=== PATIENT | male | born 1955 | race Caucasian/White ===

== ENCOUNTER 2017-03-18 11:00 | Emergency (ER) | payer MEDICARE, MEDICAID ==
[2017-03-18] MEDS ORDERED: HYDROmorphone 0.5 MG/0.5 ML Syringe IVPUSH ONE (11:50)
[2017-03-18] MEDS ORDERED: Alum Hydrox/Mag Hydrox/Simeth 30 ML, Lidocaine 2% 15 ML PO ONE ×2 (11:50)
[2017-03-18] MEDS ORDERED: Sodium Chloride 0.9% 10 ML Syringe FLUSH PRN (11:51)
--- NOTE | 2017-03-18 11:53 | EDM.PDOC ---
ED HPI GENERAL MEDICAL PROBLEM - General Chief Complaint: Abdominal Pain Stated Complaint: STOMACH PAIN Time Seen by Provider: 03/18/17 11:32 Source of Information: Reports: Patient History Limitations: Reports: No Limitations - History of Present Illness INITIAL COMMENTS - FREE TEXT/NARRATIVE: Patient is 61-year-old male who presents to the ED complaining of abdominal pain. States the pains has been going on for the past 8 months with unclear etiology. He's been seen by his PCP Dr. Ochoa. He's had no EGD or colonoscopy. Patient states the abdominal pain has progressively gotten worse over the past 4 days. He is nauseated with no vomiting. He has had a little diarrhea today. Normally discomfort will go away with taking Gaviscon. As of recently it has not been working. Describes the pain to the periumbilical region as an upset stomach. This pain worsens with coffee and diet Coke. He has a poor appetite. He has not had a EGD or colonoscopy recently. He's had 4 episodes of diarrhea this morning denies any blood present. Denies any recent ingestion of any bad or questionable food. No out of country travel. No recent sick exposures. States he is feeling anxious unknown why. He sees Dr. peres for anxiety, depression, and also schizophrenia. No changes to medications. He has taken a Valium this morning with no changes to anxiety. In addition he has had intermittent chest pain with onset of abdominal pain. With intermittent shortness of breath as well. He has a chronic cough described as nonproductive. This has been a long ongoing issue secondary to his smoking history. He continues to smoke one pack per day. Past medical history: Hypoglycemia, hypertension, COPD, emphysema, pancreatitis , chronic back pain, anxiety, depression, schizophrenia, type 2 diabetes with the last A1c of 7.4 Current medications include: Metoprolol succinate, aspirin, lisinopril, insulin pump, Lasix, Lipitor, lamotrigine, Valium, and trazodone Middle Abdomen Pain Score (Numeric/FACES): 4 - Related Data Allergies Allergy/AdvReac Type Severity Reaction Status Date / Time celecoxib [From Celebrex] AdvReac Nausea Verified 06/27/15 10:26 mirtazapine [From Remeron] AdvReac Confusion Verified 06/27/15 10:26 Home Meds: Home Meds Metoprolol Succinate 50 mg PO DAILY 11/06/13 [History] Aspirin [Halfprin] 81 mg PO DAILY 10/01/14 [History] Lisinopril 20 mg PO DAILY 10/01/14 [History] Subcutaneous Insulin Pump [Insulin Pump] 0 units INJECT ASDIRECTED 11/29/14 [ History] Furosemide [Lasix] 40 mg PO DAILY 05/12/15 [History] atorvaSTATin [Lipitor] 10 mg PO BEDTIME 05/12/15 [History] lamoTRIgine [Lamotrigine] 100 mg PO BID 05/12/15 [History] lamoTRIgine [Lamotrigine] 150 mg PO ACBREAKFAST 05/12/15 [History] traZODone 200 mg PO BEDTIME 03/18/17 [History] Past Medical History HEENT History: Reports: Impaired Vision Cardiovascular History: Reports: High Cholesterol, Hypertension Other Cardiovascular History: 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 Respiratory History: Reports: COPD Other Respiratory History: emphysema Gastrointestinal History: Reports: Pancreatitis Musculoskeletal History: Reports: Back Pain, Chronic Psychiatric History: Reports: Anxiety, Depression, Schizophrenia Endocrine/Metabolic History: Reports: Diabetes, Type II Oncologic (Cancer) History: Reports: None - Past Surgical History GI Surgical History: Reports: Hernia, Inguinal Neurological Surgical History: Reports: Lumbar Spine, Other (See Below) Social & Family History - Tobacco Use Smoking Status *Q: Current Every Day Smoker Years of Tobacco use: 40 Packs/Tins Daily: 1 Used Tobacco, but Quit: No Second Hand Smoke Exposure: No - Caffeine Use Caffeine Use: Reports: Coffee, Soda - Alcohol Use Days Per Week of Alcohol Use: 0 - Recreational Drug Use Recreational Drug Use: No - Living Situation & Occupation Living situation: Reports: Alone, Single Occupation: Unemployed ED ROS GENERAL - Review of Systems Review Of Systems: See Below Constitutional: Reports: Decreased Appetite. Denies: Fever, Chills, Malaise Respiratory: Reports: Shortness of Breath (chronic), Pleuritic Chest Pain (Off- and-on), Cough (Nonproductive). Denies: Hemoptysis Cardiovascular: Reports: Chest Pain (Substernal). Denies: Dyspnea on Exertion, Orthopnea, Palpitations, PND, Syncope GI/Abdominal: Reports: Abdominal Pain, Constipation, Diarrhea, Decreased Appetite, Nausea (Intermittent). Denies: Black Stool, Bloody Stool, Difficulty Swallowing, Distension, Flatus, Hematemesis, Hematochezia, Melena, Stool Incontinence, Vomiting : Denies: Dysuria, Frequency, Hematuria, Incontinence, Pain Musculoskeletal: Reports: No Symptoms Neurological: Reports: No Symptoms ED EXAM, GI/ABD - Physical Exam Exam: See Below Exam Limited By: No Limitations General Appearance: Alert, WD/WN, No Apparent Distress Ears: Hearing Grossly Normal Nose: Normal Inspection Throat/Mouth: Normal Inspection, Normal Oropharynx, Normal Voice, No Airway Compromise Neck: Normal Inspection, Supple, Full Range of Motion Respiratory/Chest: No Respiratory Distress, Lungs Clear, Normal Breath Sounds, No Accessory Muscle Use, Chest Non-Tender Cardiovascular: Normal Peripheral Pulses, Regular Rate, Rhythm GI/Abdominal Exam: Normal Bowel Sounds, Soft, No Organomegaly, No Distention, No Abnormal Bruit, No Mass, Other (Right upper quadrant and periumbilical region. Positive Beltre sign) Back Exam: Normal Inspection. No: CVA Tenderness (L), CVA Tenderness (R) Extremities: Normal Inspection, Normal Range of Motion, Non-Tender, Normal Capillary Refill, Other (2+ to the ankles bilaterally) Neurological: Alert, Oriented, CN II-XII Intact, Normal Cognition, No Motor/ Sensory Deficits Psychiatric: Normal Affect, Normal Mood Skin Exam: Warm, Dry, Intact, Normal Color Course - Vital Signs Last Recorded V/S: Last Vital Signs Temp 98.1 F 03/18/17 13:15 Pulse 71 03/18/17 13:15 Resp 22 H 03/18/17 13:15 BP 171/87 H 03/18/17 13:15 Pulse Ox 87 L 03/18/17 13:15 - Orders/Labs/Meds Orders: Active Orders 24 hr Category Date Time Status EKG Documentation Completion [RC] STAT Care 03/18/17 11:56 Active Peripheral IV Care [RC] . DIRECTED Care 03/18/17 11:51 Active Peripheral IV Insertion Adult [OM.PC] Stat Oth 03/18/17 11:51 Ordered Labs: Laboratory Tests 03/18/17 03/18/17 03/18/17 Range/Units 12:15 12:15 12:15 WBC 6.27 (4.23-9.07) K/mm3 RBC 5.24 (4.63-6.08) M/mm3 Hgb 17.1 (13.7-17.5) gm/L Hct 52.2 H (40.1-51.0) % MCV 99.6 H (79.0-92.2) fl MCH 32.6 H (25.7-32.2) pg MCHC 32.8 (32.2-35.5) g/dl RDW Std Deviation 60.4 H (35.1-43.9) fL Plt Count 285 (163-337) K/mm3 MPV 9.1 L (9.4-12.3) fl Neut % (Auto) 68.6 H (34.0-67.9) % Lymph % (Auto) 18.2 L (21.8-53.1) % [place] % (Auto) 10.5 (5.3-12.2) % Eos % (Auto) 1.9 (0.8-7.0) Baso % (Auto) 0.6 (0.1-1.2) % Neut # (Auto) 4.30 (1.78-5.38) K/mm3 Lymph # (Auto) 1.14 L (1.32-3.57) K/mm3 [place] # (Auto) 0.66 (0.30-0.82) K/mm3 Eos # (Auto) 0.12 (0.04-0.54) K/mm3 Baso # (Auto) 0.04 (0.01-0.08) K/mm3 APTT (22-36) SECONDS Sodium 140 (136-145) mEq/L Potassium 4.3 (3.5-5.1) mEq/L Chloride 103 (98-107) mEq/L Carbon Dioxide 31 (21-32) mEq/L Anion Gap 10.3 (5-15) BUN 10 (7-18) mg/dL Creatinine 1.2 (0.7-1.3) mg/dL Est Cr Clr Drug Dosing 67.59 mL/min Estimated GFR (MDRD) > 60 (>60) mL/min BUN/Creatinine Ratio 8.3 L (14-18) Glucose 126 H (74-106) mg/dL Calcium 9.1 (8.5-10.1) mg/dL Total Bilirubin 0.6 (0.2-1.0) mg/dL Direct Bilirubin 0.20 (0.0-0.2) mg/dl GGT 100 H (15-85) U/L AST 21 (15-37) U/L ALT 36 (16-63) U/L Alkaline Phosphatase 184 H (46-116) U/L Troponin I 0.142 H* (0.00-0.056) ng/mL C-Reactive Protein 1.2 H* (<1.0) mg/dL Lmi-[id number]-Emhtodazbjs Pept 576 H (0-125) pg/mL Total Protein 7.3 (6.4-8.2) g/dl Albumin 3.4 (3.4-5.0) g/dl Globulin 3.9 gm/dL Albumin/Globulin Ratio 0.9 L (1-2) Lipase 71 L (73-393) U/L Urine Color (Yellow) Urine Appearance (Clear) Urine pH (5.0-8.0) Ur Specific [place] (1.005-1.030) Urine Protein (Negative) Urine Glucose (UA) (Negative) Urine Ketones (Negative) Urine Occult Blood (Negative) Urine Nitrite (Negative) Urine Bilirubin (Negative) Urine Urobilinogen (0.2-1.0) Ur Leukocyte Esterase (Negative) Urine RBC (0-5) /hpf Urine WBC (0-5) /hpf Ur Epithelial Cells (0-5) /hpf Urine Bacteria (FEW) /hpf Urine Mucus (FEW) /hpf 03/18/17 03/18/17 Range/Units 12:15 13:45 WBC (4.23-9.07) K/mm3 RBC (4.63-6.08) M/mm3 Hgb (13.7-17.5) gm/L Hct (40.1-51.0) % MCV (79.0-92.2) fl MCH (25.7-32.2) pg MCHC (32.2-35.5) g/dl RDW Std Deviation (35.1-43.9) fL Plt Count (163-337) K/mm3 MPV (9.4-12.3) fl Neut % (Auto) (34.0-67.9) % Lymph % (Auto) (21.8-53.1) % [place] % (Auto) (5.3-12.2) % Eos % (Auto) (0.8-7.0) Baso % (Auto) (0.1-1.2) % Neut # (Auto) (1.78-5.38) K/mm3 Lymph # (Auto) (1.32-3.57) K/mm3 [place] # (Auto) (0.30-0.82) K/mm3 Eos # (Auto) (0.04-0.54) K/mm3 Baso # (Auto) (0.01-0.08) K/mm3 APTT 29 (22-36) SECONDS Sodium (136-145) mEq/L Potassium (3.5-5.1) mEq/L Chloride (98-107) mEq/L Carbon Dioxide (21-32) mEq/L Anion Gap (5-15) BUN (7-18) mg/dL Creatinine (0.7-1.3) mg/dL Est Cr Clr Drug Dosing mL/min Estimated GFR (MDRD) (>60) mL/min BUN/Creatinine Ratio (14-18) Glucose (74-106) mg/dL Calcium (8.5-10.1) mg/dL Total Bilirubin (0.2-1.0) mg/dL Direct Bilirubin (0.0-0.2) mg/dl GGT (15-85) U/L AST (15-37) U/L ALT (16-63) U/L Alkaline Phosphatase (46-116) U/L Troponin I (0.00-0.056) ng/mL C-Reactive Protein (<1.0) mg/dL Gza-G-Xxvpzzlsaxg Pept (0-125) pg/mL Total Protein (6.4-8.2) g/dl Albumin (3.4-5.0) g/dl Globulin gm/dL Albumin/Globulin Ratio (1-2) Lipase (73-393) U/L Urine Color Yellow (Yellow) Urine Appearance Clear (Clear) Urine pH 7.5 (5.0-8.0) Ur Specific [place] 1.020 (1.005-1.030) Urine Protein 1+ H (Negative) Urine Glucose (UA) Negative (Negative) Urine Ketones Trace H (Negative) Urine Occult Blood Negative (Negative) Urine Nitrite Negative (Negative) Urine Bilirubin Negative (Negative) Urine Urobilinogen 0.2 (0.2-1.0) Ur Leukocyte Esterase Trace H (Negative) Urine RBC Not seen (0-5) /hpf Urine WBC 0-5 (0-5) /hpf Ur Epithelial Cells 0-5 (0-5) /hpf Urine Bacteria Few (FEW) /hpf Urine Mucus Few (FEW) /hpf Meds: Medications Discontinued Medications Generic Name Dose Route Start Last Admin Trade Name Freq PRN Reason Stop Dose Admin Aspirin 243 mg 03/18/17 13:08 03/18/17 13:23 Aspirin PO 03/18/17 13:09 243 mg ONETIME ONE Administration Al Hydroxide/Mg Hydroxide 30 0 ml 03/18/17 11:50 03/18/17 12:14 ml/ Lidocaine HCl 15 ml PO 03/18/17 11:51 45 ml ONETIME ONE Administration Hydromorphone HCl 0.25 mg 03/18/17 11:50 03/18/17 12:16 Dilaudid IVPUSH 03/18/17 11:51 0.25 mg ONETIME ONE Administration Sodium Chloride 1,000 mls @ 150 mls/hr 03/18/17 12:00 03/18/17 12:18 Normal Saline IV 150 mls/hr ASDIRECTED NAN Administration Heparin Sodium/Dextrose 25,000 units in 500 mls @ 30.481 mls/hr 03/18/17 13: 15 03/18/17 13:28 Heparin 25,000 Units In D5w 500 Ml IV 30.481 mls/hr TITRATE NAN Administration Protocol 12 UNITS/KG/HR Lorazepam 0.5 mg 03/18/17 13:51 03/18/17 13:55 Ativan IVPUSH 03/18/17 13:52 0.5 mg ONETIME STA Administration Lorazepam Confirm 03/18/17 13:56 03/18/17 13:59 Ativan Administered 03/18/17 13:57 Not Given Dose 2 mg .ROUTE .STK-MED ONE Sodium Chloride 10 ml 03/18/17 11:51 03/18/17 12:18 Saline Flush FLUSH 10 ml ASDIRECTED PRN Administration Keep Vein Open - Re-Assessments/Exams Free Text/Narrative Re-Assessment/Exam: Order peripheral IV with normal saline, Dilaudid 0.5 mg IVP, and GI cocktail. Initial labs and studies include CBC, chem 14, CRP, lipase, UA, troponin, chest x-ray one view, and 2 view of the abdomen flat and upright. In addition ordered GGT and direct bilirubin. Patient notes dark urine with onset of pain to RUQ and perimumbilical region. EKG reviewed: Sinus rhythm rate of [address] changes noted. CXR and abdominal x-ray reviewed with did not reveal any concerning findings. Final interpretation pending. Labs reviewed: White blood cell count 6.27, hemoglobin 17.1, platelets 285, neutrophil percentage 68.6 with no left shift, sodium 140, potassium 4.3, creatinine 1.2, glucose 126, AST 21, ill T 36, alk phosphatase is 184, GGT is 100, bili 0.25, troponin 0.142, CRP 1.2, BNP is 576, lipase 71. 03/18/17 13:09 Reassessment, patient is pain free. He took ASA 81 mg this morning. Chest pain to the left side of the chest occurred this morning. Has since improved. Patient requests being transferred to [facility]. Called [facility]. Ordered heparin bolus + drip. 03/18/17 13:16 vital signs: Blood pressure 171/87, HR 71, respirations 22, and O2 sats 87% on room air after dilaudid IV. O2 via NC will be applied. 1321 Spoke with commissioning specialist hospitalists. Suggests Speaking with Dr. Marti on cardiologists. X-ray of the chest final interpretation: Nothing acute is seen on PA chest x- ray. X-ray of the abdomen bowel interpretation: Findings compatible with mild distal small bowel obstruction. Differential also includes gastroenteritis. His results were sent with patient to [facility]. Departure - Departure Time of Disposition: 13:23 Disposition: DC/Tfer to Acute Hospital 02 Condition: Good Clinical Impression: Elevated troponin, NSTEMI (non-ST elevated myocardial infarction) Abdominal pain Qualifiers: Abdominal location: generalized Qualified Code(s): R10.84 - Generalized abdominal pain - Discharge Information Referrals: Ronald Ivory MD [Primary Care Provider] - Forms: ED Department Discharge - My Orders Last 24 Hours: My Active Orders 03/18/17 11:51 Peripheral IV Care [RC] . DIRECTED Peripheral IV Insertion Adult [OM.PC] Stat 03/18/17 11:56 EKG Documentation Completion [RC] STAT - Assessment/Plan Last 24 Hours: My Active Orders 03/18/17 11:51 Peripheral IV Care [RC] . DIRECTED Peripheral IV Insertion Adult [OM.PC] Stat 03/18/17 11:56 EKG Documentation Completion [RC] STAT
[2017-03-18] MEDS ORDERED: Sodium Chloride 0.9% 1,000 ML IV SCH (12:00)
[2017-03-18] MEDS ORDERED: Aspirin 81 MG Tab.Chew PO ONE (13:08)
[2017-03-18] MEDS ORDERED: Heparin Sodium/D5W 25,000 UNITS/500 ML BAG IV SCH (13:15)
[2017-03-18 13:39] VITALS: BP 171/87
[2017-03-18] MEDS ORDERED: LORazepam 2 MG/ML MDV IVPUSH STA (13:51)
--- NOTE | 2017-03-18 13:55 | CR ---
Chest: Frontal view of the chest is obtained. Comparison: Previous chest x-ray of 06/27/15. Heart size at the upper limits of normal. Tortuous thoracic aorta is seen. Lungs are clear with no acute infiltrates. Bony structures are grossly intact. Impression: 1. Nothing acute is seen on PA chest x-ray. Diagnostic code #1
--- NOTE | 2017-03-18 13:55 | CR ---
Abdomen: Supine and upright views of the abdomen were obtained. Air-fluid levels within slightly prominent small bowel are noted within the left upper and lesser within the right upper abdomen. No free air is seen. Calcifications are noted within the pelvis compatible with phleboliths. Arterial calcification is also seen within the pelvis. Slight degenerative change is noted within the spine. Impression: 1. Findings compatible with mild distal small bowel obstruction. Differential also includes gastroenteritis. Diagnostic code #3
[2017-03-18] MEDS ORDERED: LORazepam 2 MG/ML MDV ONE (13:56)
== END 2017-03-18 14:06 ==
LOC: JD.ED 11:00
DX: I21.4 Non-ST elevation (NSTEMI) myocardial infarction (principal); R10.84 Generalized abdominal pain; R74.8 Abnormal levels of other serum enzymes; I10 Essential (primary) hypertension; E78.00 Pure hypercholesterolemia, unspecified; J44.9 Chronic obstructive pulmonary disease, unspecified; F32.9 Major depressive disorder, single episode, unspecified; F20.9 Schizophrenia, unspecified; E11.9 Type 2 diabetes mellitus without complications; F17.210 Nicotine dependence, cigarettes, uncomplicated; Z98.890 Other specified postprocedural states; Z79.82 Long term (current) use of aspirin; Z79.899 Other long term (current) drug therapy; R06.02 Shortness of breath
CPT/HCPCS: 36415; 71010; 74020; 80053; 81001; 82248; 82977; 83690; 83880; 84484; 85025; 85730; 86140; 93005; 96361; 96365; 96375; 99285; A9270; J1644; J2060; J7040; J7050; 99284; J1170

== ENCOUNTER 2017-04-28 09:26 | Emergency (ER) | payer MEDICARE, MEDICAID ==
[2017-04-28] MEDS ORDERED: Sodium Chloride 0.9% 10 ML Syringe FLUSH PRN (09:39)
[2017-04-28] MEDS ORDERED: Albuterol/Ipratropium 3.0-0.5 MG/3 ML Neb Soln NEB ONE (09:53)
--- NOTE | 2017-04-28 10:07 | EDM.PDOC ---
ED HPI GENERAL MEDICAL PROBLEM - General Chief Complaint: Chest Pain Stated Complaint: CHEST PAIN Time Seen by Provider: 04/28/17 09:39 Source of Information: Reports: Patient, RN Notes Reviewed - History of Present Illness INITIAL COMMENTS - FREE TEXT/NARRATIVE: 61 year old male comes in with mild anterior chest discomfort present for about the last 3 hrs. Mild ache and pressure feeling anterior chest, worse with deep breathing. has a chronic nonprod cough. Hx of COPD, smoking hx. Hx of insulin dependent diabetes. has had some chronic swelling of his lower legs, has been treated recently and still on doxycycline for lower leg "cellulitis". No current abd pain, no nausea, vomiting or diaphoresis. Left Chest Pain Score (Numeric/FACES): 3 - Related Data Allergies Allergy/AdvReac Type Severity Reaction Status Date / Time NSAIDS (Non-Steroidal Allergy Stomach Verified 04/28/17 09:35 Anti-Inflamma Upset celecoxib [From Celebrex] AdvReac Nausea Verified 06/27/15 10:26 mirtazapine [From Remeron] AdvReac Confusion Verified 06/27/15 10:26 Home Meds: Home Meds Metoprolol Succinate 50 mg PO DAILY 11/06/13 [History] Aspirin [Halfprin] 81 mg PO DAILY 10/01/14 [History] Lisinopril 20 mg PO DAILY 10/01/14 [History] Subcutaneous Insulin Pump [Insulin Pump] 0 units INJECT ASDIRECTED 11/29/14 [ History] Furosemide [Lasix] 40 mg PO DAILY 05/12/15 [History] atorvaSTATin [Lipitor] 10 mg PO BEDTIME 05/12/15 [History] lamoTRIgine [Lamotrigine] 100 mg PO BID 05/12/15 [History] lamoTRIgine [Lamotrigine] 150 mg PO ACBREAKFAST 05/12/15 [History] traZODone 200 mg PO BEDTIME 03/18/17 [History] Albuterol [Ventolin HFA] 0 gm INH Q4H PRN 04/28/17 [History] Bumetanide 2 mg PO DAILY 04/28/17 [History] Cefpodoxime [Vantin] 200 mg PO BID 04/28/17 [History] Diazepam [Valium] 5 mg PO TID PRN 04/28/17 [History] Doxycycline [Vibramycin] 100 mg PO BID 04/28/17 [History] Furosemide 40 mg PO DAILY 04/28/17 [History] Hydrocodone/Acetaminophen [Hydrocodon-Acetaminophen 5-325] 1 each PO Q6H PRN [History] Insulin Aspart [NovoLOG] 25 unit SUBCUT QID 04/28/17 [History] Omeprazole 20 mg PO DAILY 04/28/17 [History] Pantoprazole [ProTONIX] 40 mg PO ACBREAKFAST 04/28/17 [History] atorvaSTATin [Lipitor] 10 mg PO DAILY 04/28/17 [History] traZODone HCl [Trazodone HCl] 200 mg PO BEDTIME 04/28/17 [History] Past Medical History HEENT History: Reports: Other (See Below) Other HEENT History: wears glasses Cardiovascular History: Reports: High Cholesterol, Hypertension Respiratory History: Reports: COPD Gastrointestinal History: Reports: GERD Endocrine/Metabolic History: Reports: Diabetes, Type II - Past Surgical History Musculoskeletal Surgical History: Reports: Shoulder Surgery Social & Family History - Tobacco Use Smoking Status *Q: Current Every Day Smoker Years of Tobacco use: 40 Packs/Tins Daily: 0.5 - Recreational Drug Use Recreational Drug Use: No ED ROS GENERAL - Review of Systems Review Of Systems: See Below Constitutional: Denies: Fever, Chills, Diaphoresis HEENT: Denies: Sinus Problem, Throat Pain Respiratory: Reports: Shortness of Breath (chronically, especially exertional), Cough. Denies: Sputum Cardiovascular: Reports: Chest Pain, Dyspnea on Exertion GI/Abdominal: Denies: Abdominal Pain, Nausea, Vomiting Musculoskeletal: Denies: Leg Pain, Muscle Pain Skin: Reports: Erythema (bilateral lower legs) Neurological: Denies: Trouble Speaking, Difficulty Walking, Weakness ED EXAM, GENERAL - Physical Exam Exam: See Below General Appearance: Alert, No Apparent Distress Throat/Mouth: Normal Inspection, Normal Oropharynx Head: Atraumatic. No: Facial Swelling Neck: Supple, Full Range of Motion, Other (no JVD) Respiratory/Chest: Chest Non-Tender, Respiratory Distress (mild tachypnea), Rhonchi (mild L base). No: Accessory Muscle Use Cardiovascular: Regular Rate, Rhythm GI/Abdominal: Soft, Non-Tender. No: Guarding Back Exam: No: CVA Tenderness (L), CVA Tenderness (R) Extremities: Pedal Edema (bilat, right somewhat worse), Leg Pain (mild tenderness R calf), Redness (erythema bilat lower legs, suggestive for vascular insufficiency, stasis dermatitis) Neurological: Alert, Oriented, No Motor/Sensory Deficits Skin Exam: Warm, Dry EKG INTERPRETATION EKG Date: 04/28/17 Rhythm: NSR P-Wave: Present QRS: Normal ST-T: Depressed (T wave inversions V2-4, mild ST depression V3 and V4) Course - Vital Signs Last Recorded V/S: Last Vital Signs Temp 97.1 F 04/28/17 09:30 Pulse 97 04/28/17 09:30 Resp 16 04/28/17 09:30 BP 136/76 04/28/17 09:30 Pulse Ox 95 04/28/17 10:04 - Orders/Labs/Meds Orders: Active Orders 24 hr Category Date Time Status EKG 12 Lead [EKG Documentation Completion] [RC] STAT Care 04/28/17 09:39 Active Oxygen Therapy [RC] ASDIRECTED Care 04/28/17 09:53 Active Peripheral IV Care [RC] . DIRECTED Care 04/28/17 09:40 Active RT Aerosol Therapy [RC] ASDIRECTED Care 04/28/17 09:53 Active Chest 1V Frontal [CR] Stat Exams 04/28/17 09:39 Taken Sodium Chloride 0.9% [Saline Flush] Med 04/28/17 09:39 Active 10 ml FLUSH ASDIRECTED PRN Peripheral IV Insertion Adult [OM.PC] Stat Oth 04/28/17 09:39 Ordered Medication Orders Sodium Chloride (Saline Flush) 10 ml FLUSH ASDIRECTED PRN PRN Reason: Keep Vein Open Last Admin: 04/28/17 09:42 Dose: 10 ml Labs: Laboratory Tests 04/28/17 04/28/17 04/28/17 Range/Units 09:35 09:35 09:35 WBC 6.36 (4.23-9.07) K/mm3 RBC 5.35 (4.63-6.08) M/mm3 Hgb 17.8 H (13.7-17.5) gm/L Hct 52.8 H (40.1-51.0) % MCV 98.7 H (79.0-92.2) fl MCH 33.3 H (25.7-32.2) pg MCHC 33.7 (32.2-35.5) g/dl RDW Std Deviation 61.5 H (35.1-43.9) fL Plt Count 254 (163-337) K/mm3 MPV 9.4 (9.4-12.3) fl Neut % (Auto) 61.1 (34.0-67.9) % Lymph % (Auto) 20.8 L (21.8-53.1) % [place] % (Auto) 12.9 H (5.3-12.2) % Eos % (Auto) 4.4 (0.8-7.0) Baso % (Auto) 0.8 (0.1-1.2) % Neut # (Auto) 3.89 (1.78-5.38) K/mm3 Lymph # (Auto) 1.32 (1.32-3.57) K/mm3 [place] # (Auto) 0.82 (0.30-0.82) K/mm3 Eos # (Auto) 0.28 (0.04-0.54) K/mm3 Baso # (Auto) 0.05 (0.01-0.08) K/mm3 D-Dimer, Quantitative (0.19-0.59) mg/L Sodium 142 (136-145) mEq/L Potassium 4.0 (3.5-5.1) mEq/L Chloride 102 (98-107) mEq/L Carbon Dioxide 35 H (21-32) mEq/L Anion Gap 9.0 (5-15) BUN 25 H (7-18) mg/dL Creatinine 1.4 H (0.7-1.3) mg/dL Est Cr Clr Drug Dosing 57.94 mL/min Estimated GFR (MDRD) 52 (>60) mL/min BUN/Creatinine Ratio 17.9 (14-18) Glucose 112 H (74-106) mg/dL Calcium 9.1 (8.5-10.1) mg/dL Total Bilirubin 0.5 (0.2-1.0) mg/dL AST 27 (15-37) U/L ALT 25 (16-63) U/L Alkaline Phosphatase 154 H (46-116) U/L Troponin I 0.131 H* (0.00-0.056) ng/mL NT-Pro-B Natriuret Pep 165 H (0-125) pg/mL Total Protein 7.6 (6.4-8.2) g/dl Albumin 3.6 (3.4-5.0) g/dl Globulin 4.0 gm/dL Albumin/Globulin Ratio 0.9 L (1-2) 04/28/17 04/28/17 Range/Units 09:52 12:51 WBC (4.23-9.07) K/mm3 RBC (4.63-6.08) M/mm3 Hgb (13.7-17.5) gm/L Hct (40.1-51.0) % MCV (79.0-92.2) fl MCH (25.7-32.2) pg MCHC (32.2-35.5) g/dl RDW Std Deviation (35.1-43.9) fL Plt Count (163-337) K/mm3 MPV (9.4-12.3) fl Neut % (Auto) (34.0-67.9) % Lymph % (Auto) (21.8-53.1) % [place] % (Auto) (5.3-12.2) % Eos % (Auto) (0.8-7.0) Baso % (Auto) (0.1-1.2) % Neut # (Auto) (1.78-5.38) K/mm3 Lymph # (Auto) (1.32-3.57) K/mm3 [place] # (Auto) (0.30-0.82) K/mm3 Eos # (Auto) (0.04-0.54) K/mm3 Baso # (Auto) (0.01-0.08) K/mm3 D-Dimer, Quantitative 0.48 (0.19-0.59) mg/L Sodium (136-145) mEq/L Potassium (3.5-5.1) mEq/L Chloride (98-107) mEq/L Carbon Dioxide (21-32) mEq/L Anion Gap (5-15) BUN (7-18) mg/dL Creatinine (0.7-1.3) mg/dL Est Cr Clr Drug Dosing mL/min Estimated GFR (MDRD) (>60) mL/min BUN/Creatinine Ratio (14-18) Glucose (74-106) mg/dL Calcium (8.5-10.1) mg/dL Total Bilirubin (0.2-1.0) mg/dL AST (15-37) U/L ALT (16-63) U/L Alkaline Phosphatase (46-116) U/L Troponin I 0.115 H* (0.00-0.056) ng/mL NT-Pro-B Natriuret Pep (0-125) pg/mL Total Protein (6.4-8.2) g/dl Albumin (3.4-5.0) g/dl Globulin gm/dL Albumin/Globulin Ratio (1-2) Meds: Medications Generic Name Dose Route Start Last Admin Trade Name Freq PRN Reason Stop Dose Admin Sodium Chloride 10 ml 04/28/17 09:39 04/28/17 09:42 Saline Flush FLUSH 10 ml ASDIRECTED PRN Administration Keep Vein Open Discontinued Medications Generic Name Dose Route Start Last Admin Trade Name Freq PRN Reason Stop Dose Admin Albuterol/Ipratropium 3 ml 04/28/17 09:53 04/28/17 10:02 Duoneb 3.0-0.5 Mg/3 Ml NEB 04/28/17 09:54 3 ml ONETIME ONE Administration Furosemide 40 mg 04/28/17 12:43 04/28/17 12:54 Lasix IVPUSH 04/28/17 12:44 40 mg NOW ONE Administration - Re-Assessments/Exams Free Text/Narrative Re-Assessment/Exam: 04/28/17 13:43 CXR did not show anything acute, trop was mildly elevated, he does of hx of that , repeat trop slightly improved, he has been resting pain free while here in the ED, discharge instr. as documented. Departure - Departure Time of Disposition: 13:40 Disposition: Home, Self-Care 01 Condition: Fair Clinical Impression: Atypical chest pain Cellulitis Qualifiers: Site of cellulitis: extremity Site of cellulitis of extremity: lower extremity Laterality: unspecified laterality Qualified Code(s): L03.119 - Cellulitis of unspecified part of limb Referrals: Ronald Ivory MD [Primary Care Provider] - Forms: ED Department Discharge Additional Instructions: continue antibiotic as prescribed, continue to elevate legs as much as possible , work calf muscle multiple times per day as discussed and demonstrated,follow up with Dr Inman in about 4 to 5 days for recheck, call Sunday for appt. , return to ED if symptoms worsening in any way. - My Orders Last 24 Hours: My Active Orders 04/28/17 09:39 EKG 12 Lead [EKG Documentation Completion] [RC] STAT Chest 1V Frontal [CR] Stat Sodium Chloride 0.9% [Saline Flush] 10 ml FLUSH ASDIRECTED PRN Peripheral IV Insertion Adult [OM.PC] Stat 04/28/17 09:40 Peripheral IV Care [RC] . DIRECTED 04/28/17 09:53 Oxygen Therapy [RC] ASDIRECTED RT Aerosol Therapy [RC] ASDIRECTED - Assessment/Plan Last 24 Hours: My Active Orders 04/28/17 09:39 EKG 12 Lead [EKG Documentation Completion] [RC] STAT Chest 1V Frontal [CR] Stat Sodium Chloride 0.9% [Saline Flush] 10 ml FLUSH ASDIRECTED PRN Peripheral IV Insertion Adult [OM.PC] Stat 04/28/17 09:40 Peripheral IV Care [RC] . DIRECTED 04/28/17 09:53 Oxygen Therapy [RC] ASDIRECTED RT Aerosol Therapy [RC] ASDIRECTED
--- NOTE | 2017-04-28 12:03 | US ---
Bilateral lower extremity deep venous ultrasound: Duplex and color flow imaging was obtained of the right and left common femoral, proximal greater saphenous, superficial femoral, popliteal, posterior tibial and peroneal veins. Findings: Distal femoral veins on both sides as well as the left peroneal vein are difficult to see for compression due to skin thickening and slight subcutaneous edema. There is normal phasic flow and augmentation being seen within these veins with no secondary evidence to indicate venous thrombosis. Other veins show normal compression, augmentation and phasic flow. Impression: 1. Lower extremity skin thickening and subcutaneous edema. 2. Nothing appreciated to indicate deep venous thrombosis. Diagnostic code #2
[2017-04-28] MEDS ORDERED: Furosemide 40 MG/4 ML VIAL IVPUSH ONE (12:43)
[2017-04-28 13:58] VITALS: BP 129/81
--- NOTE | 2017-04-29 19:58 | CR ---
Chest: Portable view of the chest was obtained. Comparison: Previous chest x-ray of 03/18/17. Heart is slightly enlarged. Slight tortuosity of the thoracic aorta is seen. Mild blunting of the lateral left costophrenic angle is seen which appears to be chronic. No acute infiltrates are seen. Impression: 1. Nothing acute is appreciated on portable chest x-ray. Diagnostic code #2
== END 2017-04-28 13:58 | disposition home or self-care (01) ==
LOC: MERGE 09:26 → JD.ED 09:26
DX: R07.89 Other chest pain (principal); L03.115 Cellulitis of right lower limb; L03.116 Cellulitis of left lower limb; E78.00 Pure hypercholesterolemia, unspecified; I10 Essential (primary) hypertension; J44.9 Chronic obstructive pulmonary disease, unspecified; K21.9 Gastro-esophageal reflux disease without esophagitis; E11.9 Type 2 diabetes mellitus without complications; R06.02 Shortness of breath; F17.210 Nicotine dependence, cigarettes, uncomplicated; Z79.82 Long term (current) use of aspirin; Z79.899 Other long term (current) drug therapy; Z88.8 Allergy status to other drugs, medicaments and biological substances; Z79.4 Long term (current) use of insulin
CPT/HCPCS: 36415; 71010; 80053; 83880; 84484; 85025; 85379; 93005; 93970; 94640; 96374; 99285; J1940; J7050; 99284

== ENCOUNTER 2017-05-29 16:02 | Emergency (ER) | payer MEDICARE, MEDICAID ==
--- NOTE | 2017-05-29 17:36 | CR ---
Chest: Portable view of the chest was obtained. Comparison: Previous chest x-ray of 04/28/17. Heart is enlarged. Mild tortuosity of the thoracic aorta is seen. Lungs are clear. Bony structures are grossly intact. Impression: 1. Cardiomegaly. Nothing acute is appreciated on portable chest x-ray. Diagnostic code #2
--- NOTE | 2017-05-29 18:34 | EDM.PDOC ---
ED HPI GENERAL MEDICAL PROBLEM - General Chief Complaint: Cardiovascular Problem Stated Complaint: HIGH BP Time Seen by Provider: 05/29/17 16:45 Source of Information: Reports: Patient History Limitations: Reports: No Limitations - History of Present Illness INITIAL COMMENTS - FREE TEXT/NARRATIVE: 61-year-old male presents for evaluation treatment of high blood pressure. Reportedly the patient was at [facility] and had his blood pressure checked. He was found to be 180/100. States it was taken on the right are a second time and still found to be elevated. He is instructed to come to the ER for further management and care. Upon arrival to the ER his blood pressure was 170/80 in the right arm and 168/89 in the left arm. Upon my evaluation he is 161/87. He is denying chest pain, shortness of breath, headaches, nausea, vomiting, blurry vision, double vision or any syncope. He reports that he did feel dizzy this morning. He has also been experiencing some pain from the right side of his neck and shoulder that comes and goes. Started about 1 day ago. He did take a Percocet for the neck and shoulder discomfort. Patient is a type II diabetic. Reports his blood sugars have been running in the 140s. He does have an insulin pump. Patient is on lisinopril, Lasix and metoprolol for his blood pressure. He reports he has been taking these as normal. Patient reports in March he was diagnosed with ah NSTEMI in [place] and sent to [place]. Has a complete cardiac work-up done and was told he did not have an CT. Neck Pain Score (Numeric/FACES): 1 - Related Data Allergies Allergy/AdvReac Type Severity Reaction Status Date / Time celecoxib [From Celebrex] AdvReac Nausea Verified 05/31/17 09:28 mirtazapine [From Remeron] AdvReac Confusion Verified 05/31/17 09:28 NSAIDS (Non-Steroidal AdvReac Stomach Verified 05/31/17 09:28 Anti-Inflamma Upset Home Meds: Home Meds Metoprolol Succinate 50 mg PO DAILY 11/06/13 [History] Aspirin [Halfprin] 81 mg PO DAILY 10/01/14 [History] Subcutaneous Insulin Pump [Insulin Pump] 0 units INJECT ASDIRECTED 11/29/14 [ History] Furosemide [Lasix] 40 mg PO DAILY 05/12/15 [History] atorvaSTATin [Lipitor] 10 mg PO BEDTIME 05/12/15 [History] lamoTRIgine [Lamotrigine] 100 mg PO BID 05/12/15 [History] Albuterol [Ventolin HFA] 1 - 2 puff INH Q4H PRN 04/28/17 [History] Diazepam [Valium] 5 mg PO TID PRN 04/28/17 [History] Pantoprazole [ProTONIX] 40 mg PO ACBREAKFAST 04/28/17 [History] traZODone HCl [Trazodone HCl] 200 mg PO BEDTIME 04/28/17 [History] Budesonide/Formoterol Fumarate [Symbicort 80-4.5 Mcg Inhaler] 2 puff INH BID [History] Albuterol/Ipratropium [DuoNeb 3.0-0.5 MG/3 ML] 1 dose INH Q4H PRN 05/30/17 [ History] Lisinopril 40 mg PO DAILY 05/30/17 [History] Ranitidine [Zantac] 150 mg PO BEDTIME 05/30/17 [History] Vortioxetine Hydrobromide [Trintellix] 5 mg PO DAILY 05/30/17 [History] Past Medical History HEENT History: Reports: Impaired Vision, Other (See Below) Other HEENT History: wears glasses Cardiovascular History: Reports: High Cholesterol, Hypertension Other Cardiovascular History: 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 Respiratory History: Reports: COPD Other Respiratory History: emphysema Gastrointestinal History: Reports: GERD, Pancreatitis Musculoskeletal History: Reports: Back Pain, Chronic Psychiatric History: Reports: Anxiety, Depression, Schizophrenia Endocrine/Metabolic History: Reports: Diabetes, Type II Oncologic (Cancer) History: Reports: None - Past Surgical History Neurological Surgical History: Reports: Lumbar Spine, Other (See Below) Musculoskeletal Surgical History: Reports: Shoulder Surgery Social & Family History - Tobacco Use Smoking Status *Q: Current Every Day Smoker Years of Tobacco use: 40 Packs/Tins Daily: 0.5 Used Tobacco, but Quit: No Second Hand Smoke Exposure: No - Caffeine Use Caffeine Use: Reports: Coffee, Soda - Alcohol Use Days Per Week of Alcohol Use: 0 - Recreational Drug Use Recreational Drug Use: No - Living Situation & Occupation Living situation: Reports: Alone, Single Occupation: Unemployed ED ROS GENERAL - Review of Systems Review Of Systems: See Below HEENT: Denies: Vision Change Respiratory: Denies: Shortness of Breath Cardiovascular: Denies: Chest Pain GI/Abdominal: Denies: Nausea, Vomiting Musculoskeletal: Reports: Neck Pain (right sided), Shoulder Pain (right) Neurological: Reports: Dizziness (this morning now resolved). Denies: Syncope ED EXAM, GENERAL - Physical Exam Exam: See Below Exam Limited By: No Limitations General Appearance: Alert, WD/WN, No Apparent Distress Eye Exam: Bilateral Eye: Normal Inspection Ears: Normal External Exam, Normal Canal, Normal TMs Nose: Normal Inspection Throat/Mouth: Normal Inspection, Normal Lips, Normal Voice, No Airway Compromise Respiratory/Chest: No Respiratory Distress, Lungs Clear, Normal Breath Sounds Cardiovascular: Normal Peripheral Pulses, Regular Rate, Rhythm, No Murmur GI/Abdominal: Soft, Non-Tender Neurological: Alert, Oriented, Normal Cognition Psychiatric: Normal Affect, Normal Mood Skin Exam: Warm, Dry, Normal Color EKG INTERPRETATION EKG Date: 05/29/17 Time: 17:10 Rate (Beats/Min): 74 [place]: LAD-Left [place] Deviation P-Wave: Present QRS: Normal ST-T: Normal QT: Normal EKG Interpretation Comments: Sinus arrhythmia. rate of 74 bpm. Late transition. no ischemic changes. Reviewed by myself and Dr. Mccurdy. Course - Vital Signs Last Recorded V/S: Last Vital Signs Temp 36.8 C 05/29/17 16:10 Pulse 81 05/29/17 19:00 Resp 20 05/29/17 16:10 BP 170/89 H 05/29/17 19:00 Pulse Ox 93 L 05/29/17 16:10 Orthostatic Blood Pressure [ 156/90 Standing] Orthostatic Blood Pressure [ 164/94 Sitting] Orthostatic Blood Pressure [ 163/87 Supine] - Orders/Labs/Meds Labs: Laboratory Tests 05/29/17 05/29/17 Range/Units 17:10 17:10 WBC 8.17 (4.23-9.07) K/mm3 RBC 5.25 (4.63-6.08) M/mm3 Hgb 17.1 (13.7-17.5) gm/L Hct 50.9 (40.1-51.0) % MCV 97.0 H (79.0-92.2) fl MCH 32.6 H (25.7-32.2) pg MCHC 33.6 (32.2-35.5) g/dl RDW Std Deviation 58.6 H (35.1-43.9) fL Plt Count 234 (163-337) K/mm3 MPV 9.1 L (9.4-12.3) fl Neut % (Auto) 72.2 H (34.0-67.9) % Lymph % (Auto) 14.7 L (21.8-53.1) % [place] % (Auto) 9.2 (5.3-12.2) % Eos % (Auto) 3.1 (0.8-7.0) Baso % (Auto) 0.6 (0.1-1.2) % Neut # (Auto) 5.90 H (1.78-5.38) K/mm3 Lymph # (Auto) 1.20 L (1.32-3.57) K/mm3 [place] # (Auto) 0.75 (0.30-0.82) K/mm3 Eos # (Auto) 0.25 (0.04-0.54) K/mm3 Baso # (Auto) 0.05 (0.01-0.08) K/mm3 Sodium 140 (136-145) mEq/L Potassium 4.0 (3.5-5.1) mEq/L Chloride 103 (98-107) mEq/L Carbon Dioxide 26 (21-32) mEq/L Anion Gap 15.0 (5-15) BUN 18 (7-18) mg/dL Creatinine 1.1 (0.7-1.3) mg/dL Est Cr Clr Drug Dosing 73.74 mL/min Estimated GFR (MDRD) > 60 (>60) mL/min BUN/Creatinine Ratio 16.4 (14-18) Glucose 98 (74-106) mg/dL Calcium 9.0 (8.5-10.1) mg/dL Total Bilirubin 0.6 (0.2-1.0) mg/dL AST 23 (15-37) U/L ALT 22 (16-63) U/L Alkaline Phosphatase 129 H (46-116) U/L Troponin I 0.093 H* (0.00-0.056) ng/mL Total Protein 7.1 (6.4-8.2) g/dl Albumin 3.5 (3.4-5.0) g/dl Globulin 3.6 gm/dL Albumin/Globulin Ratio 1.0 (1-2) - Radiology Interpretation Free Text/Narrative:: chest xray [address] Hall: 1. Cardiomegaly. I think use appreciated on portal chest x-ray. - Re-Assessments/Exams Free Text/Narrative Re-Assessment/Exam: 05/29/17 18:56 I reviewed the chest x-ray, EKG and lab results with the patient. His troponin is elevated 0.093. On review of records he's had elevated troponins ranging from 0. 142 to 0.115 for the past 2 months. In March patient was sent to [place] and had a full cardiac workup done and he was found not to have an MRI at that time. I feel he likely has a troponin leak. Patient has a follow-up appointment with his doctor tomorrow. I feel is appropriate. I will not make any medication changes today as he has a follow-up appointment tomorrow. Will discharge patient home. Discharge instructions as documented. Departure - Departure Time of Disposition: 18:59 Disposition: Home, Self-Care 01 Condition: Good Clinical Impression: Hypertensive heart disease Referrals: Kalpesh Inman MD [Primary Care Provider] - Forms: ED Department Discharge Additional Instructions: Continue with your current plan of care. Follow up with your primary car provider tomorrow as planned. Please return to the ER if your symptoms change or worsen.
[2017-05-29 19:20] VITALS: BP 170/89
== END 2017-05-29 19:10 | disposition home or self-care (01) ==
LOC: JD.ED 16:02
DX: I11.9 Hypertensive heart disease without heart failure (principal); F17.210 Nicotine dependence, cigarettes, uncomplicated; E78.00 Pure hypercholesterolemia, unspecified; E11.9 Type 2 diabetes mellitus without complications; Z88.8 Allergy status to other drugs, medicaments and biological substances; Z79.4 Long term (current) use of insulin
CPT/HCPCS: 36415; 71010; 71010-26; 80053; 84484; 85025; 93005; 99284; 99284-25

== ENCOUNTER 2017-05-31 08:21 | Day surgery (SDC) | payer MEDICARE, MEDICAID ==
[~2017-05-31 08:21] MED LIST: Lactated Ringers 1,000 ML IV SCH; Lidocaine 1%/Sod Bicarbonate in NS 8.4% 1 ML Syringe PRN; Propofol 200 MG/20 ML SDV ONE; Sodium Chloride 0.9% 10 ML Syringe FLUSH PRN; fentaNYL 100 MCG/2 ML SDV ONE
--- NOTE | 2017-05-31 08:45 | PCM.PREANE ---
Preanesthetic Assessment - Procedure Proposed Procedure: Diagnostic EGD - Anesthesia/Transfusion/Family Hx Anesthesia History: Prior Anesthesia Without Reaction Family History of Anesthesia Reaction: No Transfusion History: No Prior Transfusion(s) Intubation History: Unknown - Review of Systems General: No Symptoms Pulmonary: Other (COPD, wears 2lnc at night, 84-88% on room air ) Cardiovascular: No Symptoms, Other (HTN, CHF, ) Neurological: No Symptoms Other: Reports: Easy Bleeding, Easy Bruising, Diabetes (IDDM, insulin pump, GS 157 at 0830) - Physical Assessment NPO Status Date: 05/30/17 NPO Status Time: 20:00 Pulse: 95 O2 Sat by Pulse Oximetry: 88 (88% RA, 91% 3L, duoneb ordered ) Respiratory Rate: 20 Blood Pressure: 164/86 Temperature: 37.6 C Height: 1.78 m Weight: 121.563 kg ASA Class: 3 Mental Status: Alert & Oriented x3 Airway Class: Mallampati = 3 Dentition: Reports: Normal Dentition Thyro-Mental Finger Breadths: 3 Mouth Opening Finger Breadths: 3 ROM/Head Extension: Limited/Partial (pt has hard time moving meck posteriorially ) Lungs: Clear to Auscultation, Normal Respiratory Effort Cardiovascular: Regular Rate, Regular Rhythm - Allergies Allergies/Adverse Reactions: Allergies Allergy/AdvReac Type Severity Reaction Status Date / Time celecoxib [From Celebrex] AdvReac Nausea Verified 05/30/17 16:22 mirtazapine [From Remeron] AdvReac Confusion Verified 05/30/17 16:22 NSAIDS (Non-Steroidal AdvReac Stomach Verified 05/30/17 16:22 Anti-Inflamma Upset - Blood Blood Available: No Product(s) Available: None - Anesthesia Plan Pre-Op Medication Ordered: None Beta Keyon: Metoprolol Med Last Dose Date: 05/31/17 Med Last Dose Time: 07:00 - Acknowledgements Anesthesia Type Planned: MAC (duoneb ordered, pts saturation is 84-88% on room air, goes up to 91% on 3L.) Pt an Appropriate Candidate for the Planned Anesthesia: Yes Alternatives and Risks of Anesthesia Discussed w Pt/Guardian: Yes Pt/Guardian Understands and Agrees with Anesthesia Plan: Yes PreAnesthesia Questionnaire HEENT History: Reports: Impaired Vision, Other (See Below) Other HEENT History: wears glasses Cardiovascular History: Reports: High Cholesterol, Hypertension Other Cardiovascular History: 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 Respiratory History: Reports: COPD Other Respiratory History: emphysema Gastrointestinal History: Reports: GERD, Pancreatitis Other Gastrointestinal History: nausea, epigastric pain, benighn neoplasm of colon, duodenitis Genitourinary History: Reports: None 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 Musculoskeletal History: Reports: Back Pain, Chronic Other Musculoskeletal History: lumbar degenerative disc disease Psychiatric History: Reports: Anxiety, Depression, Schizophrenia Other Psychiatric History: insomnia Endocrine/Metabolic History: Reports: Diabetes, Type II Other Endocrine/Metabolic History: adrenal incidentaloma Hematologic History: Reports: Polycythemia Immunologic History: Reports: None Oncologic (Cancer) History: Reports: None Dermatologic History: Reports: None - Past Surgical History Neurological Surgical History: Reports: Lumbar Spine, Other (See Below) Musculoskeletal Surgical History: Reports: Shoulder Surgery - SUBSTANCE USE Smoking Status *Q: Current Every Day Smoker (1ppd for 40 years) Tobacco Use Within Last Twelve Months: Cigarettes Second Hand Smoke Exposure: No Days Per Week of Alcohol Use: 0 Recreational Drug Use History: No - HOME MEDS Home Medications: Home Meds Metoprolol Succinate 50 mg PO DAILY 11/06/13 [History] Aspirin [Halfprin] 81 mg PO DAILY 10/01/14 [History] Subcutaneous Insulin Pump [Insulin Pump] 0 units INJECT ASDIRECTED 11/29/14 [ History] Furosemide [Lasix] 40 mg PO DAILY 05/12/15 [History] atorvaSTATin [Lipitor] 10 mg PO BEDTIME 05/12/15 [History] lamoTRIgine [Lamotrigine] 100 mg PO BID 05/12/15 [History] Albuterol [Ventolin HFA] 1 - 2 puff INH Q4H PRN 04/28/17 [History] Diazepam [Valium] 5 mg PO TID PRN 04/28/17 [History] Pantoprazole [ProTONIX] 40 mg PO ACBREAKFAST 04/28/17 [History] traZODone HCl [Trazodone HCl] 200 mg PO BEDTIME 04/28/17 [History] Budesonide/Formoterol Fumarate [Symbicort 80-4.5 Mcg Inhaler] 2 puff INH BID [History] Albuterol/Ipratropium [DuoNeb 3.0-0.5 MG/3 ML] 1 dose INH Q4H PRN 05/30/17 [ History] Lisinopril 40 mg PO DAILY 05/30/17 [History] Ranitidine [Zantac] 150 mg PO BEDTIME 05/30/17 [History] Vortioxetine Hydrobromide [Trintellix] 5 mg PO DAILY 05/30/17 [History] - CURRENT (IN HOUSE) MEDS Current Meds: Current Medications Lactated Ringer's (Ringers, Lactated) 1,000 mls @ 125 mls/hr IV ASDIRECTED NAN Stop: 05/31/17 23:00 Lidocaine/Sodium Bicarbonate (Buffered Lidocaine 1% In Ns 8.4%) 0.25 ml .XX ONETIME PRN PRN Reason: Prior to IV Start Stop: 05/31/17 18:00 Sodium Chloride (Saline Flush) 10 ml FLUSH ASDIRECTED PRN PRN Reason: Keep Vein Open Stop: 05/31/17 18:00 Discontinued Medications Fentanyl (Sublimaze) Confirm Administered Dose 100 mcg .ROUTE .STK-MED ONE Stop: 05/31/17 07:46 Propofol (Diprivan 20 Ml) Confirm Administered Dose 200 mg .ROUTE .STK-MED ONE Stop: 05/31/17 07:46
[2017-05-31] MEDS ORDERED: Albuterol/Ipratropium 3.0-0.5 MG/3 ML Neb Soln NEB ONE (09:15)
--- NOTE | 2017-05-31 09:44 | PCM.OPNOTE ---
- General Post-Op/Procedure Note Date of Surgery/Procedure: 05/31/17 Operative Procedure(s): egd with bx Pre Op Diagnosis: dyspepsia Post-Op Diagnosis: Same Anesthesia Technique: MAC Primary Surgeon: Ceferino Soler EBL in mLs: 0 Complications: None Condition: Good
--- NOTE | 2017-05-31 09:50 | PCM48HPAN ---
Post Anesthesia Note - EVALUATION WITHIN 48HRS OF ANESTHETIC Vital Signs in Normal Range: Yes Patient Participated in Evaluation: Yes Respiratory Function Stable: Yes Airway Patent: Yes Cardiovascular Function Stable: Yes Hydration Status Stable: Yes Pain Control Satisfactory: Yes Nausea and Vomiting Control Satisfactory: Yes Mental Status Recovered: Yes
[2017-05-31] MEDS ORDERED: Propofol 200 MG/20 ML SDV ONE (09:59)
[2017-05-31 11:11] VITALS: BP 146/64
--- NOTE | 2017-05-31 14:37 | OR ---
DATE OF OPERATION: 05/31/2017 SURGEON: Ceferino Soler MD PREOPERATIVE DIAGNOSIS: Dyspepsia. POSTOPERATIVE DIAGNOSIS: Dyspepsia. OPERATION PERFORMED: Esophagogastroduodenoscopy with biopsy. FINDINGS: Small sliding hiatal hernia. GE junction located at 40 cm. The GE junction was free of any acute disease. The second portion of the duodenum, duodenal bulb, pyloric channel, antrum, body, cardia, and fundus of the stomach and balance of the esophagus did not show any pathology. ANESTHESIA: Done under IV sedation. DESCRIPTION OF PROCEDURE: The patient was taken to the endoscopy room, placed in a supine position, connected to monitoring equipment, given IV sedation, and placed in left lateral position with a bite block in place. Video Olympus gastroscope placed in the posterior oropharynx, under direct vision, threaded past the cricopharyngeus, down the esophagus, and into the stomach. The stomach was insufflated, and the scope was passed through the pylorus to the second portion of the duodenum. It was slowly withdrawn showing normal second portion of the duodenum, duodenal bulb, and pyloric channel. Antrum, body, cardia, and fundus of the stomach were viewed and J-maneuver was performed showing a small sliding hiatal hernia. Biopsies of the antrum were done looking for H. pylori. The scope was withdrawn to the GE junction. This did not show any acute pathology. Biopsy of the GE junction was done. Rest of the esophagus was viewed as the scope withdrawn was unremarkable. The patient tolerated the procedure and was sent to recovery room in a stable condition. Specimen was sent to pathology in a labeled container, and the patient will be followed up in the clinic. ESTIMATED BLOOD LOSS: MMODAL /[id number]
== END 2017-05-31 10:40 | disposition home or self-care (01) ==
LOC: JD.SDS 08:21
PROVIDERS: ATTEND Surgery
DX: K44.9 Diaphragmatic hernia without obstruction or gangrene (principal); I11.0 Hypertensive heart disease with heart failure; I50.33 Acute on chronic diastolic (congestive) heart failure; F31.9 Bipolar disorder, unspecified; J44.9 Chronic obstructive pulmonary disease, unspecified; M96.1 Postlaminectomy syndrome, not elsewhere classified; E66.9 Obesity, unspecified; E78.5 Hyperlipidemia, unspecified; I27.20 Pulmonary hypertension, unspecified; G47.30 Sleep apnea, unspecified; E11.9 Type 2 diabetes mellitus without complications; K21.9 Gastro-esophageal reflux disease without esophagitis; F41.9 Anxiety disorder, unspecified; F20.9 Schizophrenia, unspecified; F17.210 Nicotine dependence, cigarettes, uncomplicated; Z98.890 Other specified postprocedural states; Z79.4 Long term (current) use of insulin; Z79.51 Long term (current) use of inhaled steroids; Z79.82 Long term (current) use of aspirin; Z79.899 Other long term (current) drug therapy; Z88.6 Allergy status to analgesic agent; Z88.8 Allergy status to other drugs, medicaments and biological substances; Z68.39 Body mass index [BMI] 39.0-39.9, adult
CPT/HCPCS: 43239; J3010; J7120; 00740; 88305; J2704

== ENCOUNTER 2017-08-30 16:13 | Emergency (ER) | payer MEDICARE, MEDICAID ==
[2017-08-30] MEDS ORDERED: HYDROmorphone 1 MG/ML Syringe IM ONE ×2 (16:39→18:04)
--- NOTE | 2017-08-30 18:02 | EDM.PDOC ---
ED HPI GENERAL MEDICAL PROBLEM - General Chief Complaint: Lower Extremity Injury/Pain Stated Complaint: BACK PAIN/LEG CRAMPING Time Seen by Provider: 08/30/17 16:35 Source of Information: Reports: Patient History Limitations: Reports: No Limitations - History of Present Illness INITIAL COMMENTS - FREE TEXT/NARRATIVE: The patient presents with left leg cramping and pain. This started a few days ago. He has a history of low back pain and now it is shooting down his leg. He has no numbness or weakness. He has no bowel or bladder problems. Onset: Gradual Duration: Day(s): Location: Reports: Lower Extremity, Left (Leg from his back) Quality: Reports: Other (Cramping) Severity: Severe Improves with: Reports: None Worsens with: Reports: Movement Associated Symptoms: Reports: No Other Symptoms Left Lower Leg Pain Score (Numeric/FACES): 9 - Related Data Allergies Allergy/AdvReac Type Severity Reaction Status Date / Time celecoxib [From Celebrex] AdvReac Nausea Verified 08/30/17 16:27 mirtazapine [From Remeron] AdvReac Confusion Verified 08/30/17 16:27 NSAIDS (Non-Steroidal AdvReac Stomach Verified 08/30/17 16:27 Anti-Inflamma Upset Home Meds: Home Meds Metoprolol Succinate 50 mg PO DAILY 11/06/13 [History] Aspirin [Halfprin] 81 mg PO DAILY 10/01/14 [History] Subcutaneous Insulin Pump [Insulin Pump] 0 units INJECT ASDIRECTED 11/29/14 [ History] Furosemide [Lasix] 40 mg PO DAILY 05/12/15 [History] atorvaSTATin [Lipitor] 10 mg PO BEDTIME 05/12/15 [History] lamoTRIgine [Lamotrigine] 100 mg PO BID 05/12/15 [History] Albuterol [Ventolin HFA] 1 - 2 puff INH Q4H PRN 04/28/17 [History] Diazepam [Valium] 5 mg PO TID PRN 04/28/17 [History] Pantoprazole [ProTONIX] 40 mg PO ACBREAKFAST 04/28/17 [History] traZODone HCl [Trazodone HCl] 200 mg PO BEDTIME 04/28/17 [History] Budesonide/Formoterol Fumarate [Symbicort 80-4.5 Mcg Inhaler] 2 puff INH BID [History] Albuterol/Ipratropium [DuoNeb 3.0-0.5 MG/3 ML] 1 dose INH Q4H PRN 05/30/17 [ History] Lisinopril 40 mg PO DAILY 05/30/17 [History] Ranitidine [Zantac] 150 mg PO BEDTIME 05/30/17 [History] Vortioxetine Hydrobromide [Trintellix] 5 mg PO DAILY 05/30/17 [History] Past Medical History HEENT History: Reports: Impaired Vision, Other (See Below) Other HEENT History: wears glasses Cardiovascular History: Reports: High Cholesterol, Hypertension Other Cardiovascular History: 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 Respiratory History: Reports: COPD Other Respiratory History: emphysema Gastrointestinal History: Reports: GERD, Pancreatitis Other Gastrointestinal History: nausea, epigastric pain, benighn neoplasm of colon, duodenitis Genitourinary History: Reports: None 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 Musculoskeletal History: Reports: Back Pain, Chronic Other Musculoskeletal History: lumbar degenerative disc disease Psychiatric History: Reports: Anxiety, Depression, Schizophrenia Other Psychiatric History: insomnia Endocrine/Metabolic History: Reports: Diabetes, Type II Other Endocrine/Metabolic History: adrenal incidentaloma Hematologic History: Reports: Polycythemia Immunologic History: Reports: None Oncologic (Cancer) History: Reports: None Dermatologic History: Reports: None - Past Surgical History GI Surgical History: Reports: Hernia, Inguinal Neurological Surgical History: Reports: Lumbar Spine, Other (See Below) Musculoskeletal Surgical History: Reports: Shoulder Surgery Social & Family History - Tobacco Use Smoking Status *Q: Current Every Day Smoker Years of Tobacco use: 40 Packs/Tins Daily: 1 Used Tobacco, but Quit: No Second Hand Smoke Exposure: No - Caffeine Use Caffeine Use: Reports: Coffee, Soda - Alcohol Use Days Per Week of Alcohol Use: 0 - Recreational Drug Use Recreational Drug Use: No - Living Situation & Occupation Living situation: Reports: Alone, Single Occupation: Unemployed Review of Systems - Review of Systems Review Of Systems: See Below Constitutional: Reports: No Symptoms Eyes: Reports: No Symptoms Ears: Reports: No Symptoms Nose: Reports: No Symptoms Mouth/Throat: Reports: No Symptoms Respiratory: Reports: No Symptoms Cardiovascular: Reports: No Symptoms GI/Abdominal: Reports: No Symptoms Genitourinary: Reports: No Symptoms Musculoskeletal: Reports: Back Pain (Left side), Muscle Pain Skin: Reports: No Symptoms Neurological: Reports: No Symptoms ED EXAM, GENERAL - Physical Exam Exam: See Below Exam Limited By: No Limitations General Appearance: Alert, No Apparent Distress Ears: Normal External Exam Nose: Normal Inspection Head: Atraumatic, Normocephalic Neck: Normal Inspection Respiratory/Chest: No Respiratory Distress, Lungs Clear, Normal Breath Sounds Cardiovascular: Regular Rate, Rhythm, No Edema, No Murmur GI/Abdominal: Soft, Non-Tender, No Organomegaly, No Mass Back Exam: Other (Left lower back pain upon palpation) Extremities: Other (Pain upon palpation to the left lower leg) Course - Vital Signs Last Recorded V/S: Last Vital Signs Temp 96.8 F 08/30/17 16:27 Pulse 71 08/30/17 16:27 Resp 18 08/30/17 16:27 BP 160/87 H 08/30/17 16:27 Pulse Ox 93 L 08/30/17 16:27 - Orders/Labs/Meds Orders: Active Orders 24 hr Category Date Time Status Cardiac Monitoring [RC] . DIRECTED Care 08/30/17 16:39 Active HYDROmorphone [Dilaudid] Med 08/30/17 18:04 Once 1 mg IM ONETIME ONE Labs: Laboratory Tests 08/30/17 Range/Units 17:15 Sodium 143 (136-145) mEq/L Potassium 4.4 (3.5-5.1) mEq/L Chloride 104 (98-107) mEq/L Carbon Dioxide 31 (21-32) mEq/L Anion Gap 12.4 (5-15) BUN 14 (7-18) mg/dL Creatinine 1.2 (0.7-1.3) mg/dL Est Cr Clr Drug Dosing 66.75 mL/min Estimated GFR (MDRD) > 60 (>60) mL/min BUN/Creatinine Ratio 11.7 L (14-18) Glucose 129 H (80-115) mg/dL Calcium 9.2 (8.5-10.1) mg/dL Magnesium 2.1 (1.8-2.4) mg/dl Total Bilirubin 0.6 (0.2-1.0) mg/dL AST 23 (15-37) U/L ALT 33 (16-63) U/L Alkaline Phosphatase 115 (46-116) U/L Total Protein 7.1 (6.4-8.2) g/dl Albumin 3.5 (3.4-5.0) g/dl Globulin 3.6 gm/dL Albumin/Globulin Ratio 1.0 (1-2) Meds: Medications Discontinued Medications Generic Name Dose Route Start Last Admin Trade Name Sunil PRN Reason Stop Dose Admin Hydromorphone HCl 1 mg 08/30/17 16:39 08/30/17 16:55 Dilaudid IM 08/30/17 16:40 1 mg ONETIME ONE Administration - Re-Assessments/Exams Free Text/Narrative Re-Assessment/Exam: 08/30/17 18:01 I ordered dilaudid 1mg IM and labs. 08/30/17 18:05 His labs look good. I will give him another dose of dilaudid 1mg IM and discharge him home. He has pain meds at home and he is seeing his doctor tomorrow. Departure - Departure Time of Disposition: 18:05 Disposition: Home, Self-Care 01 Condition: Good Clinical Impression: Chronic back pain Sciatica Qualifiers: Laterality: left Qualified Code(s): M54.32 - Sciatica, left side - Discharge Information Referrals: Efrem Saul MD [Primary Care Provider] - 1 Day Forms: ED Department Discharge Additional Instructions: Take your medication as prescribed. Follow up with Dr Saul tomorrow. Please return if you are worse. - My Orders Last 24 Hours: My Active Orders 08/30/17 16:39 Cardiac Monitoring [RC] . DIRECTED 08/30/17 18:04 HYDROmorphone [Dilaudid] 1 mg IM ONETIME ONE - Assessment/Plan Last 24 Hours: My Active Orders 08/30/17 16:39 Cardiac Monitoring [RC] . DIRECTED 08/30/17 18:04 HYDROmorphone [Dilaudid] 1 mg IM ONETIME ONE
[2017-08-30 18:29] VITALS: BP 161/99
== END 2017-08-30 18:35 | disposition home or self-care (01) ==
LOC: JD.ED 16:13
DX: G89.29 Other chronic pain (principal); M54.42 Lumbago with sciatica, left side; E78.00 Pure hypercholesterolemia, unspecified; I10 Essential (primary) hypertension; E11.9 Type 2 diabetes mellitus without complications; F17.210 Nicotine dependence, cigarettes, uncomplicated; Z88.8 Allergy status to other drugs, medicaments and biological substances; Z79.82 Long term (current) use of aspirin; Z79.899 Other long term (current) drug therapy
CPT/HCPCS: 36415; 80053; 83735; 96372; 99283; J1170

== ENCOUNTER 2017-09-05 15:58 | Emergency (ER) | payer MEDICARE, MEDICAID ==
[2017-09-05 16:13] VITALS: BP 146/95
[2017-09-05] MEDS ORDERED: HYDROmorphone 1 MG/ML Syringe IM ONE (16:33)
[2017-09-05] MEDS ORDERED: predniSONE 20 MG Tab PO ONE (16:33)
--- NOTE | 2017-09-05 16:34 | EDM.PDOC ---
ED HPI GENERAL MEDICAL PROBLEM - General Chief Complaint: Lower Extremity Injury/Pain Stated Complaint: LEG CRAMPING UP Time Seen by Provider: 09/05/17 16:20 Source of Information: Reports: Patient History Limitations: Reports: No Limitations - History of Present Illness INITIAL COMMENTS - FREE TEXT/NARRATIVE: 62-year-old male presents for evaluation and treatment of back pain. Patient reports that he is experiencing back pain in his lower back with radiation down the left leg. States he's been exercising back pain for the last month. States he gets "flares " back pain. He attempted to contact his primary care provider' s office today as he has been prescribed prednisone the past but has not been called into the pharmacy yet. He currently is taking oxycodone 10 mg every 4-6 hours. Reports his last MRI was about a month and half ago. He is scheduled to see a neurosurgeon. He reports that the back pain over the last 3 days has significantly worsened. He denies any fevers, nausea, vomiting, urinary incontinence or stool incontinence. Patient has had 2 back surgeries previously. Most recent back surgery was in 2014. Location: Reports: Back Treatments FINAL TESTER: Reports: Other (see below) Other Treatments FINAL TESTER: oxycodone Left Leg Pain Score (Numeric/FACES): 9 - Related Data Allergies Allergy/AdvReac Type Severity Reaction Status Date / Time celecoxib [From Celebrex] AdvReac Nausea Verified 09/05/17 16:13 ketorolac [From Toradol] AdvReac Stomach Verified 09/05/17 17:47 Upset mirtazapine [From Remeron] AdvReac Confusion Verified 09/05/17 16:13 NSAIDS (Non-Steroidal AdvReac Stomach Verified 09/05/17 16:13 Anti-Inflamma Upset Home Meds: Home Meds Metoprolol Succinate 50 mg PO DAILY 11/06/13 [History] Aspirin [Halfprin] 81 mg PO DAILY 10/01/14 [History] Subcutaneous Insulin Pump [Insulin Pump] 0 units INJECT ASDIRECTED 11/29/14 [ History] Furosemide [Lasix] 40 mg PO DAILY 05/12/15 [History] atorvaSTATin [Lipitor] 10 mg PO BEDTIME 05/12/15 [History] lamoTRIgine [Lamotrigine] 100 mg PO BID 05/12/15 [History] Albuterol [Ventolin HFA] 1 - 2 puff INH Q4H PRN 04/28/17 [History] Diazepam [Valium] 5 mg PO TID PRN 04/28/17 [History] Pantoprazole [ProTONIX] 40 mg PO BID 04/28/17 [History] traZODone HCl [Trazodone HCl] 200 mg PO BEDTIME 04/28/17 [History] Budesonide/Formoterol Fumarate [Symbicort 80-4.5 Mcg Inhaler] 2 puff INH BID [History] Albuterol/Ipratropium [DuoNeb 3.0-0.5 MG/3 ML] 1 dose INH Q4H PRN 05/30/17 [ History] Lisinopril 40 mg PO DAILY 05/30/17 [History] Ranitidine [Zantac] 150 mg PO BEDTIME 05/30/17 [History] Vortioxetine Hydrobromide [Trintellix] 15 mg PO DAILY 05/30/17 [History] Metoprolol Succinate 25 mg PO BEDTIME 09/05/17 [History] Prednisone [IMW: predniSONE] 20 mg PO WITHBREAKFAST #4 tab 09/05/17 [Rx] oxyCODONE 10 mg PO ASDIRECTED PRN 09/05/17 [History] Past Medical History HEENT History: Reports: Impaired Vision, Other (See Below) Other HEENT History: wears glasses Cardiovascular History: Reports: High Cholesterol, Hypertension Other Cardiovascular History: 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 Respiratory History: Reports: COPD Other Respiratory History: emphysema Gastrointestinal History: Reports: GERD, Pancreatitis Other Gastrointestinal History: nausea, epigastric pain, benighn neoplasm of colon, duodenitis Genitourinary History: Reports: None 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 Musculoskeletal History: Reports: Back Pain, Chronic Other Musculoskeletal History: lumbar degenerative disc disease Psychiatric History: Reports: Anxiety, Depression, Schizophrenia Other Psychiatric History: insomnia Endocrine/Metabolic History: Reports: Diabetes, Type II Other Endocrine/Metabolic History: adrenal incidentaloma Hematologic History: Reports: Polycythemia Immunologic History: Reports: None Oncologic (Cancer) History: Reports: None Dermatologic History: Reports: None - Past Surgical History GI Surgical History: Reports: Hernia, Inguinal Neurological Surgical History: Reports: Lumbar Spine, Other (See Below) Musculoskeletal Surgical History: Reports: Shoulder Surgery Social & Family History - Family History Family Medical History: Noncontributory - Tobacco Use Smoking Status *Q: Current Every Day Smoker Years of Tobacco use: 45 Packs/Tins Daily: 1 Used Tobacco, but Quit: No Second Hand Smoke Exposure: No - Caffeine Use Caffeine Use: Reports: Coffee, Soda - Alcohol Use Days Per Week of Alcohol Use: 0 - Recreational Drug Use Recreational Drug Use: No - Living Situation & Occupation Living situation: Reports: Alone, Single Occupation: Unemployed ED ROS GENERAL - Review of Systems Review Of Systems: See Below Constitutional: Denies: Fever GI/Abdominal: Denies: Nausea, Stool Incontinence, Vomiting : Denies: Incontinence Musculoskeletal: Reports: Back Pain (low back wiht radiation to the left leg), Leg Pain Neurological: Reports: Numbness, Tingling, Difficulty Walking ED EXAM,LOWER BACK PAIN/INJURY - Physical Exam Exam: See Below Exam Limited By: No Limitations General Appearance: Alert, WD/WN, Mild Distress, Obese Eye Exam: Bilateral Eye: Normal Inspection Ears: Normal External Exam Nose: Normal Inspection Throat/Mouth: Normal Inspection, Normal Voice, No Airway Compromise Neck: Normal Inspection, Supple, Non-Tender, Full Range of Motion Respiratory/Chest: No Respiratory Distress, Lungs Clear, Normal Breath Sounds Cardiovascular: Normal Peripheral Pulses, Regular Rate, Rhythm, No Murmur Back Exam: Vertebral Tenderness (L3-sacrum and left SI joint pain) Extremities: Normal Inspection Neurological: Alert, Normal Dorsiflexion, Normal Plantar Flexion, Straight Leg Raise (L), Straight Leg Raise (R), Other (unable to flex hip more than 40 degrees due to pain in back) Psychiatric: Flat Affect Skin Exam: Warm, Dry, Normal Color Course - Vital Signs Last Recorded V/S: Last Vital Signs Temp 36.2 C 09/05/17 16:06 Pulse 68 09/05/17 16:06 Resp 18 09/05/17 16:06 BP 146/95 H 09/05/17 16:06 Pulse Ox 94 L 09/05/17 16:06 - Orders/Labs/Meds Meds: Medications Discontinued Medications Generic Name Dose Route Start Last Admin Trade Name Freq PRN Reason Stop Dose Admin Diazepam 5 mg 09/05/17 18:38 09/05/17 18:47 Valium. PO 09/05/17 18:39 5 mg ONETIME ONE Administration Hydromorphone HCl 1 mg 09/05/17 16:33 09/05/17 16:47 Dilaudid IM 09/05/17 16:34 1 mg ONETIME ONE Administration Hydromorphone HCl 0.5 mg 09/05/17 17:37 09/05/17 17:45 Dilaudid IM 09/05/17 17:38 0.5 mg ONETIME ONE Administration Hydromorphone HCl 0.5 mg 09/05/17 18:38 09/05/17 18:46 Dilaudid IM 09/05/17 18:39 0.5 mg ONETIME ONE Administration Ketorolac Tromethamine 60 mg 09/05/17 17:37 09/05/17 17:46 Toradol IM 09/05/17 17:38 Not Given ONETIME ONE Prednisone 40 mg 09/05/17 16:33 09/05/17 16:47 Prednisone PO 09/05/17 16:34 40 mg ONETIME ONE Administration - Re-Assessments/Exams Free Text/Narrative Re-Assessment/Exam: 09/05/17 19:21 Patient continues to have pain but improved. Improved with Dilaudid and valvium. Patient declined toradol citing an allergy. I will have him continue with his current plan of care. Prednisone as prescribed unless changed by Dr. Aguirre. Discharge instructions as documented. Departure - Departure Time of Disposition: 19:40 Disposition: Home, Self-Care 01 Condition: Fair Clinical Impression: Chronic back pain Sciatica Qualifiers: Laterality: left Qualified Code(s): M54.32 - Sciatica, left side - Discharge Information Prescriptions: Prednisone [IMW: predniSONE] 20 mg PO WITHBREAKFAST #4 tab Instructions: Sciatica, [id number], Back Pain, Adult, [id number] Referrals: Efrem Saul MD [Primary Care Provider] - Forms: ED Department Discharge Additional Instructions: Continue with pain medication as prescribed. Prednisone 40 mg 3 days unless directed otherwise by your primary care provider. Recommend trying some [id number] lidocaine patches. also recommend using ice or heat to the sore areas. may also try topical products such as BenGay. Follow up with neurosurgery as planned. Follow-up with PCP as needed. Please return to the ER if your symptoms change or worsen.
[2017-09-05] MEDS ORDERED: HYDROmorphone 0.5 MG/0.5 ML Syringe IM ONE ×2 (17:37→18:38)
[2017-09-05] MEDS ORDERED: Ketorolac 60 MG/2 ML SDV IM ONE (17:37)
[2017-09-05] MEDS ORDERED: Diazepam 5 MG Tab PO ONE (18:38)
== END 2017-09-05 19:45 | disposition home or self-care (01) ==
LOC: JD.ED 15:58
DX: G89.29 Other chronic pain (principal); M54.42 Lumbago with sciatica, left side; I10 Essential (primary) hypertension; E78.00 Pure hypercholesterolemia, unspecified; J44.9 Chronic obstructive pulmonary disease, unspecified; E11.9 Type 2 diabetes mellitus without complications; F17.210 Nicotine dependence, cigarettes, uncomplicated; Z88.6 Allergy status to analgesic agent; Z79.82 Long term (current) use of aspirin; Z79.4 Long term (current) use of insulin
CPT/HCPCS: 96372; 99283; A9270; J1170

== ENCOUNTER 2017-10-10 12:28 | Emergency (ER) | payer MEDICARE, MEDICAID ==
[2017-10-10 12:39] VITALS: BP 159/83
--- NOTE | 2017-10-10 13:44 | CR ---
Chest: Portable view of the chest was obtained. Comparison: Prior chest x-ray of 05/29/17. Heart size within normal limits for portable technique. Tortuous thoracic aorta is seen. Mild atelectasis seen within the right lung base. Lungs otherwise are clear. Impression: 1. Mild right basilar atelectasis. Nothing acute is otherwise seen on portable chest x-ray. Diagnostic code #2
--- NOTE | 2017-10-10 13:51 | EDM.PDOC ---
ED HPI GENERAL MEDICAL PROBLEM - General Chief Complaint: Chest Pain Stated Complaint: [facility] Time Seen by Provider: 10/10/17 12:38 Source of Information: Reports: Patient, Provider (Dr. Saul) History Limitations: Reports: No Limitations - History of Present Illness INITIAL COMMENTS - FREE TEXT/NARRATIVE: I was contacted by Dr. Saul at 11:59 that he was sending the patient to the ED for an elevated troponin. The patient states that he had dyspnea on exertion, chest congestion, including a dry cough, yesterday, nausea without emesis last night, and anxiety. He denied having chest pain, palpitations, diaphoresis, constipation, or diarrhea. He states that he had similar symptoms about 8 months ago, relieved with a DuoNeb. He did not seek a medical evaluation at that time. He states that he took about 4 DuoNeb's last night, and another one this morning , without relief. In paperwork it was sent over from [place] with the patient, a CBC was remarkable for a H/H 17.2/51.9, a CMP remarkable for a blood glucose of 213 , a BNP slightly elevated at 153, a CRP significantly elevated at 114.4, and a troponin modestly elevated at 0.112. An ECG in the clinic did not show ischemic changes. - Related Data Allergies Allergy/AdvReac Type Severity Reaction Status Date / Time celecoxib [From Celebrex] AdvReac Nausea Verified 10/10/17 12:38 ketorolac [From Toradol] AdvReac Stomach Verified 10/10/17 12:38 Upset mirtazapine [From Remeron] AdvReac Confusion Verified 10/10/17 12:38 NSAIDS (Non-Steroidal AdvReac Stomach Verified 10/10/17 12:38 Anti-Inflamma Upset Home Meds: Home Meds Metoprolol Succinate 50 mg PO DAILY 11/06/13 [History] Subcutaneous Insulin Pump [Insulin Pump] 90 units INJECT ASDIRECTED 11/29/14 [ History] Furosemide [Lasix] 40 mg PO DAILY 05/12/15 [History] atorvaSTATin [Lipitor] 10 mg PO BEDTIME 05/12/15 [History] lamoTRIgine [Lamotrigine] 100 mg PO BEDTIME 05/12/15 [History] Albuterol [Ventolin HFA] 1 - 2 puff INH Q4H PRN 04/28/17 [History] Diazepam [Valium] 5 mg PO TID PRN 04/28/17 [History] Pantoprazole [ProTONIX] 40 mg PO BID 04/28/17 [History] traZODone HCl [Trazodone HCl] 200 mg PO BEDTIME 04/28/17 [History] Budesonide/Formoterol Fumarate [Symbicort 80-4.5 Mcg Inhaler] 2 puff INH BID [History] Albuterol/Ipratropium [DuoNeb 3.0-0.5 MG/3 ML] 1 dose INH Q6HR PRN 05/30/17 [ History] Lisinopril 40 mg PO DAILY 05/30/17 [History] Ranitidine [Zantac] 150 mg PO BID 05/30/17 [History] Metoprolol Succinate 25 mg PO BEDTIME 09/05/17 [History] Vortioxetine Hydrobromide [Trintellix] 15 mg PO DAILY 10/10/17 [History] clonazePAM [Clonazepam] 1 mg PO BEDTIME PRN 10/10/17 [History] lamoTRIgine 150 mg PO DAILY 10/10/17 [History] oxyCODONE HCl/Acetaminophen [Percocet 5-325 mg Tablet] 1 tab PO Q4H PRN [History] Past Medical History HEENT History: Reports: Impaired Vision Other HEENT History: wears glasses Cardiovascular History: Reports: Heart Failure (diastolic), High Cholesterol, Hypertension Respiratory History: Reports: COPD, Sleep Apnea (on O2 3L nightly), Other (See Below) (Pulmonary hypertension) Gastrointestinal History: Reports: GERD, Pancreatitis Musculoskeletal History: Reports: Back Pain, Chronic (lumbar DDD) Psychiatric History: Reports: Bipolar Endocrine/Metabolic History: Reports: Diabetes, Type II, Obesity/BMI 30+ Hematologic History: Reports: Polycythemia - Past Surgical History Cardiovascular Surgical History: Reports: Other (See Below) (Coronary angiogram March 2017 -> right dominant circulation, mild atherosclerosis in LAD) GI Surgical History: Reports: Colonoscopy, EGD, Hernia, Inguinal (right) Neurological Surgical History: Reports: Lumbar Spine (x 2) Musculoskeletal Surgical History: Reports: Carpal Tunnel (bilateral), Shoulder Surgery (bilateral rotator cuff repair) Social & Family History - Family History Family Medical History: Noncontributory - Tobacco Use Smoking Status *Q: Former Smoker Years of Tobacco use: 40 Packs/Tins Daily: 1 Month Tobacco Last Used: Quit 2009 Second Hand Smoke Exposure: No - Caffeine Use Caffeine Use: Reports: Coffee, Soda - Alcohol Use Alcohol Use History: Yes Days Per Week of Alcohol Use: 0 Alcohol Use Frequency: Socially - Recreational Drug Use Recreational Drug Use: No - Living Situation & Occupation Living situation: Reports: Alone, Single Occupation: Unemployed ED ROS GENERAL - Review of Systems Review Of Systems: ROS reveals no pertinent complaints other than HPI. ED EXAM, GENERAL - Physical Exam Exam: See Below Exam Limited By: No Limitations General Appearance: Alert, WD/WN, No Apparent Distress Eye Exam: Bilateral Eye: Normal Inspection Ears: Normal External Exam, Hearing Grossly Normal Nose: Normal Inspection, No Blood Throat/Mouth: Normal Inspection, Normal Lips, Normal Voice, No Airway Compromise Head: Atraumatic, Normocephalic Neck: Normal Inspection, Full Range of Motion Respiratory/Chest: No Respiratory Distress, No Accessory Muscle Use, Decreased Breath Sounds, Wheezing (expiratory). No: Crackles, Rhonchi Cardiovascular: Normal Peripheral Pulses, Regular Rate, Rhythm, No Gallop, No JVD, No Murmur, No Rub GI/Abdominal: Normal Bowel Sounds, Soft, Non-Tender, No Organomegaly, No Distention, No Abnormal Bruit, No Mass, Other (Obese) (Male) Exam: Deferred Rectal (Males) Exam: Deferred Back Exam: Normal Inspection, Full Range of Motion, NT Extremities: Normal Inspection, Normal Range of Motion, No Pedal Edema, Normal Capillary Refill Neurological: Alert, Oriented, Normal Cognition, No Motor/Sensory Deficits Psychiatric: Normal Affect Skin Exam: Warm, Dry, Intact, Normal Color, No Rash EKG INTERPRETATION EKG Date: 10/10/17 Time: 12:47 Rhythm: NSR Rate (Beats/Min): 80 [place]: Normal P-Wave: Enlarged (LAE) QRS: Normal ST-T: Normal QT: Normal Comparison: No Change (05/29/2017) Course - Vital Signs Last Recorded V/S: Last Vital Signs Temp 37.0 C 10/10/17 12:35 Pulse 87 10/10/17 12:35 Resp 24 H 10/10/17 12:35 BP 159/83 H 10/10/17 12:35 Pulse Ox 94 L 10/10/17 14:33 - Orders/Labs/Meds Orders: Active Orders 24 hr Category Date Time Status RT Aerosol Therapy [RC] ASDIRECTED Care 10/10/17 14:09 Active Labs: Laboratory Tests 10/10/17 10/10/17 10/10/17 Range/Units 13:10 13:10 13:10 PT 9.7 (8.0-13.0) SECONDS INR 0.91 APTT 26 (22-36) SECONDS D-Dimer, Quantitative 0.58 (0.19-0.59) mg/L Troponin I 0.126 H* (0.00-0.056) ng/mL Meds: Medications Discontinued Medications Generic Name Dose Route Start Last Admin Trade Name Freq PRN Reason Stop Dose Admin Albuterol 2.5 mg 10/10/17 14:09 10/10/17 14:33 Proventil Neb Soln NEB 10/10/17 14:10 2.5 mg ONETIME ONE Administration Prednisone 40 mg 10/10/17 14:10 10/10/17 14:13 Prednisone PO 10/10/17 14:11 40 mg ONETIME STA Administration - Re-Assessments/Exams Free Text/Narrative Re-Assessment/Exam: 10/10/17 13:31 Portable chest radiograph appears to be grossly unremarkable. Cardiac silhouette is within normal limits. No pulmonary vascular congestion. No pleural effusions. No focal infiltrate, although there appears to be right basilar atelectasis. No pneumothorax. Formal read per the Radiologist pending. 10/10/17 14:01 The patient's troponin returns mildly elevated at 0.126. Review of prior medical records finds that his troponin has previously ranged from as low as 0.093, to his high as 0.142. He reports prior extensive cardiac workup in [place], including coronary angiogram as recently as May 2017 (medical records suggest that it was actually in March 2017), that was clean. While the patient reports dyspnea on exertion, I suspect that this is due to his underlying COPD, pulmonary hypertension, and diastolic failure. I do not suspect a coronary etiology, and I do not believe that he needs to be transferred to [place]. 10/10/17 14:[address] Saul at 14:04. He reviewed his medical records and found that the patient underwent a coronary angiogram per Dr. Marti in March 2017, finding a right dominant circulation and mild CAD in the LAD. No stents were placed. Dr. Saul agrees that the elevated troponin does not need to be pursued. For the patient's dyspnea, we will treat with an albuterol neb here in the ED, along with 40 mg prednisone. He would like the patient to follow-up with him this coming 10/12/2017. 10/10/17 15:55 The patient states that he feels considerably better following an albuterol neb and 40 mg of oral prednisone. I will discharge him home and have him follow-up with Dr. Saul this Sunday. Departure - Departure Time of Disposition: 14:14 Disposition: Home, Self-Care 01 Condition: Fair Clinical Impression: COPD exacerbation, Elevated troponin I level - Discharge Information Instructions: Chronic Obstructive Pulmonary Disease, [id number] Referrals: Efrem Saul MD [Primary Care Provider] - Forms: ED Department Discharge Additional Instructions: You were seen in the emergency room for shortness of breath with exertion, chest congestion, and a dry cough. Workup in the ER included blood work and a chest x-ray. Your troponin, a heart enzyme, was found to be elevated, but when compared to other troponins that you have had drawn, was the same as previous. For whatever reason, this appears to be a chronic condition for you. Your shortness of breath is MOST LIKELY due to a COPD exacerbation. You were treated with an albuterol neb and oral prednisone in the ER. Your case was discussed with Dr. Saul. He would like you to follow-up in his office this coming 10/12/2017. If any other problems, please do not hesitate to return to the ER. - My Orders Last 24 Hours: My Active Orders 10/10/17 14:09 RT Aerosol Therapy [RC] ASDIRECTED - Assessment/Plan Last 24 Hours: My Active Orders 10/10/17 14:09 RT Aerosol Therapy [RC] ASDIRECTED
[2017-10-10] MEDS ORDERED: Albuterol 0.083% 2.5 MG/3 ML Neb Soln NEB ONE (14:09)
[2017-10-10] MEDS ORDERED: predniSONE 20 MG Tab PO STA (14:10)
== END 2017-10-10 16:21 | disposition home or self-care (01) ==
LOC: JD.ED 12:28
DX: J44.1 Chronic obstructive pulmonary disease with (acute) exacerbation (principal); R79.89 Other specified abnormal findings of blood chemistry; Z87.891 Personal history of nicotine dependence; K21.9 Gastro-esophageal reflux disease without esophagitis; I11.0 Hypertensive heart disease with heart failure; I50.9 Heart failure, unspecified; E11.9 Type 2 diabetes mellitus without complications; E66.9 Obesity, unspecified; Z79.899 Other long term (current) drug therapy; Z88.1 Allergy status to other antibiotic agents; Z88.8 Allergy status to other drugs, medicaments and biological substances; Z88.6 Allergy status to analgesic agent
CPT/HCPCS: 36415; 71045; 84484; 85379; 85610; 85730; 94640; 99285; A9270; 93010; 99284-25

== ENCOUNTER 2017-11-19 09:42 | Emergency (ER) | payer MEDICARE, MEDICAID ==
--- NOTE | 2017-11-19 11:55 | CR ---
Chest: Portable view of the chest was obtained. Comparison: Prior chest x-ray of 10/10/17. Heart size appears within normal limits for portable technique. Upper mediastinum is normal. Blunting of the lateral left costophrenic angle is seen compatible with small pleural effusion. Lungs otherwise are clear. Bony structures are grossly intact. Impression: 1. Small left-sided pleural effusion. Diagnostic code #3
--- NOTE | 2017-11-19 12:16 | EDM.PDOC ---
ED HPI GENERAL MEDICAL PROBLEM - General Chief Complaint: General Stated Complaint: COLD SYMPTOMS NOT RESOLVING Time Seen by Provider: 11/19/17 10:18 Source of Information: Reports: Patient, RN Notes Reviewed - History of Present Illness INITIAL COMMENTS - FREE TEXT/NARRATIVE: 62-year-old male comes in with general symptoms of "just not feeling well. States he did have chills a few days ago and felt really rotten, then seemed better for a day or 2 and then now this morning was feeling worse again. Now on arrival to the ED no specific symptoms. He has had occasional cough but not severe or frequent. He does use chronic oxygen but does not feel any more short of breath than usual today. Current chest or abdominal pain. No recent vomiting or diarrhea. He is not aware of fever or chills the last 2 or 3 days. Neck Pain Score (Numeric/FACES): 7 - Related Data Allergies Allergy/AdvReac Type Severity Reaction Status Date / Time celecoxib [From Celebrex] AdvReac Nausea Verified 11/19/17 09:55 ketorolac [From Toradol] AdvReac Stomach Verified 11/19/17 09:55 Upset mirtazapine [From Remeron] AdvReac Confusion Verified 11/19/17 09:55 NSAIDS (Non-Steroidal AdvReac Stomach Verified 11/19/17 09:55 Anti-Inflamma Upset Home Meds: Home Meds Metoprolol Succinate 50 mg PO DAILY 11/06/13 [History] Subcutaneous Insulin Pump [Insulin Pump] 90 units INJECT ASDIRECTED 11/29/14 [ History] Furosemide [Lasix] 40 mg PO DAILY 05/12/15 [History] atorvaSTATin [Lipitor] 10 mg PO BEDTIME 05/12/15 [History] lamoTRIgine [Lamotrigine] 100 mg PO BID 05/12/15 [History] Albuterol [Ventolin HFA] 1 - 2 puff INH Q4H PRN 04/28/17 [History] Diazepam [Valium] 5 mg PO TID PRN 04/28/17 [History] Pantoprazole [ProTONIX] 40 mg PO BID 04/28/17 [History] traZODone HCl [Trazodone HCl] 200 mg PO BEDTIME 04/28/17 [History] Budesonide/Formoterol Fumarate [Symbicort 80-4.5 Mcg Inhaler] 2 puff INH BID [History] Albuterol/Ipratropium [DuoNeb 3.0-0.5 MG/3 ML] 1 dose INH Q6HR PRN 05/30/17 [ History] Lisinopril 40 mg PO DAILY 05/30/17 [History] Ranitidine [Zantac] 150 mg PO BID 05/30/17 [History] Metoprolol Succinate 25 mg PO BEDTIME 09/05/17 [History] Vortioxetine Hydrobromide [Trintellix] 15 mg PO DAILY 10/10/17 [History] clonazePAM [Clonazepam] 1 mg PO BEDTIME PRN 10/10/17 [History] oxyCODONE HCl/Acetaminophen [Percocet 5-325 mg Tablet] 1 tab PO Q4H PRN [History] Gabapentin [Neurontin] 100 mg PO TID 11/19/17 [History] Tamsulosin [Tamsulosin 24 Hr] 0.4 mg PO BEDTIME 11/19/17 [History] Past Medical History HEENT History: Reports: Impaired Vision Other HEENT History: wears glasses Cardiovascular History: Reports: Heart Failure, High Cholesterol, Hypertension Other Cardiovascular History: 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 Respiratory History: Reports: COPD, Sleep Apnea, Other (See Below) Other Respiratory History: emphysema Gastrointestinal History: Reports: GERD, Pancreatitis Other Gastrointestinal History: nausea, epigastric pain, benighn neoplasm of colon, duodenitis Genitourinary History: Reports: None, Retention, Urinary [employer] History: Reports: None Musculoskeletal History: Reports: Back Pain, Chronic Other Musculoskeletal History: lumbar degenerative disc disease Psychiatric History: Reports: Anxiety, Bipolar Other Psychiatric History: insomnia Endocrine/Metabolic History: Reports: Diabetes, Type II, Obesity/BMI 30+ Other Endocrine/Metabolic History: adrenal incidentaloma Hematologic History: Reports: Polycythemia Immunologic History: Reports: None Oncologic (Cancer) History: Reports: None Dermatologic History: Reports: None - Past Surgical History Cardiovascular Surgical History: Reports: Other (See Below) GI Surgical History: Reports: Colonoscopy, EGD, Hernia, Inguinal Neurological Surgical History: Reports: Lumbar Spine Musculoskeletal Surgical History: Reports: Carpal Tunnel, Shoulder Surgery Social & Family History - Family History Family Medical History: Noncontributory - Tobacco Use Smoking Status *Q: Current Every Day Smoker Years of Tobacco use: 42 Packs/Tins Daily: 0.2 Used Tobacco, but Quit: No Month/Year Tobacco Last Used: Quit 2009 Second Hand Smoke Exposure: No - Caffeine Use Caffeine Use: Reports: Coffee, Soda - Alcohol Use Days Per Week of Alcohol Use: 0 - Recreational Drug Use Recreational Drug Use: No - Living Situation & Occupation Living situation: Reports: Alone, Single Occupation: Unemployed ED ROS GENERAL - Review of Systems Review Of Systems: See Below Constitutional: Reports: Chills (Several days ago), Malaise, Weakness, Fatigue ( Generalized) HEENT: Denies: Sinus Problem, Throat Pain Respiratory: Reports: Shortness of Breath, Cough (Mild, chronically occasional) , Sputum Cardiovascular: Denies: Chest Pain (Occasional) GI/Abdominal: Denies: Abdominal Pain, Nausea, Vomiting Musculoskeletal: Reports: No Symptoms Skin: Denies: Rash Neurological: Reports: Dizziness ED EXAM, GENERAL - Physical Exam Exam: See Below (Nonspecific) General Appearance: Alert, No Apparent Distress Throat/Mouth: Normal Inspection, Normal Oropharynx Head: Atraumatic Neck: Supple, Full Range of Motion Respiratory/Chest: No Respiratory Distress, Lungs Clear, Normal Breath Sounds Cardiovascular: Regular Rate, Rhythm GI/Abdominal: Soft, Non-Tender. No: Guarding Back Exam: No: CVA Tenderness (L), CVA Tenderness (R) Extremities: Normal Inspection, Normal Range of Motion Neurological: Alert, No Motor/Sensory Deficits Skin Exam: Warm, Dry, Normal Color Course - Vital Signs Last Recorded V/S: Last Vital Signs Temp 98.5 F 11/19/17 09:51 Pulse 85 11/19/17 09:51 Resp 24 H 11/19/17 09:51 BP 112/71 11/19/17 09:51 Pulse Ox 94 L 11/19/17 09:51 - Orders/Labs/Meds Labs: Laboratory Tests 11/19/17 11/19/17 Range/Units 10:56 10:56 WBC 8.89 (4.23-9.07) K/mm3 RBC 5.05 (4.63-6.08) M/mm3 Hgb 16.4 (13.7-17.5) gm/L Hct 50.5 (40.1-51.0) % MCV 100.0 H (79.0-92.2) fl MCH 32.5 H (25.7-32.2) pg MCHC 32.5 (32.2-35.5) g/dl RDW Std Deviation 56.1 H (35.1-43.9) fL Plt Count 249 (163-337) K/mm3 MPV 9.4 (9.4-12.3) fl Neut % (Auto) 76.1 H (34.0-67.9) % Lymph % (Auto) 14.6 L (21.8-53.1) % [place] % (Auto) 7.8 (5.3-12.2) % Eos % (Auto) 1.1 (0.8-7.0) Baso % (Auto) 0.3 (0.1-1.2) % Neut # (Auto) 6.76 H (1.78-5.38) K/mm3 Lymph # (Auto) 1.30 L (1.32-3.57) K/mm3 [place] # (Auto) 0.69 (0.30-0.82) K/mm3 Eos # (Auto) 0.10 (0.04-0.54) K/mm3 Baso # (Auto) 0.03 (0.01-0.08) K/mm3 Sodium 137 (136-145) mEq/L Potassium 4.9 (3.5-5.1) mEq/L Chloride 100 (98-107) mEq/L Carbon Dioxide 33 H (21-32) mEq/L Anion Gap 8.9 (5-15) BUN 20 H (7-18) mg/dL Creatinine 1.3 (0.7-1.3) mg/dL Est Cr Clr Drug Dosing 61.61 mL/min Estimated GFR (MDRD) 56 (>60) mL/min BUN/Creatinine Ratio 15.4 (14-18) Glucose 173 H (80-115) mg/dL Calcium 9.1 (8.5-10.1) mg/dL Total Bilirubin 0.4 (0.2-1.0) mg/dL AST 27 (15-37) U/L ALT 43 (16-63) U/L Alkaline Phosphatase 107 (46-116) U/L Total Protein 6.4 (6.4-8.2) g/dl Albumin 3.2 L (3.4-5.0) g/dl Globulin 3.2 gm/dL Albumin/Globulin Ratio 1.0 (1-2) - Re-Assessments/Exams Free Text/Narrative Re-Assessment/Exam: 11/19/17 12:27 Labs are relatively normal, white blood count not elevated, chest x-ray shows very small left-sided pleural effusion, no infiltrate. Sats been fine while here in the ED with him on O2 at 2 L. I suspect he has had a virus. Discharge instructions as documented Departure - Departure Time of Disposition: 12:15 Disposition: Home, Self-Care 01 Condition: Fair Clinical Impression: Viral syndrome - Discharge Information Referrals: Efrem Saul MD [Primary Care Provider] - Forms: ED Department Discharge Additional Instructions: Rest, continue to drink plenty of water to maintain hydration, continue current medications as prescribed, follow-up with Dr. Mccracken later this week or early next week, call for appt., return to ED as needed if symptoms worsening in any way.
[2017-11-19 12:45] VITALS: BP 108/70
== END 2017-11-19 12:40 | disposition home or self-care (01) ==
LOC: JD.ED 09:42
DX: B34.9 Viral infection, unspecified (principal); I11.0 Hypertensive heart disease with heart failure; I50.9 Heart failure, unspecified; E78.00 Pure hypercholesterolemia, unspecified; J44.9 Chronic obstructive pulmonary disease, unspecified; F31.9 Bipolar disorder, unspecified; F17.210 Nicotine dependence, cigarettes, uncomplicated; Z88.8 Allergy status to other drugs, medicaments and biological substances; Z88.5 Allergy status to narcotic agent; Z79.899 Other long term (current) drug therapy
CPT/HCPCS: 36415; 71045; 71045-26; 80053; 85025; 99282; 99284

== ENCOUNTER 2017-11-24 18:03 | Emergency (ER) | payer MEDICARE, MEDICAID ==
[2017-11-24 18:28] VITALS: BP 154/89
--- NOTE | 2017-11-24 19:35 | EDM.PDOC ---
ED HPI GENERAL MEDICAL PROBLEM - General Chief Complaint: Neck Problem Stated Complaint: SHOULDER/NECK PAIN Time Seen by Provider: 11/24/17 19:05 Source of Information: Reports: Patient History Limitations: Reports: No Limitations - History of Present Illness INITIAL COMMENTS - FREE TEXT/NARRATIVE: This is a 62-year-old male. He has a number of things going on at this time. Overall he says he feels terrible. He was on some prednisone and they stopped it about 2 weeks ago and that's when things seem to begin to get worse. They did place him on gabapentin but he is only on 100 mg is what he tells me. He complains of neck pain sort of a dull throbbing aching that goes down into his mid upper arm on the right side. If he puts his arm up over his head and rests it and sometimes that aching sensation and throbbing sensation will ease up. He also complains of his right shoulder doesn't have the range of motion that used to because it is painful. He has a history of degenerative changes in the lumbar spine with previous surgery and nerve irritation. He is also has COPD and on oxygen chronically. 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 He denies any particular event that irritated his neck or right shoulder. He is been feeling bad for at least 2 weeks and his next been bothering him mostly for the last week. He has not seen his family doctor last week despite this increasing pain in his neck and right shoulder. He does take oxycodone but he says it doesn't seem to help with the pain. He denies any fever or chills he denies any cough or congestion is been no nausea or vomiting. Generally he says I just feel bad. Neck Pain Score (Numeric/FACES): 8 Right Shoulder Pain Score (Numeric/FACES): 8 - Related Data Allergies Allergy/AdvReac Type Severity Reaction Status Date / Time celecoxib [From Celebrex] AdvReac Nausea Verified 11/24/17 18:28 ketorolac [From Toradol] AdvReac Stomach Verified 11/24/17 18:28 Upset mirtazapine [From Remeron] AdvReac Confusion Verified 11/24/17 18:28 NSAIDS (Non-Steroidal AdvReac Stomach Verified 11/24/17 18:28 Anti-Inflamma Upset Home Meds: Home Meds Metoprolol Succinate 50 mg PO DAILY 11/06/13 [History] Subcutaneous Insulin Pump [Insulin Pump] 90 units INJECT ASDIRECTED 11/29/14 [ History] Furosemide [Lasix] 40 mg PO DAILY 05/12/15 [History] atorvaSTATin [Lipitor] 10 mg PO BEDTIME 05/12/15 [History] lamoTRIgine [Lamotrigine] 100 mg PO BID 05/12/15 [History] Albuterol [Ventolin HFA] 1 - 2 puff INH Q4H PRN 04/28/17 [History] Diazepam [Valium] 5 mg PO TID PRN 04/28/17 [History] Pantoprazole [ProTONIX] 40 mg PO BID 04/28/17 [History] traZODone HCl [Trazodone HCl] 200 mg PO BEDTIME 04/28/17 [History] Budesonide/Formoterol Fumarate [Symbicort 80-4.5 Mcg Inhaler] 2 puff INH BID [History] Albuterol/Ipratropium [DuoNeb 3.0-0.5 MG/3 ML] 1 dose INH Q6HR PRN 05/30/17 [ History] Lisinopril 40 mg PO DAILY 05/30/17 [History] Ranitidine [Zantac] 150 mg PO BID 05/30/17 [History] Metoprolol Succinate 25 mg PO BEDTIME 09/05/17 [History] Vortioxetine Hydrobromide [Trintellix] 15 mg PO DAILY 10/10/17 [History] clonazePAM [Clonazepam] 1 mg PO BEDTIME PRN 10/10/17 [History] oxyCODONE HCl/Acetaminophen [Percocet 5-325 mg Tablet] 1 tab PO Q4H PRN [History] Gabapentin [Neurontin] 100 mg PO TID 11/19/17 [History] Tamsulosin [Tamsulosin 24 Hr] 0.4 mg PO BEDTIME 11/19/17 [History] Past Medical History HEENT History: Reports: Impaired Vision Other HEENT History: wears glasses Cardiovascular History: Reports: Heart Failure, High Cholesterol, Hypertension Other Cardiovascular History: 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 Respiratory History: Reports: COPD, Sleep Apnea, Other (See Below) Other Respiratory History: emphysema Gastrointestinal History: Reports: GERD, Pancreatitis Other Gastrointestinal History: nausea, epigastric pain, benighn neoplasm of colon, duodenitis Genitourinary History: Reports: Retention, Urinary PROJECT OFFICER History: Reports: None Musculoskeletal History: Reports: Back Pain, Chronic Other Musculoskeletal History: lumbar degenerative disc disease Psychiatric History: Reports: Anxiety, Bipolar Other Psychiatric History: insomnia Endocrine/Metabolic History: Reports: Diabetes, Type II, Obesity/BMI 30+ Other Endocrine/Metabolic History: adrenal incidentaloma Hematologic History: Reports: Polycythemia Immunologic History: Reports: None Oncologic (Cancer) History: Reports: None Dermatologic History: Reports: None - Past Surgical History Cardiovascular Surgical History: Reports: Other (See Below) GI Surgical History: Reports: Colonoscopy, EGD, Hernia, Inguinal Neurological Surgical History: Reports: Lumbar Spine Musculoskeletal Surgical History: Reports: Carpal Tunnel, Shoulder Surgery Social & Family History - Family History Family Medical History: Noncontributory - Tobacco Use Smoking Status *Q: Current Every Day Smoker Years of Tobacco use: 40 Packs/Tins Daily: 1 Used Tobacco, but Quit: No Month/Year Tobacco Last Used: Quit 2009 Second Hand Smoke Exposure: No - Caffeine Use Caffeine Use: Reports: Coffee - Alcohol Use Days Per Week of Alcohol Use: 0 - Recreational Drug Use Recreational Drug Use: No - Living Situation & Occupation Living situation: Reports: Alone, Single Occupation: Unemployed ED ROS GENERAL - Review of Systems Review Of Systems: See Below Constitutional: Reports: Malaise. Denies: Fever, Chills HEENT: Reports: No Symptoms Respiratory: Reports: Shortness of Breath. Denies: Wheezing, Cough Cardiovascular: Reports: Blood Pressure Problem. Denies: Chest Pain Endocrine: Reports: Fatigue GI/Abdominal: Denies: Abdominal Pain, Diarrhea, Nausea, Vomiting : Reports: Urgency Musculoskeletal: Reports: Neck Pain, Arm Pain, Other (Right neck and right shoulder and upper arm pain) Skin: Reports: No Symptoms Neurological: Denies: Headache, Numbness, Tingling Psychiatric: Reports: No Symptoms Hematologic/Lymphatic: Reports: No Symptoms Immunologic: Reports: No Symptoms ED EXAM, UPPER BACK/NECK PAIN - Physical Exam Exam: See Below Exam Limited By: No Limitations General Appearance: Alert, No Apparent Distress, Obese Eye Exam: Bilateral Eye: Normal Inspection Ears Exam: Normal External Exam, Normal Canal, Normal TMs Nose Exam: Normal Inspection Throat/Mouth Exam: Normal Inspection, Normal Lips, Normal Oropharynx, Normal Voice, No Airway Compromise Head Exam: Normocephalic Neck Exam: Other (He has tenderness in the right base of the neck though I'm not able to reproduce any sort of throbbing pain down into the right shoulder or upper arm, placing that right forearm on top of his head and relaxing it does ease the pain momentarily in his neck and arm) Cardiovascular/Respiratory: Regular Rate, Rhythm, No JVD, No Respiratory Distress GI/Abdominal: Soft, Non-Tender. No: Distended, Rigid, Rebound Back Exam: Decreased Range of Motion, Other (Has chronic lumbar pain and sciatica type symptoms) Extremities: Normal Inspection, Other (Right shoulder does have decreased range of motion and tenderness over the suprapubic nondistended and and even internal/ external rotation of that upper arm causes soreness in the right shoulder making me suspect he might have a rotator cuff abnormality as well) Neurologic: No Motor/Sensory Deficits, Alert, Oriented x 3 Psychiatric: Depressed Mood Skin Exam: Normal Color, Warm/Dry EKG INTERPRETATION EKG Date: 11/24/17 Time: 19:47 EKG Interpretation Comments: Sinus rhythm noted, he does have PACs or a supraventricular ectopy noted, there is no acute ST or T-wave elevation or changes, there is no ischemia noted. Course - Vital Signs Last Recorded V/S: Last Vital Signs Temp 97.8 F 11/24/17 18:25 Pulse 78 11/24/17 18:25 Resp 18 11/24/17 18:25 BP 154/89 H 11/24/17 18:25 Pulse Ox - Orders/Labs/Meds Orders: Active Orders 24 hr Category Date Time Status EKG 12 Lead [EKG Documentation Completion] [RC] STAT Care 11/24/17 19:26 Active CXR [Chest 1V Frontal] [CR] Stat Exams 11/24/17 19:26 Taken Cervical Spine 2V or 3V [CR] Stat Exams 11/24/17 19:26 Taken Labs: Laboratory Tests 11/24/17 11/24/17 11/24/17 Range/Units 19:30 19:48 19:48 WBC 6.69 (4.23-9.07) K/mm3 RBC 4.78 (4.63-6.08) M/mm3 Hgb 15.9 (13.7-17.5) gm/L Hct 47.4 (40.1-51.0) % MCV 99.2 H (79.0-92.2) fl MCH 33.3 H (25.7-32.2) pg MCHC 33.5 (32.2-35.5) g/dl RDW Std Deviation 53.1 H (35.1-43.9) fL Plt Count 273 (163-337) K/mm3 MPV 9.3 L (9.4-12.3) fl Neut % (Auto) 58.8 (34.0-67.9) % Lymph % (Auto) 27.8 (21.8-53.1) % [place] % (Auto) 10.6 (5.3-12.2) % Eos % (Auto) 2.4 (0.8-7.0) Baso % (Auto) 0.4 (0.1-1.2) % Neut # (Auto) 3.93 (1.78-5.38) K/mm3 Lymph # (Auto) 1.86 (1.32-3.57) K/mm3 [place] # (Auto) 0.71 (0.30-0.82) K/mm3 Eos # (Auto) 0.16 (0.04-0.54) K/mm3 Baso # (Auto) 0.03 (0.01-0.08) K/mm3 Sodium 138 (136-145) mEq/L Potassium 4.5 (3.5-5.1) mEq/L Chloride 101 (98-107) mEq/L Carbon Dioxide 30 (21-32) mEq/L Anion Gap 11.5 (5-15) BUN 14 (7-18) mg/dL Creatinine 1.0 (0.7-1.3) mg/dL Est Cr Clr Drug Dosing 80.10 mL/min Estimated GFR (MDRD) > 60 (>60) mL/min BUN/Creatinine Ratio 14.0 (14-18) Glucose 86 (80-115) mg/dL Calcium 9.2 (8.5-10.1) mg/dL Total Bilirubin 0.4 (0.2-1.0) mg/dL AST 28 (15-37) U/L ALT 37 (16-63) U/L Alkaline Phosphatase 116 (46-116) U/L Troponin I 0.078 H* (0.00-0.056) ng/mL Total Protein 6.7 (6.4-8.2) g/dl Albumin 3.4 (3.4-5.0) g/dl Globulin 3.3 gm/dL Albumin/Globulin Ratio 1.0 (1-2) Urine Color Light yellow (Yellow) Urine Appearance Clear (Clear) Urine pH 7.0 (5.0-8.0) Ur Specific [place] 1.015 (1.005-1.030) Urine Protein Negative (Negative) Urine Glucose (UA) Negative (Negative) Urine Ketones Negative (Negative) Urine Occult Blood Negative (Negative) Urine Nitrite Negative (Negative) Urine Bilirubin Negative (Negative) Urine Urobilinogen 0.2 (0.2-1.0) Ur Leukocyte Esterase Negative (Negative) Urine RBC Not seen (0-5) /hpf Urine WBC 0-5 (0-5) /hpf Ur Epithelial Cells 0-5 (0-5) /hpf Urine Bacteria Not seen (FEW) /hpf Urine Mucus Not seen (FEW) /hpf - Radiology Interpretation Free Text/Narrative:: X-ray of the cervical spine does not show any acute changes, he does have some degenerative changes noted. Chest x-ray shows some chronic changes to the lungs are similar to the past and I do not suspect acute infiltrates . - Re-Assessments/Exams Free Text/Narrative Re-Assessment/Exam: 11/24/17 20:28 I spoke to the patient regarding the cervical spine x-rays as well as the chest x-ray. 11/24/17 21:12 Spoke to the patient regarding his elevated troponin. The patient has had several episodes of elevated troponins which suggested his heart is under continual distress. The value tonight is 0.0 78 which is not markedly elevated however it is up some. I suggested that we keep him here for another couple of hours and recheck the troponin make sure is not rising. After some thought the patient stated he doesn't really want to stay another couple of hours but wants to go home. He knows that he has had elevated troponins in the past he is not having any chest pain he is not having any other unusual symptoms to suggest cardiac prominence with his symptoms. I will not have him sign out AGAINST MEDICAL ADVICE at this time but we talked extensively about symptoms and signs of cardiac ischemia and pain and he understands to return to the ER if any symptoms occur. In the meantime I have encouraged him to follow up with Dr. Saul for his many number of problems that he is facing. I encouraged him to keep his oxygen at 3 L/m because that's when his pulse ox is above 94% and overall will make him feel better. I encouraged him to follow up about the gabapentin and increasing the dose as well as the neck and shoulder pain as far as possible MRI or other imaging studies that might need to be done. The patient states he understands. Departure - Departure Time of Disposition: 21:14 Disposition: Home, Self-Care 01 Condition: Fair Clinical Impression: Cervical pain (neck), Hypoxemia, Radicular pain, Elevated troponin Right shoulder strain Qualifiers: Encounter type: initial encounter Qualified Code(s): S46.911A - Strain of unspecified muscle, fascia and tendon at shoulder and upper arm level, right arm , initial encounter Right shoulder pain Qualifiers: Chronicity: acute Qualified Code(s): M25.511 - Pain in right shoulder COPD (chronic obstructive pulmonary disease) Qualifiers: COPD type: chronic bronchitis Chronic bronchitis type: mixed simple and mucopurulent Qualified Code(s): J41.8 - Mixed simple and mucopurulent chronic bronchitis - Discharge Information Referrals: Efrem Saul MD [Primary Care Provider] - Forms: ED Department Discharge Additional Instructions: Would encourage her to follow up with Dr. Pimentel for continued investigation of his cervical pain and right shoulder pain and possible radicular symptoms, continue her oxygen at 3 L/m since he keeps the pulse ox above 94%, considering increasing the gabapentin due to the radicular symptoms but follow Dr. Pimentel's instructions, if you exhibit any signs of cardiac distress such as chest pain, shortness of breath, sweating, tightness or pressure in the chest running into the neck and jaw or down the arm return to the ER immediately, return to the ER as needed otherwise - My Orders Last 24 Hours: My Active Orders 11/24/17 19:26 EKG 12 Lead [EKG Documentation Completion] [RC] STAT CXR [Chest 1V Frontal] [CR] Stat Cervical Spine 2V or 3V [CR] Stat - Assessment/Plan Last 24 Hours: My Active Orders 11/24/17 19:26 EKG 12 Lead [EKG Documentation Completion] [RC] STAT CXR [Chest 1V Frontal] [CR] Stat Cervical Spine 2V or 3V [CR] Stat
--- NOTE | 2017-11-25 12:52 | CR ---
Chest: Frontal view of the chest was obtained. Comparison: Prior chest x-ray of 11/19/17. Heart is slightly enlarged. Tortuous thoracic aorta is seen. Lungs are clear without acute parenchymal change. Bony structures show mild scoliosis within the spine. Impression: 1. Incidental findings as noted above. Nothing acute is appreciated. Diagnostic code #2
--- NOTE | 2017-11-25 12:52 | CR ---
Cervical spine: AP, lateral and odontoid views of the cervical spine were obtained. Comparison: No prior cervical spine study. Vertebral body heights and disc spaces are preserved. Minimal scattered endplate osteophytes are seen. Very slight posterior spurring is noted at C4-C5. Minimal scattered degenerative change is seen within the uncovertebral joints. No fracture or subluxation is seen. Slight ligamentum nuchal calcification is incidentally noted. Impression: 1. Minimal degenerative change. Diagnostic code #2
== END 2017-11-24 21:23 | disposition home or self-care (01) ==
LOC: JD.ED 18:03
DX: S46.911A Strain of unspecified muscle, fascia and tendon at shoulder and upper arm level, right arm, initial encounter (principal); M54.2 Cervicalgia; R09.02 Hypoxemia; R79.89 Other specified abnormal findings of blood chemistry; M54.10 Radiculopathy, site unspecified; M25.511 Pain in right shoulder; J41.8 Mixed simple and mucopurulent chronic bronchitis; I50.9 Heart failure, unspecified; I11.0 Hypertensive heart disease with heart failure; E11.9 Type 2 diabetes mellitus without complications; E66.9 Obesity, unspecified; F17.210 Nicotine dependence, cigarettes, uncomplicated; Z88.6 Allergy status to analgesic agent; Z88.8 Allergy status to other drugs, medicaments and biological substances; Z79.899 Other long term (current) drug therapy
CPT/HCPCS: 36415; 71045; 71045-26; 72040; 72040-26; 80053; 81001; 84484; 85025; 93005; 93010; 99284-25

== ENCOUNTER 2017-12-31 14:58 | Emergency (ER) | payer MEDICARE, MEDICAID ==
[2017-12-31 15:21] VITALS: BP 154/99
[2017-12-31] MEDS ORDERED: HYDROmorphone 0.5 MG/0.5 ML SYRINGE IM ONE (16:27)
--- NOTE | 2017-12-31 16:33 | EDM.PDOC ---
ED HPI GENERAL MEDICAL PROBLEM - General Chief Complaint: Lower Extremity Injury/Pain Stated Complaint: LEG PAIN POST BACK SURGERY Time Seen by Provider: 12/31/17 16:15 Source of Information: Reports: Patient History Limitations: Reports: No Limitations - History of Present Illness INITIAL COMMENTS - FREE TEXT/NARRATIVE: Patient is a 62-year-old male with a history of laminectomy to L2 by Dr. Gonzalez at [facility]. This occurred 2 weeks ago. States after surgery he had no pain. Few days after he developed pain to his low back and upper legs. This improved over the next few days. As of the past 3 days has developed some pain to his low back that radiates down to the posterior aspect of his legs to the knee worse with weightbearing. He has no pain with sitting. States he's been taking hydrocodone 5-325 one tab every 4-6 hours with relief. Questions some faint sensory changes to the right leg. Otherwise denies any saddle anesthesia, incontinence to urine or stool, foot drop, weakness, or any additional complaints. He does take gabapentin 300 mg 3 times a day. Denies any recent activities or trauma that precipitated worsening pain. Patient states sutures to the surgical incision came out one week after surgery with no concerning findings. He denies any fever, abdominal pain, dysuria, or increased swelling to his lower legs. Patient is on home O2. He has a history of COPD. States he recently started smoking again 3 days ago. Bilateral Leg Pain Score (Numeric/FACES): 10 - Related Data Allergies Allergy/AdvReac Type Severity Reaction Status Date / Time celecoxib [From Celebrex] AdvReac Nausea Verified 11/24/17 18:28 ketorolac [From Toradol] AdvReac Stomach Verified 11/24/17 18:28 Upset mirtazapine [From Remeron] AdvReac Confusion Verified 11/24/17 18:28 NSAIDS (Non-Steroidal AdvReac Stomach Verified 11/24/17 18:28 Anti-Inflamma Upset Home Meds: Home Meds Metoprolol Succinate 50 mg PO DAILY 11/06/13 [History] Subcutaneous Insulin Pump [Insulin Pump] 90 units INJECT ASDIRECTED 11/29/14 [ History] Furosemide [Lasix] 40 mg PO DAILY 05/12/15 [History] atorvaSTATin [Lipitor] 10 mg PO BEDTIME 05/12/15 [History] lamoTRIgine [Lamotrigine] 100 mg PO BID 05/12/15 [History] Albuterol [Ventolin HFA] 1 - 2 puff INH Q4H PRN 04/28/17 [History] Diazepam [Valium] 5 mg PO TID PRN 04/28/17 [History] Pantoprazole [ProTONIX] 40 mg PO BID 04/28/17 [History] traZODone HCl [Trazodone HCl] 200 mg PO BEDTIME 04/28/17 [History] Budesonide/Formoterol Fumarate [Symbicort 80-4.5 Mcg Inhaler] 2 puff INH BID [History] Albuterol/Ipratropium [DuoNeb 3.0-0.5 MG/3 ML] 1 dose INH Q6HR PRN 05/30/17 [ History] Lisinopril 40 mg PO DAILY 05/30/17 [History] Ranitidine [Zantac] 150 mg PO BID 05/30/17 [History] Metoprolol Succinate 25 mg PO BEDTIME 09/05/17 [History] Vortioxetine Hydrobromide [Trintellix] 15 mg PO DAILY 10/10/17 [History] clonazePAM [Clonazepam] 1 mg PO BEDTIME PRN 10/10/17 [History] Gabapentin [Neurontin] 300 mg PO TID 11/19/17 [History] Tamsulosin [Tamsulosin 24 Hr] 0.4 mg PO BEDTIME 11/19/17 [History] Hydrocodone/Acetaminophen [Hydrocodon-Acetaminophen 5-325] 1 - 2 tab PO Q4H [History] Tamsulosin [Flomax] 0.4 mg PO BID 12/31/17 [History] Past Medical History HEENT History: Reports: Impaired Vision Other HEENT History: wears glasses Cardiovascular History: Reports: Heart Failure, High Cholesterol, Hypertension Other Cardiovascular History: 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 Respiratory History: Reports: COPD, Sleep Apnea, Other (See Below) Other Respiratory History: emphysema Gastrointestinal History: Reports: GERD, Pancreatitis Other Gastrointestinal History: nausea, epigastric pain, benighn neoplasm of colon, duodenitis Genitourinary History: Reports: Retention, Urinary 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 Musculoskeletal History: Reports: Back Pain, Chronic Other Musculoskeletal History: lumbar degenerative disc disease Psychiatric History: Reports: Anxiety, Bipolar Other Psychiatric History: insomnia Endocrine/Metabolic History: Reports: Diabetes, Type II, Obesity/BMI 30+ Other Endocrine/Metabolic History: adrenal incidentaloma Hematologic History: Reports: Polycythemia Immunologic History: Reports: None Oncologic (Cancer) History: Reports: None Dermatologic History: Reports: None - Past Surgical History Cardiovascular Surgical History: Reports: Other (See Below) GI Surgical History: Reports: Colonoscopy, EGD, Hernia, Inguinal Neurological Surgical History: Reports: Laminectomy, Lumbar Spine Musculoskeletal Surgical History: Reports: Carpal Tunnel, Shoulder Surgery Social & Family History - Family History Family Medical History: Noncontributory - Tobacco Use Smoking Status *Q: Current Every Day Smoker Years of Tobacco use: 40 Packs/Tins Daily: 0.5 - Caffeine Use Caffeine Use: Reports: Coffee - Recreational Drug Use Recreational Drug Use: No - Living Situation & Occupation Living situation: Reports: Alone, Single Occupation: Unemployed Review of Systems - Review of Systems Review Of Systems: See Below Respiratory: Reports: Shortness of Breath (Chronic with exertion secondary to COPD.), Cough Cardiovascular: Reports: No Symptoms GI/Abdominal: Reports: No Symptoms Musculoskeletal: Reports: Back Pain, Leg Pain. Denies: Neck Pain Skin: Reports: No Symptoms Neurological: Reports: Difficulty Walking. Denies: Numbness, Tingling, Weakness ED EXAM, GENERAL - Physical Exam Exam: See Below Exam Limited By: No Limitations General Appearance: Alert, WD/WN, No Apparent Distress Ears: Hearing Grossly Normal Nose: Normal Inspection Throat/Mouth: Normal Voice, No Airway Compromise Neck: Normal Inspection, Supple Respiratory/Chest: No Respiratory Distress, No Accessory Muscle Use, Chest Non- Tender, Rhonchi, Wheezing Cardiovascular: Normal Peripheral Pulses, Regular Rate, Rhythm, No Murmur ( Nothing obvious) Peripheral Pulses: 2+: Posterior Tibial (L), Posterior Tibial (R), 4+: Radial (L ), Radial (R) GI/Abdominal: Normal Bowel Sounds, Soft, Non-Tender, No Organomegaly, No Distention Back Exam: Other (Surgical incision to the lumbar spine intact with no redness, increased swelling, or drainage. No sutures or mundo present.) Extremities: Normal Inspection, Non-Tender, Pedal Edema (1+ bilaterally lower extremity), Other (States there is faint sensory changes to the right leg worse than the left. No foot drop noted. With standing patient had increased pain to the low back that radiated down to the posterior aspect legs no further then the knees.) Neurological: Alert, Oriented, CN II-XII Intact, Normal Cognition, No Motor/ Sensory Deficits (Obvious) Psychiatric: Normal Affect, Normal Mood Skin Exam: Warm, Dry, Intact, Normal Color, No Rash Course - Vital Signs Last Recorded V/S: Last Vital Signs Temp 98.4 F 12/31/17 15:16 Pulse 60 12/31/17 15:16 Resp 16 12/31/17 15:16 BP 154/99 H 12/31/17 15:16 Pulse Ox 93 L 12/31/17 15:16 - Orders/Labs/Meds Meds: Medications Discontinued Medications Generic Name Dose Route Start Last Admin Trade Name Yaronq PRN Reason Stop Dose Admin Hydromorphone HCl 1 mg 12/31/17 16:27 12/31/17 16:39 Dilaudid IM 12/31/17 16:28 1 mg ONETIME ONE Administration - Re-Assessments/Exams Free Text/Narrative Re-Assessment/Exam: I have ordered dilaudid 1mg IM. 1634 Contacted [facility]. They were unable to get ahold of neurosurgeon conference services director. They will contact neurologist conference services director. 12/31/17 16:[address] Holloway conference services director Neurosurgeon. Suggested obtaining a standing lumbar spine x-rays to ensure he does not have spondylolisthesis. If the xray does not elicit any abnormal findings. Provide a stronger pain medications such as Percocet and may start low-dose anti-inflammatory of patient 's choice. Requested contacting him back if any abnormalities on the x-ray are noted. With reviewing [place] Board of [employer] prescription drug monitoring system. Patient was previously on oxycodone and acetaminophen. Last filled December 03 2017. In addition patient has adverse drug reactions to any sort of NSAIDs. Patient stomach gets upset. Thus will start the patient on low-dose Aleve one tab twice a day. Patient is on ranitidine and also Protonix. 12/31/17 17:20 X-ray reviewed with Dr. Mora. No spondylolisthesis noted. Final interpretation is pending. Discussed x-ray results and discussion I had with Dr. Holloway with the patient. He does not want a walker. Agrees with discharging home with prescription for percocet and to start aleve taking with food. Discharge instructions with the patient. The patient remained hemodynamically stable while under my care in the E.D. I discussed the concerning symptoms for which to returnto the E.D. with the patient. The patient verbalized understanding. All questions were answered. Departure - Departure Time of Disposition: 17:29 Disposition: Home, Self-Care 01 Condition: Good Clinical Impression: Status post lumbar laminectomy, Low back pain radiating down leg - Discharge Information Instructions: Back Pain, Adult, Pain Medicine Instructions, [id number], Laminectomy, Care After Referrals: Efrem Saul MD [Primary Care Provider] - Forms: ED Department Discharge Additional Instructions: Take the Percocet tabs as prescribed 1 tab every 4-6 hours as needed for severe pain. May take Aleve one tablet twice a day with food. Drink plenty of water. Continue taking the Protonix and also ranitidine as prescribed. Call and make an appointment with your neurosurgeon to be seen in 1-2 days. Return to the ED if you develop any new or worsening symptoms as discussed. Do not drive today since receiving a sedative medication while in the ED. Do not drive while taking the Percocet. Do not take the hydrocodone anymore.
--- NOTE | 2018-01-01 10:07 | CR ---
Lumbar spine: AP, lateral and coned-down lateral views centered to the lumbosacral junction were obtained. Comparison: Prior MRI lumbar spine exam of 08/24/14. Scattered endplate osteophytes are seen. Slight spondylolisthesis is noted at L3-L4 compatible with degenerative apophyseal change. Mild posterior disc space narrowing is noted at L2-L3, L3-L4, L4-L5 and L5-S1. Mild scoliosis is noted. Previous laminectomy noted within L3, L4 and L5. Compression deformity is seen of T11 which is moderate in severity, this area was not completely included on previous exam and uncertain as to age. Impression: 1. Age indeterminate compression deformity of T11. 2. Previous laminectomy within L3-L5. 3. Degenerative change and mild scoliosis. Diagnostic code #3
== END 2017-12-31 17:40 | disposition home or self-care (01) ==
LOC: JD.ED 14:58
DX: M54.5 Low back pain (principal); I11.0 Hypertensive heart disease with heart failure; I50.9 Heart failure, unspecified; E11.9 Type 2 diabetes mellitus without complications; J44.9 Chronic obstructive pulmonary disease, unspecified; E78.00 Pure hypercholesterolemia, unspecified; K21.9 Gastro-esophageal reflux disease without esophagitis; F17.210 Nicotine dependence, cigarettes, uncomplicated; F31.9 Bipolar disorder, unspecified; F41.9 Anxiety disorder, unspecified; Z98.890 Other specified postprocedural states; Z88.1 Allergy status to other antibiotic agents; Z88.6 Allergy status to analgesic agent; Z88.8 Allergy status to other drugs, medicaments and biological substances; Z79.899 Other long term (current) drug therapy
CPT/HCPCS: 72100; 96372; 99284; J1170; 99283

== ENCOUNTER 2018-01-07 15:16 | Emergency (ER) | payer MEDICARE, MEDICAID ==
[2018-01-07 15:30] VITALS: BP 154/87
--- NOTE | 2018-01-07 15:58 | EDM.PDOC ---
ED HPI GENERAL MEDICAL PROBLEM - General Chief Complaint: Lower Extremity Injury/Pain Stated Complaint: LEG PAIN/SYNCOPE Time Seen by Provider: 01/07/18 15:39 Source of Information: Reports: Patient History Limitations: Reports: No Limitations - History of Present Illness INITIAL COMMENTS - FREE TEXT/NARRATIVE: Patient is a 62-year-old male with a history of laminectomy to L2 by Dr. huff at [facility] approx 12/17/2017. Patient states he was symptom-free after surgery for a few days. Developed some pain to his lower back and upper legs that slowly worsened and then improved. He was evaluated in ED by Me on 12/31/2017. Patient was discharged with Percocet tabs and also instructions to start taking low-dose anti-inflammatories. He did see Dr. huff a few Days later on follow-up visit. Patient was started on Medrol Dosepak and the Percocet was continued. Patient continues have pain to his low back and upper legs with worsening pain at times causing this sensation in his legs are going to give out. There is no incontinence to urine or stool. No saddle anesthesia. No numbness or tingling to his toes or feet. He is slow moving secondary to the pain. There's been no fall or activity that precipitated this. He has an MRI scheduled for this coming Sunday. Denies any fever, chills, abdominal pain, dysuria, or increased swelling to his lower legs. Patient is on home O2. He has a history of COPD. Bilateral Leg Pain Score (Numeric/FACES): 6 - Related Data Allergies Allergy/AdvReac Type Severity Reaction Status Date / Time celecoxib [From Celebrex] AdvReac Nausea Verified 01/07/18 15:30 ketorolac [From Toradol] AdvReac Stomach Verified 01/07/18 15:30 Upset mirtazapine [From Remeron] AdvReac Confusion Verified 01/07/18 15:30 NSAIDS (Non-Steroidal AdvReac Stomach Verified 01/07/18 15:30 Anti-Inflamma Upset Home Meds: Home Meds Metoprolol Succinate 50 mg PO DAILY 11/06/13 [History] Subcutaneous Insulin Pump [Insulin Pump] 90 units INJECT ASDIRECTED 11/29/14 [ History] Furosemide [Lasix] 40 mg PO DAILY 05/12/15 [History] atorvaSTATin [Lipitor] 10 mg PO BEDTIME 05/12/15 [History] lamoTRIgine [Lamotrigine] 100 mg PO BID 05/12/15 [History] Albuterol [Ventolin HFA] 1 - 2 puff INH Q4H PRN 04/28/17 [History] Diazepam [Valium] 5 mg PO TID PRN 04/28/17 [History] Pantoprazole [ProTONIX] 40 mg PO BID 04/28/17 [History] traZODone HCl [Trazodone HCl] 200 mg PO BEDTIME 04/28/17 [History] Budesonide/Formoterol Fumarate [Symbicort 80-4.5 Mcg Inhaler] 2 puff INH BID [History] Albuterol/Ipratropium [DuoNeb 3.0-0.5 MG/3 ML] 1 dose INH Q6HR PRN 05/30/17 [ History] Lisinopril 40 mg PO DAILY 05/30/17 [History] Ranitidine [Zantac] 150 mg PO BID 05/30/17 [History] Metoprolol Succinate 25 mg PO BEDTIME 09/05/17 [History] Vortioxetine Hydrobromide [Trintellix] 15 mg PO DAILY 10/10/17 [History] clonazePAM [Clonazepam] 1 mg PO BEDTIME PRN 10/10/17 [History] Gabapentin [Neurontin] 300 mg PO TID 11/19/17 [History] Tamsulosin [Flomax] 0.4 mg PO BEDTIME 11/19/17 [History] Tamsulosin [Flomax] 0.4 mg PO BID 12/31/17 [History] Acetaminophen/oxyCODONE [Percocet 325-5 MG] 1 each PO Q6HR PRN #15 tab 01/07/18 [Rx] Past Medical History HEENT History: Reports: Impaired Vision Other HEENT History: wears glasses Cardiovascular History: Reports: Heart Failure, High Cholesterol, Hypertension Other Cardiovascular History: 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 Respiratory History: Reports: COPD, Sleep Apnea, Other (See Below) Other Respiratory History: emphysema Gastrointestinal History: Reports: GERD, Pancreatitis Other Gastrointestinal History: nausea, epigastric pain, benighn neoplasm of colon, duodenitis Genitourinary History: Reports: Retention, Urinary 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 Musculoskeletal History: Reports: Back Pain, Chronic Other Musculoskeletal History: lumbar degenerative disc disease Psychiatric History: Reports: Anxiety, Bipolar Other Psychiatric History: insomnia Endocrine/Metabolic History: Reports: Diabetes, Type II, Obesity/BMI 30+ Other Endocrine/Metabolic History: adrenal incidentaloma Hematologic History: Reports: Polycythemia Immunologic History: Reports: None Oncologic (Cancer) History: Reports: None Dermatologic History: Reports: None - Past Surgical History Cardiovascular Surgical History: Reports: Other (See Below) GI Surgical History: Reports: Colonoscopy, EGD, Hernia, Inguinal Neurological Surgical History: Reports: Laminectomy, Lumbar Spine Musculoskeletal Surgical History: Reports: Carpal Tunnel, Shoulder Surgery Social & Family History - Family History Family Medical History: Noncontributory - Tobacco Use Smoking Status *Q: Never Smoker Second Hand Smoke Exposure: No - Caffeine Use Caffeine Use: Reports: None - Recreational Drug Use Recreational Drug Use: No - Living Situation & Occupation Living situation: Reports: Alone, Single Occupation: Unemployed Review of Systems - Review of Systems Review Of Systems: ROS reveals no pertinent complaints other than HPI. ED EXAM, GENERAL - Physical Exam Exam: See Below Exam Limited By: No Limitations General Appearance: Alert, WD/WN, No Apparent Distress Ears: Hearing Grossly Normal Nose: Normal Inspection Throat/Mouth: Normal Voice, No Airway Compromise Neck: Normal Inspection, Supple Respiratory/Chest: No Respiratory Distress, Lungs Clear, Normal Breath Sounds, No Accessory Muscle Use, Chest Non-Tender, Other (On home O2. ) Cardiovascular: Normal Peripheral Pulses, Regular Rate, Rhythm, No Murmur Back Exam: Normal Inspection, Other (surgical incision in the late stages of healing. no signs for infection. ). No: Paraspinal Tenderness, Vertebral Tenderness Extremities: Normal Inspection, Non-Tender, Pedal Edema (trace edema to the lower extremities. ) Neurological: Alert, Oriented, CN II-XII Intact, Normal Cognition, No Motor/ Sensory Deficits, Abnormal Gait (2nd to pain ). No: Normal Gait Psychiatric: Normal Affect, Normal Mood Skin Exam: Warm, Dry, Intact, Normal Color Course - Vital Signs Last Recorded V/S: Last Vital Signs Temp 97.4 F 01/07/18 15:27 Pulse 72 01/07/18 15:27 Resp 16 01/07/18 15:27 BP 154/87 H 01/07/18 15:27 Pulse Ox 92 L 01/07/18 15:27 - Re-Assessments/Exams Free Text/Narrative Re-Assessment/Exam: Per patient pain is chronic with no significant changes. He is wondering about additional steroids. I have advised I would not provide this without speaking with Dr. huff. [address] huff Neurosurgeon that performed the surgery. He does not recommend additional prescription for steroids. Continue with percocet for pain. Agrees to discharge home with walker. MRI scheduled for this coming Sunday. Will discharge patient home with a walker and additional prescription for percocet. Discharge instructions as documented. The patient remained hemodynamically stable while under my care in the E.D. I discussed the concerning symptoms for which to return to the E.D. with the patient. The patient verbalized understanding. All questions were answered. Departure - Departure Time of Disposition: 16:21 Disposition: Home, Self-Care 01 Condition: Good Clinical Impression: Status post lumbar laminectomy, Low back pain radiating down leg - Discharge Information Prescriptions: Acetaminophen/oxyCODONE [Percocet 325-5 MG] 1 each PO Q6HR PRN #15 tab PRN Reason: Pain (Severe 7-10) Instructions: Pain Medicine Instructions, [id number], Back Pain, Adult Referrals: Efrem Saul MD [Primary Care Provider] - Forms: ED Department Discharge Additional Instructions: Take the Percocet as prescribed.Take the percocet tabs as prescribed. Do not drive while taking this medication. Utilize the walker as instructed to ambulate. Keep appt for MRI as scheduled. Make an appt with Dr. Huff to be evaluated after MRI to receive results and discuss further treatment. Return to the E.D. if you develop any new or worsening symptoms.
== END 2018-01-07 16:48 | disposition home or self-care (01) ==
LOC: JD.ED 15:16
DX: M54.5 Low back pain (principal); I11.0 Hypertensive heart disease with heart failure; I50.9 Heart failure, unspecified; K21.9 Gastro-esophageal reflux disease without esophagitis; E11.9 Type 2 diabetes mellitus without complications; F31.9 Bipolar disorder, unspecified; F41.9 Anxiety disorder, unspecified; Z79.899 Other long term (current) drug therapy; Z88.6 Allergy status to analgesic agent; Z88.1 Allergy status to other antibiotic agents; Z88.8 Allergy status to other drugs, medicaments and biological substances
CPT/HCPCS: 99283

== ENCOUNTER 2018-02-16 13:51 | Emergency (ER) | payer MEDICARE, MEDICAID ==
[2018-02-16 14:07] VITALS: BP 153/96
--- NOTE | 2018-02-16 14:30 | EDM.PDOC ---
ED HPI GENERAL MEDICAL PROBLEM - General Chief Complaint: General Stated Complaint: MEDICATION REFILL Time Seen by Provider: 02/16/18 14:24 Source of Information: Reports: Patient History Limitations: Reports: No Limitations - History of Present Illness INITIAL COMMENTS - FREE TEXT/NARRATIVE: 62-year-old male presents the ED primarily for pain management. Patient underwent discectomy and his lumbar spine on December 05 of this [address] by Dr. Carlos winter- neurosurgeon josefina Alberts. He states the radiculopathy that he in his leg is markedly improved in these no longer requiring his walker to walk. Still has pain in his leg but he is learning how to walk normally and he is now in a physiotherapy program. Sincerely his normal care provider last week on Sunday and was supposed to have medications sent electronically to [address] [place] [address]. However when he attended the pharmacy today they indicate they have no such prescriptions. This is left without pain management. He takes Percocet 5/325 mg tablet usually one every 6 hours for pain relief. Denies positive constipation from it. Onset: Other (Chronic problem) Duration: Chronic Location: Reports: Back (Lumbar back pain) Quality: Reports: Same as Previous Episode Severity: Moderate (Rates current pain as 4-5 out of 10 occasionally up to as high as 7.) Improves with: Reports: Rest Worsens with: Reports: Movement Context: Reports: Other (Lumbar spine surgery carried out December 05 of this year). Denies: Activity, Exercise, Lifting, Sick Contact, Trauma Associated Symptoms: Reports: No Other Symptoms Treatments COLOR CHECKER: Reports: NSAIDS (Does take Motrin occasionally.) Lower Back Pain Score (Numeric/FACES): 3 - Related Data Allergies Allergy/AdvReac Type Severity Reaction Status Date / Time celecoxib [From Celebrex] AdvReac Nausea Verified 01/07/18 15:30 ketorolac [From Toradol] AdvReac Stomach Verified 01/07/18 15:30 Upset mirtazapine [From Remeron] AdvReac Confusion Verified 01/07/18 15:30 NSAIDS (Non-Steroidal AdvReac Stomach Verified 01/07/18 15:30 Anti-Inflamma Upset Home Meds: Home Meds Metoprolol Succinate 50 mg PO DAILY 11/06/13 [History] Subcutaneous Insulin Pump [Insulin Pump] 90 units INJECT ASDIRECTED 11/29/14 [ History] Furosemide [Lasix] 40 mg PO DAILY 05/12/15 [History] atorvaSTATin [Lipitor] 10 mg PO BEDTIME 05/12/15 [History] lamoTRIgine [Lamotrigine] 100 mg PO BID 05/12/15 [History] Albuterol [Ventolin HFA] 1 - 2 puff INH Q4H PRN 04/28/17 [History] Diazepam [Valium] 5 mg PO TID PRN 04/28/17 [History] Pantoprazole [ProTONIX] 40 mg PO BID 04/28/17 [History] traZODone HCl [Trazodone HCl] 200 mg PO BEDTIME 04/28/17 [History] Budesonide/Formoterol Fumarate [Symbicort 80-4.5 Mcg Inhaler] 2 puff INH BID [History] Albuterol/Ipratropium [DuoNeb 3.0-0.5 MG/3 ML] 1 dose INH Q6HR PRN 05/30/17 [ History] Lisinopril 40 mg PO DAILY 05/30/17 [History] Ranitidine [Zantac] 150 mg PO BID 05/30/17 [History] Metoprolol Succinate 25 mg PO BEDTIME 09/05/17 [History] Vortioxetine Hydrobromide [Trintellix] 15 mg PO DAILY 10/10/17 [History] clonazePAM [Clonazepam] 1 mg PO BEDTIME PRN 10/10/17 [History] Gabapentin [Neurontin] 300 mg PO TID 11/19/17 [History] Tamsulosin [Flomax] 0.4 mg PO BID 12/31/17 [History] Acetaminophen/oxyCODONE [Percocet 325-5 MG] 1 each PO Q6HR PRN #15 tab 01/07/18 [Rx] oxyCODONE HCl/Acetaminophen [Percocet 5-325 mg Tablet] 1 - 2 each PO Q4H PRN # 20 tablet 02/16/18 [Rx] Past Medical History HEENT History: Reports: Impaired Vision Other HEENT History: wears glasses Cardiovascular History: Reports: Heart Failure, High Cholesterol, Hypertension Other Cardiovascular History: 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 Respiratory History: Reports: COPD, Sleep Apnea, Other (See Below) Other Respiratory History: emphysema Gastrointestinal History: Reports: GERD, Pancreatitis Other Gastrointestinal History: nausea, epigastric pain, benighn neoplasm of colon, duodenitis Genitourinary History: Reports: Retention, 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 Musculoskeletal History: Reports: Back Pain, Chronic Other Musculoskeletal History: lumbar degenerative disc disease Psychiatric History: Reports: Anxiety, Bipolar Other Psychiatric History: insomnia Endocrine/Metabolic History: Reports: Diabetes, Type II, Obesity/BMI 30+ Other Endocrine/Metabolic History: adrenal incidentaloma Hematologic History: Reports: Polycythemia Immunologic History: Reports: None Oncologic (Cancer) History: Reports: None Dermatologic History: Reports: None - Past Surgical History Cardiovascular Surgical History: Reports: Other (See Below) GI Surgical History: Reports: Colonoscopy, EGD, Hernia, Inguinal Neurological Surgical History: Reports: Laminectomy, Lumbar Spine Musculoskeletal Surgical History: Reports: Carpal Tunnel, Shoulder Surgery Social & Family History - Family History Family Medical History: Noncontributory - Tobacco Use Smoking Status *Q: Current Every Day Smoker Years of Tobacco use: 44 Packs/Tins Daily: 1 - Caffeine Use Caffeine Use: Reports: Coffee, Soda, Tea - Recreational Drug Use Recreational Drug Use: No - Living Situation & Occupation Living situation: Reports: Alone, Single Occupation: Unemployed ED ROS GENERAL - Review of Systems Review Of Systems: See Below Constitutional: Reports: Malaise, Weakness, Weight Gain (Has gained quite a bit of weight since he's not been able to ambulate). Denies: Fever, Chills HEENT: Reports: Glasses Respiratory: Reports: Shortness of Breath Cardiovascular: Reports: Blood Pressure Problem, Dyspnea on Exertion (Only on exertion). Denies: Chest Pain Endocrine: Reports: Fatigue (Does have high blood pressure problems) GI/Abdominal: Reports: No Symptoms : Reports: No Symptoms Musculoskeletal: Reports: No Symptoms Skin: Reports: No Symptoms, Other Neurological: Reports: No Symptoms Psychiatric: Reports: No Symptoms ED EXAM, GENERAL - Physical Exam Exam: See Below Exam Limited By: No Limitations General Appearance: Alert, WD/WN, No Apparent Distress Eye Exam: Bilateral Eye: Normal Inspection (No jaundice.) Respiratory/Chest: No Respiratory Distress, Lungs Clear, Normal Breath Sounds, No Accessory Muscle Use Cardiovascular: Normal Peripheral Pulses, Regular Rate, Rhythm, No Edema, No Gallop, No Murmur GI/Abdominal: Normal Bowel Sounds, Non-Tender, No Organomegaly, No Abnormal Bruit, No Mass, Other (Moderately obese) Back Exam: Other (His surgical wound appears to be healing well with no signs of infection or problems.) Extremities: Normal Inspection, Normal Range of Motion, Non-Tender, No Pedal Edema Neurological: Alert, Oriented, CN II-XII Intact, Normal Cognition, Abnormal Gait Course - Vital Signs Last Recorded V/S: Last Vital Signs Temp 36.7 C 02/16/18 14:06 Pulse 69 02/16/18 14:06 Resp 20 02/16/18 14:06 BP 153/96 H 02/16/18 14:06 Pulse Ox 89 L 02/16/18 14:06 - Radiology Interpretation Free Text/Narrative:: 62-year-old male arrives in the ED essentially for pain management. She's been taking Percocet tablets 5/3/25 milligrams strength one or 2 every 6 hours as needed for back pain relief since surgery on his lumbar spine was carried out December 05. He is gradually getting better. He was to see his primary care physician yesterday and was under the impression that she was going to send a prescription to [address] [place] [address] pharmacy. However when he attended the pharmacy today they indicated they did not have a prescription for any Percocet. He takes one or 2 tablets on average every 6 hours. I therefore wrote him a prescription for 20 tablets which addendum through the weekend and he can contact his primary care provider Sunday or Sunday next week. Departure - Departure Time of Disposition: 14:28 Disposition: Home, Self-Care 01 Condition: Fair Clinical Impression: Lumbar back pain - Discharge Information *PRESCRIPTION DRUG MONITORING PROGRAM REVIEWED*: Yes *COPY OF PRESCRIPTION DRUG MONITORING REPORT IN PATIENT DELORES: Yes Prescriptions: oxyCODONE HCl/Acetaminophen [Percocet 5-325 mg Tablet] 1 - 2 each PO Q4H PRN # 20 tablet PRN Reason: pain relief. Instructions: Back Pain, Adult, [id number] Referrals: Efrem Saul MD [Primary Care Provider] - Forms: ED Department Discharge Additional Instructions: Evaluation in the emergency room today primarily in regards to pain management. You underwent lumbar spine surgery with discectomy in December of this year. You're still having significant pain in your lower back although there is been an improvement in the pain radiating down her leg. These wounds often take a lengthy period of time to improve. Wound itself looks to be healing satisfactorily. I did write a prescription for Percocet 5/325 mg tablets one or 2 every 6 hours by mouth ideally for pain relief. You want to try and wean yourself off this medication as soon as possible as his of course potentially highly addicting. Please call your normal care provider on Sunday to see what happened to the prescription that was supposed to be sent to the pharmacy for your pain medication.
== END 2018-02-16 14:40 | disposition home or self-care (01) ==
LOC: SUPCPDRO 13:51 → JD.ED 13:51
DX: M54.5 Low back pain (principal); Z98.890 Other specified postprocedural states; I11.0 Hypertensive heart disease with heart failure; I50.9 Heart failure, unspecified; F17.210 Nicotine dependence, cigarettes, uncomplicated; E11.9 Type 2 diabetes mellitus without complications; F31.9 Bipolar disorder, unspecified; Z79.899 Other long term (current) drug therapy; Z88.1 Allergy status to other antibiotic agents; Z88.6 Allergy status to analgesic agent; Z88.8 Allergy status to other drugs, medicaments and biological substances
CPT/HCPCS: 99282; 99283

== ENCOUNTER 2018-02-22 20:50 | Emergency (ER) | payer MEDICARE, MEDICAID ==
[2018-02-22 21:02] VITALS: BP 164/89
[2018-02-22] MEDS ORDERED: Sodium Chloride 0.9% 10 ML Syringe FLUSH PRN (21:13)
[2018-02-22] MEDS ORDERED: Albuterol 0.083% 2.5 MG/3 ML Neb Soln NEB ONE (21:16)
--- NOTE | 2018-02-22 22:29 | EDM.PDOC ---
ED HPI GENERAL MEDICAL PROBLEM - General Chief Complaint: Respiratory Problem Stated Complaint: SOB TROUBLE BREATHING Time Seen by Provider: 02/22/18 21:09 Source of Information: Reports: Patient History Limitations: Reports: No Limitations - History of Present Illness INITIAL COMMENTS - FREE TEXT/NARRATIVE: 62-year-old male presents for evaluation and treatment of shortness of breath. Patient reports over the last 2-3 days he has been feeling more short of breath than normal. He reports a nonproductive cough. He states that he feels he cannot cough up stuff in his lungs. He is normally on 2 L via nasal cannula but has been turning up to 3 due to his symptoms. Increased O2 dose not seem to improve his symptoms. Last neb was 2 hours prior to arrival in the ER. Reports associated symptoms of malaise and nausea. Denies any fevers, chills, vomiting or any chest pain. History of COPD, CHF, diabetes and anxiety. PCP is Dr. Aguirre. - Related Data Allergies Allergy/AdvReac Type Severity Reaction Status Date / Time celecoxib [From Celebrex] AdvReac Nausea Verified 02/22/18 21:02 ketorolac [From Toradol] AdvReac Stomach Verified 02/22/18 21:02 Upset mirtazapine [From Remeron] AdvReac Confusion Verified 02/22/18 21:02 NSAIDS (Non-Steroidal AdvReac Stomach Verified 02/22/18 21:02 Anti-Inflamma Upset Home Meds: Home Meds Metoprolol Succinate 50 mg PO DAILY 11/06/13 [History] Subcutaneous Insulin Pump [Insulin Pump] 90 units INJECT ASDIRECTED 11/29/14 [ History] Furosemide [Lasix] 40 mg PO DAILY 05/12/15 [History] atorvaSTATin [Lipitor] 10 mg PO BEDTIME 05/12/15 [History] lamoTRIgine [Lamotrigine] 100 mg PO BID 05/12/15 [History] Albuterol [Ventolin HFA] 1 - 2 puff INH Q4H PRN 04/28/17 [History] Diazepam [Valium] 5 mg PO TID PRN 04/28/17 [History] Pantoprazole [ProTONIX] 40 mg PO BID 04/28/17 [History] traZODone HCl [Trazodone HCl] 200 mg PO BEDTIME 04/28/17 [History] Budesonide/Formoterol Fumarate [Symbicort 80-4.5 Mcg Inhaler] 2 puff INH BID [History] Albuterol/Ipratropium [DuoNeb 3.0-0.5 MG/3 ML] 1 dose INH Q6HR PRN 05/30/17 [ History] Lisinopril 40 mg PO DAILY 05/30/17 [History] Ranitidine [Zantac] 150 mg PO BID 05/30/17 [History] Metoprolol Succinate 25 mg PO BEDTIME 09/05/17 [History] Vortioxetine Hydrobromide [Trintellix] 15 mg PO DAILY 10/10/17 [History] clonazePAM [Clonazepam] 1 mg PO BEDTIME PRN 10/10/17 [History] Gabapentin [Neurontin] 300 mg PO TID 11/19/17 [History] Tamsulosin [Flomax] 0.4 mg PO BID 12/31/17 [History] Acetaminophen/oxyCODONE [Percocet 325-5 MG] 1 each PO Q6HR PRN #15 tab 01/07/18 [Rx] oxyCODONE HCl/Acetaminophen [Percocet 5-325 mg Tablet] 1 - 2 each PO Q4H PRN # 20 tablet 02/16/18 [Rx] Azithromycin [Zithromax] 250 mg PO DAILY #4 tab 02/22/18 [Rx] predniSONE [Prednisone] 40 mg PO DAILY #8 tablet 02/22/18 [Rx] Past Medical History HEENT History: Reports: Impaired Vision Other HEENT History: wears glasses Cardiovascular History: Reports: Heart Failure, High Cholesterol, Hypertension Other Cardiovascular History: 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 Respiratory History: Reports: COPD, Sleep Apnea, Other (See Below) Other Respiratory History: emphysema Gastrointestinal History: Reports: GERD, Pancreatitis Other Gastrointestinal History: nausea, epigastric pain, benighn neoplasm of colon, duodenitis Genitourinary History: Reports: Retention, 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 Musculoskeletal History: Reports: Back Pain, Chronic Other Musculoskeletal History: lumbar degenerative disc disease Psychiatric History: Reports: Anxiety, Bipolar Other Psychiatric History: insomnia Endocrine/Metabolic History: Reports: Diabetes, Type II, Obesity/BMI 30+ Other Endocrine/Metabolic History: adrenal incidentaloma Hematologic History: Reports: Polycythemia Immunologic History: Reports: None Oncologic (Cancer) History: Reports: None Dermatologic History: Reports: None - Past Surgical History Cardiovascular Surgical History: Reports: Other (See Below) GI Surgical History: Reports: Colonoscopy, EGD, Hernia, Inguinal Neurological Surgical History: Reports: Laminectomy, Lumbar Spine Musculoskeletal Surgical History: Reports: Carpal Tunnel, Shoulder Surgery Social & Family History - Family History Family Medical History: Noncontributory - Tobacco Use Smoking Status *Q: Current Every Day Smoker Years of Tobacco use: 40 Packs/Tins Daily: 0.5 - Caffeine Use Caffeine Use: Reports: Coffee, Soda, Tea - Recreational Drug Use Recreational Drug Use: No - Living Situation & Occupation Living situation: Reports: Alone, Single Occupation: Unemployed ED ROS GENERAL - Review of Systems Review Of Systems: See Below Constitutional: Reports: Malaise. Denies: Fever, Chills HEENT: Denies: Ear Pain, Throat Pain Respiratory: Reports: Shortness of Breath, Cough. Denies: Sputum Cardiovascular: Denies: Chest Pain GI/Abdominal: Denies: Abdominal Pain, Nausea, Vomiting ED EXAM, GENERAL - Physical Exam Exam: See Below Exam Limited By: No Limitations General Appearance: Alert, WD/WN, No Apparent Distress, Obese, Other (on 2L nasal cannula upon evaluation, no obvious distress; O2 sats 90-96) Eye Exam: Bilateral Eye: Normal Inspection Ears: Normal External Exam, Normal Canal, Hearing Grossly Normal, Normal TMs Nose: Normal Inspection Throat/Mouth: Normal Inspection, Normal Lips, Normal Oropharynx, Normal Voice, No Airway Compromise Respiratory/Chest: No Respiratory Distress, Lungs Clear, Decreased Breath Sounds , Wheezing (diffuse inspiratory and expiratory) Cardiovascular: Normal Peripheral Pulses, Regular Rate, Rhythm, No Murmur GI/Abdominal: Soft, Non-Tender Neurological: Alert, Oriented, Normal Cognition Psychiatric: Normal Mood, Flat Affect Skin Exam: Warm, Dry, Normal Color EKG INTERPRETATION EKG Date: 02/22/18 Time: 21:15 Rhythm: NSR Rate (Beats/Min): 67 [place]: Normal P-Wave: Present QRS: Normal ST-T: Normal QT: Prolonged (mildly) Comparison: No Change EKG Interpretation Comments: sinus arrhythmia at 67 bpm. Poor 'R' wave progression - consider old anteroseptal Mi. T wave inversion III and AVF. QT mildly prolonged. Reviewed by myself and Dr. Mora. Course - Vital Signs Last Recorded V/S: Last Vital Signs Temp 98.4 F 02/22/18 20:58 Pulse 77 02/22/18 20:58 Resp 18 02/22/18 20:58 BP 164/89 H 02/22/18 20:58 Pulse Ox 90 L 02/22/18 20:58 - Orders/Labs/Meds Labs: Laboratory Tests 02/22/18 02/22/18 02/22/18 Range/Units 21:24 21:24 21:24 WBC 6.77 (4.23-9.07) K/mm3 RBC 5.06 (4.63-6.08) M/mm3 Hgb 17.0 (13.7-17.5) gm/L Hct 49.6 (40.1-51.0) % MCV 98.0 H (79.0-92.2) fl MCH 33.6 H (25.7-32.2) pg MCHC 34.3 (32.2-35.5) g/dl RDW Std Deviation 54.2 H (35.1-43.9) fL Plt Count 243 (163-337) K/mm3 MPV 9.3 L (9.4-12.3) fl Neutrophils % (Manual) 63 H (40-60) % Band Neutrophils % 0 (0-10) % Lymphocytes % (Manual) 35 (20-40) % Atypical Lymphs % 0 % Monocytes % (Manual) 1 L (2-10) % Eosinophils % (Manual) 0 L (0.8-7.0) % Basophils % (Manual) 1 (0.2-1.2) Platelet Estimate Adequate RBC Morph Comment Normal Sodium 143 (136-145) mEq/L Potassium 3.9 (3.5-5.1) mEq/L Chloride 105 (98-107) mEq/L Carbon Dioxide 32 (21-32) mEq/L Anion Gap 9.9 (5-15) BUN 17 (7-18) mg/dL Creatinine 1.1 (0.7-1.3) mg/dL Est Cr Clr Drug Dosing 72.82 mL/min Estimated GFR (MDRD) > 60 (>60) mL/min BUN/Creatinine Ratio 15.5 (14-18) Glucose 90 (80-115) mg/dL Calcium 9.1 (8.5-10.1) mg/dL Total Bilirubin 0.3 (0.2-1.0) mg/dL AST 25 (15-37) U/L ALT 36 (16-63) U/L Alkaline Phosphatase 159 H (46-116) U/L C-Reactive Protein 0.5 (<1.0) mg/dL NT-Pro-B Natriuret Pep 764 H (0-125) pg/mL Total Protein 6.3 L (6.4-8.2) g/dl Albumin 3.1 L (3.4-5.0) g/dl Globulin 3.2 gm/dL Albumin/Globulin Ratio 1.0 (1-2) Meds: Medications Discontinued Medications Generic Name Dose Route Start Last Admin Trade Name Freq PRN Reason Stop Dose Admin Albuterol 2.5 mg 02/22/18 21:16 02/22/18 21:28 Proventil Neb Soln NEB 02/22/18 21:17 2.5 mg ONETIME ONE Administration Azithromycin 500 mg 02/22/18 22:49 02/22/18 23:02 Zithromax PO 02/22/18 22:50 500 mg NOW STA Administration Prednisone 40 mg 02/22/18 22:49 02/22/18 23:02 Prednisone PO 02/22/18 22:50 40 mg ONETIME ONE Administration Sodium Chloride 10 ml 02/22/18 21:13 Saline Flush FLUSH ASDIRECTED PRN Keep Vein Open - Radiology Interpretation Free Text/Narrative:: chest xray shows no acute intrathoracic process. - Re-Assessments/Exams Free Text/Narrative Re-Assessment/Exam: 02/22/18 22:50 Reviewed the EKG, x-ray and labs with patient. We'll treat a bronchitis and mild COPD exacerbation with azithromycin and prednisone. Lung sounds improved after albuterol neb treatment. Patient continues to be on 2L nasal cannula. Will discharge home at this time. Recommend close follow-up. Discharge instructionsas documented. Departure - Departure Time of Disposition: 22:51 Disposition: Home, Self-Care 01 Condition: Fair Clinical Impression: COPD exacerbation, Bronchitis - Discharge Information *PRESCRIPTION DRUG MONITORING PROGRAM REVIEWED*: No *COPY OF PRESCRIPTION DRUG MONITORING REPORT IN PATIENT DELORES: No Prescriptions: Azithromycin [Zithromax] 250 mg PO DAILY #4 tab predniSONE [Prednisone] 40 mg PO DAILY #8 tablet Instructions: Chronic Obstructive Pulmonary Disease Exacerbation, [id number] , Acute Bronchitis, Adult, [id number] Referrals: Efrem Saul MD [Primary Care Provider] - Forms: ED Department Discharge Additional Instructions: Take the prednisone as prescribed. your first dose was given in the ED tonight. You may start this perception tomorrow. Take 2 tabs or 40 mg daily. Azithromycin as prescribed. your first dose was given in the ED. Take one 250 mg by mouth daily for the next 4 days. Start this prescription tomorrow. Rest. Make sure you are drinking plenty of fluids. Continue to utilize your nebulizers as needed. Follow-up with your primary care provider within one week for recheck of your symptoms. Please return to the ER if your symptoms change or worsen.
[2018-02-22] MEDS ORDERED: predniSONE 20 MG Tab PO ONE (22:49)
[2018-02-22] MEDS ORDERED: Azithromycin 250 MG Tab PO STA (22:49)
--- NOTE | 2018-02-26 10:02 | CR ---
Chest: Two views of the chest were obtained. Comparison: Prior chest x-ray of 11/24/17. Heart size is slightly enlarged. Tortuous thoracic aorta is seen. Pulmonary vessels are mildly increased. Lungs otherwise are clear. No acute parenchymal change is seen. Impression: 1. Cardiomegaly and mild pulmonary vascular prominence. 2. Nothing acute is otherwise seen on two-view chest x-ray. Diagnostic code #3
== END 2018-02-22 23:10 | disposition home or self-care (01) ==
LOC: JD.ED 20:50
DX: J40 Bronchitis, not specified as acute or chronic (principal); F41.9 Anxiety disorder, unspecified; E78.00 Pure hypercholesterolemia, unspecified; I11.0 Hypertensive heart disease with heart failure; I50.9 Heart failure, unspecified; J44.9 Chronic obstructive pulmonary disease, unspecified; F31.9 Bipolar disorder, unspecified; F17.210 Nicotine dependence, cigarettes, uncomplicated; E11.9 Type 2 diabetes mellitus without complications; Z88.8 Allergy status to other drugs, medicaments and biological substances; Z79.899 Other long term (current) drug therapy
CPT/HCPCS: 36415; 71046; 80053; 83880; 85007; 85027; 86140; 93005; 94640; 99285; A9270

== ENCOUNTER 2018-04-07 23:00 | Emergency (ER) | payer MEDICARE, MEDICAID ==
[2018-04-07 23:09] VITALS: BP 100/67
[2018-04-07] MEDS ORDERED: HYDROmorphone 1 MG/ML Syringe IM ONE (23:25)
[2018-04-07] MEDS ORDERED: diazePAM 5 MG/ML MDV IM ONE (23:42)
--- NOTE | 2018-04-07 23:51 | EDM.PDOC ---
ED HPI GENERAL MEDICAL PROBLEM - General Chief Complaint: Back Pain or Injury Stated Complaint: back pain Time Seen by Provider: 04/07/18 23:06 - History of Present Illness Treatments DIRECTOR DIGITAL COMMUNICATIONS: Reports: Other (see below) Other Treatments DIRECTOR DIGITAL COMMUNICATIONS: percocet Lower Back Pain Score (Numeric/FACES): 9 - Related Data Allergies Allergy/AdvReac Type Severity Reaction Status Date / Time celecoxib [From Celebrex] AdvReac Nausea Verified 03/14/18 09:57 MDT ketorolac [From Toradol] AdvReac Stomach Verified 03/14/18 09:57 MDT Upset mirtazapine [From Remeron] AdvReac Confusion Verified 03/14/18 09:57 MDT NSAIDS (Non-Steroidal AdvReac Stomach Verified 03/14/18 09:57 MDT Anti-Inflamma Upset Home Meds: Home Meds Metoprolol Succinate 50 mg PO DAILY 11/06/13 [History] Subcutaneous Insulin Pump [Insulin Pump] 0 units INJECT ASDIRECTED 11/29/14 [ History] Furosemide [Lasix] 40 mg PO DAILY 05/12/15 [History] atorvaSTATin [Lipitor] 10 mg PO BEDTIME 05/12/15 [History] Albuterol [Ventolin HFA] 1 - 2 puff INH Q4H PRN 04/28/17 [History] Diazepam [Valium] 5 mg PO TID PRN 04/28/17 [History] traZODone HCl [Trazodone HCl] 200 mg PO BEDTIME 04/28/17 [History] Budesonide/Formoterol Fumarate [Symbicort 80-4.5 Mcg Inhaler] 2 puff INH BID [History] Albuterol/Ipratropium [DuoNeb 3.0-0.5 MG/3 ML] 1 dose INH Q6HR PRN 05/30/17 [ History] Lisinopril 40 mg PO DAILY 05/30/17 [History] Metoprolol Succinate 25 mg PO BEDTIME 09/05/17 [History] Vortioxetine Hydrobromide [Trintellix] 15 mg PO DAILY 10/10/17 [History] clonazePAM [Clonazepam] 1 mg PO BEDTIME PRN 10/10/17 [History] Gabapentin [Neurontin] 300 mg PO TID 11/19/17 [History] Tamsulosin [Flomax] 0.4 mg PO BID 12/31/17 [History] oxyCODONE HCl/Acetaminophen [Percocet 5-325 mg Tablet] 1 - 2 each PO Q4H PRN # 20 tablet 02/16/18 [Rx] Orphenadrine [Norflex] 100 mg PO BID PRN #12 tab 04/08/18 [Rx] Past Medical History HEENT History: Reports: Impaired Vision Other HEENT History: wears glasses Cardiovascular History: Reports: Heart Failure, High Cholesterol, Hypertension Other Cardiovascular History: 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 Respiratory History: Reports: COPD, Sleep Apnea, Other (See Below) Other Respiratory History: emphysema Gastrointestinal History: Reports: Colon Polyp, GERD, Pancreatitis Other Gastrointestinal History: nausea, epigastric pain, benighn neoplasm of colon, duodenitis Genitourinary History: Reports: Retention, 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 Musculoskeletal History: Reports: Back Pain, Chronic Other Musculoskeletal History: lumbar degenerative disc disease Neurological History: Reports: Other (See Below) Other Neuro History: back surgery Psychiatric History: Reports: Anxiety, Bipolar, Other (See Below) Other Psychiatric History: insomnia Endocrine/Metabolic History: Reports: Diabetes, Type II, Obesity/BMI 30+ Other Endocrine/Metabolic History: adrenal incidentaloma Hematologic History: Reports: Polycythemia Immunologic History: Reports: None Oncologic (Cancer) History: Reports: None Dermatologic History: Reports: None - Past Surgical History Cardiovascular Surgical History: Reports: Other (See Below) GI Surgical History: Reports: Colonoscopy, EGD, Hernia, Inguinal Neurological Surgical History: Reports: Laminectomy Musculoskeletal Surgical History: Reports: Carpal Tunnel, Shoulder Surgery, Other (See Below) Other Musculoskeletal Surgeries/Procedures:: back surgery x 3 Social & Family History - Family History Family Medical History: Noncontributory - Tobacco Use Smoking Status *Q: Current Every Day Smoker Years of Tobacco use: 40 Packs/Tins Daily: 1 - Caffeine Use Caffeine Use: Reports: Coffee - Living Situation & Occupation Living situation: Reports: Alone, Single Occupation: Unemployed ED ROS GENERAL - Review of Systems Review Of Systems: See Below ED EXAM,LOWER BACK PAIN/INJURY - Physical Exam Exam: See Below Course - Vital Signs Last Recorded V/S: Last Vital Signs Temp 98.0 F 04/07/18 23:07 MDT Pulse 89 04/07/18 23:07 MDT Resp 24 H 04/07/18 23:07 MDT BP 100/67 04/07/18 23:07 MDT Pulse Ox 91 L 04/07/18 23:07 MDT - Orders/Labs/Meds Orders: Active Orders 24 hr Category Date Time Status UA W/MICROSCOPIC [URIN] Stat Lab 04/08/18 00:05 Ordered Labs: Laboratory Tests 04/08/18 Range/Units 00:05 MDT Urine Color Yellow (Yellow) Urine Appearance Clear (Clear) Urine pH 5.5 (5.0-8.0) Ur Specific [place] > or = 1.030 (1.005-1.030) Urine Protein 1+ H (Negative) Urine Glucose (UA) Negative (Negative) Urine Ketones Trace H (Negative) Urine Occult Blood Negative (Negative) Urine Nitrite Negative (Negative) Urine Bilirubin 1+ H (Negative) Urine Urobilinogen 0.2 (0.2-1.0) Ur Leukocyte Esterase Negative (Negative) Urine RBC Not seen (0-5) /hpf Urine WBC 0-5 (0-5) /hpf Ur Epithelial Cells 0-5 (0-5) /hpf Urine Bacteria Rare (FEW) /hpf Hyaline Casts 0-5 (0-5) /lpf Urine Mucus Not seen (FEW) /hpf Urinalysis Comment Meds: Medications Discontinued Medications Generic Name Dose Route Start Last Admin Trade Name Freq PRN Reason Stop Dose Admin Diazepam 5 mg 04/07/18 23:26 MDT Valium IM 04/07/18 23:27 MDT ONETIME ONE Diazepam 5 mg 04/07/18 23:42 MDT 04/07/18 23:59 MDT Valium IM 04/07/18 23:43 MDT Not Given ONETIME ONE Hydromorphone HCl 1 mg 04/07/18 23:25 MDT 04/07/18 23:41 MDT Dilaudid IM 04/07/18 23:26 MDT 1 mg ONETIME ONE Administration - Radiology Interpretation Free Text/Narrative:: No red flags regarding this back problems and pain that the patient has. Chronic in nature. Doubt AAA. No urinary tract infection symptoms doubt urinary tract infection or kidney stone. We'll review the pharmacy website for any overprescribing. The patient in the meantime is given a shot of IM Dilaudid and IM Valium. He has underlying COPD and we'll monitor his oxygenation and vital signs during the course of his therapy. He will definitely need a sober ride home as well. At this point to feel any imaging is indicated his last imaging test was within the last year. He is followed closely by his back surgeon. Anticipate if we can get his pain elicited little bit better controlled we'll plan discharge home follow-up and return caution given. - Re-Assessments/Exams Free Text/Narrative Re-Assessment/Exam: 04/07/18 23:59 Review with patient his prescriptions regarding his prescribing habits for his pain pills. He is on quite a bit of pain medications on a regular basis and has received combination therapy with benzodiazepines. Discussed this with the patient and he does at least have some Percocet still to get him through the rest of the week and/or weekend. He does not want to try any Toradol or other anti-inflammatories based on how it upsets his stomach. We'll send a urine to make sure there is no urinary tract infection or chance of any microscopic blood and/or renal colic as an etiology otherwise anticipate we'll discharge patient home. Free Text/Narrative Re-Assessment/Exam: 04/08/18 00:33 Patient is doing a little bit better. His urinalysis is positive for ketones but otherwise no blood or infection. The patient is ready to get discharged home. He ready has Valium and Percocet to get him through a ride of Norflex in case. No further narcotics for the metered emergency department as far as any refills on his chronic pain medications. Patient otherwise is instructed follow- up with his primary care physician Departure - Departure Time of Disposition: 00:34 Disposition: Home, Self-Care 01 Condition: Fair Clinical Impression: Low back pain of over 3 months duration, Chronic back pain, Lumbar back pain - Discharge Information *PRESCRIPTION DRUG MONITORING PROGRAM REVIEWED*: Yes *COPY OF PRESCRIPTION DRUG MONITORING REPORT IN PATIENT DELORES: Yes Prescriptions: Orphenadrine [Norflex] 100 mg PO BID PRN #12 tab PRN Reason: Spasms Instructions: Chronic Pain, Adult, What You Need to Know About Chronic Back Pain Referrals: Efrem Saul MD [Primary Care Provider] - Forms: ED Department Discharge Additional Instructions: Rest may try ice or heat. Walk as much as tolerated. Follow up with your primary care physician. Return if any loss of bowel or bladder control, muscle weakness, increasing pain in the abdomen, worsening. - My Orders Last 24 Hours: My Active Orders 04/08/18 00:05 UA W/MICROSCOPIC [URIN] Stat - Assessment/Plan Last 24 Hours: My Active Orders 04/08/18 00:05 UA W/MICROSCOPIC [URIN] Stat
== END 2018-04-08 01:30 | disposition home or self-care (01) ==
LOC: JD.ED 23:00
DX: M54.5 Low back pain (principal); G89.29 Other chronic pain; I11.0 Hypertensive heart disease with heart failure; I50.9 Heart failure, unspecified; J44.9 Chronic obstructive pulmonary disease, unspecified; E11.22 Type 2 diabetes mellitus with diabetic chronic kidney disease; E66.9 Obesity, unspecified; F17.210 Nicotine dependence, cigarettes, uncomplicated; Z79.899 Other long term (current) drug therapy
CPT/HCPCS: 81001; 96374; 96375; 99283; J1170; J3360; 99284

== ENCOUNTER 2018-04-27 12:41 | Emergency (ER) | payer MEDICARE, MEDICAID ==
[2018-04-27 13:02] VITALS: BP 143/78
[2018-04-27] MEDS ORDERED: methylPREDNISolone Sodium Succinate 40 MG/1 ML SDV IM ONE (13:30)
--- NOTE | 2018-04-27 14:01 | EDM.PDOC ---
ED HPI GENERAL MEDICAL PROBLEM - General Chief Complaint: Back Pain or Injury Stated Complaint: BACK PAIN Time Seen by Provider: 04/27/18 12:57 Source of Information: Reports: Patient History Limitations: Reports: No Limitations - History of Present Illness INITIAL COMMENTS - FREE TEXT/NARRATIVE: The patient presents with low back pain. He has chronic low back pain. He had 3 back surgeries before. His last surgery was with Dr Huff in December. His pain is getting better but today it flared up. He has no numbness or weakness to his legs. He has no bowel or bladder problems. He did not hurt his back recently. He just got a prescription for percocet yesterday. Onset: Gradual Duration: Week(s): Location: Reports: Back Quality: Reports: Sharp Severity: Severe Improves with: Reports: Immobilization Worsens with: Reports: Movement Context: Denies: Trauma Associated Symptoms: Reports: No Other Symptoms Left Lower Back Pain Score (Numeric/FACES): 9 - Related Data Allergies Allergy/AdvReac Type Severity Reaction Status Date / Time celecoxib [From Celebrex] AdvReac Nausea Verified 03/14/18 09:57 ketorolac [From Toradol] AdvReac Stomach Verified 03/14/18 09:57 Upset mirtazapine [From Remeron] AdvReac Confusion Verified 03/14/18 09:57 NSAIDS (Non-Steroidal AdvReac Stomach Verified 03/14/18 09:57 Anti-Inflamma Upset Home Meds: Home Meds Metoprolol Succinate 50 mg PO DAILY 11/06/13 [History] Subcutaneous Insulin Pump [Insulin Pump] 0 units INJECT ASDIRECTED 11/29/14 [ History] Furosemide [Lasix] 40 mg PO DAILY 05/12/15 [History] atorvaSTATin [Lipitor] 10 mg PO BEDTIME 05/12/15 [History] Albuterol [Ventolin HFA] 1 - 2 puff INH Q4H PRN 04/28/17 [History] Diazepam [Valium] 5 mg PO TID PRN 04/28/17 [History] traZODone HCl [Trazodone HCl] 200 mg PO BEDTIME 04/28/17 [History] Budesonide/Formoterol Fumarate [Symbicort 80-4.5 Mcg Inhaler] 2 puff INH BID [History] Albuterol/Ipratropium [DuoNeb 3.0-0.5 MG/3 ML] 1 dose INH Q6HR PRN 05/30/17 [ History] Lisinopril 40 mg PO DAILY 05/30/17 [History] Metoprolol Succinate 25 mg PO BEDTIME 09/05/17 [History] Vortioxetine Hydrobromide [Trintellix] 15 mg PO DAILY 10/10/17 [History] clonazePAM [Clonazepam] 1 mg PO BEDTIME PRN 10/10/17 [History] Gabapentin [Neurontin] 300 mg PO TID 11/19/17 [History] Tamsulosin [Flomax] 0.4 mg PO BID 12/31/17 [History] oxyCODONE HCl/Acetaminophen [Percocet 5-325 mg Tablet] 1 - 2 each PO Q4H PRN # 20 tablet 02/16/18 [Rx] Orphenadrine [Norflex] 100 mg PO BID PRN #12 tab 04/08/18 [Rx] Past Medical History HEENT History: Reports: Impaired Vision Other HEENT History: wears glasses Cardiovascular History: Reports: Heart Failure, High Cholesterol, Hypertension Other Cardiovascular History: 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 Respiratory History: Reports: COPD, Sleep Apnea, Other (See Below) Other Respiratory History: emphysema Gastrointestinal History: Reports: Colon Polyp, GERD, Pancreatitis Other Gastrointestinal History: nausea, epigastric pain, benighn neoplasm of colon, duodenitis Genitourinary History: Reports: Retention, 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 Musculoskeletal History: Reports: Back Pain, Chronic Other Musculoskeletal History: lumbar degenerative disc disease Neurological History: Reports: Other (See Below) Other Neuro History: back surgery Psychiatric History: Reports: Anxiety, Bipolar, Other (See Below) Other Psychiatric History: insomnia Endocrine/Metabolic History: Reports: Diabetes, Type II, Obesity/BMI 30+ Other Endocrine/Metabolic History: adrenal incidentaloma Hematologic History: Reports: Polycythemia Immunologic History: Reports: None Oncologic (Cancer) History: Reports: None Dermatologic History: Reports: None - Past Surgical History Cardiovascular Surgical History: Reports: Other (See Below) GI Surgical History: Reports: Colonoscopy, EGD, Hernia, Inguinal Neurological Surgical History: Reports: Laminectomy Musculoskeletal Surgical History: Reports: Carpal Tunnel, Shoulder Surgery, Other (See Below) Other Musculoskeletal Surgeries/Procedures:: back surgery x 3 Social & Family History - Family History Family Medical History: Noncontributory - Tobacco Use Smoking Status *Q: Current Every Day Smoker Years of Tobacco use: 40 Packs/Tins Daily: 1 - Caffeine Use Caffeine Use: Reports: Coffee, Soda - Recreational Drug Use Recreational Drug Use: No - Living Situation & Occupation Living situation: Reports: Alone, Single Occupation: Unemployed ED ROS GENERAL - Review of Systems Review Of Systems: See Below Constitutional: Reports: No Symptoms HEENT: Reports: No Symptoms Respiratory: Reports: No Symptoms Cardiovascular: Reports: No Symptoms Endocrine: Reports: No Symptoms GI/Abdominal: Reports: No Symptoms : Reports: No Symptoms Musculoskeletal: Reports: Back Pain ED EXAM,LOWER BACK PAIN/INJURY - Physical Exam Exam: See Below Exam Limited By: No Limitations General Appearance: Alert, No Apparent Distress Ears: Normal External Exam Nose: Normal Inspection Head: Atraumatic, Normocephalic Neck: Normal Inspection Respiratory/Chest: No Respiratory Distress, Lungs Clear, Normal Breath Sounds Cardiovascular: Regular Rate, Rhythm, No Edema, No Murmur GI/Abdominal: Soft, Non-Tender, No Organomegaly, No Mass Back Exam: Other (Mild pain upon palpation to the low back mostly on the left) Course - Vital Signs Last Recorded V/S: Last Vital Signs Temp 99.2 F 04/27/18 12:59 Pulse 91 04/27/18 12:59 Resp 20 04/27/18 12:59 BP 143/78 H 04/27/18 12:59 Pulse Ox 91 L 04/27/18 12:59 - Orders/Labs/Meds Meds: Medications Discontinued Medications Generic Name Dose Route Start Last Admin Trade Name Sunil PRN Reason Stop Dose Admin Methylprednisolone Sodium Succinate 40 mg 04/27/18 13:30 04/27/18 13:41 Solu-Medrol IM 04/27/18 13:31 40 mg ONETIME ONE Administration - Re-Assessments/Exams Free Text/Narrative Re-Assessment/Exam: 04/27/18 14:01 The patient wanted a shot of dilaudid. I will give him a shot of solu-medrol 40mg IM. Departure - Departure Time of Disposition: 14:05 Disposition: Home, Self-Care 01 Condition: Good Clinical Impression: Chronic back pain - Discharge Information *PRESCRIPTION DRUG MONITORING PROGRAM REVIEWED*: No *COPY OF PRESCRIPTION DRUG MONITORING REPORT IN PATIENT DELORES: No Referrals: Efrem Saul MD [Primary Care Provider] - 1 Week Additional Instructions: Take your medication as prescribed. Please return if you are worse.
== END 2018-04-27 14:16 | disposition home or self-care (01) ==
LOC: JD.ED 12:41
DX: G89.29 Other chronic pain (principal); M54.5 Low back pain; I11.0 Hypertensive heart disease with heart failure; I50.9 Heart failure, unspecified; E11.9 Type 2 diabetes mellitus without complications; E66.9 Obesity, unspecified; Z79.899 Other long term (current) drug therapy; Z88.8 Allergy status to other drugs, medicaments and biological substances; F17.210 Nicotine dependence, cigarettes, uncomplicated; Z88.5 Allergy status to narcotic agent
CPT/HCPCS: 96372; 99283; J2920

== ENCOUNTER 2018-08-11 03:02 | Emergency (ER) | payer MEDICAID, MEDICARE ==
[2018-08-11 03:08] VITALS: BP 154/88
[2018-08-11] MEDS ORDERED: Albuterol/Ipratropium 3.0-0.5 MG/3 ML Neb Soln NEB ONE (03:26)
--- NOTE | 2018-08-11 03:43 | EDM.PDOC ---
ED HPI GENERAL MEDICAL PROBLEM - General Chief Complaint: Respiratory Problem Stated Complaint: [facility] Time Seen by Provider: 08/11/18 03:13 Source of Information: Reports: Patient, RN Notes Reviewed History Limitations: Reports: No Limitations - History of Present Illness INITIAL COMMENTS - FREE TEXT/NARRATIVE: The patient states that he has felt dyspneic for about one week. He states that he may feel a bit more comfortable upright than supine. He reports both nasal and chest congestion for about a year. No recent fever. He has had an occasional dry cough. His had occasional wheezing. No recent chest pain or palpitations. No recent nausea, vomiting, constipation, diarrhea, or urinary symptoms. The patient reports that his oxygen saturation has decreased over the past 2 days. He states that he ordinarily takes 3 L of supplemental oxygen at night, for the treatment of pulmonary hypertension, but he ordinarily does not take any oxygen during the day. Over the past couple of days, however, he has started taking supplemental oxygen during the day. The patient has a history of obstructive sleep apnea, but is not compliant with his CPAP. The patient states that he saw his PCP, Dr. Saul, this past Sunday, 2017. He states that blood tests and a chest x-ray were performed, but that the tests did not reveal anything, and no new prescriptions were given. The patient states that Dr. Saul recommended that the patient get an outpatient CT scan of his chest, but the patient does not know what Dr. Saul was concerned about. The patient states that he has not taken any new [id number] medications or home remedies for his symptoms, although he has continued to take his usual Symbicort, budesonide, and DuoNeb. He states that his last DuoNeb was a few hours ago, and that it seemed to help with his breathing. The paramedics found the patient's oxygen saturation to be low, therefore they put him on a partial rebreather mask at 5 L, which brought his oxygen saturation to 91%. Here in the ED, the patient's oxygen saturation is 88% on 3 L O2 per nasal cannula. He is afebrile. The patient states that he did receive an influenza vaccine this season. - Related Data Allergies Allergy/AdvReac Type Severity Reaction Status Date / Time celecoxib [From Celebrex] AdvReac Nausea Verified 08/11/18 03:08 ketorolac [From Toradol] AdvReac Stomach Verified 08/11/18 03:08 Upset mirtazapine [From Remeron] AdvReac Confusion Verified 08/11/18 03:08 NSAIDS (Non-Steroidal AdvReac Stomach Verified 08/11/18 03:08 Anti-Inflamma Upset Home Meds: Home Meds Metoprolol Succinate 50 mg PO DAILY 11/06/13 [History] Subcutaneous Insulin Pump [Insulin Pump] 0 units INJECT ASDIRECTED 11/29/14 [ History] Furosemide [Lasix] 40 mg PO DAILY 05/12/15 [History] atorvaSTATin [Lipitor] 10 mg PO BEDTIME 05/12/15 [History] Albuterol [Ventolin HFA] 1 - 2 puff INH Q4H PRN 04/28/17 [History] Diazepam [Valium] 5 mg PO TID PRN 04/28/17 [History] traZODone HCl [Trazodone HCl] 200 mg PO BEDTIME 04/28/17 [History] Budesonide/Formoterol Fumarate [Symbicort 80-4.5 Mcg Inhaler] 2 puff INH BID [History] Albuterol/Ipratropium [DuoNeb 3.0-0.5 MG/3 ML] 1 dose INH Q6HR PRN 05/30/17 [ History] Lisinopril 40 mg PO DAILY 05/30/17 [History] Metoprolol Succinate 25 mg PO BEDTIME 09/05/17 [History] Vortioxetine Hydrobromide [Trintellix] 15 mg PO DAILY 10/10/17 [History] clonazePAM [Clonazepam] 1 mg PO BEDTIME PRN 10/10/17 [History] Tamsulosin [Flomax] 0.4 mg PO BID 12/31/17 [History] oxyCODONE HCl/Acetaminophen [Percocet 5-325 mg Tablet] 1 - 2 each PO Q4H PRN # 20 tablet 02/16/18 [Rx] Past Medical History HEENT History: Reports: Impaired Vision Other HEENT History: wears glasses Cardiovascular History: Reports: Heart Failure (diastolic), High Cholesterol, Hypertension Respiratory History: Reports: COPD, Sleep Apnea (noncompliant with nightly CPAP) , Other (See Below) (Pulmonary hypertension, on suppleental O2 3L nightly) Gastrointestinal History: Reports: Colon Polyp, GERD, Pancreatitis Genitourinary History: Reports: BPH Musculoskeletal History: Reports: Back Pain, Chronic (lumbar DDD) Psychiatric History: Reports: Anxiety, Bipolar, Other (See Below) (Insomnia) Endocrine/Metabolic History: Reports: Diabetes, Type II, Obesity/BMI 30+ Hematologic History: Reports: Polycythemia - Past Surgical History Cardiovascular Surgical History: Reports: Other (See Below) (Coronary angiogram March 2017 found right dominant, with mild LAD disease) GI Surgical History: Reports: Colonoscopy, EGD, Hernia, Inguinal (right) Neurological Surgical History: Reports: Laminectomy (L3-S1 2011, L2 12/19/2017) Musculoskeletal Surgical History: Reports: Carpal Tunnel (bilateral), Shoulder Surgery (bilateral rotator cuff repair, one open, one arthroscopic) Social & Family History - Family History Family Medical History: Noncontributory - Tobacco Use Smoking Status *Q: Current Every Day Smoker Years of Tobacco use: 40 Packs/Tins Daily: 1 - Caffeine Use Caffeine Use: Reports: Coffee, Soda - Recreational Drug Use Recreational Drug Use: No - Living Situation & Occupation Living situation: Reports: Alone, Single Occupation: Unemployed ED ROS GENERAL - Review of Systems Review Of Systems: ROS reveals no pertinent complaints other than HPI. ED EXAM, GENERAL - Physical Exam Exam: See Below Exam Limited By: No Limitations General Appearance: Alert, WD/WN, No Apparent Distress Eye Exam: Bilateral Eye: EOMI, Normal Inspection Ears: Normal External Exam, Hearing Grossly Normal Nose: Normal Inspection Throat/Mouth: Normal Inspection, Normal Lips, Normal Voice, No Airway Compromise Head: Atraumatic, Normocephalic Neck: Normal Inspection, Full Range of Motion Respiratory/Chest: No Respiratory Distress, No Accessory Muscle Use, Decreased Breath Sounds, Wheezing (expiratory throughout), Prolonged Expiration (minimal) . No: Crackles, Rhonchi Cardiovascular: Normal Peripheral Pulses, Regular Rate, Rhythm, No Gallop, No JVD, No Murmur, No Rub Peripheral Pulses: 4+: Radial (L), Radial (R) GI/Abdominal: Normal Bowel Sounds, Soft, Non-Tender, No Organomegaly, No Distention, No Abnormal Bruit, No Mass, Other (Obese) (Male) Exam: Deferred Rectal (Males) Exam: Deferred Back Exam: Normal Inspection, Full Range of Motion, NT Extremities: Normal Inspection, Normal Range of Motion, Normal Capillary Refill , Other (2-3+ pretibial pitting edema) Neurological: Alert, Oriented, Normal Cognition, No Motor/Sensory Deficits Psychiatric: Normal Affect Skin Exam: Warm, Dry, Intact, Normal Color, No Rash EKG INTERPRETATION EKG Date: 08/11/18 Time: 03:31 Rhythm: NSR Rate (Beats/Min): 80 Korbel: Normal P-Wave: Present (Possible CARLITA) QRS: Normal ST-T: Normal QT: Normal Comparison: No Change (02/22/2018) Course - Vital Signs Last Recorded V/S: Last Vital Signs Temp 36.4 C 08/11/18 03:06 Pulse 91 08/11/18 03:06 Resp 26 H 08/11/18 03:06 BP 154/88 H 08/11/18 03:06 Pulse Ox 90 L 08/11/18 03:26 - Orders/Labs/Meds Orders: Active Orders 24 hr Category Date Time Status EKG Documentation Completion [RC] STAT Care 08/11/18 03:25 Active RT Aerosol Therapy [RC] ASDIRECTED Care 08/11/18 03:26 Active Chest 2V [CR] Stat Exams 08/11/18 03:25 Taken CULTURE BLOOD [BC] Stat Lab 08/11/18 03:40 Received CULTURE BLOOD [BC] Stat Lab 08/11/18 03:55 Received Heparin Sodium/D5W [Heparin 25,000 Units in D5W 500 ML] Med 08/11/18 05:00 Ordered 25,000 units in 500 ml IV TITRATE Blood Culture x2 Reflex Set [OM.PC] Stat Oth 08/11/18 03:25 Ordered Medication Orders Heparin Sodium/Dextrose (Heparin 25,000 Units In D5w 500 Ml) 25,000 units in 500 mls @ 28.304 mls/hr IV TITRATE NAN; Protocol Last Admin: 08/11/18 05:17 Dose: 12 units/kg/hr, 28.304 mls/hr Labs: Laboratory Tests 08/11/18 08/11/18 08/11/18 Range/Units 03:40 03:40 03:40 WBC 6.51 (4.23-9.07) K/mm3 RBC 4.94 (4.63-6.08) M/mm3 Hgb 16.6 (13.7-17.5) gm/L Hct 51.1 H (40.1-51.0) % MCV 103.4 H (79.0-92.2) fl MCH 33.6 H (25.7-32.2) pg MCHC 32.5 (32.2-35.5) g/dl RDW Std Deviation 56.4 H (35.1-43.9) fL Plt Count 215 (163-337) K/mm3 MPV 9.7 (9.4-12.3) fl Neutrophils % (Manual) 75 H (40-60) % Band Neutrophils % 0 (0-10) % Lymphocytes % (Manual) 14 L (20-40) % Atypical Lymphs % 0 % Monocytes % (Manual) 9 (2-10) % Eosinophils % (Manual) 2 (0.8-7.0) % Basophils % (Manual) 0 L (0.2-1.2) Platelet Estimate Adequate Plt Morphology Comment Normal Anisocytosis 2+ moderate Microcytosis 1+ slight Macrocytosis 2+ moderate RBC Morph Comment Not Reportable D-Dimer, Quantitative 0.43 (0.19-0.50) mg/L Puncture Site ABG pH (7.35-7.45) ABG pCO2 (35.0-45.0) mmHg ABG pO2 (80.0-100.0) mmHg ABG HCO3 (22.0-26.0) meq/L ABG O2 Saturation (96.0-97.0) % ABG Base Excess (-2-2.0) Dimitry Test A-a Gradient mmHg O2 Delivery Device Oxygen Flow Rate Sodium 141 (136-145) mEq/L Potassium 4.6 (3.5-5.1) mEq/L Chloride 102 (98-107) mEq/L Carbon Dioxide 34 H (21-32) mEq/L Anion Gap 9.6 (5-15) BUN 17 (7-18) mg/dL Creatinine 1.1 (0.7-1.3) mg/dL Est Cr Clr Drug Dosing 72.82 mL/min Estimated GFR (MDRD) > 60 (>60) mL/min BUN/Creatinine Ratio 15.5 (14-18) Glucose 247 H (80-115) mg/dL Lactic Acid (0.4-2.0) mmol/L Calcium 8.9 (8.5-10.1) mg/dL Total Bilirubin 0.2 (0.2-1.0) mg/dL AST 25 (15-37) U/L ALT 34 (16-63) U/L Alkaline Phosphatase 171 H (46-116) U/L Troponin I 0.634 H* (0.00-0.056) ng/mL NT-Pro-B Natriuret Pep (0-125) pg/mL Total Protein 6.3 L (6.4-8.2) g/dl Albumin 3.0 L (3.4-5.0) g/dl Globulin 3.3 gm/dL Albumin/Globulin Ratio 0.9 L (1-2) 08/11/18 08/11/18 08/11/18 Range/Units 03:40 03:40 03:47 WBC (4.23-9.07) K/mm3 RBC (4.63-6.08) M/mm3 Hgb (13.7-17.5) gm/L Hct (40.1-51.0) % MCV (79.0-92.2) fl MCH (25.7-32.2) pg MCHC (32.2-35.5) g/dl RDW Std Deviation (35.1-43.9) fL Plt Count (163-337) K/mm3 MPV (9.4-12.3) fl Neutrophils % (Manual) (40-60) % Band Neutrophils % (0-10) % Lymphocytes % (Manual) (20-40) % Atypical Lymphs % % Monocytes % (Manual) (2-10) % Eosinophils % (Manual) (0.8-7.0) % Basophils % (Manual) (0.2-1.2) Platelet Estimate Plt Morphology Comment Anisocytosis Microcytosis Macrocytosis RBC Morph Comment D-Dimer, Quantitative (0.19-0.50) mg/L Puncture Site Rt radial ABG pH 7.35 (7.35-7.45) ABG pCO2 60.3 H (35.0-45.0) mmHg ABG pO2 60.0 L (80.0-100.0) mmHg ABG HCO3 32.1 H (22.0-26.0) meq/L ABG O2 Saturation 88.7 L (96.0-97.0) % ABG Base Excess 4.7 H (-2-2.0) Dimitry Test Positive A-a Gradient 70 mmHg O2 Delivery Device Nasal cannula Oxygen Flow Rate 3.0 Sodium (136-145) mEq/L Potassium (3.5-5.1) mEq/L Chloride (98-107) mEq/L Carbon Dioxide (21-32) mEq/L Anion Gap (5-15) BUN (7-18) mg/dL Creatinine (0.7-1.3) mg/dL Est Cr Clr Drug Dosing mL/min Estimated GFR (MDRD) (>60) mL/min BUN/Creatinine Ratio (14-18) Glucose (80-115) mg/dL Lactic Acid 1.5 (0.4-2.0) mmol/L Calcium (8.5-10.1) mg/dL Total Bilirubin (0.2-1.0) mg/dL AST (15-37) U/L ALT (16-63) U/L Alkaline Phosphatase (46-116) U/L Troponin I (0.00-0.056) ng/mL NT-Pro-B Natriuret Pep 815 H (0-125) pg/mL Total Protein (6.4-8.2) g/dl Albumin (3.4-5.0) g/dl Globulin gm/dL Albumin/Globulin Ratio (1-2) Meds: Medications Generic Name Dose Route Start Last Admin Trade Name Sunil PRN Reason Stop Dose Admin Heparin Sodium/Dextrose 25,000 units in 500 mls @ 28.304 mls/hr 08/11/18 05: 00 08/11/18 05:17 Heparin 25,000 Units In D5w 500 Ml IV 12 units/kg/hr TITRATE NAN 28.304 mls/hr Administration Protocol 12 UNITS/KG/HR Discontinued Medications Generic Name Dose Route Start Last Admin Trade Name Freq PRN Reason Stop Dose Admin Albuterol/Ipratropium 3 ml 08/11/18 03:26 08/11/18 03:36 Duoneb 3.0-0.5 Mg/3 Ml NEB 08/11/18 03:27 3 ml ONETIME ONE Administration Aspirin 324 mg 08/11/18 04:56 08/11/18 05:16 Aspirin PO 08/11/18 04:57 324 mg ONETIME STA Administration Clopidogrel Bisulfate 300 mg 08/11/18 04:57 08/11/18 05:16 Plavix PO 08/11/18 04:58 300 mg ONETIME ONE Administration Heparin Sodium (Porcine) 4,000 units 08/11/18 05:03 08/11/18 05:15 Heparin Sodium IVPUSH 08/11/18 05:04 4,000 units ONETIME STA Administration Insulin Human Regular 4 unit 08/11/18 05:04 08/11/18 05:15 Humulin R SUBCUT 08/11/18 05:05 Not Given ONETIME STA - Re-Assessments/Exams Free Text/Narrative Re-Assessment/Exam: 08/11/18 03:55 The patient's ABG demonstrates a chronic/fully compensated respiratory acidosis with hypoxemia. 08/11/18 04:17 2-view chest radiograph reviewed. There is mild cardiomegaly, and the pulmonary vessels appear to be prominent, however, there does not appear to be pulmonary edema or pleural effusions, to suggest decompensated CHF. No focal infiltrate. No pneumothorax. Formal read per the Radiologist pending. 08/11/18 05:15 The patient's troponin has returned elevated at 0.634. The patient had mentioned that his troponin is always elevated. Review of prior troponins finds that, indeed, all of the patient's prior troponin levels have been elevated, with the lowest being 0.078, the highest previous at 0.142. Today's troponin, however, is substantially higher than that. The patient's renal function is normal. The remainder of his workup is unremarkable, with the exception of his blood glucose being elevated at 247. Influenza is negative. Test results discussed with the patient. Because of the significant elevation in his troponin, I feel that the patient has suffered an acute coronary event, and I recommended transfer to [place], so that he can be evaluated by a [employer] Electric [employer] Technician. I explained that we cannot admit the patient here, because we do not have cardiology. The patient stated that if he were to go to [place], he would prefer [facility], but he refused to be transferred. I explained that due to recent cardiac injury, the patient is at risk for sudden from ventricular fibrillation, and I explained the mechanism. Still, the patient refused to be transferred to [place]. Case then discussed with Dr. Sandra at 04:44. She recommended that I repeat the conversation with the patient, explaining his risk for sudden , and at the conversation be witnessed by 2 nurses, who could documented. She then recommended that we give the patient a full aspirin, 600 mg of Plavix, and Lovenox before admitting him to the ICU, so that he could be monitored for dysrhythmias, and defibrillated, if necessary. I then returned to the patient's room with [address] that Dr[address] Sandra strongly recommended that the patient be transferred to [place]. The patient then relented, and agreed to be transferred. Case then discussed with [facility] at 04:48. While waiting to speak to the Hospitalist, I ordered aspirin 324 mg, Plavix 300 mg, and heparin 4000 units bolus + 12 U/kg/hr drip, and I pushed the 2-view chest radiograph images. I was going to order subcutaneous insulin, however, the patient has an insulin pump, and can give himself an appropriate dosage. Case then discussed with both Dr. Dykes, Hospitalist at [facility], and Dr. Castillo, [employer] Electric [employer] Technician at [facility], at 05:10. Dr. Castillo agreed that the patient should be transferred, and agreed with the aspirin, Plavix, and heparin. The patient was accepted by Dr. Dykes. The patient will be transported by ground ambulance. Departure - Departure Time of Disposition: 05:14 Disposition: DC/Tfer to Acute Hospital 02 Condition: Fair Clinical Impression: Acute coronary syndrome, Hyperglycemia due to type 2 diabetes mellitus - Discharge Information *PRESCRIPTION DRUG MONITORING PROGRAM REVIEWED*: Not Applicable *COPY OF PRESCRIPTION DRUG MONITORING REPORT IN PATIENT DELORES: Not Applicable Referrals: PCP,None [Ordering Only Provider] - - My Orders Last 24 Hours: My Active Orders 08/11/18 03:25 EKG Documentation Completion [RC] STAT Chest 2V [CR] Stat Blood Culture x2 Reflex Set [OM.PC] Stat 08/11/18 03:26 RT Aerosol Therapy [RC] ASDIRECTED 08/11/18 03:40 CULTURE BLOOD [BC] Stat 08/11/18 03:55 CULTURE BLOOD [BC] Stat 08/11/18 05:00 Heparin Sodium/D5W [Heparin 25,000 Units in D5W 500 ML] 25,000 units in 500 ml IV TITRATE - Assessment/Plan Last 24 Hours: My Active Orders 08/11/18 03:25 EKG Documentation Completion [RC] STAT Chest 2V [CR] Stat Blood Culture x2 Reflex Set [OM.PC] Stat 08/11/18 03:26 RT Aerosol Therapy [RC] ASDIRECTED 08/11/18 03:40 CULTURE BLOOD [BC] Stat 08/11/18 03:55 CULTURE BLOOD [BC] Stat 08/11/18 05:00 Heparin Sodium/D5W [Heparin 25,000 Units in D5W 500 ML] 25,000 units in 500 ml IV TITRATE
[2018-08-11] MEDS ORDERED: Aspirin 81 MG Tab.Chew PO STA (04:56)
[2018-08-11] MEDS ORDERED: Clopidogrel 75 MG Tab PO ONE (04:57)
[2018-08-11] MEDS ORDERED: Heparin Sodium/D5W 25,000 UNITS/500 ML BAG IV SCH (05:00)
[2018-08-11] MEDS ORDERED: Heparin Sodium 5,000 Units/ML Vial IVPUSH STA (05:03)
[2018-08-11] MEDS ORDERED: Insulin Regular, Human 100 Units/ML 3 ML Vial SUBCUT STA (05:04)
[2018-08-11] MEDS ORDERED: Nicotine 21 MG/24 Hr Patch TRDERM ONE (05:34)
--- NOTE | 2018-08-11 14:08 | CR ---
Chest: Two views of the chest were obtained. Comparison: Prior chest x-ray of 02/22/18. Heart has a slight left ventricular configuration and is stable in appearance from previous exam. Tortuous thoracic aorta is seen. Minimal left basilar atelectasis is noted. Lung markings are mildly increased which appear stable. Diaphragms are flattened on the lateral view compatible with emphysematous change. Compression deformity is noted within the lower thoracic spine with anterior wedging which is stable. Scattered degenerative change is seen within the spine. Impression: 1. Emphysematous change. Other findings as noted above. No significant change is seen from previous study. Diagnostic code #3
== END 2018-08-11 06:20 ==
LOC: JD.ED 03:02
DX: I24.9 Acute ischemic heart disease, unspecified (principal); E11.65 Type 2 diabetes mellitus with hyperglycemia; I11.0 Hypertensive heart disease with heart failure; I50.9 Heart failure, unspecified; E78.00 Pure hypercholesterolemia, unspecified; J44.9 Chronic obstructive pulmonary disease, unspecified; F17.210 Nicotine dependence, cigarettes, uncomplicated; E11.9 Type 2 diabetes mellitus without complications; Z88.8 Allergy status to other drugs, medicaments and biological substances; Z79.899 Other long term (current) drug therapy
CPT/HCPCS: 36415; 36600; 71046; 80053; 82803; 83605; 83880; 84484; 85007; 85027; 85379; 87040; 87804; 93005; 94640; 96365; 96375; 99285; A9270; J1644; 93010; J1815-GY; J7620-GY

== ENCOUNTER 2019-06-09 19:36 | Emergency (ER) | payer MEDICARE, MEDICAID ==
[2019-06-09 20:00] VITALS: BP 153/79; PULSE 96
--- NOTE | 2019-06-09 20:37 | PCM.CONS ---
H&P History of Present Illness - General Date of Service: 06/09/19 Source of Information: Patient History Limitations: Reports: No Limitations - History of Present Illness Initial Comments - Free Text/Narative: Patient presents with RLQ abdominal pain. Pain started 4 days ago. located in the RLQ, non-radiating, nothing made it better or worse, has been getting better. Most severe time for this pain was day 2 but since than he reports that the pain has improved significantly. He denies any nausea or vomiting or diarrhea. He went to walk in clinic today and obtained labs and Ct scan then went to see his PCP Dr. Saul. CBC revealed WBC of 7.8, CT showed acute uncomplicated appendicitis with appendicolith. Dr. Saul recommended the patient come to the ED for further evaluation. The patient has significant comorbidities including severe COPD on 4L oxygen, [place], daily smoker, Obesity, CHF, possible Pulm HTN. METS < 4. Onset of Symptoms: Reports: Gradual Symptom Onset Date: 06/06/19 Duration of Symptoms: Reports: Day(s):, Improving Location: Reports: Abdomen Quality: Reports: Ache Severity: Moderate Improves with: Reports: None Worsens with: Reports: None Context: Reports: Other Associated Symptoms: Reports: No Other Symptoms Right Lower Abdomen Pain Score (Numeric/FACES): 4 Lower Back Pain Score (Numeric/FACES): 6 - Related Data Allergies/Adverse Reactions: Allergies Allergy/AdvReac Type Severity Reaction Status Date / Time celecoxib [From Celebrex] AdvReac Nausea Verified 02/07/19 18:54 ketorolac [From Toradol] AdvReac Stomach Verified 02/07/19 18:54 Upset mirtazapine [From Remeron] AdvReac Confusion Verified 02/07/19 18:54 NSAIDS (Non-Steroidal AdvReac Stomach Verified 02/07/19 18:54 Anti-Inflamma Upset Home Medications: Home Meds Subcutaneous Insulin Pump [Insulin Pump] 0 units INJECT ASDIRECTED 11/29/14 [ History] Furosemide [Lasix] 40 mg PO DAILY 05/12/15 [History] atorvaSTATin [Lipitor] 10 mg PO BEDTIME 05/12/15 [History] Albuterol [Ventolin HFA] 1 - 2 puff INH Q4H PRN 04/28/17 [History] Diazepam [Valium] 5 mg PO TID PRN 04/28/17 [History] traZODone HCl [Trazodone HCl] 200 mg PO BEDTIME 04/28/17 [History] Budesonide/Formoterol Fumarate [Symbicort 80-4.5 MCG] 2 puff INH BID 05/29/17 [ History] Albuterol/Ipratropium [DuoNeb 3.0-0.5 MG/3 ML] 1 dose INH Q6HR PRN 05/30/17 [ History] Lisinopril 40 mg PO DAILY 05/30/17 [History] Metoprolol Succinate 50 mg PO BEDTIME 09/05/17 [History] Vortioxetine Hydrobromide [Trintellix] 10 mg PO DAILY 10/10/17 [History] clonazePAM [Clonazepam] 1 mg PO BEDTIME PRN 10/10/17 [History] Tamsulosin [Flomax] 0.4 mg PO BID 12/31/17 [History] oxyCODONE HCl/Acetaminophen [Percocet 5-325 mg Tablet] 1 - 2 each PO Q4H PRN # 20 tablet 02/16/18 [Rx] Amitriptyline HCl 75 mg PO DAILY 02/07/19 [History] Aspirin 81 mg PO DAILY 02/07/19 [History] Insulin Aspart [NovoLOG] 90 units SQ ASDIRECTED 02/07/19 [History] Ondansetron [Zofran ODT] 4 mg SL Q4HR PRN 02/07/19 [History] Orphenadrine [Norflex] 1 tab PO Q12H PRN #14 tab.er 02/07/19 [Rx] Paliperidone [Invega] 6 mg PO DAILY 02/07/19 [History] Ranitidine [Zantac] 150 mg PO DAILY 02/07/19 [History] Roflumilast [Daliresp] 500 mcg PO DAILY 02/07/19 [History] Umeclidinium [place] [Incruse Ellipta*] 1 puff INH DAILY 02/07/19 [History] amLODIPine [Norvasc] 5 mg PO DAILY 02/07/19 [History] lamoTRIgine [Lamotrigine] 100 mg PO DAILY 02/07/19 [History] predniSONE [Prednisone] 40 mg PO DAILY 02/07/19 [History] Past Medical History HEENT History: Reports: Impaired Vision Other HEENT History: wears glasses Cardiovascular History: Reports: Heart Failure, High Cholesterol, Hypertension Other Cardiovascular History: 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 Respiratory History: Reports: COPD, Sleep Apnea, Other (See Below) Other Respiratory History: emphysema Gastrointestinal History: Reports: Colon Polyp, GERD, Pancreatitis Other Gastrointestinal History: nausea, epigastric pain, benighn neoplasm of colon, duodenitis Genitourinary History: Reports: [employer]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 Musculoskeletal History: Reports: Back Pain, Chronic Other Musculoskeletal History: Cyst between L1 and L2 Neurological History: Reports: Other (See Below) Other Neuro History: back surgery Psychiatric History: Reports: Anxiety, Bipolar, Depression, Other (See Below) Other Psychiatric History: insomnia Endocrine/Metabolic History: Reports: Diabetes, Type II, Obesity/BMI 30+ Other Endocrine/Metabolic History: adrenal incidentaloma Hematologic History: Reports: Polycythemia Immunologic History: Reports: None Oncologic (Cancer) History: Reports: None Dermatologic History: Reports: None - Past Surgical History HEENT Surgical History: Reports: Cataract Surgery Cardiovascular Surgical History: Reports: Other (See Below) GI Surgical History: Reports: Colonoscopy, EGD, Hernia, Inguinal Neurological Surgical History: Reports: Lumbar Spine Musculoskeletal Surgical History: Reports: Carpal Tunnel, Shoulder Surgery Social & Family History - Family History Family Medical History: Noncontributory - Tobacco Use Smoking Status *Q: Current Every Day Smoker Years of Tobacco use: 40 Packs/Tins Daily: 1.5 - Caffeine Use Caffeine Use: Reports: Coffee, Soda - Recreational Drug Use Recreational Drug Use: No - Living Situation & Occupation Living situation: Reports: Alone, Single 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) H&P Review of Systems - Review of Systems: Review Of Systems: See Below General: Reports: No Symptoms HEENT: Reports: No Symptoms Pulmonary: Reports: Shortness of Breath, Cough Cardiovascular: Reports: Dyspnea on Exertion, Orthopnea Gastrointestinal: Reports: Abdominal Pain Genitourinary: Reports: No Symptoms Musculoskeletal: Reports: Back Pain Skin: Reports: No Symptoms Exam - Exam Exam: See Below - Vital Signs Vital Signs: Last Vital Signs Temp 99.1 F 06/09/19 19:58 Pulse 96 06/09/19 19:58 Resp 20 06/09/19 19:58 BP 153/79 H 06/09/19 19:58 Pulse Ox 84 L 06/09/19 19:58 Weight: 113.398 kg - Exam Quality Assessment: Supplemental Oxygen (4L) General: Alert, Oriented, Cooperative, Mild Distress Lungs: Crackles Cardiovascular: Regular Rate, Regular Rhythm, Normal S1, Normal S2 GI/Abdominal Exam: Soft, No Distention, No Mass, Tender (RLQ) Consult PN Assessment/Plan Procedures: Procedures AIRWAY INHALATION TREATMENT (08/11/18) ASSAY OF CREATININE (09/17/18) ASSAY OF FREE TESTOSTERONE (11/28/18) ASSAY OF GGT (03/18/17) ASSAY OF GONADOTROPIN (FSH) (11/28/18) ASSAY OF GONADOTROPIN (LH) (11/28/18) ASSAY OF LACTIC ACID (08/11/18) ASSAY OF LIPASE (03/18/17) ASSAY OF MAGNESIUM (08/30/17) ASSAY OF NATRIURETIC PEPTIDE (08/11/18) ASSAY OF PROLACTIN (11/28/18) ASSAY OF TOTAL TESTOSTERONE (11/28/18) ASSAY OF TROPONIN QUANT (08/11/18) ASSAY THYROID STIM HORMONE (05/12/15) BILIRUBIN DIRECT (03/18/17) BL SMEAR W/DIFF WBC COUNT (08/11/18) BLOOD CULTURE FOR BACTERIA (08/11/18) BLOOD GASES ANY COMBINATION (08/11/18) C-REACTIVE PROTEIN (02/22/18) CARDIOVASCULAR STRESS TEST (09/22/14) CHEST X-RAY 1 VIEW FRONTAL (05/29/17) COMPLETE CBC AUTOMATED (08/11/18) COMPLETE CBC W/AUTO DIFF WBC (11/24/17) COMPREHEN METABOLIC PANEL (08/11/18) EGD BIOPSY SINGLE/MULTIPLE (05/31/17) ELECTROCARDIOGRAM TRACING (08/11/18) EMERGENCY DEPT VISIT (02/07/19) EMERGENCY DEPT VISIT (08/11/18) EMERGENCY DEPT VISIT (05/20/18) EMERGENCY DEPT VISIT (02/22/18) EMERGENCY DEPT VISIT (02/16/18) EMERGENCY DEPT VISIT (01/07/18) EMERGENCY DEPT VISIT (12/31/17) EMERGENCY DEPT VISIT (10/10/17) EMERGENCY DEPT VISIT (09/05/17) EMERGENCY DEPT VISIT (05/29/17) EMERGENCY DEPT VISIT (04/28/17) EMERGENCY DEPT VISIT (12/11/15) EMERGENCY DEPT VISIT (07/12/15) EMERGENCY DEPT VISIT (06/27/15) EMERGENCY DEPT VISIT (10/01/14) EVALUATE PT USE OF INHALER (06/27/15) EXTREMITY STUDY (04/28/17) FIBRIN DEGRADATION QUANT (08/11/18) GLUCOSE BLOOD TEST (06/27/15) HYDRATE IV INFUSION ADD-ON (03/18/17) INFLUENZA ASSAY W/OPTIC (08/11/18) MEASURE BLOOD OXYGEN LEVEL (07/01/18) MEDICAL NUTRITION INDIV IN (08/23/17) MRI CHEST SPINE W/O DYE (01/22/18) MRI LUMBAR SPINE W/O & W/DYE (09/17/18) POLYSOM 6/> YRS 4/> PANFILO (05/18/15) POLYSOM 6/>YRS CPAP 4/> PARM (11/09/16) PROTHROMBIN TIME (10/10/17) PT EVAL LOW COMPLEX 20 MIN (04/28/19) ROUTINE VENIPUNCTURE (11/28/18) SELF CARE MNGMENT TRAINING (04/28/19) THER/PROPH/DIAG INJ IV PUSH (04/07/18) THER/PROPH/DIAG INJ SC/IM (05/20/18) THER/PROPH/DIAG IV INF INIT (08/11/18) THROMBOPLASTIN TIME PARTIAL (10/10/17) TX/PRO/DX INJ NEW DRUG ADDON (08/11/18) URINALYSIS AUTO W/SCOPE (04/07/18) WITHDRAWAL OF ARTERIAL BLOOD (08/11/18) X-RAY EXAM CHEST 1 VIEW (11/24/17) X-RAY EXAM CHEST 2 VIEWS (08/11/18) X-RAY EXAM L-S SPINE 2/3 VWS (12/31/17) X-RAY EXAM NECK SPINE 2-3 VW (11/24/17) X-RAY EXAM OF ABDOMEN (03/18/17) X-RAY EXAM OF ABDOMEN (06/27/15) Problem List Initiated/Reviewed/Updated: No Plan: Patient had acute appendicitis. Given his significant comorbidities, he is a high risk surgical candidate. I has an extensive discussion with him about his options which include surgery or antibiotics therapy. I discussed with him that surgical risks include bleeding, infection, PNA, bowel injury and leakage, cardiovascular complications, pulmonary complications. I also discussed with him that non-surgical therapy has a failure rate of up to 30% and risks for failure include appendicolith and that if he fails medical management he may still require surgery. I informed him that the risk for progression to rupture and risk for appendix harboring malignancy. Patient verbalized understanding. Based on his comorbidities, I believe the patient is a high risk surgical candidate, therefore I recommended medical management at this time. If he worsens or does not improve, then he will be transferred to a tertiary care facility for possible surgical intervention. Patient agreed with this plan. Plan - NPO, gentle IVF, Invanz for antibiotics.
[2019-06-09] MEDS ORDERED: Meropenem 1 GM in Sodium Chloride 0.9% 100 ML IV ONE (20:38)
--- NOTE | 2019-06-09 20:40 | EDM.PDOC ---
ED HPI GENERAL MEDICAL PROBLEM - General Chief Complaint: Back Pain or Injury Stated Complaint: SENT BY DR WOODARD Time Seen by Provider: 06/09/19 20:37 Source of Information: Reports: Patient History Limitations: Reports: No Limitations - History of Present Illness INITIAL COMMENTS - FREE TEXT/NARRATIVE: 63-year-old male presents to the ED at the request of his primary care provider Dr. Aguirre from [facility]. She presented to him this afternoon with a 3- 1/2 day history of right lower quadrant abdominal pain rating to to his right lower back. He still had an appetite he did eat dinner at 12 PM. Since that time in spite of being told to be nothing by mouth he has arrived in the ED setting pop. He had labs performed which revealed a white count of 7.8 with 73.5 % neutrophils. He does have a low-grade fever. 37.[address] scan of the abdomen and pelvis performed at [facility] revealed acute appendicitis with a fecalith within the tip of the appendix. Widest dimension of the appendix measures 1.8 cm. There is significant periappendiceal infiltrate but no sign of abscess formation or perforation. Anterior for surgical consultation. Of note the patient is a type II diabetic controlled with insulin pump. He is known to have significant COPD and cor pulmonale. He has chronic low back pain treated with opioids. He is still smoking a pack and half cigarettes per day. Started on patches today i.e. to stop smoking. Dr. Terrazas --auto service station attendant surgeon has seen the patient in consultation and feels that he should be managed medically with IV antibiotics. He has asked that the hospitalist would be willing to admit the patient. After discussion with Dr. Waite the on-call hospitalist she felt he was too high risk from a surgical point of view due to his cor pulmonale and insulin- dependent diabetes. Also we have lack of beds in the hospital this time. Therefore the patient will be sent to [facility] in [place] for definitive management of his acute appendicitis. Patient will receive IV fluids and pain management in the ED and be started on IV antibiotic meropenem 1 g. Onset: Gradual Onset Date: 06/06/19 Duration: Day(s):, Getting Worse Location: Reports: Abdomen (RLQ), Back (Rt lower back. Of note patient has chronic low back pain. ) Quality: Reports: Ache Severity: Moderate Improves with: Reports: Rest Worsens with: Reports: Movement Context: Reports: Other (Gradually worsening right lower quadrant abdominal pain for 3-1/2 days.). Denies: Activity, Exercise (Coughing and walking.), Lifting, Sick Contact, Trauma Associated Symptoms: Reports: Cough, cough w sputum (Chronic cough), Malaise, Shortness of Breath (Chronically), Other (Diffuse chronic low back pain worsened over the last day. Right lower lower back.). Denies: Confusion, Diaphoresis, Fever/Chills, Headaches, Loss of Appetite, Nausea/Vomiting, Rash, Seizure, Syncope Treatments LOSS CONTROL REPRESENTATIVE: Reports: Other (see below) (Only his regular medications.) Right Lower Abdomen Pain Score (Numeric/FACES): 4 Lower Back Pain Score (Numeric/FACES): 6 - Related Data Allergies Allergy/AdvReac Type Severity Reaction Status Date / Time celecoxib [From Celebrex] AdvReac Nausea Verified 02/07/19 18:54 ketorolac [From Toradol] AdvReac Stomach Verified 02/07/19 18:54 Upset mirtazapine [From Remeron] AdvReac Confusion Verified 02/07/19 18:54 NSAIDS (Non-Steroidal AdvReac Stomach Verified 02/07/19 18:54 Anti-Inflamma Upset Home Meds: Home Meds Subcutaneous Insulin Pump [Insulin Pump] 0 units INJECT ASDIRECTED 11/29/14 [ History] Furosemide [Lasix] 40 mg PO DAILY 05/12/15 [History] atorvaSTATin [Lipitor] 10 mg PO BEDTIME 05/12/15 [History] Albuterol [Ventolin HFA] 1 - 2 puff INH Q4H PRN 04/28/17 [History] Diazepam [Valium] 5 mg PO TID PRN 04/28/17 [History] traZODone HCl [Trazodone HCl] 200 mg PO BEDTIME 04/28/17 [History] Budesonide/Formoterol Fumarate [Symbicort 80-4.5 MCG] 2 puff INH BID 05/29/17 [ History] Albuterol/Ipratropium [DuoNeb 3.0-0.5 MG/3 ML] 1 dose INH Q6HR PRN 05/30/17 [ History] Metoprolol Succinate 25 mg PO BEDTIME 09/05/17 [History] Vortioxetine Hydrobromide [Trintellix] 10 mg PO DAILY 10/10/17 [History] clonazePAM [Clonazepam] 1 mg PO BID PRN 10/10/17 [History] Tamsulosin [Flomax] 0.4 mg PO BID 12/31/17 [History] Amitriptyline HCl 75 mg PO BEDTIME 02/07/19 [History] Aspirin 81 mg PO DAILY 02/07/19 [History] Ondansetron [Zofran ODT] 4 mg SL Q4HR PRN 02/07/19 [History] Paliperidone [Invega] 6 mg PO DAILY 02/07/19 [History] Ranitidine [Zantac] 150 mg PO BID 02/07/19 [History] Roflumilast [Daliresp] 500 mcg PO DAILY 02/07/19 [History] Umeclidinium [place] [Incruse Ellipta*] 1 puff INH DAILY 02/07/19 [History] amLODIPine [Norvasc] 5 mg PO DAILY 02/07/19 [History] lamoTRIgine [Lamotrigine] 100 mg PO BID 02/07/19 [History] Furosemide [Lasix] 20 mg PO ASDIRECTED 06/09/19 [History] Lisinopril 40 mg PO DAILY 06/09/19 [History] Metoprolol Succinate 50 mg PO DAILY 06/09/19 [History] oxyCODONE HCl/Acetaminophen [Percocet 5-325 mg Tablet] 10 mg PO Q4H PRN [History] Past Medical History HEENT History: Reports: Impaired Vision Other HEENT History: wears glasses Cardiovascular History: Reports: Heart Failure, High Cholesterol, Hypertension Other Cardiovascular History: 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 He is on oxygen 4 L per nasal cannula at all times. Gastrointestinal History: Reports: Colon Polyp, GERD, Pancreatitis Other Gastrointestinal History: nausea, epigastric pain, benighn neoplasm of colon, duodenitis Genitourinary History: Reports: BPH DIRECTOR INFORMATION History: Reports: None Musculoskeletal History: Reports: Back Pain, Chronic Other Musculoskeletal History: Cyst between L1 and L2 Neurological History: Reports: Other (See Below) Other Neuro History: back surgery Psychiatric History: Reports: Anxiety, Bipolar, Depression, Other (See Below) Other Psychiatric History: insomnia Endocrine/Metabolic History: Reports: Diabetes, Type II, Obesity/BMI 30+ Other Endocrine/Metabolic History: adrenal incidentaloma Hematologic History: Reports: Polycythemia Immunologic History: Reports: None Oncologic (Cancer) History: Reports: None Dermatologic History: Reports: None - Past Surgical History HEENT Surgical History: Reports: Cataract Surgery Cardiovascular Surgical History: Reports: Other (See Below) GI Surgical History: Reports: Colonoscopy, EGD, Hernia, Inguinal Neurological Surgical History: Reports: Lumbar Spine Musculoskeletal Surgical History: Reports: Carpal Tunnel, Shoulder Surgery Social & Family History - Family History Family Medical History: Noncontributory - Tobacco Use Smoking Status *Q: Current Every Day Smoker Years of Tobacco use: 40 Packs/Tins Daily: 1.5 - Caffeine Use Caffeine Use: Reports: Coffee, Soda - Recreational Drug Use Recreational Drug Use: No - Living Situation & Occupation Living situation: Reports: Alone, Single 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 Denies: Chills, Decreased Appetite (He did have dinner today.) HEENT: Reports: Glasses Respiratory: Reports: Shortness of Breath (Known to be have COPD with cor pulmonale. He is not on oxygen therapy.) Cardiovascular: Reports: Blood Pressure Problem, Dyspnea on Exertion, Other ( Known to have congestive heart failure diastolic). Denies: Chest Pain, Claudication, Edema, Lightheadedness, Orthopnea Endocrine: Reports: Fatigue, High Glucose (Is controlled with an insulin pump.) GI/Abdominal: Reports: Abdominal Pain (Right lower quadrant for 3-1/2 days.), Nausea. Denies: Diarrhea, Decreased Appetite, Difficulty Swallowing, Distension , Flatus, Hematemesis, Hematochezia, Melena, Stool Incontinence, Vomiting, Other (Comes and goes.) : Reports: Frequency. Denies: Incontinence Musculoskeletal: Reports: Neck Pain (Brooke low back pain for which he takes opiates 4. Degenerative disc disease degenerative arthritis.), Back Pain, Joint Pain Skin: Reports: No Symptoms (Knees and hips at times.) Neurological: Reports: Difficulty Walking. Denies: Confusion, Dizziness, Headache, Numbness, Paresthesia, Syncope, Tingling, Tremors Psychiatric: Reports: Anxiety, Depression, Other Hematologic/Lymphatic: Reports: No Symptoms (Has iced psychotic breaks in the past.) Immunologic: Reports: No Symptoms ED EXAM,LOWER BACK PAIN/INJURY - Physical Exam Exam: See Below Exam Limited By: No Limitations General Appearance: Alert, WD/WN, No Apparent Distress, Other (Patient does feel warm to palpation. Nurses record temperatures 37.3 by distal warmer than this. Pulse is 96 and sinus respiratory distress 20. Pulse ox is 92-94% on room air. BP is 153/79) Eye Exam: Bilateral Eye: Normal Inspection (No scleral icterus.) Throat/Mouth: Normal Inspection, Normal Lips, Normal Teeth, Normal Oropharynx Head: Atraumatic, Normocephalic Neck: Normal Inspection, Supple, Non-Tender, Full Range of Motion. No: Lymphadenopathy (L), Lymphadenopathy (R) Respiratory/Chest: No Accessory Muscle Use, Respiratory Distress, Decreased Breath Sounds (Decreased air entry to both lower lung frazier.), Wheezing (Mild tachypnea. No wheezing from all lung frazier.) Cardiovascular: Normal Peripheral Pulses, Regular Rate, Rhythm, No Edema, No Gallop, No Murmur, No Rub GI/Abdominal: Normal Bowel Sounds, Soft, Non-Tender, No Organomegaly, No Abnormal Bruit Back Exam: Normal Inspection, Full Range of Motion, Decreased Range of Motion, Vertebral Tenderness (Throughout his lumbar spine I can't say that one side is worse than the other.). No: CVA Tenderness (L), CVA Tenderness (R) Extremities: Normal Inspection, Normal Range of Motion, Non-Tender, No Pedal Edema Neurological: Alert, Normal Mood/Affect, Normal Dorsiflexion, CN II-XII Intact, Oriented x 3 Psychiatric: Normal Affect, Normal Mood Skin Exam: Warm, Dry, Intact, Normal Color, No Rash EKG INTERPRETATION EKG Date: 06/09/19 Time: 21:09 Rhythm: NSR Rate (Beats/Min): 82 [place]: Normal P-Wave: Enlarged (Consider left atrial hypertrophy.) QRS: Other (Decreased voltage both limb and precordial leads. Initial poor R- wave progression with near Q waves leads V1 and V2. Cannot rule out old anteroseptal myocardial infarction.) ST-T: Other (Diffuse early repolarization pattern) QT: Prolonged Course - Vital Signs Last Recorded V/S: Last Vital Signs Temp 37.3 C 06/09/19 19:58 Pulse 96 06/09/19 19:58 Resp 20 06/09/19 19:58 BP 153/79 H 06/09/19 19:58 Pulse Ox 84 L 06/09/19 19:58 - Orders/Labs/Meds Orders: Active Orders 24 hr Category Date Time Status EKG Documentation Completion [RC] STAT Care 06/09/19 20:59 Active Chest 1V Frontal [CR] Stat Exams 06/09/19 21:00 Taken Labs: Laboratory Tests 06/09/19 06/09/19 06/09/19 Range/Units 21:17 21:17 21:17 WBC (4.23-9.07) K/mm3 RBC (4.63-6.08) M/mm3 Hgb (13.7-17.5) gm/dl Hct (40.1-51.0) % MCV (79.0-92.2) fl MCH (25.7-32.2) pg MCHC (32.2-35.5) g/dl RDW Std Deviation (35.1-43.9) fL Plt Count (163-337) K/mm3 MPV (9.4-12.3) fl Neutrophils % (Manual) (40-60) % Band Neutrophils % (0-10) % Lymphocytes % (Manual) (20-40) % Atypical Lymphs % % Monocytes % (Manual) (2-10) % Eosinophils % (Manual) (0.8-7.0) % Basophils % (Manual) (0.2-1.2) Platelet Estimate Anisocytosis Macrocytosis RBC Morph Comment Sodium 137 (136-145) mEq/L Potassium 3.8 (3.5-5.1) mEq/L Chloride 98 (98-107) mEq/L Carbon Dioxide 35 H (21-32) mEq/L Anion Gap 7.8 (5-15) BUN 13 (7-18) mg/dL Creatinine 0.8 (0.7-1.3) mg/dL Est Cr Clr Drug Dosing 98.85 mL/min Estimated GFR (MDRD) > 60 (>60) mL/min BUN/Creatinine Ratio 16.3 (14-18) Glucose 105 (80-115) mg/dL Lactic Acid 0.7 (0.4-2.0) mmol/L Calcium 9.1 (8.5-10.1) mg/dL Magnesium 1.9 (1.8-2.4) mg/dl Total Bilirubin 0.5 (0.2-1.0) mg/dL AST 15 (15-37) U/L ALT 19 (16-63) U/L Alkaline Phosphatase 124 H (46-116) U/L NT-Pro-B Natriuret Pep 674 H (0-125) pg/mL Total Protein 6.8 (6.4-8.2) g/dl Albumin 3.0 L (3.4-5.0) g/dl Globulin 3.8 gm/dL Albumin/Globulin Ratio 0.8 L (1-2) 06/09/19 Range/Units 21:17 WBC 7.84 (4.23-9.07) K/mm3 RBC 4.70 (4.63-6.08) M/mm3 Hgb 15.4 (13.7-17.5) gm/dl Hct 46.8 (40.1-51.0) % MCV 99.6 H (79.0-92.2) fl MCH 32.8 H (25.7-32.2) pg MCHC 32.9 (32.2-35.5) g/dl RDW Std Deviation 63.6 H (35.1-43.9) fL Plt Count 261 (163-337) K/mm3 MPV 9.1 L (9.4-12.3) fl Neutrophils % (Manual) 76 H (40-60) % Band Neutrophils % 2 (0-10) % Lymphocytes % (Manual) 14 L (20-40) % Atypical Lymphs % 0 % Monocytes % (Manual) 6 (2-10) % Eosinophils % (Manual) 2 (0.8-7.0) % Basophils % (Manual) 0 L (0.2-1.2) Platelet Estimate Adequate Anisocytosis 1+ slight Macrocytosis 1+ slight RBC Morph Comment Not Reportable Sodium (136-145) mEq/L Potassium (3.5-5.1) mEq/L Chloride (98-107) mEq/L Carbon Dioxide (21-32) mEq/L Anion Gap (5-15) BUN (7-18) mg/dL Creatinine (0.7-1.3) mg/dL Est Cr Clr Drug Dosing mL/min Estimated GFR (MDRD) (>60) mL/min BUN/Creatinine Ratio (14-18) Glucose (80-115) mg/dL Lactic Acid (0.4-2.0) mmol/L Calcium (8.5-10.1) mg/dL Magnesium (1.8-2.4) mg/dl Total Bilirubin (0.2-1.0) mg/dL AST (15-37) U/L ALT (16-63) U/L Alkaline Phosphatase (46-116) U/L NT-Pro-B Natriuret Pep (0-125) pg/mL Total Protein (6.4-8.2) g/dl Albumin (3.4-5.0) g/dl Globulin gm/dL Albumin/Globulin Ratio (1-2) Meds: Medications Discontinued Medications Generic Name Dose Route Start Last Admin Trade Name Yaronq PRN Reason Stop Dose Admin Hydromorphone HCl 1 mg 06/09/19 21:00 06/09/19 21:23 Dilaudid IVPUSH 06/09/19 21:01 1 mg ONETIME ONE Administration Sodium Chloride 1,000 mls @ 150 mls/hr 06/09/19 20:45 06/09/19 21:16 Normal Saline IV 150 mls/hr ASDIRECTED NAN Administration Meropenem 1 gm/ Sodium 100 mls @ 200 mls/hr 06/09/19 20:38 06/09/19 21:17 Chloride IV 06/09/19 21:07 200 mls/hr ONETIME ONE Administration Lorazepam 1 mg 06/09/19 21:59 06/09/19 22:19 Ativan IVPUSH 06/09/19 22:00 1 mg ONETIME ONE Administration Ondansetron HCl 4 mg 06/09/19 21:00 06/09/19 21:23 Zofran IVPUSH 06/09/19 21:01 4 mg ONETIME ONE Administration - Radiology Interpretation Free Text/Narrative:: 63-year-old male sent to the ED by his primary care physician from [facility] after CT documented acute appendicitis this afternoon. Review of the CT shows a fecalith in the tip of the appendix. Tip of the appendix is dilated to 1.8 cm. The remainder the appendix is also dilated. There is significant periappendiceal infiltrate suggesting infection. There is no evidence of abscess or perforation at this point time. Patient has a history of COPD with known cor pulmonale and is on oxygen at 4 L at all times by nasal cannula ,and for this reason he is an anesthetic risk. He was told by guillotine trimmer in [place] at last surgical procedure that he was at high risk. MANAGER FOOD's did not feel comfortable providing anesthesia to this patient in our hospital. Patient has chronic low back pain and is opioid dependent. He is a type II diabetic controlled with an insulin pump fairly well. He is known to have mild diastolic congestive heart failure. Smoking today and currently has a nicotine patch on each shoulder. He was seen by Dr Terrazas -- auto service station attendant surgeon whom felt that he could be managed with IV antibiotics and suggested admission by the hospitalist. After speaking to the hospitalist with his comorbid problems and ship superintendent not feeling happy about providing anesthesia Fer patient decision made to transfer the patient to [facility] for definitive management of his acute appendicitis. I therefore did speak with Dr. Lopez--auto service station attendant surgeon who is accepted care.he deferred admission to Dr Dykes -- hospitalist and she is accepted care. Patient was started on IV D5 normal saline at 125 mils per hour. His last meal was at noon today. Complains of pain 5-6 out of 10 mostly in his lower back. Given Dilaudid 1 mg IV with Zofran 4 mg IV. Started on antibiotic meropenem 1 g. He will be transferred to [facility] per ground ambulance. - Re-Assessments/Exams Free Text/Narrative Re-Assessment/Exam: 06/09/19 21:58 portable chest x-ray reveals hyperinflated lung frazier with prominent pulmonary arteries bilaterally. No cardiomegaly. The left costophrenic angle is mildly blunted suggestive of small pleural effusion. Patient expresses a extremely worried about having surgery. He knows that his lungs or in poor condition. I will give him 1 mg of Ativan IV to try and relieve some of his anxiety enroute to [place]. Departure - Departure Time of Disposition: 21:20 Disposition: DC/Tfer to Acute Hospital 02 Condition: Fair Clinical Impression: Chronic obstructive pulmonary disease without exacerbation, Cor pulmonale ( chronic), Anxiety Acute appendicitis Qualifiers: Acute appendicitis type: with localized peritonitis Appendicitis gangrene presence: without gangrene Appendicitis perforation presence: without perforation Appendicitis abscess presence: without abscess Qualified Code(s): K35.30 - Acute appendicitis with localized peritonitis, without perforation or gangrene Type 2 diabetes mellitus Qualifiers: Diabetes mellitus care home insulin use: with salvage determiner use Diabetes mellitus complication status: with circulatory complication Diabetes mellitus complication detail: with other circulatory complications Qualified Code(s): E11.59 - Type 2 diabetes mellitus with other circulatory complications; Z79.4 - ocean transportation intermediary (current) use of insulin Nicotine dependence Qualifiers: Nicotine product type: cigarettes Substance use status: in withdrawal Qualified Code(s): F17.213 - Nicotine dependence, cigarettes, with withdrawal - Discharge Information *PRESCRIPTION DRUG MONITORING PROGRAM REVIEWED*: Not Applicable *COPY OF PRESCRIPTION DRUG MONITORING REPORT IN PATIENT DELORES: Not Applicable Referrals: Efrem Woodard MD [Primary Care Provider] - Forms: ED Department Discharge Additional Instructions: Patient transferred to [facility] in [place] due to high anesthesia risk with COPD with known cor pulmonale on echocardiogram and mild diastolic congestive heart failure. He is also a type II diabetic controlled with insulin pump. His risk factors for anesthesia were too high for facility. CT demonstrates acute appendicitis with fecalith and periappendiceal infiltrate. For this reason he was transferred to [facility] for definitive care and management. - My Orders Last 24 Hours: My Active Orders 06/09/19 20:59 EKG Documentation Completion [RC] STAT 06/09/19 21:00 Chest 1V Frontal [CR] Stat - Assessment/Plan Last 24 Hours: My Active Orders 06/09/19 20:59 EKG Documentation Completion [RC] STAT 06/09/19 21:00 Chest 1V Frontal [CR] Stat
[2019-06-09] MEDS ORDERED: Sodium Chloride 0.9% 1,000 ML IV SCH (20:45)
[2019-06-09] MEDS ORDERED: Cefepime 1 GM in Premix Bag 1 BAG IV ONE (20:46)
[2019-06-09] MEDS ORDERED: HYDROmorphone 1 MG/ML Syringe IVPUSH ONE (21:00)
[2019-06-09] MEDS ORDERED: Ondansetron 4 MG/2 ML SDV IVPUSH ONE (21:00)
[2019-06-09] MEDS ORDERED: LORazepam 2 MG/ML SDV IVPUSH ONE (21:59)
--- NOTE | 2019-06-10 07:39 | CR ---
Chest: Portable view of the chest was obtained. Comparison: Prior chest x-ray of 08/11/18. Heart has a mild left ventricular configuration. Tortuous thoracic aorta is noted. Blunting of the lateral left costophrenic angle is seen and difficult to exclude small pleural effusion. Increased lung markings noted within the left lung base behind the left heart appear stable. No acute parenchymal change is seen. Impression: 1. Difficult to exclude small left-sided pleural effusion. 2. Other chronic findings as noted above. Diagnostic code #3
== END 2019-06-09 22:30 ==
LOC: JD.ED 19:36
DX: I27.81 Cor pulmonale (chronic) (principal); K35.30 Acute appendicitis with localized peritonitis, without perforation or gangrene; E11.59 Type 2 diabetes mellitus with other circulatory complications; F41.9 Anxiety disorder, unspecified; J43.9 Emphysema, unspecified; I50.9 Heart failure, unspecified; E78.00 Pure hypercholesterolemia, unspecified; I11.0 Hypertensive heart disease with heart failure; K21.9 Gastro-esophageal reflux disease without esophagitis; F32.9 Major depressive disorder, single episode, unspecified; N40.0 Benign prostatic hyperplasia without lower urinary tract symptoms; F17.213 Nicotine dependence, cigarettes, with withdrawal; Z88.6 Allergy status to analgesic agent; E66.9 Obesity, unspecified; Z68.35 Body mass index [BMI] 35.0-35.9, adult; Z88.8 Allergy status to other drugs, medicaments and biological substances; Z79.899 Other long term (current) drug therapy; Z79.4 Long term (current) use of insulin; Z79.51 Long term (current) use of inhaled steroids; Z79.82 Long term (current) use of aspirin; Z79.52 Long term (current) use of systemic steroids
CPT/HCPCS: 36415; 71045; 80053; 83605; 83735; 83880; 85007; 85027; 93005; 96361; 96365; 99285; J1170; J2060; J2185; J2405; J7030; J7040; 93010

== ENCOUNTER 2021-02-04 12:50 | Emergency (ER) | payer MEDICARE, MEDICAID ==
[2021-02-04 13:12] VITALS: BP 128/62; PULSE 60
--- NOTE | 2021-02-04 13:30 | EDM.PDOC ---
ED HPI GENERAL MEDICAL PROBLEM - General Chief Complaint: Lower Extremity Injury/Pain Stated Complaint: R KNEE AND LEG PAIN Time Seen by Provider: 02/04/21 13:22 Source of Information: Reports: Patient History Limitations: Reports: No Limitations - History of Present Illness INITIAL COMMENTS - FREE TEXT/NARRATIVE: 65-year-old male presents to the ED for evaluation of diffuse pain in his right lower extremity from knee to foot. He states this started last night and the pain was so intense that he could not sleep. Pain is present at rest and perhaps slightly worsened by attempt to walk. Of note the patient walks with the aid of a walker and is oxygen dependent due to COPD. COPD is secondary to cigarette smoking. He denies any fall or injury to the right lower extremity. He has no history of gout or pseudogout. Claims the pain is primarily from the knee and the anterior aspect of the leg down to his foot and ankle. He feels some discomfort in his right fifth toe. He has no past history of DVT. Patient does have a history of diabetes and peripheral neuropathy pain. He takes oxycodone for pain management states but even this overnight did not help with the pain. Patient is not on Neurontin or Lyrica. He has a history of bipolar affective disorder. Onset: Sudden Onset Date: 02/03/21 Onset Time: 18:00 Duration: Hour(s):, Constant, Getting Worse Location: Reports: Lower Extremity, Right Quality: Reports: Ache (Right lower extremity pain from knee to foot.), Throbbing Severity: Severe (9 out of 10) Improves with: Reports: None (Given resting does not help. Pain is not necessarily made worse by walking or weightbearing) Worsens with: Reports: Other Context: Reports: Other (Spontaneous occurrence with no known trauma.). Denies: Activity (Perhaps slightly worse with weightbearing.), Exercise, Lifting, Sick Contact, Trauma Associated Symptoms: Reports: No Other Symptoms Treatments CRM CONSULTANT: Reports: Other (see below) Right Lower Leg Pain Score (Numeric/FACES): 7 - Related Data Allergies Allergy/AdvReac Type Severity Reaction Status Date / Time celecoxib [From Celebrex] AdvReac Nausea Verified 02/07/19 18:54 ketorolac [From Toradol] AdvReac Stomach Verified 02/07/19 18:54 Upset mirtazapine [From Remeron] AdvReac Confusion Verified 02/07/19 18:54 NSAIDS (Non-Steroidal AdvReac Stomach Verified 02/07/19 18:54 Anti-Inflamma Upset Home Meds: Home Meds Albuterol Sulfate [Albuterol Sulfate HFA] 1 - 2 puff PO Q4H PRN 02/04/21 [History] Albuterol [Proventil Neb Soln] 2.5 mg INH Q4H PRN 02/04/21 [History] DULoxetine [Cymbalta] 30 mg PO DAILY 02/04/21 [History] Fluticasone/Vilanterol [Breo Ellipta 200-25 MCG Inhalation Kit] 1 inh PO DAILY 02/04/21 [History] Furosemide 60 mg PO DAILY 02/04/21 [History] Gabapentin [Neurontin] 300 mg PO BID #42 cap 02/04/21 [Rx] Insulin Aspart [NovoLOG] 0 units SUBCUT DAILY 02/04/21 [History] Metoprolol Succinate [Toprol Xl] 25 mg PO BEDTIME 02/04/21 [History] Metoprolol Succinate [Toprol Xl] 50 mg PO DAILY 02/04/21 [History] Non-Formulary Medication [NF Drug] 1 puff PO DAILY 02/04/21 [History] OLANZapine [Olanzapine] 10 mg PO BEDTIME 02/04/21 [History] Tamsulosin [Flomax] 0.4 mg PO BID 02/04/21 [History] Venlafaxine HCl [Venlafaxine ER] 150 mg PO DAILY 02/04/21 [History] amLODIPine [Norvasc] 5 mg PO DAILY 02/04/21 [History] atorvaSTATin [Lipitor] 10 mg PO DAILY 02/04/21 [History] clonazePAM [Clonazepam] 1 mg PO TID PRN 02/04/21 [History] diazePAM [Valium.] 5 mg PO TID PRN 02/04/21 [History] lisinopriL [Lisinopril] 40 mg PO DAILY 02/04/21 [History] oxyCODONE HCl [Oxycodone HCL] 10 mg PO Q4H PRN 02/04/21 [History] traZODone HCl [Trazodone HCl] 200 mg PO BEDTIME 02/04/21 [History] Past Medical History HEENT History: Reports: Impaired Vision Other HEENT History: wears glasses Cardiovascular History: Reports: Heart Failure, High Cholesterol, Hypertension Other Cardiovascular History: 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 He is on oxygen 4 L per nasal cannula at all times. Gastrointestinal History: Reports: Colon Polyp, GERD, Pancreatitis Other Gastrointestinal History: nausea, epigastric pain, benighn neoplasm of colon, duodenitis Genitourinary History: Reports: BPH PEDIATRICIAN ACTIVE PRACTICE History: Reports: None Musculoskeletal History: Reports: Back Pain, Chronic Other Musculoskeletal History: Cyst between L1 and L2 Neurological History: Reports: Other (See Below) Other Neuro History: back surgery Psychiatric History: Reports: Anxiety, Bipolar, Depression, Other (See Below) Other Psychiatric History: insomnia Endocrine/Metabolic History: Reports: Diabetes, Type II, Obesity/BMI 30+ Other Endocrine/Metabolic History: adrenal incidentaloma Hematologic History: Reports: Polycythemia Immunologic History: Reports: None Oncologic (Cancer) History: Reports: None Dermatologic History: Reports: None - Infectious Disease History Infectious Disease History: Reports: Chicken Pox - Past Surgical History Head Surgeries/Procedures: Reports: None HEENT Surgical History: Reports: Cataract Surgery Cardiovascular Surgical History: Reports: Other (See Below) Respiratory Surgical History: Reports: None GI Surgical History: Reports: Colonoscopy, EGD, Hernia, Inguinal Male Surgical History: Reports: None Endocrine Surgical History: Reports: None Neurological Surgical History: Reports: Lumbar Spine Musculoskeletal Surgical History: Reports: Carpal Tunnel, Shoulder Surgery Other Musculoskeletal Surgeries/Procedures:: back surgery x 3 Oncologic Surgical History: Reports: None Dermatological Surgical History: Reports: None Social & Family History - Family History Family Medical History: No Pertinent Family History - Tobacco Use Tobacco Use Status *Q: Current Every Day Tobacco User Years of Tobacco use: 25 Packs/Tins Daily: 0.7 - Caffeine Use Caffeine Use: Reports: Coffee, Soda, Tea - Recreational Drug Use Recreational Drug Use: No - Living Situation & Occupation Living situation: Reports: Alone, Single 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 Urinary frequency with nocturia x2) Musculoskeletal: Reports: Neck Pain, Shoulder Pain, Back Pain (Knees and hips at times), Joint Pain Skin: Reports: Other (Patient does have bilateral venous stasis dermatitis both lower extremities.) Neurological: Reports: Difficulty Walking (Due to pain right leg.). Denies: Confusion, Dizziness, Headache, Syncope Psychiatric: Reports: Mood Lability (History of bipolar affective disorder. Currently controlled on medications), Anxiety ED EXAM, GENERAL - Physical Exam Exam: See Below Exam Limited By: Uncooperative General Appearance: Alert, WD/WN, No Apparent Distress, Other (Temperature is 36.3 degrees. Heart rate 60 in sinus respiratory is 20 with O2 sats of 96% on 3 L/min by nasal cannula. BP 128 on 62.) Eye Exam: Bilateral Eye: Normal Inspection (No blepharal pallor or scleral icterus.), PERRL Throat/Mouth: Normal Inspection, Normal Oropharynx, Other (Tongue is mildly dry and coated.). No: Normal Teeth Head: Atraumatic, Normocephalic Neck: Normal Inspection, Supple, Non-Tender, Full Range of Motion. No: Carotid Bruit, Lymphadenopathy (L), Lymphadenopathy (R) Respiratory/Chest: No Accessory Muscle Use, Respiratory Distress, Decreased Breath Sounds, Wheezing (Decreased air entry to the lower 30% of lung frazier bilaterally with bilateral expiratory wheezes. On expiration.). No: Lungs Clear (Mild tachypnea.), Normal Breath Sounds Cardiovascular: Normal Peripheral Pulses, Regular Rate, Rhythm, No Gallop, No Murmur, No Rub. No: No Edema Peripheral Pulses: 2+: Carotid (L), Carotid (R), Posterior Tibial (L), Posterior Tibial (R), Dorsalis Pedis (L), Dorsalis Pedis (R) GI/Abdominal: Normal Bowel Sounds, Soft, Non-Tender, No Organomegaly, No Abnormal Bruit, No Mass, Pelvis Stable Back Exam: Normal Inspection, Full Range of Motion. No: CVA Tenderness (L), CVA Tenderness (R) Extremities: Normal Inspection, Non-Tender, Pedal Edema (Trace of pedal edema up to the tibial tuberosity on the right lower extremity graded as 2 out of 4.), Increased Warmth (In the first and fifth toes of the right foot.), Other (The right lower extremity is more taut than the left. No popliteal swelling. No localized tenderness in the posterior aspect of the left calf. Tenderness is appreciated to palpation over the anterior tibia from tibial tuberosity to the ankle. There is no obvious bruising or excessive swelling. ). No: Mottled, Pallor, Redness Neurological: Alert, Oriented, CN II-XII Intact, Normal Cognition. No: Normal Gait (Antalgic gait due to back pain walks with the aid of a walker) Psychiatric: Flat Affect Skin Exam: Warm, Dry, Intact, Normal Color, No Rash Course - Vital Signs Last Recorded V/S: Last Vital Signs Temp 36.3 C 02/04/21 13:10 Pulse 60 02/04/21 13:10 Resp 20 02/04/21 13:10 BP 128/62 02/04/21 13:10 Pulse Ox 96 02/04/21 13:10 - Orders/Labs/Meds Orders: Active Orders 24 hr Category Date Time Status Peripheral IV Insertion Adult [OM.PC] Stat Oth 02/04/21 13:42 Ordered Labs: Laboratory Tests 02/04/21 02/04/21 02/04/21 Range/Units 13:35 13:35 13:35 WBC 7.07 (4.23-9.07) K/mm3 RBC 4.18 L (4.63-6.08) M/mm3 Hgb 13.1 L D (13.7-17.5) gm/dl Hct 40.5 (40.1-51.0) % MCV 96.9 H (79.0-92.2) fl MCH 31.3 (25.7-32.2) pg MCHC 32.3 (32.2-35.5) g/dl RDW Std Deviation 51.1 H (35.1-43.9) fL Plt Count 256 (163-337) K/mm3 MPV 9.2 L (9.4-12.3) fl Neut % (Auto) 58.9 (34.0-67.9) % Lymph % (Auto) 25.2 (21.8-53.1) % Amelia % (Auto) 11.5 (5.3-12.2) % Eos % (Auto) 3.8 (0.8-7.0) Baso % (Auto) 0.6 (0.1-1.2) % Neut # (Auto) 4.17 (1.78-5.38) K/mm3 Lymph # (Auto) 1.78 (1.32-3.57) K/mm3 Amelia # (Auto) 0.81 (0.30-0.82) K/mm3 Eos # (Auto) 0.27 (0.04-0.54) K/mm3 Baso # (Auto) 0.04 (0.01-0.08) K/mm3 D-Dimer, Quantitative 0.53 H (0.19-0.50) mg/L Sodium 141 (136-145) mEq/L Potassium 5.3 H D (3.5-5.1) mEq/L Chloride 103 (98-107) mEq/L Carbon Dioxide 35 H (21-32) mEq/L Anion Gap 8.3 (5-15) BUN 38 H D (7-18) mg/dL Creatinine 1.5 H (0.7-1.3) mg/dL Est Cr Clr Drug Dosing 51.37 mL/min Estimated GFR (MDRD) 47 (>60) mL/min BUN/Creatinine Ratio 25.3 H (14-18) Glucose 101 H (70-99) mg/dL Uric Acid 7.2 (3.5-7.2) mg/dL Calcium 8.8 (8.5-10.1) mg/dL Total Bilirubin 0.3 (0.2-1.0) mg/dL AST 16 (15-37) U/L ALT 26 (16-63) U/L Alkaline Phosphatase 140 H (46-116) U/L Total Protein 6.7 (6.4-8.2) g/dl Albumin 3.3 L (3.4-5.0) g/dl Globulin 3.4 gm/dL Albumin/Globulin Ratio 1.0 (1-2) Meds: Medications Discontinued Medications Generic Name Dose Route Start Last Admin Trade Name Freq PRN Reason Stop Dose Admin Hydromorphone HCl 1 mg 02/04/21 13:42 02/04/21 16:21 Hydromorphone 1 Mg/Ml Syringe IVPUSH 02/04/21 13:43 Not Given ONETIME ONE Sodium Chloride 10 ml 02/04/21 13:42 Sodium Chloride 0.9% 10 Ml Syringe FLUSH ASDIRECTED PRN Keep Vein Open - Radiology Interpretation Free Text/Narrative:: 65-year-old male presents to the ED with diffuse pain in his right lower extremity from knee to foot. States this came on rather abruptly last evening with no known injury or trauma. No twist or fall. He does walk with the aid of a walker and does have a history of peripheral neuropathy from chronic type 2 diabetes. He is oxygen dependent and therefore is not very active. There is no history of DVT. His pain is primarily felt in the anterior aspect of the tibia from knee to foot. There is no obvious localized deformities or palpable swelling. Slight dependent edema in the right lower extremity as compared to the left with slight tightness of the muscle as well. Therefore cannot rule out DVT although I feel clinically this is unlikely. Plan x-rays of the right tib- fib and foot to be done. Labs to be done to include D-dimer. A Doppler ultrasound will be ordered on the right lower extremity. Saline lock started. He will be given Dilaudid 1 mg IV for pain relief. Of note the patient takes oxycodone 3-4 times daily and therefore has a tolerance to narcotics. - Re-Assessments/Exams Free Text/Narrative Re-Assessment/Exam: 02/04/21 15:00 Labs reveal a normal white count at 7.07. The differential is 58.9% neutrophils on the auto differential. Hemoglobin 13.1 with hematocrit of 40.5. MCV is slightly elevated at 96.9. Platelet count 256,000. D-dimer is minimally elevated at 0.53. Sodium 141 with potassium elevated at 5.3. Chloride 103 with a bicarb of 35. Anion gap is 8.3. BUN is 38 with a creat inine of 1.5 and a GFR of 47. Glucose is 101 uric acid is 7.2. Calcium is 8.8. Liver function is normal other than slightly elevated alkaline phosphatase at 140. Total protein 6.7 with albumin fraction of 3.3. 02/04/21 15:01 x-rays of the tib-fib and right foot reveal osteopenia but no fractures identified. There is degenerative arthritic change in the first MCP joint and the fifth MCP joint. Doppler ultrasound of the right lower extremity reveals the common femoral, femoral, and proximal profundofemoral and popliteal veins are patent without any thrombus. Normal Doppler waveforms. Normal compressibility and and mentation response. The posterior tibial vein and peroneal vein appear patent as well. Saphenofemoral junction is patent without any thrombus. No evidence of DVT 02/04/21 17:15: There was a significant delay in being able to discuss the findings of the labs and his ultrasound with the patient due to trauma in the ED. Once identified that I could find no serious issues with his leg it appears that this is most likely neurogenic in origin. He does have chronic diabetes. He has had radiculopathy into both lower extremities from degenerative disc disease in his lumbar spine. He used to be on gabapentin for neurogenic pain but this was discontinued after back surgery. I am going to return him to gabapentin 300 mg morning and bedtime for relief of pain for the next 3 weeks. He will follow up in the next week to 10 days with his primary care physician to see how he is getting along. He will continue use oxycodone which she has plenty of tablets of on a as needed basis. Advised initially not to use the gabapentin and the oxycodone at the same time as both can cause significant sedation. Departure - Departure Time of Disposition: 17:22 Disposition: Home, Self-Care 01 Condition: Fair Clinical Impression: Pain of right lower extremity, Neuropathic pain - Discharge Information *PRESCRIPTION DRUG MONITORING PROGRAM REVIEWED*: Not Applicable *COPY OF PRESCRIPTION DRUG MONITORING REPORT IN PATIENT DELORES: Not Applicable Prescriptions: Gabapentin [Neurontin] 300 mg PO BID #42 cap Instructions: Neuropathic Pain Referrals: Efrem Saul MD [Primary Care Provider] - Forms: ED Department Discharge Additional Instructions: Evaluation in the emergency room today in regards to severe pain from the knee to the foot starting last evening for no good reason. No known injuries. X- rays of the right leg and foot showed degenerative arthritic changes in the knee and in the toes but no other abnormalities of the long bones or ankle itself. An ultrasound of the leg was also performed and does not reveal any sign of a blood clot in the right lower extremity. Lab tests were also done to rule out an infection or inflammation and they proved to be normal as well. Therefore I think the cause of the pain is likely due to diabetic neuropathy or neurogenic pain. This can show up at any time and is quite severe pain. You will likely need to continue your oxycodone tablets as needed for pain relief. I will write a prescription for gabapentin 300 mg twice daily to be taken in the morning and at bedtime for the next 3 weeks to see if we can bring this pain under control. Please follow-up with your personal care physician in the next 10 days. Sepsis Event Note (ED) - Evaluation Sepsis Screening Result: No Definite Risk - Focused Exam Vital Signs: Vital Signs Temp Pulse Resp BP Pulse Ox 02/04/21 13:10 36.3 C 60 20 128/62 96 - My Orders Last 24 Hours: My Active Orders 02/04/21 13:42 Peripheral IV Insertion Adult [OM.PC] Stat - Assessment/Plan Last 24 Hours: My Active Orders 02/04/21 13:42 Peripheral IV Insertion Adult [OM.PC] Stat
[2021-02-04] MEDS ORDERED: HYDROmorphone 1 MG/ML Syringe IVPUSH ONE (13:42)
[2021-02-04] MEDS ORDERED: Sodium Chloride 0.9% 10 ML Syringe FLUSH PRN (13:42)
--- NOTE | 2021-02-04 16:07 | CR ---
Right foot: 4 views of the right foot were obtained. Comparison: No prior foot exam is available. Joint space narrowing is noted within the first MTP joint. Bony structures are somewhat osteopenic. Plantar fascial calcification is seen as well as a plantar spur off the calcaneus. No acute fracture, dislocation or other bony abnormality is seen. No discrete bony erosions are identified. Impression: 1. Degenerative change and chronic plantar findings. 2. Nothing acute is seen on right foot exam. Diagnostic code #2
--- NOTE | 2021-02-04 16:07 | US ---
Right lower extremity deep venous ultrasound: Duplex and color Doppler evaluation was obtained of the right common femoral, proximal greater saphenous, superficial femoral, popliteal, posterior tibial and peroneal veins. Comparison: Prior bilateral venous ultrasound of 04/28/17 is available. Findings: Normal phasic flow, augmentation and compression are seen. Impression: 1. No findings of deep venous thrombosis within the right lower extremity. Diagnostic code #1 I agree with preliminary report from [facility], finalized on 02/04/21, 3:59 PM CDT, code 1
--- NOTE | 2021-02-04 16:07 | CR ---
Right tibia and fibula: AP and lateral views of the right tibia and fibula were obtained. Comparison: No prior tibia or fibula studies available. Calcification is seen off the medial ankle presumably due to old injury. Sclerotic area is seen within the proximal fibula most likely representing bone island. Minimal chondrocalcinosis is seen within the knee. No acute fracture or other abnormality is seen. Impression: 1. Findings believed to be chronic as noted above. 2. Nothing acute is seen on right tibia and fibula. Diagnostic code #2
== END 2021-02-04 17:50 | disposition home or self-care (01) ==
LOC: JD.ED 12:50
DX: M25.561 Pain in right knee (principal); M25.551 Pain in right hip; E11.42 Type 2 diabetes mellitus with diabetic polyneuropathy; I11.0 Hypertensive heart disease with heart failure; I50.9 Heart failure, unspecified; E78.00 Pure hypercholesterolemia, unspecified; J44.9 Chronic obstructive pulmonary disease, unspecified; K21.9 Gastro-esophageal reflux disease without esophagitis; Z72.0 Tobacco use; Z79.4 Long term (current) use of insulin; Z79.899 Other long term (current) drug therapy; Z88.6 Allergy status to analgesic agent; Z88.1 Allergy status to other antibiotic agents; Z88.8 Allergy status to other drugs, medicaments and biological substances
CPT/HCPCS: 36415; 73590-26-RT; 73590-RT; 73630-26-RT; 73630-RT; 80053; 84550; 85025; 85379; 93971-26-RT; 93971-RT; 99284-25

== ENCOUNTER 2021-06-20 15:25 | Emergency (ER) | payer MEDICARE, MEDICAID ==
[2021-06-20 16:02] VITALS: BP 139/74; PULSE 66
--- NOTE | 2021-06-20 16:31 | EDM.PDOCBH ---
ED HPI GENERAL MEDICAL PROBLEM - General Chief Complaint: Behavioral/Psych Stated Complaint: PSYCH EVAL Time Seen by Provider: 06/20/21 15:33 Source of Information: Reports: Patient, RN Notes Reviewed History Limitations: Reports: No Limitations - History of Present Illness INITIAL COMMENTS - FREE TEXT/NARRATIVE: Patient has a 65-year-old male presenting to the emergency department for mental health evaluation. He reports a history of paranoid schizophrenia and bipolar and is currently undergoing treatment from his primary care provider, Dr. Saul and his psychiatrist Dr. Walker at [facility] in [place]. He reports that he is that he has been "out of control" for the last month. He has been spending frivolously for the last month and feels like somebody is controlling his mind. Feels like his thoughts are racing. He does admit to having auditory hallucinations. States he has "voices" which his psychiatrist refers to as hallucinations and delusions. These voices can be cruel to him at times with name-calling and degrading him but states that for the most part as of recently they have been "getting along ". He feels like somebody is out to kill him. He denies any suicidal or homicidal ideation. He has had his psychiatric medications changed on a number of occasions but he states nothing is helping. He last saw his psychiatrist 2 weeks ago; however, he called his office prior to coming here and spoke with his nurse. He states that she recommend he come to the ER for evaluation and to be sent for hospital admission in [place]. Patient feels that he needs psychiatric hospitalization to help with his [id number] actions as well as his hallucinations and delusions as he feels that he is a danger to himself. He does admit to occasional methamphetamine use with his last use being yesterday. He also admits to occasional EtOH use. Has not had a drink for the last couple weeks. - Related Data Allergies Allergy/AdvReac Type Severity Reaction Status Date / Time celecoxib [From Celebrex] AdvReac Nausea Verified 06/20/21 16:02 ketorolac [From Toradol] AdvReac Stomach Verified 06/20/21 16:02 Upset mirtazapine [From Remeron] AdvReac Confusion Verified 06/20/21 16:02 NSAIDS (Non-Steroidal AdvReac Stomach Verified 06/20/21 16:02 Anti-Inflamma Upset Home Meds: Home Meds Albuterol Sulfate [Albuterol Sulfate HFA] 1 - 2 puff PO Q4H PRN 02/04/21 [History] Albuterol [Proventil Neb Soln] 2.5 mg INH Q4H PRN 02/04/21 [History] DULoxetine [Cymbalta] 30 mg PO DAILY 02/04/21 [History] Fluticasone/Vilanterol [Breo Ellipta 200-25 MCG Inhalation Kit] 1 inh PO DAILY 02/04/21 [History] Furosemide 60 mg PO DAILY 02/04/21 [History] Gabapentin [Neurontin] 300 mg PO BID #42 cap 02/04/21 [Rx] Insulin Aspart [NovoLOG] 0 units SUBCUT DAILY 02/04/21 [History] Metoprolol Succinate [Toprol Xl] 25 mg PO BEDTIME 02/04/21 [History] Metoprolol Succinate [Toprol Xl] 50 mg PO DAILY 02/04/21 [History] Non-Formulary Medication [NF Drug] 1 puff PO DAILY 02/04/21 [History] OLANZapine [Olanzapine] 10 mg PO BEDTIME 02/04/21 [History] Tamsulosin [Flomax] 0.4 mg PO BID 02/04/21 [History] Venlafaxine HCl [Venlafaxine ER] 150 mg PO DAILY 02/04/21 [History] amLODIPine [Norvasc] 5 mg PO DAILY 02/04/21 [History] atorvaSTATin [Lipitor] 10 mg PO DAILY 02/04/21 [History] clonazePAM [Clonazepam] 1 mg PO TID PRN 02/04/21 [History] diazePAM [Valium.] 5 mg PO TID PRN 02/04/21 [History] lisinopriL [Lisinopril] 40 mg PO DAILY 02/04/21 [History] oxyCODONE HCl [Oxycodone HCL] 10 mg PO Q4H PRN 02/04/21 [History] traZODone HCl [Trazodone HCl] 200 mg PO BEDTIME 02/04/21 [History] Past Medical History HEENT History: Reports: Impaired Vision Other HEENT History: wears glasses Cardiovascular History: Reports: Heart Failure, High Cholesterol, Hypertension Other Cardiovascular History: 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 He is on oxygen 4 L per nasal cannula at all times. 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 History: Reports: None Musculoskeletal History: Reports: Back Pain, Chronic Other Musculoskeletal History: Cyst between L1 and L2 Neurological History: Reports: Other (See Below) Other Neuro History: back surgery Psychiatric History: Reports: Anxiety, Bipolar, Depression, Other (See Below) Other Psychiatric History: insomnia Endocrine/Metabolic History: Reports: Diabetes, Type II, Obesity/BMI 30+ Other Endocrine/Metabolic History: adrenal incidentaloma Hematologic History: Reports: Polycythemia Immunologic History: Reports: None Oncologic (Cancer) History: Reports: None Dermatologic History: Reports: None - Infectious Disease History Infectious Disease History: Reports: Chicken Pox - Past Surgical History Head Surgeries/Procedures: Reports: None HEENT Surgical History: Reports: Cataract Surgery Cardiovascular Surgical History: Reports: Other (See Below) Respiratory Surgical History: Reports: None GI Surgical History: Reports: Colonoscopy, EGD, Hernia, Inguinal Male Surgical History: Reports: None Endocrine Surgical History: Reports: None Neurological Surgical History: Reports: Lumbar Spine Musculoskeletal Surgical History: Reports: Carpal Tunnel, Shoulder Surgery Other Musculoskeletal Surgeries/Procedures:: back surgery x 3 Oncologic Surgical History: Reports: None Dermatological Surgical History: Reports: None Social & Family History - Family History Family Medical History: No Pertinent Family History - Tobacco Use Tobacco Use Status *Q: Current Every Day Tobacco User Years of Tobacco use: 40 Packs/Tins Daily: 0.7 - Caffeine Use Caffeine Use: Reports: Coffee, Soda, Tea - Recreational Drug Use Recreational Drug Use: No - Living Situation & Occupation Living situation: Reports: Alone, Single 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 Denies: Fever, Chills Respiratory: Reports: No Symptoms. Denies: Cough Cardiovascular: Reports: No Symptoms Endocrine: Reports: No Symptoms GI/Abdominal: Reports: No Symptoms : Reports: No Symptoms Musculoskeletal: Reports: No Symptoms Skin: Reports: No Symptoms Neurological: Reports: No Symptoms Psychiatric: Reports: Hallucinations, Other ("racing thoughts"). Denies: Homicidal Ideation, Suicidal Ideation Hematologic/Lymphatic: Reports: No Symptoms Immunologic: Reports: No Symptoms ED EXAM, BEHAVIORAL HEALTH - Physical Exam Exam: See Below Exam Limited By: No Limitations General Appearance: Alert, WD/WN, No Apparent Distress Eye Exam: Bilateral Eye: PERRL Respiratory/Chest: No Respiratory Distress, Lungs Clear, Normal Breath Sounds, No Accessory Muscle Use, Chest Non-Tender Cardiovascular: Normal Peripheral Pulses, Regular Rate, Rhythm, No Edema, No Gallop, No JVD, No Murmur, No Rub GI/Abdominal: Normal Bowel Sounds, Soft, Non-Tender, No Organomegaly, No Distention, No Abnormal Bruit, No Mass Neurological: Alert, Normal Mood/Affect, CN II-XII Intact, Normal Cognition, Normal Gait, Normal Reflexes, No Motor/Sensory Deficits, Oriented x 3 Psychiatric: Alert, Normal Affect, Normal Cognition, Normal Mood, Oriented, Auditory Hallucinations, Paranoid Thoughts. No: Depressed Mood, Restless, Amanda tated, Disoriented, Poor Eye Contact, Withdrawn, Pressured Speech, Threatening Behavior #1 Interpretation EKG Date: 06/20/21 Time: 16:40 Rhythm: NSR Rate (Beats/Min): 63 [place]: Normal P-Wave: Present QRS: Normal ST-T: Normal QT: Normal COURSE, BEHAVIORAL HEALTH COMP - Course Vital Signs: Last Vital Signs Temp 97.4 F 06/20/21 15:58 Pulse 66 06/20/21 15:58 Resp 20 06/20/21 15:58 BP 139/74 06/20/21 15:58 Pulse Ox 90 L 06/20/21 15:58 Orders, Labs, Meds: Laboratory Tests 06/20/21 06/20/21 06/20/21 Range/Units 16:32 16:40 16:46 WBC 6.57 (4.23-9.07) K/mm3 RBC 4.54 L (4.63-6.08) M/mm3 Hgb 14.0 (13.7-17.5) gm/dl Hct 42.8 (40.1-51.0) % MCV 94.3 H (79.0-92.2) fl MCH 30.8 (25.7-32.2) pg MCHC 32.7 (32.2-35.5) g/dl RDW Std Deviation 50.4 H (35.1-43.9) fL Plt Count 316 (163-337) K/mm3 MPV 9.3 L (9.4-12.3) fl Neutrophils % (Manual) 54 (40-60) % Band Neutrophils % 0 (0-10) % Lymphocytes % (Manual) 29 (20-40) % Atypical Lymphs % 5 % Monocytes % (Manual) 10 (2-10) % Eosinophils % (Manual) 2 (0.8-7.0) % Basophils % (Manual) 0 L (0.2-1.2) Platelet Estimate Adequate RBC Morph Comment Normal Sodium (136-145) mEq/L Potassium (3.5-5.1) mEq/L Chloride (98-107) mEq/L Carbon Dioxide (21-32) mEq/L Anion Gap (5-15) BUN (7-18) mg/dL Creatinine (0.7-1.3) mg/dL Est Cr Clr Drug Dosing mL/min Estimated GFR (MDRD) (>60) mL/min BUN/Creatinine Ratio (14-18) Glucose (70-99) mg/dL Calcium (8.5-10.1) mg/dL Total Bilirubin (0.2-1.0) mg/dL AST (15-37) U/L ALT (16-63) U/L Alkaline Phosphatase (46-116) U/L Total Protein (6.4-8.2) g/dl Albumin (3.4-5.0) g/dl Globulin gm/dL Albumin/Globulin Ratio (1-2) TSH 3rd Generation (0.358-3.74) uIU/mL Salicylates (2.8-20) mg/dL Urine Opiates Screen Negative (WEGAVQ=978) Ur Buprenorphine Scrn Negative (CUTOFF=10) Ur Oxycodone Screen Presumptive positive H (TVP4IO=343) Urine Methadone Screen Negative (IPJ1JQ=582) Ur Propoxyphene Screen Negative (MKSBQF=226) Acetaminophen (10-30) ug/mL Ur Barbiturates Screen Negative (GJXUFI=624) Ur Tricyclics Screen Negative (MXYWFS=913) Ur Phencyclidine Scrn Negative (CUTOFF=25) Ur Amphetamine Screen Presumptive positive H (JPCWRO=320) U Methamphetamines Scrn Presumptive positive H (NWPGOF=583) U Benzodiazepines Scrn Presumptive positive H (UROYFV=500) U Cocaine Metab Screen Negative (JPKXTY=896) U Marijuana (THC) Screen Negative (CUTOFF=50) Ethyl Alcohol (0.00) gm% SARS-CoV-2 RNA (EVARISTO) Negative (NEGATIVE) 06/20/21 06/20/21 Range/Units 16:46 16:46 WBC (4.23-9.07) K/mm3 RBC (4.63-6.08) M/mm3 Hgb (13.7-17.5) gm/dl Hct (40.1-51.0) % MCV (79.0-92.2) fl MCH (25.7-32.2) pg MCHC (32.2-35.5) g/dl RDW Std Deviation (35.1-43.9) fL Plt Count (163-337) K/mm3 MPV (9.4-12.3) fl Neutrophils % (Manual) (40-60) % Band Neutrophils % (0-10) % Lymphocytes % (Manual) (20-40) % Atypical Lymphs % % Monocytes % (Manual) (2-10) % Eosinophils % (Manual) (0.8-7.0) % Basophils % (Manual) (0.2-1.2) Platelet Estimate RBC Morph Comment Sodium 138 (136-145) mEq/L Potassium 4.5 (3.5-5.1) mEq/L Chloride 98 (98-107) mEq/L Carbon Dioxide 33 H (21-32) mEq/L Anion Gap 11.5 (5-15) BUN 12 D (7-18) mg/dL Creatinine 0.8 (0.7-1.3) mg/dL Est Cr Clr Drug Dosing 96.32 mL/min Estimated GFR (MDRD) > 60 (>60) mL/min BUN/Creatinine Ratio 15.0 (14-18) Glucose 86 (70-99) mg/dL Calcium 8.6 (8.5-10.1) mg/dL Total Bilirubin 0.3 (0.2-1.0) mg/dL AST 20 (15-37) U/L ALT 26 (16-63) U/L Alkaline Phosphatase 138 H (46-116) U/L Total Protein 6.2 L (6.4-8.2) g/dl Albumin 3.2 L (3.4-5.0) g/dl Globulin 3.0 gm/dL Albumin/Globulin Ratio 1.1 (1-2) TSH 3rd Generation 1.386 (0.358-3.74) uIU/mL Salicylates 4.6 (2.8-20) mg/dL Urine Opiates Screen (TFHILK=572) Ur Buprenorphine Scrn (CUTOFF=10) Ur Oxycodone Screen (RWA2MX=900) Urine Methadone Screen (HKR4NU=971) Ur Propoxyphene Screen (VVJBWI=450) Acetaminophen 0 L (10-30) ug/mL Ur Barbiturates Screen (LAHNXR=599) Ur Tricyclics Screen (OUEAFB=706) Ur Phencyclidine Scrn (CUTOFF=25) Ur Amphetamine Screen (HWFLAQ=429) U Methamphetamines Scrn (AYWCYU=130) U Benzodiazepines Scrn (UNMGZW=194) U Cocaine Metab Screen (ZSVCDV=087) U Marijuana (THC) Screen (CUTOFF=50) Ethyl Alcohol 0.00 (0.00) gm% SARS-CoV-2 RNA (EVARISTO) (NEGATIVE) Medical Clearance: Patient is a 65-year-old male presenting to the emergency department with request of a mental health evaluation. He reports that he feels like he is out of control. He has been spending frivolously for the last month and doing things that he states he normally would not do. He does have a history of paranoid schizophrenia and bipolar. Psychiatrist is Dr. Aj. He has no suicidal or homicidal ideation. I will complete psychiatric work-up and then speak with the psychiatrist on-call at [facility]. 06/20/21 17:40 Patient has gotten dressed in his room. He states that he is just getting ready to go home. He reports that he has a public transit appointment set up for 7:30 in the morning to take him to [facility] in [place] to see a psychiatrist. He does not feel that he needs to be transferred down tonight as he feels safe at home and is not having thoughts of self-harm or harming others. We will await the results of his work-up and then plan for home discharge. He is hungry, so he will order something for dinner. 06/20/21 18:18 Hematology is grossly unremarkable. Urine drug screen positive for oxycodone, amphetamine, methamphetamine, benzodiazepines. Patient did admit to methamphetamine use. The other positives would be related to his prescribed medications. He is Covid negative. Blood alcohol is 0. Patient has arrangements to take the mini bus to [place] tomorrow. He does not currently have an appointment with Dr. Walker, however, he is under the impression that he is going to admit him into the hospital. I discussed with him that he will likely be required to be reevaluated in the ER prior to psychiatric admission, however he may try contacting Dr. Walker office in the morning to clarify this. He verbalized understanding of this. He is stable, calm, and continues to deny any suicidal or homicidal ideation. He has not exhibited any signs of psychosis in the emergency department. Discussed with him that if he should develop any worsening symptoms or has thoughts of self-harm, he should return to the ER immediately. He verbalized understanding of this. Discharge instructions as documented. Departure - Departure Time of Disposition: 18:20 Disposition: Home, Self-Care 01 Condition: Good Clinical Impression: Hallucinations - Discharge Information Instructions: Acute Bronchitis, Adult, [id number] Referrals: Efrem Saul MD [Primary Care Provider] - Forms: ED Department Discharge Additional Instructions: Continue to take your prescribed medications. Avoid alcohol or drug use. Follow-up with your psychiatrist as planned. Return to ER for any worsening symptoms including thoughts of self-harm or harming others. Sepsis Event Note (ED) - Evaluation Sepsis Screening Result: No Definite Risk - Focused Exam Vital Signs: Vital Signs Temp Pulse Resp BP Pulse Ox 06/20/21 15:58 97.4 F 66 20 139/74 90 L
[2021-06-20 17:50] LABS: ACETAMINOPHEN 0 ug/mL (10-30)
== END 2021-06-20 18:50 | disposition home or self-care (01) ==
LOC: JD.ED 15:25
DX: R44.0 Auditory hallucinations (principal); I11.0 Hypertensive heart disease with heart failure; I50.9 Heart failure, unspecified; E78.00 Pure hypercholesterolemia, unspecified; J43.9 Emphysema, unspecified; N40.0 Benign prostatic hyperplasia without lower urinary tract symptoms; E11.9 Type 2 diabetes mellitus without complications; E66.9 Obesity, unspecified; Z68.33 Body mass index [BMI] 33.0-33.9, adult; Z72.0 Tobacco use; Z88.1 Allergy status to other antibiotic agents; Z88.5 Allergy status to narcotic agent; Z88.8 Allergy status to other drugs, medicaments and biological substances; Z88.6 Allergy status to analgesic agent; Z79.4 Long term (current) use of insulin; Z79.899 Other long term (current) drug therapy; Z20.822 Contact with and (suspected) exposure to COVID-19
CPT/HCPCS: 36415; 80053; 80143; 80179; 80306; 80307; 84443; 85007; 85027; 93005; 99285; U0002

== ENCOUNTER 2021-07-24 21:42 | Emergency (ER) | payer MEDICARE, MEDICAID ==
[2021-07-24 21:49] VITALS: BP 151/82; PULSE 76
[2021-07-24] MEDS ORDERED: HYDROmorphone 1 MG/ML Syringe IM ONE (21:56)
--- NOTE | 2021-07-24 22:04 | EDM.PDOC ---
ED HPI GENERAL MEDICAL PROBLEM - General Chief Complaint: Back Pain or Injury Stated Complaint: [facility] Time Seen by Provider: 07/24/21 21:44 Source of Information: Reports: Patient, Old Records, RN Notes Reviewed History Limitations: Reports: No Limitations - History of Present Illness INITIAL COMMENTS - FREE TEXT/NARRATIVE: Patient is a 65-year-old male presenting to the emergency department with complaints of worsening of his chronic back pain. He reports the pain has been getting progressively worse. He is also been having body aches. EMS reported that he was febrile, however temperature is normal on arrival to ER. He denies any known fevers at home. He has had no respiratory symptoms abdominal pain, fever, chills, vomiting, or diarrhea. He has had no recent falls or injuries. He has a history of previous lumbar surgery. Pain is localized to his low back. He reports that this is his typical back pain. He denies any radiation of pain down his lower extremities or saddle anesthesia. He has had no bowel or bladder dysfunction. Review of the [place] KNITTING INSPECTOR indicates that until the end of May, patient was being prescribed oxycodone and at times diazepam for management of back pain. Patient reports that his primary care stopped prescribing this to them because he was using methamphetamine. Patient reports he has not used methamphetamine for the last 3 weeks and does not plan to use in the future. He denies any other illicit drug use. He took aspirin for his pain "a few hours ago" with no relief. Back Pain Score (Numeric/FACES): 7 - Related Data Allergies Allergy/AdvReac Type Severity Reaction Status Date / Time celecoxib [From Celebrex] AdvReac Nausea Verified 07/25/21 07:36 ketorolac [From Toradol] AdvReac Stomach Verified 07/25/21 07:36 Upset mirtazapine [From Remeron] AdvReac Confusion Verified 07/25/21 07:36 NSAIDS (Non-Steroidal AdvReac Stomach Verified 07/25/21 07:36 Anti-Inflamma Upset Home Meds: Home Meds Albuterol Sulfate [Albuterol Sulfate HFA] 1 - 2 puff PO Q4H PRN 02/04/21 [ History] Albuterol [Proventil Neb Soln] 2.5 mg INH Q4H PRN 02/04/21 [History] DULoxetine [Cymbalta] 30 mg PO DAILY 02/04/21 [History] Fluticasone/Vilanterol [Breo Ellipta 200-25 MCG Inhalation Kit] 1 inh PO DAILY 02/04/21 [History] Furosemide 60 mg PO DAILY 02/04/21 [History] Gabapentin [Neurontin] 300 mg PO BID #42 cap 02/04/21 [Rx] Insulin Aspart [NovoLOG] 0 units SUBCUT DAILY 02/04/21 [History] Metoprolol Succinate [Toprol Xl] 25 mg PO BEDTIME 02/04/21 [History] Metoprolol Succinate [Toprol Xl] 50 mg PO DAILY 02/04/21 [History] Non-Formulary Medication [NF Drug] 1 puff PO DAILY 02/04/21 [History] OLANZapine [Olanzapine] 10 mg PO BEDTIME 02/04/21 [History] Tamsulosin [Flomax] 0.4 mg PO BID 02/04/21 [History] Venlafaxine HCl [Venlafaxine ER] 150 mg PO DAILY 02/04/21 [History] amLODIPine [Norvasc] 5 mg PO DAILY 02/04/21 [History] atorvaSTATin [Lipitor] 10 mg PO DAILY 02/04/21 [History] clonazePAM [Clonazepam] 1 mg PO TID PRN 02/04/21 [History] diazePAM [Valium.] 5 mg PO TID PRN 02/04/21 [History] lisinopriL [Lisinopril] 40 mg PO DAILY 02/04/21 [History] oxyCODONE HCl [Oxycodone HCL] 10 mg PO Q4H PRN 02/04/21 [History] traZODone HCl [Trazodone HCl] 200 mg PO BEDTIME 02/04/21 [History] Acetaminophen/oxyCODONE [Percocet 325-5 MG] 1 each PO Q6H PRN #12 tab 07/24/21 [Rx] Past Medical History HEENT History: Reports: Impaired Vision Other HEENT History: wears glasses Cardiovascular History: Reports: Heart Failure, High Cholesterol, Hypertension Other Cardiovascular History: 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 He is on oxygen 4 L per nasal cannula at all times. Gastrointestinal History: Reports: Colon Polyp, GERD, Pancreatitis Other Gastrointestinal History: nausea, epigastric pain, benighn neoplasm of colon, duodenitis Genitourinary History: Reports: BPH IMPLEMENTATION ANALYST History: Reports: None Musculoskeletal History: Reports: Back Pain, Chronic Other Musculoskeletal History: Cyst between L1 and L2 Neurological History: Reports: Other (See Below) Other Neuro History: back surgery Psychiatric History: Reports: Anxiety, Bipolar, Depression, Other (See Below) Other Psychiatric History: insomnia Endocrine/Metabolic History: Reports: Diabetes, Type II, Obesity/BMI 30+ Other Endocrine/Metabolic History: adrenal incidentaloma Hematologic History: Reports: Polycythemia Immunologic History: Reports: None Oncologic (Cancer) History: Reports: None Dermatologic History: Reports: None - Infectious Disease History Infectious Disease History: Reports: Chicken Pox - Past Surgical History Head Surgeries/Procedures: Reports: None HEENT Surgical History: Reports: Cataract Surgery Cardiovascular Surgical History: Reports: Other (See Below) Respiratory Surgical History: Reports: None GI Surgical History: Reports: Colonoscopy, EGD, Hernia, Inguinal Male Surgical History: Reports: None Endocrine Surgical History: Reports: None Neurological Surgical History: Reports: Lumbar Spine Musculoskeletal Surgical History: Reports: Carpal Tunnel, Shoulder Surgery Other Musculoskeletal Surgeries/Procedures:: back surgery x 3 Oncologic Surgical History: Reports: None Dermatological Surgical History: Reports: None Social & Family History - Family History Family Medical History: No Pertinent Family History - Tobacco Use Tobacco Use Status *Q: Current Every Day Tobacco User Years of Tobacco use: 50 Packs/Tins Daily: 1 - Caffeine Use Caffeine Use: Reports: Coffee - Recreational Drug Use Recreational Drug Use: No - Living Situation & Occupation Living situation: Reports: Alone, Single 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 ED EXAM,LOWER BACK PAIN/INJURY - Physical Exam Exam: See Below Exam Limited By: No Limitations General Appearance: Alert, WD/WN, No Apparent Distress Respiratory/Chest: No Respiratory Distress, Lungs Clear, Normal Breath Sounds, No Accessory Muscle Use, Chest Non-Tender Cardiovascular: Normal Peripheral Pulses, Regular Rate, Rhythm, No Edema, No Gallop, No JVD, No Murmur, No Rub GI/Abdominal: Normal Bowel Sounds, Soft, Non-Tender, No Organomegaly, No Distention, No Abnormal Bruit, No Mass Back Exam: Normal Inspection, Full Range of Motion, Vertebral Tenderness (L3- S2), Other (midline lumbar scar). No: Muscle Spasm, Paraspinal Tenderness Extremities: Normal Inspection, Normal Range of Motion, Non-Tender, No Pedal Edema, Normal Capillary Refill Neurological: Alert, Normal Mood/Affect, CN II-XII Intact, Normal Reflexes, No Motor/Sensory Deficits, Oriented x 3 Psychiatric: Normal Affect, Normal Mood Skin Exam: Warm, Dry, Intact, Normal Color, No Rash Course - Vital Signs Last Recorded V/S: Last Vital Signs Temp 98.4 F 07/24/21 21:48 Pulse 76 07/24/21 21:48 Resp 18 07/24/21 21:48 BP 151/82 H 07/24/21 21:48 Pulse Ox 92 L 07/24/21 21:48 - Orders/Labs/Meds Labs: Laboratory Tests 07/24/21 07/24/21 07/24/21 Range/Units 21:00 21:10 21:45 WBC (4.23-9.07) K/mm3 RBC (4.63-6.08) M/mm3 Hgb (13.7-17.5) gm/dl Hct (40.1-51.0) % MCV (79.0-92.2) fl MCH (25.7-32.2) pg MCHC (32.2-35.5) g/dl RDW Std Deviation (35.1-43.9) fL Plt Count (163-337) K/mm3 MPV (9.4-12.3) fl Neut % (Auto) (34.0-67.9) % Lymph % (Auto) (21.8-53.1) % O'Brien % (Auto) (5.3-12.2) % Eos % (Auto) (0.8-7.0) Baso % (Auto) (0.1-1.2) % Neut # (Auto) (1.78-5.38) K/mm3 Lymph # (Auto) (1.32-3.57) K/mm3 O'Brien # (Auto) (0.30-0.82) K/mm3 Eos # (Auto) (0.04-0.54) K/mm3 Baso # (Auto) (0.01-0.08) K/mm3 Sodium (136-145) mEq/L Potassium (3.5-5.1) mEq/L Chloride (98-107) mEq/L Carbon Dioxide (21-32) mEq/L Anion Gap (5-15) BUN (7-18) mg/dL Creatinine (0.7-1.3) mg/dL Est Cr Clr Drug Dosing Estimated GFR (MDRD) (>60) mL/min BUN/Creatinine Ratio (14-18) Glucose (70-99) mg/dL Calcium (8.5-10.1) mg/dL Total Bilirubin (0.2-1.0) mg/dL AST (15-37) U/L ALT (16-63) U/L Alkaline Phosphatase (46-116) U/L Total Protein (6.4-8.2) g/dl Albumin (3.4-5.0) g/dl Globulin gm/dL Albumin/Globulin Ratio (1-2) Urine Color Light yellow (Yellow) Urine Appearance Clear (Clear) Urine pH 7.0 (5.0-8.0) Ur Specific Jerome 1.020 (1.005-1.030) Urine Protein Negative (Negative) Urine Glucose (UA) Negative (Negative) Urine Ketones Negative (Negative) Urine Occult Blood Negative (Negative) Urine Nitrite Negative (Negative) Urine Bilirubin Negative (Negative) Urine Urobilinogen 0.2 (0.2-1.0) Ur Leukocyte Esterase Negative (Negative) Urine RBC 0-5 (0-5) /hpf Urine WBC 0-5 (0-5) /hpf Ur Epithelial Cells Not seen (0-5) /hpf Urine Bacteria Rare (FEW) /hpf Urine Mucus Not seen (FEW) /hpf Urine Opiates Screen Negative (JCGKMQ=141) Ur Buprenorphine Scrn Negative (CUTOFF=10) Ur Oxycodone Screen Negative (DAE4BG=452) Urine Methadone Screen Negative (IAL3VJ=527) Ur Propoxyphene Screen Negative (DSTAYP=603) Ur Barbiturates Screen Negative (XOKIPE=615) Ur Tricyclics Screen Negative (JWKPMZ=370) Ur Phencyclidine Scrn Negative (CUTOFF=25) Ur Amphetamine Screen Negative (MVZRIY=063) U Methamphetamines Scrn Negative (TNNKRX=326) U Benzodiazepines Scrn Presumptive positive H (RSIISO=258) U Cocaine Metab Screen Negative (WTFQYN=734) U Marijuana (THC) Screen Negative (CUTOFF=50) Influenza Type A RNA Negative (NEGATIVE) Influenza Type B RNA Negative (NEGATIVE) SARS-CoV-2 RNA (EVARISTO) Negative (NEGATIVE) 07/24/21 07/24/21 Range/Units 22:06 22:06 WBC 8.41 (4.23-9.07) K/mm3 RBC 4.52 L (4.63-6.08) M/mm3 Hgb 14.1 (13.7-17.5) gm/dl Hct 43.4 (40.1-51.0) % MCV 96.0 H (79.0-92.2) fl MCH 31.2 (25.7-32.2) pg MCHC 32.5 (32.2-35.5) g/dl RDW Std Deviation 58.0 H (35.1-43.9) fL Plt Count 352 H (163-337) K/mm3 MPV 9.0 L (9.4-12.3) fl Neut % (Auto) 70.0 H (34.0-67.9) % Lymph % (Auto) 15.9 L (21.8-53.1) % O'Brien % (Auto) 11.1 (5.3-12.2) % Eos % (Auto) 2.0 (0.8-7.0) Baso % (Auto) 0.6 (0.1-1.2) % Neut # (Auto) 5.89 H (1.78-5.38) K/mm3 Lymph # (Auto) 1.34 (1.32-3.57) K/mm3 O'Brien # (Auto) 0.93 H (0.30-0.82) K/mm3 Eos # (Auto) 0.17 (0.04-0.54) K/mm3 Baso # (Auto) 0.05 (0.01-0.08) K/mm3 Sodium 140 (136-145) mEq/L Potassium 4.4 (3.5-5.1) mEq/L Chloride 102 (98-107) mEq/L Carbon Dioxide 30 (21-32) mEq/L Anion Gap 12.4 (5-15) BUN 26 H (7-18) mg/dL Creatinine 0.9 (0.7-1.3) mg/dL Est Cr Clr Drug Dosing TNP Estimated GFR (MDRD) > 60 (>60) mL/min BUN/Creatinine Ratio 28.9 H (14-18) Glucose 103 H (70-99) mg/dL Calcium 8.2 L (8.5-10.1) mg/dL Total Bilirubin 0.3 (0.2-1.0) mg/dL AST 14 L (15-37) U/L ALT 29 (16-63) U/L Alkaline Phosphatase 175 H (46-116) U/L Total Protein 6.7 (6.4-8.2) g/dl Albumin 3.3 L (3.4-5.0) g/dl Globulin 3.4 gm/dL Albumin/Globulin Ratio 1.0 (1-2) Urine Color (Yellow) Urine Appearance (Clear) Urine pH (5.0-8.0) Ur Specific Jerome (1.005-1.030) Urine Protein (Negative) Urine Glucose (UA) (Negative) Urine Ketones (Negative) Urine Occult Blood (Negative) Urine Nitrite (Negative) Urine Bilirubin (Negative) Urine Urobilinogen (0.2-1.0) Ur Leukocyte Esterase (Negative) Urine RBC (0-5) /hpf Urine WBC (0-5) /hpf Ur Epithelial Cells (0-5) /hpf Urine Bacteria (FEW) /hpf Urine Mucus (FEW) /hpf Urine Opiates Screen (TCAPEN=454) Ur Buprenorphine Scrn (CUTOFF=10) Ur Oxycodone Screen (OXP9YA=979) Urine Methadone Screen (KFP2VT=144) Ur Propoxyphene Screen (BCPERH=099) Ur Barbiturates Screen (MMOJPL=718) Ur Tricyclics Screen (TBMTDZ=731) Ur Phencyclidine Scrn (CUTOFF=25) Ur Amphetamine Screen (GSBLDX=832) U Methamphetamines Scrn (SKXAII=575) U Benzodiazepines Scrn (NVYDVR=046) U Cocaine Metab Screen (OFFNZJ=342) U Marijuana (THC) Screen (CUTOFF=50) Influenza Type A RNA (NEGATIVE) Influenza Type B RNA (NEGATIVE) SARS-CoV-2 RNA (EVARISTO) (NEGATIVE) Meds: Medications Discontinued Medications Generic Name Dose Route Start Last Admin Trade Name Freq PRN Reason Stop Dose Admin Hydromorphone HCl 1 mg 07/24/21 21:56 07/24/21 22:03 Hydromorphone 1 Mg/Ml Syringe IM 07/24/21 21:57 1 mg ONETIME ONE Administration Oxycodone/Acetaminophen 1 tab 07/24/21 22:53 07/24/21 22:58 Acetaminophen/Oxycodone 325-5 Mg Tab PO 07/24/21 22:54 1 tab ONETIME ONE Administration - Re-Assessments/Exams Free Text/Narrative Re-Assessment/Exam: Patient is a 65-year-old male presenting to the emergency department with complaints of worsening of his chronic back pain as well as body aches. On exam, he has tenderness to palpation lumbar spine L4-S2. There is an overlying scar in this area from where he had previous lumbar surgery. Review of the [employer]ITTING INSPECTOR showed that up until June, he was receiving routine prescriptions for oxycodone from his primary care provider, however it stopped then. After further inquiring on this with the patient, he states that his primary stopped prescribing it as he was using methamphetamine. He has not used for the last 3 weeks and states that he does not plan to use in the future. I will give him 1 mg of IM Dilaudid. Advised him that we will do a drug screen here today. If he screens negative for methamphetamine I will give him a short course of pain medications until he can follow-up with his primary care. I have also ordered blood work, urinalysis, chest x-ray, and Covid influenza testing. 07/24/21 22:47 Work-up is unremarkable. Chest x-ray shows no acute abnormalities. He is negative for influenza and Covid. Blood work is overall normal. He did screen negative for methamphetamine. Pain is improved slightly but is still there. I will give him 1 Percocet now and send a prescription for 12 of these. Advised that he needs to contact his primary care provider tomorrow to let them know about his recurrence of pain and that he is no longer using methamphetamine. He can discuss pain management with his primary care. He is in agreement with this plan. Discharge instructions as document. Departure - Departure Time of Disposition: 22:49 Disposition: Home, Self-Care 01 Condition: Good Clinical Impression: Chronic low back pain Qualifiers: Back pain laterality: midline Sciatica presence: without sciatica Qualified Code(s): M54.50 - Low back pain, unspecified - Discharge Information *PRESCRIPTION DRUG MONITORING PROGRAM REVIEWED*: Yes *COPY OF PRESCRIPTION DRUG MONITORING REPORT IN PATIENT DELORES: No Prescriptions: Acetaminophen/oxyCODONE [Percocet 325-5 MG] 1 each PO Q6H PRN #12 tab PRN Reason: Pain Instructions: Managing Chronic Back Pain Referrals: Efrem Saul MD [Primary Care Provider] - Forms: ED Department Discharge Additional Instructions: You were seen in the emergency department today for worsening of your chronic back pain as well as body aches. Work-up included blood work, urinalysis, Covid and influenza testing, chest x-ray, and urine drug screen. Work-up was found to be normal. Urine drug screen was negative for methamphetamine. Based on this, I am willing to give you a short prescription of Percocet for pain. You received an injection of Dilaudid for pain in the ER. You also received 1 Percocet. Recommend contacting her primary care provider tomorrow to discuss ongoing management of chronic back pain. Return to ER as needed.
[2021-07-24 22:39] LABS: CORONAVIRUS COVID-19 NAA NEGATIVE (NEGATIVE)
[2021-07-24] MEDS ORDERED: Acetaminophen/oxyCODONE 325-5 MG Tab PO ONE (22:53)
--- NOTE | 2021-07-25 12:58 | CR ---
Chest: Portable view of the chest was obtained. Comparison: Prior chest x-ray of 06/09/19 and 08/11/18. Heart size is within normal limits. Upper mediastinum is normal. Lungs are clear with no acute parenchymal change seen. Bony structures show nothing acute. Impression: 1. Nothing acute is seen on portable chest x-ray. Diagnostic code #1
== END 2021-07-24 23:05 | disposition home or self-care (01) ==
LOC: JD.ED 21:42
DX: M54.50 Low back pain, unspecified (principal); I11.0 Hypertensive heart disease with heart failure; I50.9 Heart failure, unspecified; E78.00 Pure hypercholesterolemia, unspecified; J44.9 Chronic obstructive pulmonary disease, unspecified; E11.9 Type 2 diabetes mellitus without complications; E66.9 Obesity, unspecified; Z68.30 Body mass index [BMI] 30.0-30.9, adult; Z88.6 Allergy status to analgesic agent; Z88.8 Allergy status to other drugs, medicaments and biological substances; Z79.899 Other long term (current) drug therapy; Z72.0 Tobacco use; Z20.822 Contact with and (suspected) exposure to COVID-19
CPT/HCPCS: 0240U; 36415; 71045; 80053; 80306; 81001; 85025; 96372; 99284; A9270; J1170; 99285

== ENCOUNTER 2021-07-25 07:01 | Emergency (ER) | payer MEDICARE, MEDICAID ==
[2021-07-25 07:36] VITALS: BP 138/75; PULSE 88
[2021-07-25] MEDS ORDERED: HYDROmorphone 1 MG/ML Syringe IM ONE (07:49)
--- NOTE | 2021-07-25 07:54 | EDM.PDOC ---
ED HPI GENERAL MEDICAL PROBLEM - General Chief Complaint: Back Pain or Injury Stated Complaint: BACK PAIN Time Seen by Provider: 07/25/21 07:32 Source of Information: Reports: Patient History Limitations: Reports: No Limitations - History of Present Illness INITIAL COMMENTS - FREE TEXT/NARRATIVE: The patient presents with chronic low back pain. He has a history of low back problems. He was seen here last night for the same and was given a prescription for some hydrocodone. He has more pain now and the pharmacy does not open until 9am. He has no numbness, weakness, bowel or bladder problems. Onset: Gradual Duration: Week(s): Location: Reports: Back Quality: Reports: Sharp Severity: Severe Improves with: Reports: None Worsens with: Reports: None Associated Symptoms: Reports: No Other Symptoms Back Pain Score (Numeric/FACES): 10 - Related Data Allergies Allergy/AdvReac Type Severity Reaction Status Date / Time celecoxib [From Celebrex] AdvReac Nausea Verified 07/25/21 07:36 ketorolac [From Toradol] AdvReac Stomach Verified 07/25/21 07:36 Upset mirtazapine [From Remeron] AdvReac Confusion Verified 07/25/21 07:36 NSAIDS (Non-Steroidal AdvReac Stomach Verified 07/25/21 07:36 Anti-Inflamma Upset Home Meds: Home Meds Albuterol Sulfate [Albuterol Sulfate HFA] 1 - 2 puff PO Q4H PRN 02/04/21 [History] Albuterol [Proventil Neb Soln] 2.5 mg INH Q4H PRN 02/04/21 [History] DULoxetine [Cymbalta] 30 mg PO DAILY 02/04/21 [History] Fluticasone/Vilanterol [Breo Ellipta 200-25 MCG Inhalation Kit] 1 inh PO DAILY 02/04/21 [History] Furosemide 60 mg PO DAILY 02/04/21 [History] Gabapentin [Neurontin] 300 mg PO BID #42 cap 02/04/21 [Rx] Insulin Aspart [NovoLOG] 0 units SUBCUT DAILY 02/04/21 [History] Metoprolol Succinate [Toprol Xl] 25 mg PO BEDTIME 02/04/21 [History] Metoprolol Succinate [Toprol Xl] 50 mg PO DAILY 02/04/21 [History] Non-Formulary Medication [NF Drug] 1 puff PO DAILY 02/04/21 [History] OLANZapine [Olanzapine] 10 mg PO BEDTIME 02/04/21 [History] Tamsulosin [Flomax] 0.4 mg PO BID 02/04/21 [History] Venlafaxine HCl [Venlafaxine ER] 150 mg PO DAILY 02/04/21 [History] amLODIPine [Norvasc] 5 mg PO DAILY 02/04/21 [History] atorvaSTATin [Lipitor] 10 mg PO DAILY 02/04/21 [History] clonazePAM [Clonazepam] 1 mg PO TID PRN 02/04/21 [History] diazePAM [Valium.] 5 mg PO TID PRN 02/04/21 [History] lisinopriL [Lisinopril] 40 mg PO DAILY 02/04/21 [History] oxyCODONE HCl [Oxycodone HCL] 10 mg PO Q4H PRN 02/04/21 [History] traZODone HCl [Trazodone HCl] 200 mg PO BEDTIME 02/04/21 [History] Acetaminophen/oxyCODONE [Percocet 325-5 MG] 1 each PO Q6H PRN #12 tab 07/24/21 [Rx] Past Medical History HEENT History: Reports: Impaired Vision Other HEENT History: wears glasses Cardiovascular History: Reports: Heart Failure, High Cholesterol, Hypertension Other Cardiovascular History: 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 He is on oxygen 4 L per nasal cannula at all times. Gastrointestinal History: Reports: Colon Polyp, GERD, Pancreatitis Other Gastrointestinal History: nausea, epigastric pain, benighn neoplasm of colon, duodenitis Genitourinary History: Reports: BPH HOSIERY BAGGER History: Reports: None Musculoskeletal History: Reports: Back Pain, Chronic Other Musculoskeletal History: Cyst between L1 and L2 Neurological History: Reports: Other (See Below) Other Neuro History: back surgery Psychiatric History: Reports: Anxiety, Bipolar, Depression, Other (See Below) Other Psychiatric History: insomnia Endocrine/Metabolic History: Reports: Diabetes, Type II, Obesity/BMI 30+ Other Endocrine/Metabolic History: adrenal incidentaloma Hematologic History: Reports: Polycythemia Immunologic History: Reports: None Oncologic (Cancer) History: Reports: None Dermatologic History: Reports: None - Infectious Disease History Infectious Disease History: Reports: Chicken Pox - Past Surgical History Head Surgeries/Procedures: Reports: None HEENT Surgical History: Reports: Cataract Surgery Cardiovascular Surgical History: Reports: Other (See Below) Respiratory Surgical History: Reports: None GI Surgical History: Reports: Colonoscopy, EGD, Hernia, Inguinal Male Surgical History: Reports: None Endocrine Surgical History: Reports: None Neurological Surgical History: Reports: Lumbar Spine Musculoskeletal Surgical History: Reports: Carpal Tunnel, Shoulder Surgery Other Musculoskeletal Surgeries/Procedures:: back surgery x 3 Oncologic Surgical History: Reports: None Dermatological Surgical History: Reports: None Social & Family History - Family History Family Medical History: No Pertinent Family History - Caffeine Use Caffeine Use: Reports: Coffee - Living Situation & Occupation Living situation: Reports: Alone, Single 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) ED ROS GENERAL - Review of Systems Review Of Systems: See Below Constitutional: Reports: No Symptoms HEENT: Reports: No Symptoms Respiratory: Reports: No Symptoms Cardiovascular: Reports: No Symptoms Endocrine: Reports: No Symptoms GI/Abdominal: Reports: No Symptoms : Reports: No Symptoms Musculoskeletal: Reports: Back Pain Skin: Reports: No Symptoms Neurological: Reports: No Symptoms ED EXAM,LOWER BACK PAIN/INJURY - Physical Exam Exam: See Below Exam Limited By: No Limitations General Appearance: Alert, No Apparent Distress Ears: Normal External Exam Nose: Normal Inspection Head: Atraumatic, Normocephalic Neck: Normal Inspection Respiratory/Chest: No Respiratory Distress, Lungs Clear, Normal Breath Sounds Cardiovascular: Regular Rate, Rhythm, No Edema, No Murmur GI/Abdominal: Soft, Non-Tender, No Organomegaly, No Mass Back Exam: Other (pain upon palpation to the low back) Course - Vital Signs Last Recorded V/S: Last Vital Signs Temp 98.5 F 07/25/21 07:32 Pulse 88 07/25/21 07:32 Resp 18 07/25/21 07:32 BP 138/75 07/25/21 07:32 Pulse Ox 96 07/25/21 07:32 - Orders/Labs/Meds Orders: Active Orders 24 hr Category Date Time Status HYDROmorphone [Dilaudid] Med 07/25/21 07:49 Once 1 mg IM ONETIME ONE - Re-Assessments/Exams Free Text/Narrative Re-Assessment/Exam: 07/25/21 07:52 I ordered dilaudid 1mg IM. I will discharge him home. Departure - Departure Time of Disposition: 07:55 Disposition: Home, Self-Care 01 Condition: Good Clinical Impression: Chronic back pain - Discharge Information *PRESCRIPTION DRUG MONITORING PROGRAM REVIEWED*: Not Applicable *COPY OF PRESCRIPTION DRUG MONITORING REPORT IN PATIENT DELORES: Not Applicable Referrals: Efrem Saul MD [Primary Care Provider] - 1 Week Additional Instructions: Take your medications as prescribed. Please return if you are worse. Sepsis Event Note (ED) - Evaluation Sepsis Screening Result: No Definite Risk - Focused Exam Vital Signs: Vital Signs Temp Pulse Resp BP Pulse Ox 07/25/21 07:32 98.5 F 88 18 138/75 96 - My Orders Last 24 Hours: My Active Orders 07/25/21 07:49 HYDROmorphone [Dilaudid] 1 mg IM ONETIME ONE - Assessment/Plan Last 24 Hours: My Active Orders 07/25/21 07:49 HYDROmorphone [Dilaudid] 1 mg IM ONETIME ONE
== END 2021-07-25 08:17 | disposition home or self-care (01) ==
LOC: JD.ED 07:01
DX: G89.29 Other chronic pain (principal); M54.50 Low back pain, unspecified; E78.00 Pure hypercholesterolemia, unspecified; I11.0 Hypertensive heart disease with heart failure; I50.9 Heart failure, unspecified; J44.9 Chronic obstructive pulmonary disease, unspecified; N40.0 Benign prostatic hyperplasia without lower urinary tract symptoms; E11.9 Type 2 diabetes mellitus without complications; E66.9 Obesity, unspecified; Z79.4 Long term (current) use of insulin; Z88.6 Allergy status to analgesic agent; Z88.8 Allergy status to other drugs, medicaments and biological substances; Z79.899 Other long term (current) drug therapy
CPT/HCPCS: 96372; 99283; J1170

== ENCOUNTER 2021-07-31 10:30 | Emergency (ER) | payer MEDICARE, MEDICAID ==
[2021-07-31 10:45] VITALS: BP 139/89; PULSE 62
[2021-07-31] MEDS ORDERED: Albuterol/Ipratropium 3.0-0.5 MG/3 ML Neb Soln NEB ONE (11:14)
--- NOTE | 2021-07-31 11:56 | CR ---
Chest: Portable view of the chest was obtained. Comparison: Prior chest x-ray of 07/24/21. Blunting of the lateral left costophrenic angle is seen presumably due to a small pleural effusion. Heart size has a left ventricular configuration. Upper mediastinum is normal. Lungs show minimal atelectasis within the left lung base. Bony structures show nothing acute. Impression: 1. Small left-sided pleural effusion and mild left basilar atelectasis. 2. Heart has a left ventricular configuration. 3. Nothing acute is otherwise seen on portable chest x-ray. Diagnostic code #2
[2021-07-31 12:53] LABS: CORONAVIRUS COVID-19 NAA NEGATIVE (NEGATIVE)
--- NOTE | 2021-07-31 13:00 | EDM.PDOC ---
ED HPI GENERAL MEDICAL PROBLEM - General Chief Complaint: Respiratory Problem Stated Complaint: CHEST PAIN, SHORTNESS BREATHE Time Seen by Provider: 07/31/21 10:42 Source of Information: Reports: Patient History Limitations: Reports: No Limitations - History of Present Illness INITIAL COMMENTS - FREE TEXT/NARRATIVE: The patient presents with shortness of breath, cough and back pain. He has chronic back pain. He was seeing Dr Saul and getting medications for his back. 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 He has some shortness of breath with the cough. He has no chest pain. He has no abdominal pain, nausea or vomiting. He has no numbness or weakness in his legs. Onset: Gradual Duration: Day(s): Location: Reports: Back Quality: Reports: Sharp Severity: Severe Improves with: Reports: Immobilization Worsens with: Reports: Movement Context: Denies: Trauma Associated Symptoms: Reports: Cough, Shortness of Breath. Denies: Chest Pain, Fever/Chills, Headaches, Nausea/Vomiting Lower Back Pain Score (Numeric/FACES): 8 - Related Data Allergies Allergy/AdvReac Type Severity Reaction Status Date / Time celecoxib [From Celebrex] AdvReac Nausea Verified 07/25/21 07:36 ketorolac [From Toradol] AdvReac Stomach Verified 07/25/21 07:36 Upset mirtazapine [From Remeron] AdvReac Confusion Verified 07/25/21 07:36 NSAIDS (Non-Steroidal AdvReac Stomach Verified 07/25/21 07:36 Anti-Inflamma Upset Home Meds: Home Meds Albuterol Sulfate [Albuterol Sulfate HFA] 1 - 2 puff PO Q4H PRN 02/04/21 [History] Albuterol [Proventil Neb Soln] 2.5 mg INH Q4H PRN 02/04/21 [History] DULoxetine [Cymbalta] 30 mg PO DAILY 02/04/21 [History] Fluticasone/Vilanterol [Breo Ellipta 200-25 MCG Inhalation Kit] 1 inh PO DAILY 02/04/21 [History] Furosemide 60 mg PO DAILY 02/04/21 [History] Gabapentin [Neurontin] 300 mg PO BID #42 cap 02/04/21 [Rx] Insulin Aspart [NovoLOG] 0 units SUBCUT DAILY 02/04/21 [History] Metoprolol Succinate [Toprol Xl] 25 mg PO BEDTIME 02/04/21 [History] Metoprolol Succinate [Toprol Xl] 50 mg PO DAILY 02/04/21 [History] Non-Formulary Medication [NF Drug] 1 puff PO DAILY 02/04/21 [History] OLANZapine [Olanzapine] 10 mg PO BEDTIME 02/04/21 [History] Tamsulosin [Flomax] 0.4 mg PO BID 02/04/21 [History] Venlafaxine HCl [Venlafaxine ER] 150 mg PO DAILY 02/04/21 [History] amLODIPine [Norvasc] 5 mg PO DAILY 02/04/21 [History] atorvaSTATin [Lipitor] 10 mg PO DAILY 02/04/21 [History] clonazePAM [Clonazepam] 1 mg PO TID PRN 02/04/21 [History] diazePAM [Valium.] 5 mg PO TID PRN 02/04/21 [History] lisinopriL [Lisinopril] 40 mg PO DAILY 02/04/21 [History] oxyCODONE HCl [Oxycodone HCL] 10 mg PO Q4H PRN 02/04/21 [History] traZODone HCl [Trazodone HCl] 200 mg PO BEDTIME 02/04/21 [History] Acetaminophen/oxyCODONE [Percocet 325-5 MG] 1 each PO Q6H PRN #12 tab 07/24/21 [Rx] Hydrocodone/Acetaminophen [Hydrocodone-Acetamin 5-325 mg] 1 - 2 each PO Q6H PRN #15 tablet 07/31/21 [Rx] Past Medical History HEENT History: Reports: Impaired Vision Other HEENT History: wears glasses Cardiovascular History: Reports: Heart Failure, High Cholesterol, Hypertension Other Cardiovascular History: 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 He is on oxygen 4 L per nasal cannula at all times. Gastrointestinal History: Reports: Colon Polyp, GERD, Pancreatitis Other Gastrointestinal History: nausea, epigastric pain, benighn neoplasm of colon, duodenitis Genitourinary History: Reports: [employer] History: Reports: None Musculoskeletal History: Reports: Back Pain, Chronic Other Musculoskeletal History: Cyst between L1 and L2 Neurological History: Reports: Other (See Below) Other Neuro History: back surgery Psychiatric History: Reports: Anxiety, Bipolar, Depression, Other (See Below) Other Psychiatric History: insomnia Endocrine/Metabolic History: Reports: Diabetes, Type II, Obesity/BMI 30+ Other Endocrine/Metabolic History: adrenal incidentaloma Hematologic History: Reports: Polycythemia Immunologic History: Reports: None Oncologic (Cancer) History: Reports: None Dermatologic History: Reports: None - Infectious Disease History Infectious Disease History: Reports: Chicken Pox - Past Surgical History HEENT Surgical History: Reports: Cataract Surgery Cardiovascular Surgical History: Reports: Other (See Below) GI Surgical History: Reports: Colonoscopy, EGD, Hernia, Inguinal Neurological Surgical History: Reports: Lumbar Spine Musculoskeletal Surgical History: Reports: Carpal Tunnel, Shoulder Surgery Other Musculoskeletal Surgeries/Procedures:: back surgery x 3 Social & Family History - Family History Family Medical History: No Pertinent Family History - Tobacco Use Tobacco Use Status *Q: Current Every Day Tobacco User Years of Tobacco use: 50 Packs/Tins Daily: 1 - Caffeine Use Caffeine Use: Reports: Coffee - Recreational Drug Use Recreational Drug Use: Yes - Living Situation & Occupation Living situation: Reports: Alone, Single 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) ED ROS GENERAL - Review of Systems Review Of Systems: See Below Constitutional: Reports: No Symptoms HEENT: Reports: No Symptoms Respiratory: Reports: Shortness of Breath, Cough Cardiovascular: Reports: No Symptoms Endocrine: Reports: No Symptoms GI/Abdominal: Reports: No Symptoms : Reports: No Symptoms Musculoskeletal: Reports: Back Pain ED EXAM, GENERAL - Physical Exam Exam: See Below Exam Limited By: No Limitations General Appearance: Alert, No Apparent Distress Ears: Normal External Exam Nose: Normal Inspection Head: Atraumatic, Normocephalic Neck: Normal Inspection Respiratory/Chest: No Respiratory Distress, Decreased Breath Sounds Cardiovascular: Regular Rate, Rhythm, No Edema, No Murmur GI/Abdominal: Soft, Non-Tender, No Organomegaly, No Mass Back Exam: Other (Pain upon palpation to the the lower back) Extremities: Normal Inspection Neurological: Alert, Oriented, No Motor/Sensory Deficits Course - Vital Signs Last Recorded V/S: Last Vital Signs Temp 97.7 F 07/31/21 10:37 Pulse 62 07/31/21 10:37 Resp 18 07/31/21 10:37 BP 139/89 07/31/21 10:37 Pulse Ox 93 L 07/31/21 11:14 - Orders/Labs/Meds Orders: Active Orders 24 hr Category Date Time Status Cardiac Monitoring [RC] . DIRECTED Care 07/31/21 11:12 Active RT Aerosol Therapy [RC] ASDIRECTED Care 07/31/21 11:14 Active Labs: Laboratory Tests 07/31/21 07/31/21 07/31/21 Range/Units 11:24 11:24 12:10 WBC 7.40 (4.23-9.07) K/mm3 RBC 4.62 L (4.63-6.08) M/mm3 Hgb 14.7 (13.7-17.5) gm/dl Hct 45.0 (40.1-51.0) % MCV 97.4 H (79.0-92.2) fl MCH 31.8 (25.7-32.2) pg MCHC 32.7 (32.2-35.5) g/dl RDW Std Deviation 59.8 H (35.1-43.9) fL Plt Count 267 D (163-337) K/mm3 MPV 9.7 (9.4-12.3) fl Neut % (Auto) 71.1 H (34.0-67.9) % Lymph % (Auto) 16.4 L (21.8-53.1) % [place] % (Auto) 9.7 (5.3-12.2) % Eos % (Auto) 2.0 (0.8-7.0) Baso % (Auto) 0.7 (0.1-1.2) % Neut # (Auto) 5.26 (1.78-5.38) K/mm3 Lymph # (Auto) 1.21 L (1.32-3.57) K/mm3 [place] # (Auto) 0.72 (0.30-0.82) K/mm3 Eos # (Auto) 0.15 (0.04-0.54) K/mm3 Baso # (Auto) 0.05 (0.01-0.08) K/mm3 Sodium 140 (136-145) mEq/L Potassium 5.0 (3.5-5.1) mEq/L Chloride 105 (98-107) mEq/L Carbon Dioxide 29 (21-32) mEq/L Anion Gap 11.0 (5-15) BUN 25 H (7-18) mg/dL Creatinine 0.9 (0.7-1.3) mg/dL Est Cr Clr Drug Dosing TNP Estimated GFR (MDRD) > 60 (>60) mL/min BUN/Creatinine Ratio 27.8 H (14-18) Glucose 126 H (70-99) mg/dL Calcium 8.4 L (8.5-10.1) mg/dL Total Bilirubin 0.4 (0.2-1.0) mg/dL AST 24 (15-37) U/L ALT 42 (16-63) U/L Alkaline Phosphatase 161 H (46-116) U/L Total Protein 6.7 (6.4-8.2) g/dl Albumin 3.7 (3.4-5.0) g/dl Globulin 3.0 gm/dL Albumin/Globulin Ratio 1.2 (1-2) Influenza Type A RNA Negative (NEGATIVE) Influenza Type B RNA Negative (NEGATIVE) SARS-CoV-2 RNA ([place]) Negative (NEGATIVE) Meds: Medications Discontinued Medications Generic Name Dose Route Start Last Admin Trade Name Freq PRN Reason Stop Dose Admin Albuterol/Ipratropium 3 ml 07/31/21 11:14 07/31/21 11:53 Albuterol/Ipratropium 3.0-0.5 Mg/3 Ml Neb Soln NEB 07/31/21 11:15 3 ml ONETIME ONE Administration - Re-Assessments/Exams Free Text/Narrative Re-Assessment/Exam: 07/31/21 13:07 His CXR shows nothing acute. His labs look good. His influenza and COVID are negative. He is still having pain. Departure - Departure Time of Disposition: 13:15 Disposition: Home, Self-Care 01 Condition: Good Clinical Impression: COPD (chronic obstructive pulmonary disease) Qualifiers: COPD type: chronic bronchitis Chronic bronchitis type: mixed simple and mucopurulent Qualified Code(s): J41.8 - Mixed simple and mucopurulent chronic bronchitis Chronic low back pain Qualifiers: Back pain laterality: midline Sciatica presence: without sciatica Qualified Code(s): M54.50 - Low back pain, unspecified - Discharge Information *PRESCRIPTION DRUG MONITORING PROGRAM REVIEWED*: Not Applicable *COPY OF PRESCRIPTION DRUG MONITORING REPORT IN PATIENT DELORES: Not Applicable Prescriptions: Hydrocodone/Acetaminophen [Hydrocodone-Acetamin 5-325 mg] 1 - 2 each PO Q6H PRN #15 tablet PRN Reason: Pain Referrals: Efrem Saul MD [Primary Care Provider] - 1 Week Forms: ED Department Discharge Additional Instructions: Take your medications as prescribed. Take the hydrocodone as needed for pain. Follow up with your provider or another provider for more meds. Sepsis Event Note (ED) - Evaluation Sepsis Screening Result: No Definite Risk - Focused Exam Vital Signs: Vital Signs Temp Pulse Pulse Resp BP Pulse Ox Pulse Ox 07/31/21 11:14 93 L 07/31/21 10:37 97.7 F 62 18 139/89 96 07/31/21 10:36 96.4 F L 79 22 H 134/64 96 - My Orders Last 24 Hours: My Active Orders 07/31/21 11:12 Cardiac Monitoring [RC] . DIRECTED 07/31/21 11:14 RT Aerosol Therapy [RC] ASDIRECTED - Assessment/Plan Last 24 Hours: My Active Orders 07/31/21 11:12 Cardiac Monitoring [RC] . DIRECTED 07/31/21 11:14 RT Aerosol Therapy [RC] ASDIRECTED
== END 2021-07-31 13:30 | disposition home or self-care (01) ==
LOC: JD.ED 10:30
DX: J41.8 Mixed simple and mucopurulent chronic bronchitis (principal); G89.29 Other chronic pain; M54.50 Low back pain, unspecified; I11.0 Hypertensive heart disease with heart failure; I50.9 Heart failure, unspecified; E11.9 Type 2 diabetes mellitus without complications; E78.00 Pure hypercholesterolemia, unspecified; E66.9 Obesity, unspecified; N40.0 Benign prostatic hyperplasia without lower urinary tract symptoms; Z68.30 Body mass index [BMI] 30.0-30.9, adult; Z88.6 Allergy status to analgesic agent; Z88.8 Allergy status to other drugs, medicaments and biological substances; Z72.0 Tobacco use; Z20.822 Contact with and (suspected) exposure to COVID-19
CPT/HCPCS: 0240U; 36415; 71045; 80053; 85025; 94640; 99285; J7620-GY

== ENCOUNTER 2021-08-05 13:17 | Emergency (ER) | payer MEDICARE, MEDICAID ==
[2021-08-05 13:29] VITALS: BP 143/68; PULSE 101
[2021-08-05] MEDS ORDERED: 50% Dextrose in Water 50 ML Syringe IVPUSH PRN (13:39)
[2021-08-05] MEDS ORDERED: Sodium Chloride 0.9% 10 ML Syringe FLUSH PRN (13:45)
--- NOTE | 2021-08-05 13:49 | EDM.PDOC ---
ED HPI GENERAL MEDICAL PROBLEM - General Chief Complaint: Diabetic Complaint Stated Complaint: BACK PAIN Time Seen by Provider: 08/05/21 13:23 Source of Information: Reports: Patient History Limitations: Reports: No Limitations - History of Present Illness INITIAL COMMENTS - FREE TEXT/NARRATIVE: 65-year-old male presents the emergency department today with an initial complaint of chronic low back pain and is out of hydrocodone. He states that he attempted to get to the clinic today for prescription of steroids however clinic was closed at noon. Patient then presents the emergency department stating that his blood sugar was 40 just prior to arrival in the emergency department. Patient was diffusely diaphoretic however he was awake alert and oriented. States he is not feeling well however. Nursing staff did check the patient's blood sugar and it was 38 at that time. Patient was given apple juice and guanakito crackers to drink. Patient tells me that generally he drinks some diet soda however he ran out at home. He has been drinking Joe-Aid at home and trying to dose himself with his insulin to cover his Joe-Aid and suspects he miscalculated. Patient does have a history of chronic back pain and is very well-known to this emergency department. Does have a history of methamphetamine use states he hasn't used for a few weeks. Also admits to smoking. He is chronically on oxygen at 2 L per nasal cannula for a history of COPD. Lower Back Pain Score (Numeric/FACES): 8 - Related Data Allergies Allergy/AdvReac Type Severity Reaction Status Date / Time celecoxib [From Celebrex] AdvReac Nausea Verified 07/25/21 07:36 ketorolac [From Toradol] AdvReac Stomach Verified 07/25/21 07:36 Upset mirtazapine [From Remeron] AdvReac Confusion Verified 07/25/21 07:36 NSAIDS (Non-Steroidal AdvReac Stomach Verified 07/25/21 07:36 Anti-Inflamma Upset Home Meds: Home Meds Albuterol Sulfate [Albuterol Sulfate HFA] 1 - 2 puff PO Q4H PRN 02/04/21 [History] Albuterol [Proventil Neb Soln] 2.5 mg INH Q4H PRN 02/04/21 [History] Fluticasone/Vilanterol [Breo Ellipta 200-25 MCG Inhalation Kit] 1 inh PO DAILY 02/04/21 [History] Furosemide 20 mg PO DAILY 02/04/21 [History] Insulin Aspart [NovoLOG] 0 units SUBCUT DAILY 02/04/21 [History] Metoprolol Succinate [Toprol Xl] 25 mg PO BEDTIME 02/04/21 [History] Metoprolol Succinate [Toprol Xl] 50 mg PO DAILY 02/04/21 [History] Non-Formulary Medication [NF Drug] 1 puff PO DAILY 02/04/21 [History] Tamsulosin [Flomax] 0.4 mg PO BID 02/04/21 [History] Venlafaxine HCl [Venlafaxine ER] 75 mg PO DAILY 02/04/21 [History] amLODIPine [Norvasc] 5 mg PO DAILY 02/04/21 [History] atorvaSTATin [Lipitor] 20 mg PO DAILY 02/04/21 [History] clonazePAM [Clonazepam] 1 mg PO TID PRN 02/04/21 [History] diazePAM [Valium.] 5 mg PO TID PRN 02/04/21 [History] lisinopriL [Lisinopril] 40 mg PO DAILY 02/04/21 [History] traZODone HCl [Trazodone HCl] 200 mg PO BEDTIME 02/04/21 [History] Acetaminophen/oxyCODONE [Percocet 325-5 MG] 1 each PO Q6H PRN #12 tab 07/24/21 [Rx] Hydrocodone/Acetaminophen [Hydrocodone-Acetamin 5-325 mg] 1 - 2 each PO Q6H PRN #15 tablet 07/31/21 [Rx] Orphenadrine [Norflex] 100 mg PO BID PRN #6 tab 08/05/21 [Rx] predniSONE [Prednisone] 40 mg PO DAILY #4 tablet 08/05/21 [Rx] risperiDONE [Risperdal] 3 mg PO BID 08/05/21 [History] Past Medical History HEENT History: Reports: Impaired Vision Other HEENT History: wears glasses Cardiovascular History: Reports: Heart Failure, High Cholesterol, Hypertension Other Cardiovascular History: 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 He is on oxygen 4 L per nasal cannula at all times. Gastrointestinal History: Reports: Colon Polyp, GERD, Pancreatitis Other Gastrointestinal History: nausea, epigastric pain, benighn neoplasm of colon, duodenitis Genitourinary History: Reports: BPH MOCK UP BUILDER History: Reports: None Musculoskeletal History: Reports: Back Pain, Chronic Other Musculoskeletal History: Cyst between L1 and L2 Neurological History: Reports: Other (See Below) Other Neuro History: back surgery Psychiatric History: Reports: Anxiety, Bipolar, Depression, Other (See Below) Other Psychiatric History: insomnia Endocrine/Metabolic History: Reports: Diabetes, Type II, Obesity/BMI 30+ Other Endocrine/Metabolic History: adrenal incidentaloma Hematologic History: Reports: Polycythemia Immunologic History: Reports: None Oncologic (Cancer) History: Reports: None Dermatologic History: Reports: None - Infectious Disease History Infectious Disease History: Reports: Chicken Pox - Past Surgical History Head Surgeries/Procedures: Reports: None HEENT Surgical History: Reports: Cataract Surgery Cardiovascular Surgical History: Reports: Other (See Below) Respiratory Surgical History: Reports: None GI Surgical History: Reports: Colonoscopy, EGD, Hernia, Inguinal Male Surgical History: Reports: None Endocrine Surgical History: Reports: None Neurological Surgical History: Reports: Lumbar Spine Musculoskeletal Surgical History: Reports: Carpal Tunnel, Shoulder Surgery Other Musculoskeletal Surgeries/Procedures:: back surgery x 3 Oncologic Surgical History: Reports: None Dermatological Surgical History: Reports: None Social & Family History - Family History Family Medical History: No Pertinent Family History - Tobacco Use Tobacco Use Status *Q: Current Every Day Tobacco User Years of Tobacco use: 45 Packs/Tins Daily: 1 - Caffeine Use Caffeine Use: Reports: Coffee, Soda, Tea - Recreational Drug Use Recreational Drug Use: No - Living Situation & Occupation Living situation: Reports: Alone, Single 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 ED EXAM GENERAL NO PERIP PULSE - Physical Exam Exam: See Below Exam Limited By: No Limitations General Appearance: Alert, WD/WN, Moderate Distress (Diffusely diaphoretic) Eye Exam: Bilateral Eye: PERRL Ears: Normal External Exam, Hearing Grossly Normal Nose: Normal Inspection Throat/Mouth: Normal Inspection, Normal Lips, Normal Voice, No Airway Compromise Head: Atraumatic, Normocephalic Neck: Normal Inspection, Supple Respiratory/Chest: No Respiratory Distress, Lungs Clear, No Accessory Muscle Use, Chest Non-Tender, Decreased Breath Sounds Cardiovascular: Normal Peripheral Pulses, Regular Rate, Rhythm, No Edema, No Murmur GI/Abdominal: Normal Bowel Sounds, Soft, Non-Tender, No Distention (Male) Exam: Deferred Rectal (Males) Exam: Deferred Back Exam: Normal Inspection, Paraspinal Tenderness (T12-L1 on the left; lower lumbar on the left), Vertebral Tenderness (T12-L1 and lower lumbar area) Extremities: Normal Inspection Neurological: Alert, Oriented, Normal Cognition Psychiatric: Normal Affect, Normal Mood Skin Exam: Warm, Intact, Normal Color, No Rash, Diaphoretic Lymphatic: No Adenopathy Course - Vital Signs Text/Narrative:: As stated above, patient presents with a primary complaint of chronic low back pain however it was discovered patient's blood sugar is 38 at the time of ED triage. I have ordered an amp of D50 to treat the blood sugar. Physical exam reveals a diffusely diaphoretic male. Patient is hemodynamically stable at this time. O2 saturations are 94% on 2 L of oxygen per nasal cannula. Lung sounds are diminished bilaterally. Will recheck the patient's blood sugar in approximately 30 minutes after receiving the amp of D50. We will also reassess the patient's chief complaint of low back pain at that time once he is more stable. I have ordered baseline labs to include a CBC, CMP, magnesium and a C- reactive protein. We will have nursing staff also be sure he has a saline lock in place. Last Recorded V/S: Last Vital Signs Temp 95.6 F L 08/05/21 13:28 Pulse 101 H 08/05/21 13:28 Resp 20 08/05/21 13:28 BP 143/68 H 08/05/21 13:28 Pulse Ox 94 L 08/05/21 13:28 - Orders/Labs/Meds Orders: Active Orders 24 hr Category Date Time Status Blood Glucose Check, Bedside [RC] ONETIME Care 08/05/21 14:15 Active CORONAVIRUS COVID-19 EVARISTO [MOLEC] Stat Lab 08/05/21 17:13 Received UA RFX ALVINA AND CULT IF INDIC [URIN] Stat Lab 08/05/21 13:46 Ordered Dextrose 50% in Water Med 08/05/21 13:39 Active 50 ml IVPUSH ASDIRECTED PRN Sodium Chloride 0.9% [Saline Flush] Med 08/05/21 13:45 Active 10 ml FLUSH ASDIRECTED PRN Saline Lock Insert [OM.PC] Stat Oth 08/05/21 13:45 Ordered Medication Orders Dextrose/Water (50% Dextrose In Water 50 Ml Syringe) 50 ml IVPUSH ASDIRECTED PRN PRN Reason: Hypoglycemia Last Admin: 08/05/21 13:48 Dose: 50 ml Documented by: MAGGI Sodium Chloride (Sodium Chloride 0.9% 10 Ml Syringe) 10 ml FLUSH ASDIRECTED PRN PRN Reason: Keep Vein Open Last Admin: 08/05/21 13:49 Dose: 10 ml Documented by: MAGGI Labs: Laboratory Tests 08/05/21 08/05/21 08/05/21 Range/Units 13:23 13:30 13:30 WBC 10.05 H (4.23-9.07) K/mm3 RBC 5.02 (4.63-6.08) M/mm3 Hgb 15.8 (13.7-17.5) gm/dl Hct 47.9 (40.1-51.0) % MCV 95.4 H (79.0-92.2) fl MCH 31.5 (25.7-32.2) pg MCHC 33.0 (32.2-35.5) g/dl RDW Std Deviation 55.6 H (35.1-43.9) fL Plt Count 295 (163-337) K/mm3 MPV 9.6 (9.4-12.3) fl Neut % (Auto) 63.3 (34.0-67.9) % Lymph % (Auto) 25.4 (21.8-53.1) % [place] % (Auto) 9.5 (5.3-12.2) % Eos % (Auto) 1.3 (0.8-7.0) Baso % (Auto) 0.4 (0.1-1.2) % Neut # (Auto) 6.37 H (1.78-5.38) K/mm3 Lymph # (Auto) 2.55 (1.32-3.57) K/mm3 [place] # (Auto) 0.95 H (0.30-0.82) K/mm3 Eos # (Auto) 0.13 (0.04-0.54) K/mm3 Baso # (Auto) 0.04 (0.01-0.08) K/mm3 Sodium 138 (136-145) mEq/L Potassium 4.2 (3.5-5.1) mEq/L Chloride 100 (98-107) mEq/L Carbon Dioxide 29 (21-32) mEq/L Anion Gap 13.2 (5-15) BUN 26 H (7-18) mg/dL Creatinine 0.9 (0.7-1.3) mg/dL Est Cr Clr Drug Dosing TNP Estimated GFR (MDRD) > 60 (>60) mL/min BUN/Creatinine Ratio 28.9 H (14-18) Glucose 46 L* (70-99) mg/dL POC Glucose 38 L* (70-99) mg/dL Calcium 9.1 (8.5-10.1) mg/dL Magnesium (1.8-2.4) mg/dL Total Bilirubin 0.4 (0.2-1.0) mg/dL AST 28 (15-37) U/L ALT 36 (16-63) U/L Alkaline Phosphatase 151 H (46-116) U/L C-Reactive Protein (<1.0) mg/dL Total Protein 7.8 (6.4-8.2) g/dl Albumin 3.9 (3.4-5.0) g/dl Globulin 3.9 gm/dL Albumin/Globulin Ratio 1.0 (1-2) 08/05/21 08/05/21 Range/Units 13:30 14:46 WBC (4.23-9.07) K/mm3 RBC (4.63-6.08) M/mm3 Hgb (13.7-17.5) gm/dl Hct (40.1-51.0) % MCV (79.0-92.2) fl MCH (25.7-32.2) pg MCHC (32.2-35.5) g/dl RDW Std Deviation (35.1-43.9) fL Plt Count (163-337) K/mm3 MPV (9.4-12.3) fl Neut % (Auto) (34.0-67.9) % Lymph % (Auto) (21.8-53.1) % [place] % (Auto) (5.3-12.2) % Eos % (Auto) (0.8-7.0) Baso % (Auto) (0.1-1.2) % Neut # (Auto) (1.78-5.38) K/mm3 Lymph # (Auto) (1.32-3.57) K/mm3 [place] # (Auto) (0.30-0.82) K/mm3 Eos # (Auto) (0.04-0.54) K/mm3 Baso # (Auto) (0.01-0.08) K/mm3 Sodium (136-145) mEq/L Potassium (3.5-5.1) mEq/L Chloride (98-107) mEq/L Carbon Dioxide (21-32) mEq/L Anion Gap (5-15) BUN (7-18) mg/dL Creatinine (0.7-1.3) mg/dL Est Cr Clr Drug Dosing Estimated GFR (MDRD) (>60) mL/min BUN/Creatinine Ratio (14-18) Glucose (70-99) mg/dL POC Glucose 208 H (70-99) mg/dL Calcium (8.5-10.1) mg/dL Magnesium 2.0 (1.8-2.4) mg/dL Total Bilirubin (0.2-1.0) mg/dL AST (15-37) U/L ALT (16-63) U/L Alkaline Phosphatase (46-116) U/L C-Reactive Protein <0.2 (<1.0) mg/dL Total Protein (6.4-8.2) g/dl Albumin (3.4-5.0) g/dl Globulin gm/dL Albumin/Globulin Ratio (1-2) Meds: Medications Generic Name Dose Route Start Last Admin Trade Name Freq PRN Reason Stop Dose Admin Dextrose/Water 50 ml 08/05/21 13:39 08/05/21 13:48 50% Dextrose In Water 50 Ml Syringe IVPUSH 50 ml ASDIRECTED PRN Administration Hypoglycemia Sodium Chloride 10 ml 08/05/21 13:45 08/05/21 13:49 Sodium Chloride 0.9% 10 Ml Syringe FLUSH 10 ml ASDIRECTED PRN Administration Keep Vein Open Discontinued Medications Generic Name Dose Route Start Last Admin Trade Name Freq PRN Reason Stop Dose Admin Orphenadrine Citrate 100 mg 08/05/21 14:19 08/05/21 14:47 Orphenadrine 100 Mg Tab.Er PO 08/05/21 14:20 100 mg NOW STA Administration Prednisone 40 mg 08/05/21 14:19 08/05/21 14:47 Prednisone 20 Mg Tab PO 08/05/21 14:20 40 mg ONETIME ONE Administration - Re-Assessments/Exams Free Text/Narrative Re-Assessment/Exam: 08/05/21 14:54 Upon physical exam, the patient is now awake alert and oriented. His glucose monitor is reading a blood glucose of 256. Patient is no longer diaphoretic. Patient does have spinal tenderness noted to the T12-L1 area as well as the lower lumbar area.. Patient also has paraspinal tenderness noted on the left side of the T12-L1 and lower lumbar area. Patient denies any changes in his bowel or bladder. He denies any numbness or tingling running down his legs. He denies any numbness or tingling to his feet or toes. At this time. Patient will be medicated with prednisone 40 mg p.o. and will give him one Norflex. Discussed at length that the ER does not manage chronic pain in patients. Patient does verbalize understanding of this. And he knows that he will have to follow-up with his primary care provider early next week. Patient then tells me that he has had some issues over the course the past week concerning his mental health. He states he has not showered in a week and has not been keeping up his home. He does see a mental health specialist at [facility] in [place] via teleconference. He states he does have another conference scheduled for August 10, 2021. He has been taking all his psych meds as prescribed. He denies any changes such as increased stressors or illness in his life. I have called the hospital manager social responsibility to hopefully come and visit with the patient and get him hooked up with some local resources in the area. Patient is receptive to speaking with [facility] as he states he has visited them before in the past. 08/05/21 15:23 Hospital manager social responsibility has not returned my call. Will have [facility] evaluate the patient to see if he may be appropriate for their day treatment. 08/05/21 17:30 [facility] manager social responsibility here to visit with the patient. She does discuss with me that the patient states he feels unsafe to go home as he is hearing voices however he is not suicidal or homicidal at this time. He states that the voices are just very condescending and it makes him feel unsafe. I did phone [facility] in [place] and spoke with , regarding the patient. He states that at this time due the fact that the patient is not suicidal or homicidal he does not warrant admission. He states he is able to review the patient's records and the patient does have a history of paranoid schizophrenia so this is really baseline for the patient. He recommends increasing the patient's Risperdal to 3 mg twice daily. [facility] then did offer the patient placement in the [facility] however the patient does not want that at this time. Patient states he does feel safe to go home now and states that if he has any concerns he will call 211. He states he will call his psychiatrist first thing Sunday at [facility]. Patient will be discharged home with a prescription for prednisone 40 mg daily x2 more days as well as Norflex to be taken every 12 hours as needed for back discomfort. Also instructed the patient to stop drinking Joe-Aid as it has too much sugar in it and trying to regulate it with his insulin pump causes him to be hypoglycemic. Also notified the patient that his blood sugars likely will be elevated over the next couple of days due to taking oral prednisone. Patient does verbalize understanding of this. Departure - Departure Time of Disposition: 17:33 Disposition: Home, Self-Care 01 Condition: Good Clinical Impression: Hypoglycemia, Hallucinations Chronic back pain Qualifiers: Back pain location: low back pain Back pain laterality: midline Sciatica presence: without sciatica Qualified Code(s): M54.50 - Low back pain, unspecified; G89.29 - Other chronic pain - Discharge Information Prescriptions: Orphenadrine [Norflex] 100 mg PO BID PRN #6 tab PRN Reason: Pain predniSONE [Prednisone] 40 mg PO DAILY #4 tablet Instructions: Managing Chronic Back Pain, Chronic Back Pain, [id number], Hypoglycemia, [id number] Referrals: Efrem Saul MD [Primary Care Provider] - Forms: ED Department Discharge Additional Instructions: You were seen in the emergency department today with complaints of chronic low back pain as well as low blood sugars. You then stated that you have been hearing voices and feeling safe at home. You were given IV glucose while in the emergency department and this did seem to help your blood sugars regulate. Treatment for your back pain included prednisone and a muscle relaxer. I have sent a prescription to [facility] for prednisone 40 mg to be taken once daily for the next 2 days time. I have also sent prescription for a muscle relaxer called Norflex to be taken 1 tab every 12 hours as needed. You can pick these prescriptions up at [facility] in [facility] tomorrow between the hours of 1 and 3 PM. As discussed, I spoke with at [facility] in [place] regarding your hallucinations. He states at this time you do not warrant admission to the psychiatric hospital. Recommends that you take Risperdal 3 mg twice daily and follow-up with your primary psychiatrist first thing Sunday, August 08, 2021. You were given the option to go to [facility] and you declined at this time. Should you begin to feel unsafe at home once again, recommend that you call 211. Should your condition worsen or change, do not hesitate returning the emergency department. Sepsis Event Note (ED) - Focused Exam Vital Signs: Vital Signs Temp Pulse Resp BP Pulse Ox 08/05/21 13:28 95.6 F L 101 H 20 143/68 H 94 L - My Orders Last 24 Hours: My Active Orders 08/05/21 13:39 Dextrose 50% in Water 50 ml IVPUSH ASDIRECTED PRN 08/05/21 13:45 Sodium Chloride 0.9% [Saline Flush] 10 ml FLUSH ASDIRECTED PRN Saline Lock Insert [OM.PC] Stat 08/05/21 13:46 UA RFX ALVINA AND CULT IF INDIC [URIN] Stat 08/05/21 14:15 Blood Glucose Check, Bedside [RC] ONETIME 08/05/21 17:13 CORONAVIRUS COVID-19 EVARISTO [MOLEC] Stat - Assessment/Plan Last 24 Hours: My Active Orders 08/05/21 13:39 Dextrose 50% in Water 50 ml IVPUSH ASDIRECTED PRN 08/05/21 13:45 Sodium Chloride 0.9% [Saline Flush] 10 ml FLUSH ASDIRECTED PRN Saline Lock Insert [OM.PC] Stat 08/05/21 13:46 UA RFX ALVINA AND CULT IF INDIC [URIN] Stat 08/05/21 14:15 Blood Glucose Check, Bedside [RC] ONETIME 08/05/21 17:13 CORONAVIRUS COVID-19 EVARISTO [MOLEC] Stat
[2021-08-05] MEDS ORDERED: predniSONE 20 MG Tab PO ONE (14:19)
[2021-08-05] MEDS ORDERED: Orphenadrine 100 MG Tab.ER PO STA (14:19)
== END 2021-08-05 17:45 | disposition home or self-care (01) ==
LOC: JD.ED 13:17
DX: E11.649 Type 2 diabetes mellitus with hypoglycemia without coma (principal); R44.3 Hallucinations, unspecified; M54.50 Low back pain, unspecified; G89.29 Other chronic pain; E78.00 Pure hypercholesterolemia, unspecified; I11.0 Hypertensive heart disease with heart failure; I50.9 Heart failure, unspecified; J44.9 Chronic obstructive pulmonary disease, unspecified; E66.9 Obesity, unspecified; Z72.0 Tobacco use; Z20.822 Contact with and (suspected) exposure to COVID-19; Z88.6 Allergy status to analgesic agent; Z88.8 Allergy status to other drugs, medicaments and biological substances; Z79.899 Other long term (current) drug therapy; Z79.4 Long term (current) use of insulin
CPT/HCPCS: 36415; 80053; 82947; 83735; 85025; 86140; 96374; 99284; A9270; J7512; U0002

== ENCOUNTER 2021-08-06 22:25 | Emergency (ER) | payer MEDICARE, MEDICAID ==
--- NOTE | 2021-08-06 22:47 | EDM.PDOC ---
ED HPI GENERAL MEDICAL PROBLEM - General Chief Complaint: Respiratory Problem Stated Complaint: [facility] Time Seen by Provider: 08/06/21 22:28 Source of Information: Reports: Patient History Limitations: Reports: No Limitations - History of Present Illness INITIAL COMMENTS - FREE TEXT/NARRATIVE: Mr. Royal is a pleasant 65-year-old gentleman who now presents to the ED by EMS stating that he developed dyspnea around 18:30 tonight, after bringing in groceries around 17:00. He does not believe that he has been wheezing. He states that he may have had a slight dry cough. No recent fever. He states that he gets similar symptoms about 3 times a week or more. The patient states that he has both an MDI and a nebulizer machine, and that he uses both of them intermittently, but he states that while he owns a spacer chamber, he does not use it. At triage, the patient's initial BP was found to be slightly depressed at 111/57, with slight tachypnea of 23 rpm. He is afebrile, saturating 93% on his usual 3 L of oxygen per nasal cannula. Appears to be comfortable, in no acute distress. The patient denies having a recent fever, chills, sore throat, ear pain, nasal or sinus congestion, chest pain, palpitations, nausea, vomiting, constipation, diarrhea, abdominal pain, urinary symptoms, recent weight gain or weight loss, recent bloody bowel movements or black bowel movements, recent joint aches, headaches, or rashes. The patient's PCP is Dr. Efrem Saul. His pulmonology midlevel is Alessandro Quintana NP, at [facility]. His Psychiatrist is Dr. Valentino Walkre, in [place]. He has received 2 Pfizer COVID vaccinations plus a Pfizer booster, as well as an influenza vaccination this season. - Related Data Allergies Allergy/AdvReac Type Severity Reaction Status Date / Time celecoxib [From Celebrex] AdvReac Nausea Verified 08/06/21 22:36 ketorolac [From Toradol] AdvReac Stomach Verified 08/06/21 22:36 Upset mirtazapine [From Remeron] AdvReac Confusion Verified 08/06/21 22:36 NSAIDS (Non-Steroidal AdvReac Stomach Verified 08/06/21 22:36 Anti-Inflamma Upset Home Meds: Home Meds Albuterol Sulfate [Albuterol Sulfate HFA] 1 - 2 puff PO Q4H PRN 02/04/21 [History] Albuterol [Proventil Neb Soln] 2.5 mg INH Q4H PRN 02/04/21 [History] Fluticasone/Vilanterol [Breo Ellipta 200-25 MCG Inhalation Kit] 1 inh PO DAILY 02/04/21 [History] Furosemide 20 mg PO DAILY 02/04/21 [History] Insulin Aspart [NovoLOG] 0 units SUBCUT DAILY 02/04/21 [History] Metoprolol Succinate [Toprol Xl] 25 mg PO BEDTIME 02/04/21 [History] Metoprolol Succinate [Toprol Xl] 50 mg PO DAILY 02/04/21 [History] Non-Formulary Medication [NF Drug] 1 puff PO DAILY 02/04/21 [History] Tamsulosin [Flomax] 0.4 mg PO BID 02/04/21 [History] Venlafaxine HCl [Venlafaxine ER] 75 mg PO DAILY 02/04/21 [History] amLODIPine [Norvasc] 5 mg PO DAILY 02/04/21 [History] atorvaSTATin [Lipitor] 20 mg PO DAILY 02/04/21 [History] clonazePAM [Clonazepam] 1 mg PO TID PRN 02/04/21 [History] diazePAM [Valium.] 5 mg PO TID PRN 02/04/21 [History] lisinopriL [Lisinopril] 40 mg PO DAILY 02/04/21 [History] traZODone HCl [Trazodone HCl] 200 mg PO BEDTIME 02/04/21 [History] Acetaminophen/oxyCODONE [Percocet 325-5 MG] 1 each PO Q6H PRN #12 tab 07/24/21 [Rx] Hydrocodone/Acetaminophen [Hydrocodone-Acetamin 5-325 mg] 1 - 2 each PO Q6H PRN #15 tablet 07/31/21 [Rx] Orphenadrine [Norflex] 100 mg PO BID PRN #6 tab 08/05/21 [Rx] predniSONE [Prednisone] 40 mg PO DAILY #4 tablet 08/05/21 [Rx] risperiDONE [Risperdal] 3 mg PO BID 08/05/21 [History] Past Medical History HEENT History: Reports: Impaired Vision (wears glasses) Cardiovascular History: Reports: Heart Failure (Cor pulmonale), High Cholesterol, Hypertension Respiratory History: Reports: COPD (PFT-proven), Sleep Apnea Gastrointestinal History: Reports: Colon Polyp, GERD, Pancreatitis Genitourinary History: Reports: BPH Psychiatric History: Reports: Anxiety, Bipolar, Depression, Other (See Below) (Insomnia) Endocrine/Metabolic History: Reports: Diabetes, Type II, Obesity/BMI 30+ Oncologic (Cancer) History: Reports: Colon - Infectious Disease History Infectious Disease History: Reports: Chicken Pox - Past Surgical History HEENT Surgical History: Reports: Cataract Surgery GI Surgical History: Reports: Colonoscopy, EGD, Hernia, Inguinal Neurological Surgical History: Reports: Lumbar Spine Musculoskeletal Surgical History: Reports: Carpal Tunnel, Shoulder Surgery Social & Family History - Tobacco Use Tobacco Use Status *Q: Never Tobacco User - Caffeine Use Caffeine Use: Reports: Coffee, Soda, Tea - Recreational Drug Use Recreational Drug Use: No - Living Situation & Occupation Living situation: Reports: Alone, Single 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 ED EXAM, GENERAL - Physical Exam Exam: See Below Exam Limited By: No Limitations General Appearance: Alert, WD/WN, No Apparent Distress Eye Exam: Bilateral Eye: EOMI, Normal Inspection Ears: Normal External Exam, Hearing Grossly Normal Nose: Normal Inspection Throat/Mouth: Normal Inspection, Normal Lips, Normal Voice, No Airway Compromise Head: Atraumatic, Normocephalic Neck: Normal Inspection, Full Range of Motion Respiratory/Chest: No Respiratory Distress, Lungs Clear, Normal Breath Sounds, No Accessory Muscle Use. No: Decreased Breath Sounds, Crackles, Rhonchi, Wheezing, Prolonged Expiration Cardiovascular: Normal Peripheral Pulses, Regular Rate, Rhythm, No Edema, No Gallop, No JVD, No Murmur, No Rub Peripheral Pulses: 3+: Radial (L), Radial (R) GI/Abdominal: Normal Bowel Sounds, Soft, Non-Tender, No Organomegaly, No Distention, No Abnormal Bruit, No Mass Back Exam: Normal Inspection, Full Range of Motion, NT Extremities: Normal Inspection, Normal Range of Motion, No Pedal Edema, Normal Capillary Refill Neurological: Alert, Oriented, Normal Cognition, No Motor/Sensory Deficits Psychiatric: Normal Affect Skin Exam: Warm, Dry, Intact, Normal Color, No Rash Course - Vital Signs Last Recorded V/S: Last Vital Signs Temp 36.1 C 08/06/21 22:28 Pulse 75 08/07/21 00:40 Resp 20 08/07/21 00:40 BP 109/67 08/07/21 00:40 Pulse Ox 92 L 08/07/21 00:40 - Orders/Labs/Meds Labs: Laboratory Tests 08/06/21 08/06/21 Range/Units 22:34 22:55 D-Dimer, Quantitative 0.31 (0.19-0.50) mg/L POC Glucose 231 H (70-99) mg/dL Meds: Medications Discontinued Medications Generic Name Dose Route Start Last Admin Trade Name Freq PRN Reason Stop Dose Admin Albuterol/Ipratropium 3 ml 08/06/21 23:29 08/06/21 23:41 Albuterol/Ipratropium 3.0-0.5 Mg/3 Ml Neb Soln NEB 08/06/21 23:30 3 ml ONETIME ONE Administration - Re-Assessments/Exams Free Text/Narrative Re-Assessment/Exam: 08/06/21 22:44 The patient's lungs are clear to auscultation bilaterally, and his oxygen saturation is at his baseline of 93% on 3 L of oxygen per nasal cannula. I have ordered a D-dimer and a chest x-ray to evaluate. We do not need a chemistry panel; his renal function was normal yesterday. 08/06/21 23:30 Two-view chest radiograph reviewed. The cardiac silhouette is within normal limits. No pulmonary vascular congestion. No pleural effusions. No focal infiltrate. No pneumothorax. There is hyperinflation and bilateral diaphragmatic flattening, consistent with COPD. Formal read per the Radiologist pending. The patient's D-dimer is within normal limits at 0.31. Notified by Constantin JUAREZ that the patient may be wheezing a bit after returning from radiology. I went and auscultated his lungs again, finding faint expiratory wheezing throughout his lung frazier. I ordered a DuoNeb. 08/07/21 00:12 Following the DuoNeb, I reexamined the patient. The wheezing is essentially gone, and the patient states that his breathing feels better. I will discharge him home with the recommendation that if he is having shortness of breath like he had tonight, that he take an albuterol treatment, preferably with the MDI using a spacer chamber. Departure - Departure Time of Disposition: 00:13 Disposition: Home, Self-Care 01 Condition: Good Clinical Impression: COPD exacerbation - Discharge Information *PRESCRIPTION DRUG MONITORING PROGRAM REVIEWED*: Not Applicable *COPY OF PRESCRIPTION DRUG MONITORING REPORT IN PATIENT DELORES: Not Applicable Instructions: Chronic Obstructive Pulmonary Disease Exacerbation, [id number] Referrals: Efrem Saul MD [Primary Care Provider] - Alessandro Quintana NP [Ordering Only Provider] - Forms: ED Department Discharge Additional Instructions: You were seen in the emergency room after developing shortness of breath. Work-up in the ER included an Accu-Chek, a D-dimer, and a chest x-ray. Your blood sugar was found to be moderately elevated at 231, while your D-dimer was within normal limits, essentially excluding a blood clot in your lungs, and your chest x-ray was unremarkable, showing no sign of pneumonia. Your symptoms improved after you were given a DuoNeb in the ER. Going forward, we recommend that if you experience a similar shortness of breath, that you take an albuterol treatment, preferably using your metered dose inhaler and a spacer chamber, although alternatively, by nebulizer is good, as well. If you use your metered-dose inhaler, be sure to shake it for a full minute before actuating it, and always use a spacer chamber. We recommend that you follow-up with your PCP, Dr. Efrem Saul, at the next available appointment. If any other problems, please do not hesitate to return to the ER. Sepsis Event Note (ED) - Evaluation Sepsis Screening Result: No Definite Risk
[2021-08-06] MEDS ORDERED: Albuterol/Ipratropium 3.0-0.5 MG/3 ML Neb Soln NEB ONE (23:29)
[2021-08-07 00:41] VITALS: BP 109/67; PULSE 75
--- NOTE | 2021-08-08 14:15 | CR ---
EXAM: XR CHEST 2 VIEWS LOCATION: [facility] DATE/TIME: 08/06/2021 10:57 PM INDICATION: Shortness of breath; on 2l o2 COMPARISON: None. IMPRESSION: Mild bibasilar atelectasis. No effusions or pneumothorax. Heart size is normal. Degenerative changes of the spine with mild chronic compression deformity of T12. SIGNED BY: Lele Kimbrough MD 08/08/2021 12:47 PM ANA
== END 2021-08-07 00:50 | disposition home or self-care (01) ==
LOC: JD.ED 22:25
DX: J44.1 Chronic obstructive pulmonary disease with (acute) exacerbation (principal); I11.0 Hypertensive heart disease with heart failure; I50.9 Heart failure, unspecified; E78.00 Pure hypercholesterolemia, unspecified; K21.9 Gastro-esophageal reflux disease without esophagitis; E11.9 Type 2 diabetes mellitus without complications; E66.9 Obesity, unspecified; Z68.33 Body mass index [BMI] 33.0-33.9, adult; Z79.4 Long term (current) use of insulin; Z79.899 Other long term (current) drug therapy
CPT/HCPCS: 36415; 71046; 71046-26; 82947; 85379; 94640; 99285-25; J7620-GY

== ENCOUNTER 2021-10-16 17:18 | Emergency (ER) | payer MEDICARE, MEDICAID ==
[2021-10-16 19:11] LABS: CORONAVIRUS COVID-19 NAA NEGATIVE (NEGATIVE)
[2021-10-16 19:29] VITALS: BP 138/80; PULSE 76
== END 2021-10-16 19:30 | disposition home or self-care (01) ==
LOC: JD.ED 17:18
DX: B34.9 Viral infection, unspecified (principal); I11.0 Hypertensive heart disease with heart failure; I50.9 Heart failure, unspecified; E78.00 Pure hypercholesterolemia, unspecified; J44.9 Chronic obstructive pulmonary disease, unspecified; K21.9 Gastro-esophageal reflux disease without esophagitis; N40.0 Benign prostatic hyperplasia without lower urinary tract symptoms; Z79.4 Long term (current) use of insulin; Z79.899 Other long term (current) drug therapy; Z88.8 Allergy status to other drugs, medicaments and biological substances; Z72.0 Tobacco use; Z20.822 Contact with and (suspected) exposure to COVID-19
CPT/HCPCS: 0240U; 36415; 71046; 80053; 85025; 86140; 99284; 99283

== ENCOUNTER 2022-08-28 19:33 | Emergency (ER) | payer MEDICARE, MEDICAID ==
[2022-08-28] MEDS ORDERED: LORazepam 1 MG Tab PO ONE (20:07)
[2022-08-28] MEDS ORDERED: Ondansetron 4 MG Tab.DIS PO ONE (20:07)
[2022-08-28 22:45] VITALS: BP 132/81; PULSE 89
== END 2022-08-28 22:47 | disposition home or self-care (01) ==
LOC: JD.ED 19:33
DX: R11.0 Nausea (principal); F41.9 Anxiety disorder, unspecified; I11.0 Hypertensive heart disease with heart failure; I50.9 Heart failure, unspecified; J44.9 Chronic obstructive pulmonary disease, unspecified; E78.00 Pure hypercholesterolemia, unspecified; E11.9 Type 2 diabetes mellitus without complications; E66.9 Obesity, unspecified; Z68.32 Body mass index [BMI] 32.0-32.9, adult; Z88.1 Allergy status to other antibiotic agents; Z88.6 Allergy status to analgesic agent; Z79.899 Other long term (current) drug therapy; Z79.4 Long term (current) use of insulin
CPT/HCPCS: 36415; 80053; 85025; 99283; A9270

== ENCOUNTER 2022-12-15 10:28 | Emergency (ER) | payer MEDICARE, MEDICAID ==
[2022-12-15 12:19] LABS: BASOPHILS ABSOLUTE AUTO 0.04 K/mm3 (0.01-0.08); BASOPHILS PERCENT AUTO 0.5 % (0.1-1.2); EOSINOPHILS ABSOLUTE AUTO 0.06 K/mm3 (0.04-0.54); EOSINOPHILS PERCENT AUTO 0.8 (0.8-7.0); HEMATOCRIT 42.1 % (40.1-51.0); HEMOGLOBIN 13.7 gm/dl (13.7-17.5); IMMATURE GRAN ABSOLUTE AUTO 0.01 K/mm3 (0.00-0.10); IMMATURE GRAN PERCENT AUTO 0.1 % (<=1.0); LYMPHOCYTES ABSOLUTE AUTO 1.06 K/mm3 (1.32-3.57); LYMPHOCYTES PERCENT AUTO 14.6 % (21.8-53.1); MEAN CORPUSCULAR HEMOGLOBIN 30.9 pg (25.7-32.2); MEAN CORPUSCULAR HGB CONC 32.5 g/dl (32.2-35.5); MEAN CORPUSCULAR VOLUME 94.8 fl (79.0-92.2); MEAN PLATELET VOLUME 9.8 fl (9.4-12.3); MONOCYTES ABSOLUTE AUTO 0.79 K/mm3 (0.30-0.82); MONOCYTES PERCENT AUTO 10.9 % (5.3-12.2); NEUTROPHILS ABSOLUTE AUTO 5.32 K/mm3 (1.78-5.38); NEUTROPHILS PERCENT AUTO 73.1 % (34.0-67.9); PLATELET COUNT,PLT 258 K/mm3 (163-337); RED BLOOD CELL COUNT 4.44 M/mm3 (4.63-6.08); WHITE BLOOD CELL COUNT,WBC 7.28 K/mm3 (4.23-9.07)
[2022-12-15 12:28] LABS: A/G RATIO 0.6 (1-2); ALBUMIN 2.3 g/dl (3.4-5.0); ANION GAP 7.5 (5-15); BILIRUBIN TOTAL 0.2 mg/dL (0.2-1.0); BUN/CREATININE RATIO 10.8 (14-18); CALCIUM 8.6 mg/dL (8.5-10.1); CREATININE 1.2 mg/dL (0.7-1.3); EST CRCL DRUG DOSING (CG) 62.52 mL/min; POTASSIUM,K 4.5 mEq/L (3.5-5.1); PROTEIN TOTAL,TP 6.3 g/dl (6.4-8.2)
[2022-12-15] MEDS ORDERED: Sodium Chloride 0.9% 1,000 ML IV ONE (12:54)
[2022-12-15] MEDS ORDERED: Insulin Regular, Human 100 Units/ML 3 ML Vial IV ONE (14:23)
[2022-12-15 16:31] VITALS: BP 136/84; PULSE 88
== END 2022-12-15 15:40 | disposition home or self-care (01) ==
LOC: JD.ED 10:28
DX: E11.65 Type 2 diabetes mellitus with hyperglycemia (principal); I11.0 Hypertensive heart disease with heart failure; I50.9 Heart failure, unspecified; J44.9 Chronic obstructive pulmonary disease, unspecified; N40.0 Benign prostatic hyperplasia without lower urinary tract symptoms; K21.9 Gastro-esophageal reflux disease without esophagitis; E66.9 Obesity, unspecified; Z68.31 Body mass index [BMI] 31.0-31.9, adult; Z88.8 Allergy status to other drugs, medicaments and biological substances; Z79.4 Long term (current) use of insulin; Z79.899 Other long term (current) drug therapy; Z72.0 Tobacco use
CPT/HCPCS: 36415; 71045; 80053; 85025; 96360; 99284; J1815; J7030

== ENCOUNTER 2022-12-22 16:15 | Emergency (ER) | payer MEDICARE, MEDICAID ==
[2022-12-22 16:23] VITALS: PULSE 91
[2022-12-22] MEDS ORDERED: Aspirin 81 MG Tab.Chew PO ONE (16:51)
[2022-12-22] MEDS ORDERED: Albuterol/Ipratropium 3.0-0.5 MG/3 ML Neb Soln NEB ONE (16:51)
[2022-12-22] MEDS ORDERED: Sodium Chloride 0.9% 10 ML Syringe FLUSH PRN (16:51)
[2022-12-22 17:41] LABS: C-REACTIVE PROTEIN 15.6 mg/dL (<1.0)
[2022-12-22 18:16] LABS: BASOPHILS ABSOLUTE AUTO 0.02 K/mm3 (0.01-0.08); BASOPHILS PERCENT AUTO 0.2 % (0.1-1.2); EOSINOPHILS ABSOLUTE AUTO 0.19 K/mm3 (0.04-0.54); EOSINOPHILS PERCENT AUTO 1.8 (0.8-7.0); HEMATOCRIT 42.7 % (40.1-51.0); HEMOGLOBIN 13.8 gm/dl (13.7-17.5); IMMATURE GRAN ABSOLUTE AUTO 0.08 K/mm3 (0.00-0.10); IMMATURE GRAN PERCENT AUTO 0.8 % (<=1.0); LYMPHOCYTES ABSOLUTE AUTO 1.21 K/mm3 (1.32-3.57); LYMPHOCYTES PERCENT AUTO 11.5 % (21.8-53.1); MEAN CORPUSCULAR HGB CONC 32.3 g/dl (32.2-35.5); MEAN PLATELET VOLUME 9.3 fl (9.4-12.3); MONOCYTES ABSOLUTE AUTO 1.06 K/mm3 (0.30-0.82); MONOCYTES PERCENT AUTO 10.1 % (5.3-12.2); NEUTROPHILS ABSOLUTE AUTO 7.92 K/mm3 (1.78-5.38); NEUTROPHILS PERCENT AUTO 75.6 % (34.0-67.9); PLATELET COUNT,PLT 365 K/mm3 (163-337); RED BLOOD CELL COUNT 4.45 M/mm3 (4.63-6.08); WHITE BLOOD CELL COUNT,WBC 10.48 K/mm3 (4.23-9.07)
[2022-12-22 18:30] LABS: CORONAVIRUS COVID-19 NAA NEGATIVE (NEGATIVE); INFLUENZA A NAA NEGATIVE (NEGATIVE); RESPIRATORY SYNCYTIAL VIR NAA NEGATIVE (NEGATIVE)
[2022-12-22 18:39] LABS: A/G RATIO 0.5 (1-2); ALBUMIN 2.4 g/dl (3.4-5.0); ANION GAP 9.5 (5-15); BILIRUBIN TOTAL 0.2 mg/dL (0.2-1.0); BUN/CREATININE RATIO 13.3 (14-18); CREATININE 0.9 mg/dL (0.7-1.3); EST CRCL DRUG DOSING (CG) 83.36 mL/min; POTASSIUM,K 4.5 mEq/L (3.5-5.1); PROTEIN TOTAL,TP 7.4 g/dl (6.4-8.2)
[2022-12-22 18:57] LABS: APPEARANCE,URINE CLEAR (Clear); BILIRUBIN,URINE NEGATIVE (Negative); COLOR,URINE YELLOW (Yellow); GLUCOSE,URINE NEGATIVE (Negative); KETONES,URINE NEGATIVE (Negative); LEUKOCYTE ESTERASE,URINE NEGATIVE (Negative); NITRITE,URINE NEGATIVE (Negative); OCCULT BLOOD,URINE NEGATIVE (Negative); PROTEIN,URINE 2+ (Negative)
[2022-12-22 19:05] LABS: BACTERIA,URINE OCCASIONAL /hpf (FEW); MUCUS,URINE NOT SEEN /hpf (FEW); RBC,URINE 0-5 /hpf (0-5); SQUAMOUS EPITHELIAL CELLS,UR 0-5 /hpf (0-5); WBC,URINE 0-5 /hpf (0-5)
[2022-12-22] MEDS ORDERED: Doxycycline Monohydrate 100 MG Cap PO ONE (19:23)
[2022-12-23 06:43] VITALS: BP 150/77
== END 2022-12-22 19:50 | disposition home or self-care (01) ==
LOC: JD.ED 16:15
DX: J41.8 Mixed simple and mucopurulent chronic bronchitis (principal); I11.0 Hypertensive heart disease with heart failure; I50.9 Heart failure, unspecified; E78.00 Pure hypercholesterolemia, unspecified; N40.0 Benign prostatic hyperplasia without lower urinary tract symptoms; E11.9 Type 2 diabetes mellitus without complications; E66.9 Obesity, unspecified; Z68.31 Body mass index [BMI] 31.0-31.9, adult; Z88.8 Allergy status to other drugs, medicaments and biological substances; Z79.899 Other long term (current) drug therapy; Z72.0 Tobacco use; Z20.822 Contact with and (suspected) exposure to COVID-19
CPT/HCPCS: 0241U; 36415; 71045; 80053; 81001; 83880; 84484; 85025; 86140; 93005; 94640; 99285; A9270; J3490; J7620-GY

== ENCOUNTER 2022-12-24 16:37 | Emergency (ER) | payer MEDICARE, MEDICAID ==
[2022-12-24 17:41] VITALS: PULSE 104
[2022-12-24] MEDS ORDERED: Sodium Chloride 0.9% 10 ML Syringe FLUSH PRN (18:00)
[2022-12-24 18:29] LABS: HEMATOCRIT 43.1 % (40.1-51.0); MEAN CORPUSCULAR HGB CONC 32.5 g/dl (32.2-35.5); MEAN CORPUSCULAR VOLUME 95.6 fl (79.0-92.2); MEAN PLATELET VOLUME 8.8 fl (9.4-12.3); PLATELET COUNT,PLT 383 K/mm3 (163-337); RED BLOOD CELL COUNT 4.51 M/mm3 (4.63-6.08); WHITE BLOOD CELL COUNT,WBC 10.66 K/mm3 (4.23-9.07)
[2022-12-24 18:46] LABS: INR 0.93
[2022-12-24 18:47] LABS: PTT,PARTIAL THROMBOPLSTIN TIME 22.6 SECONDS (21.7-31.4)
[2022-12-24 18:49] LABS: A/G RATIO 0.4 (1-2); ALBUMIN 2.3 g/dl (3.4-5.0); ANION GAP 8.2 (5-15); BILIRUBIN TOTAL 0.2 mg/dL (0.2-1.0); CALCIUM 9.2 mg/dL (8.5-10.1); EST CRCL DRUG DOSING (CG) 75.03 mL/min; POTASSIUM,K 4.2 mEq/L (3.5-5.1); PROTEIN TOTAL,TP 7.5 g/dl (6.4-8.2)
[2022-12-24] MEDS ORDERED: Ondansetron 4 MG/2 ML SDV IVPUSH ONE (18:49)
[2022-12-24] MEDS ORDERED: methylPREDNISolone Sodium Succinate 125 MG/2 ML SDV IVPUSH ONE (18:50)
[2022-12-24] MEDS ORDERED: Levofloxacin 750 MG Tab PO ONE (18:50)
[2022-12-24 19:05] LABS: BAND PERCENT MAN 0 % (0-10); BASOPHILS PERCENT MAN 0 (0.2-1.2); EOSINOPHILS PERCENT MAN 0 % (0.8-7.0); LYMPHOCYTES % ATYPICAL MANUAL 0 %; LYMPHOCYTES PERCENT MAN 20 % (20-40); MONOCYTES PERCENT MAN 7 % (2-10); PLATELET COUNT ESTIMATE ADEQUATE
[2022-12-24] MEDS ORDERED: Acetaminophen 325 MG/10.15 ML ML PO ONE (19:30)
[2022-12-25 04:32] VITALS: BP 122/70
== END 2022-12-24 20:00 | disposition home or self-care (01) ==
LOC: JD.ED 16:37
DX: J44.1 Chronic obstructive pulmonary disease with (acute) exacerbation (principal); I11.0 Hypertensive heart disease with heart failure; I50.9 Heart failure, unspecified; E11.9 Type 2 diabetes mellitus without complications; F17.210 Nicotine dependence, cigarettes, uncomplicated; E66.9 Obesity, unspecified; Z68.31 Body mass index [BMI] 31.0-31.9, adult; Z88.1 Allergy status to other antibiotic agents; Z88.8 Allergy status to other drugs, medicaments and biological substances; Z88.6 Allergy status to analgesic agent; Z79.899 Other long term (current) drug therapy; Z79.4 Long term (current) use of insulin
CPT/HCPCS: 36415; 71046; 80053; 85007; 85027; 85610; 85730; 86140; 87040; 96374; 96375; 99285; A9270; J2405; J2930; J3490; 99284

== ENCOUNTER 2023-02-13 17:06 | Emergency (ER) | payer MEDICARE, MEDICAID ==
[2023-02-13] MEDS ORDERED: HYDROmorphone 1 MG/ML Syringe IM ONE (17:50)
[2023-02-13 18:29] VITALS: BP 162/90; PULSE 88
== END 2023-02-13 18:20 | disposition home or self-care (01) ==
LOC: JD.ED 17:06
DX: T20.20XA Burn of second degree of head, face, and neck, unspecified site, initial encounter (principal); F17.210 Nicotine dependence, cigarettes, uncomplicated; E66.9 Obesity, unspecified; Z68.33 Body mass index [BMI] 33.0-33.9, adult; E78.00 Pure hypercholesterolemia, unspecified; I11.0 Hypertensive heart disease with heart failure; I50.9 Heart failure, unspecified; J44.9 Chronic obstructive pulmonary disease, unspecified; E11.9 Type 2 diabetes mellitus without complications; Z79.4 Long term (current) use of insulin; Z79.899 Other long term (current) drug therapy; Z88.6 Allergy status to analgesic agent; Z88.8 Allergy status to other drugs, medicaments and biological substances; Z88.1 Allergy status to other antibiotic agents; X08.8XXA Exposure to other specified smoke, fire and flames, initial encounter
CPT/HCPCS: 96372; 99283; J1170

== ENCOUNTER 2023-02-17 12:33 | Emergency (ER) | payer MEDICARE, MEDICAID | END 2023-02-17 13:07 | disposition left against medical advice (07) | LOC: JD.ED 12:33 | DX: Z53.21 Procedure and treatment not carried out due to patient leaving prior to being seen by health care provider (principal) ==

== ENCOUNTER 2023-03-06 08:42 | Emergency (ER) | payer MEDICARE, MEDICAID ==
[2023-03-06] MEDS ORDERED: Ibuprofen 800 MG Tab PO ONE (11:01)
[2023-03-06] MEDS ORDERED: Acetaminophen 325 MG Tab PO ONE (11:01)
[2023-03-06 14:31] VITALS: BP 140/81; PULSE 75
== END 2023-03-06 11:19 | disposition home or self-care (01) ==
LOC: JD.ED 08:42
DX: S93.401A Sprain of unspecified ligament of right ankle, initial encounter (principal); E78.00 Pure hypercholesterolemia, unspecified; I10 Essential (primary) hypertension; J44.9 Chronic obstructive pulmonary disease, unspecified; K21.9 Gastro-esophageal reflux disease without esophagitis; E66.9 Obesity, unspecified; Z68.33 Body mass index [BMI] 33.0-33.9, adult; Z88.1 Allergy status to other antibiotic agents; Z88.8 Allergy status to other drugs, medicaments and biological substances; Z79.4 Long term (current) use of insulin; Z79.899 Other long term (current) drug therapy
CPT/HCPCS: 73610; 99284; A9270; 99282

== ENCOUNTER 2023-03-15 07:13 | Emergency (ER) | payer MEDICARE, MEDICAID ==
[2023-03-15] MEDS ORDERED: Morphine 4 MG/ML Syringe IVPUSH ONE (07:34)
[2023-03-15] MEDS ORDERED: Sodium Chloride 0.9% 1,000 ML IV SCH (07:45)
[2023-03-15 08:02] LABS: BASOPHILS ABSOLUTE AUTO 0.05 K/mm3 (0.01-0.08); BASOPHILS PERCENT AUTO 0.6 % (0.1-1.2); EOSINOPHILS ABSOLUTE AUTO 0.07 K/mm3 (0.04-0.54); EOSINOPHILS PERCENT AUTO 0.8 (0.8-7.0); HEMATOCRIT 43.2 % (40.1-51.0); HEMOGLOBIN 14.1 gm/dl (13.7-17.5); IMMATURE GRAN ABSOLUTE AUTO 0.01 K/mm3 (0.00-0.10); IMMATURE GRAN PERCENT AUTO 0.1 % (<=1.0); LYMPHOCYTES PERCENT AUTO 10.8 % (21.8-53.1); MEAN CORPUSCULAR HEMOGLOBIN 31.8 pg (25.7-32.2); MEAN CORPUSCULAR HGB CONC 32.6 g/dl (32.2-35.5); MEAN CORPUSCULAR VOLUME 97.5 fl (79.0-92.2); MEAN PLATELET VOLUME 9.3 fl (9.4-12.3); MONOCYTES ABSOLUTE AUTO 0.64 K/mm3 (0.30-0.82); MONOCYTES PERCENT AUTO 7.7 % (5.3-12.2); NEUTROPHILS ABSOLUTE AUTO 6.65 K/mm3 (1.78-5.38); PLATELET COUNT,PLT 338 K/mm3 (163-337); RED BLOOD CELL COUNT 4.43 M/mm3 (4.63-6.08); WHITE BLOOD CELL COUNT,WBC 8.32 K/mm3 (4.23-9.07)
[2023-03-15] MEDS ORDERED: Orphenadrine 100 MG Tab.ER PO ONE (08:09)
[2023-03-15 08:18] LABS: INR 0.93
[2023-03-15 08:20] LABS: PTT,PARTIAL THROMBOPLSTIN TIME 26.1 SECONDS (21.7-31.4)
[2023-03-15 08:28] LABS: A/G RATIO 0.7 (1-2); ALBUMIN 2.6 g/dl (3.4-5.0); ANION GAP 10.1 (5-15); BILIRUBIN TOTAL 0.3 mg/dL (0.2-1.0); CALCIUM 8.6 mg/dL (8.5-10.1); EST CRCL DRUG DOSING (CG) 75.03 mL/min; POTASSIUM,K 4.1 mEq/L (3.5-5.1); PROTEIN TOTAL,TP 6.6 g/dl (6.4-8.2)
[2023-03-15 09:58] VITALS: BP 126/80; PULSE 72
== END 2023-03-15 10:11 | disposition home or self-care (01) ==
LOC: JD.ED 07:13
DX: R07.89 Other chest pain (principal); E11.9 Type 2 diabetes mellitus without complications; E66.9 Obesity, unspecified; J44.9 Chronic obstructive pulmonary disease, unspecified; I11.0 Hypertensive heart disease with heart failure; I50.9 Heart failure, unspecified; E78.00 Pure hypercholesterolemia, unspecified; Z79.4 Long term (current) use of insulin; Z79.899 Other long term (current) drug therapy; Z88.1 Allergy status to other antibiotic agents; Z88.6 Allergy status to analgesic agent; Z88.8 Allergy status to other drugs, medicaments and biological substances; Z20.822 Contact with and (suspected) exposure to COVID-19; Z68.31 Body mass index [BMI] 31.0-31.9, adult
CPT/HCPCS: 36415; 71045; 80053; 82947; 83690; 84484; 85025; 85379; 85610; 85730; 93005; 96361; 96374; 99285; A9270; J2270; J7030; U0002; 93010; 99284

== ENCOUNTER 2023-04-01 15:08 | Emergency (ER) | payer MEDICARE, MEDICAID ==
[2023-04-01] MEDS ORDERED: Albuterol/Ipratropium 3.0-0.5 MG/3 ML Neb Soln NEB ONE ×2 (15:22→17:51)
[2023-04-01] MEDS ORDERED: methylPREDNISolone Sodium Succinate 125 MG/2 ML SDV IVPUSH ONE (15:22)
[2023-04-01 15:30] LABS: BASOPHILS ABSOLUTE AUTO 0.1 K/mm3 (0.0-0.2); BASOPHILS PERCENT AUTO 1.1 % (0.0-1.0); EOSINOPHILS ABSOLUTE AUTO 0.3 K/mm3 (0.0-0.4); EOSINOPHILS PERCENT AUTO 4.7 % (0.0-6.0); HEMATOCRIT 42.1 % (42.0-52.0); HEMOGLOBIN 13.8 gm/dl (14.0-18.0); IMMATURE GRAN ABSOLUTE AUTO 0.01 K/mm3 (0.00-0.05); IMMATURE GRAN PERCENT AUTO 0.2 % (0.0-0.4); LYMPHOCYTES ABSOLUTE AUTO 1.5 K/mm3 (1.0-4.8); MEAN CORPUSCULAR HEMOGLOBIN 31.3 pg (28.0-32.0); MEAN CORPUSCULAR HGB CONC 32.8 g/dl (32.0-36.0); MEAN CORPUSCULAR VOLUME 95.5 fl (83.0-99.0); MEAN PLATELET VOLUME 9.1 fl (9.4-12.4); MONOCYTES ABSOLUTE AUTO 0.7 K/mm3 (0.0-0.8); MONOCYTES PERCENT AUTO 10.4 % (0.0-8.0); NEUTROPHILS PERCENT AUTO 60.6 % (41.0-71.0); PLATELET COUNT,PLT 294 K/mm3 (150-400); RED BLOOD CELL COUNT 4.41 M/mm3 (4.52-5.90); WHITE BLOOD CELL COUNT,WBC 6.65 K/mm3 (3.9-11.3)
[2023-04-01 15:51] LABS: PROTHROMBIN TIME 9.7 SECONDS (9.7-12.0)
[2023-04-01 15:57] LABS: INR < 0.93
[2023-04-01 16:00] LABS: A/G RATIO 0.8 (1-2); ALANINE AMINOTRANSFERASE,ALT 13 U/L (16-63); ALBUMIN 2.8 g/dl (3.4-5.0); ALKALINE PHOSPHATASE 164 U/L (46-116); ANION GAP 10.3 (5-15); ASPARTATE AMNIOTRANSFERASE,AST 10 U/L (15-37); BILIRUBIN TOTAL 0.2 mg/dL (0.2-1.0); BLOOD UREA NITROGEN,BUN 16 mg/dL (7-18); CALCIUM 8.9 mg/dL (8.5-10.1); CARBON DIOXIDE,CO2 31 mEq/L (21-32); CHLORIDE,CL 105 mEq/L (98-107); ESTIMATED GFR 83 mL/min (>60); GLUCOSE RANDOM 175 mg/dL (70-99); POTASSIUM,K 4.3 mEq/L (3.5-5.1); PROTEIN TOTAL,TP 6.4 g/dl (6.4-8.2); SODIUM,NA 142 mEq/L (136-145)
[2023-04-01 16:06] LABS: TROPONIN I HIGH SENSITIVITY 78 pg/mL (<=76)
[2023-04-01] MEDS ORDERED: Pantoprazole 40 MG Tab.CR PO SCH (19:43)
[2023-04-01 20:07] VITALS: BP 124/64; PULSE 73
== END 2023-04-01 20:05 | disposition home or self-care (01) ==
LOC: JD.ED 15:08
DX: J44.1 Chronic obstructive pulmonary disease with (acute) exacerbation (principal); K21.00 Gastro-esophageal reflux disease with esophagitis, without bleeding; I11.0 Hypertensive heart disease with heart failure; I50.9 Heart failure, unspecified; K21.9 Gastro-esophageal reflux disease without esophagitis; E78.00 Pure hypercholesterolemia, unspecified; E11.9 Type 2 diabetes mellitus without complications; E66.9 Obesity, unspecified; Z68.30 Body mass index [BMI] 30.0-30.9, adult; Z88.8 Allergy status to other drugs, medicaments and biological substances; Z88.1 Allergy status to other antibiotic agents; Z88.6 Allergy status to analgesic agent; Z88.5 Allergy status to narcotic agent; Z79.4 Long term (current) use of insulin; Z79.899 Other long term (current) drug therapy
CPT/HCPCS: 36415; 71045; 80053; 84484; 85025; 85379; 85610; 85730; 94640; 96374; 99285; A9270; J2930; 99284; J7620-GY

== ENCOUNTER 2023-04-23 11:14 | Emergency (ER) | payer MEDICARE, MEDICAID ==
[2023-04-23 13:00] VITALS: BP 134/74; PULSE 88
== END 2023-04-23 12:57 | disposition home or self-care (01) ==
LOC: JD.ED 11:14
DX: G89.29 Other chronic pain (principal); Z76.5 Malingerer [conscious simulation]; F17.210 Nicotine dependence, cigarettes, uncomplicated; E66.9 Obesity, unspecified; E11.9 Type 2 diabetes mellitus without complications; I11.0 Hypertensive heart disease with heart failure; I50.9 Heart failure, unspecified; E78.00 Pure hypercholesterolemia, unspecified; J44.9 Chronic obstructive pulmonary disease, unspecified; K21.9 Gastro-esophageal reflux disease without esophagitis; Z79.4 Long term (current) use of insulin; Z79.899 Other long term (current) drug therapy; Z88.1 Allergy status to other antibiotic agents; Z88.8 Allergy status to other drugs, medicaments and biological substances; Z88.6 Allergy status to analgesic agent
CPT/HCPCS: 99282; 99283

== ENCOUNTER 2024-02-01 13:26 | Emergency (ER) | payer MEDICARE, MEDICAID ==
[2024-02-01] MEDS: Albuterol/Ipratropium 3.0-0.5 MG/3 ML Neb Soln NEB ONE (14:12)
[2024-02-01 14:38] LABS: BASOPHILS ABSOLUTE AUTO 0.1 K/mm3 (0.0-0.2); BASOPHILS PERCENT AUTO 0.9 % (0.0-1.0); EOSINOPHILS ABSOLUTE AUTO 0.1 K/mm3 (0.0-0.4); HEMATOCRIT 40.6 % (42.0-52.0); HEMOGLOBIN 13.1 gm/dl (14.0-18.0); IMMATURE GRAN ABSOLUTE AUTO 0.02 K/mm3 (0.00-0.05); IMMATURE GRAN PERCENT AUTO 0.3 % (0.0-0.4); LYMPHOCYTES ABSOLUTE AUTO 1.5 K/mm3 (1.0-4.8); LYMPHOCYTES PERCENT AUTO 22.6 % (24.0-44.0); MEAN CORPUSCULAR HEMOGLOBIN 31.8 pg (28.0-32.0); MEAN CORPUSCULAR HGB CONC 32.3 g/dl (32.0-36.0); MEAN CORPUSCULAR VOLUME 98.5 fl (83.0-99.0); MEAN PLATELET VOLUME 8.6 fl (9.4-12.4); MONOCYTES ABSOLUTE AUTO 0.6 K/mm3 (0.0-0.8); MONOCYTES PERCENT AUTO 8.7 % (0.0-8.0); NEUTROPHILS ABSOLUTE AUTO 4.3 K/mm3 (1.8-7.7); NEUTROPHILS PERCENT AUTO 65.5 % (41.0-71.0); PLATELET COUNT,PLT 312 K/mm3 (150-400); RED BLOOD CELL COUNT 4.12 M/mm3 (4.52-5.90); WHITE BLOOD CELL COUNT,WBC 6.58 K/mm3 (3.9-11.3)
[2024-02-01] MEDS: Sodium Chloride 0.9% 10 ML Syringe FLUSH PRN ×2 (14:41→15:08)
[2024-02-01] MEDS: Famotidine 20 MG/2 ML SDV IVPUSH ONE (14:42)
[2024-02-01] MEDS: HYDROmorphone 0.5 MG/0.5 ML Syringe IVPUSH ONE (14:42)
[2024-02-01] MEDS: methylPREDNISolone Sodium Succinate 125 MG/2 ML SDV IVPUSH ONE (14:42)
[2024-02-01] MEDS: Iopamidol 612 MG/ML 100 ML Bottle IVPUSH ONE (15:08)
[2024-02-01 15:11] LABS: A/G RATIO 0.7 (1-2); ALBUMIN 2.8 g/dl (3.4-5.0); ANION GAP 8.5 (5-15); BILIRUBIN TOTAL 0.4 mg/dL (0.2-1.0); BUN/CREATININE RATIO 15.6 (14-18); C-REACTIVE PROTEIN 0.74 mg/dL (<0.30); CALCIUM 9.6 mg/dL (8.5-10.1); CREATININE 0.9 mg/dL (0.7-1.3); EST CRCL DRUG DOSING (CG) 82.24 mL/min; POTASSIUM,K 4.5 mEq/L (3.5-5.1); PROTEIN TOTAL,TP 6.9 g/dl (6.4-8.2)
[2024-02-01 18:29] VITALS: BP 145/80; PULSE 77
== END 2024-02-01 17:55 | disposition home or self-care (01) ==
LOC: JD.ED 13:26
DX: J44.1 Chronic obstructive pulmonary disease with (acute) exacerbation (principal); K86.1 Other chronic pancreatitis; F17.210 Nicotine dependence, cigarettes, uncomplicated; I11.0 Hypertensive heart disease with heart failure; I50.9 Heart failure, unspecified; E78.00 Pure hypercholesterolemia, unspecified; E11.9 Type 2 diabetes mellitus without complications; E66.9 Obesity, unspecified; Z68.28 Body mass index [BMI] 28.0-28.9, adult; Z79.4 Long term (current) use of insulin; Z79.899 Other long term (current) drug therapy; Z88.1 Allergy status to other antibiotic agents; Z88.8 Allergy status to other drugs, medicaments and biological substances
CPT/HCPCS: 36415; 71045; 74177; 80053; 83690; 83880; 84484; 85025; 86140; 93005; 94640; 94762; 96374; 96375; 99285; J1170; J2919; J3490; Q9967; J7620-GY

== ENCOUNTER 2024-02-21 14:45 | Inpatient (IN) | payer MEDICARE, MEDICAID ==
[2024-02-21 15:44] LABS: BASOPHILS PERCENT AUTO 0.7 % (0.0-1.0); EOSINOPHILS ABSOLUTE AUTO 0.1 K/mm3 (0.0-0.4); EOSINOPHILS PERCENT AUTO 2.4 % (0.0-6.0); HEMATOCRIT 40.6 % (42.0-52.0); HEMOGLOBIN 13.3 gm/dl (14.0-18.0); IMMATURE GRAN ABSOLUTE AUTO 0.02 K/mm3 (0.00-0.05); IMMATURE GRAN PERCENT AUTO 0.3 % (0.0-0.4); LYMPHOCYTES ABSOLUTE AUTO 1.2 K/mm3 (1.0-4.8); LYMPHOCYTES PERCENT AUTO 20.3 % (24.0-44.0); MEAN CORPUSCULAR HGB CONC 32.8 g/dl (32.0-36.0); MEAN CORPUSCULAR VOLUME 97.6 fl (83.0-99.0); MEAN PLATELET VOLUME 9.5 fl (9.4-12.4); MONOCYTES ABSOLUTE AUTO 0.6 K/mm3 (0.0-0.8); MONOCYTES PERCENT AUTO 9.5 % (0.0-8.0); NEUTROPHILS ABSOLUTE AUTO 3.9 K/mm3 (1.8-7.7); NEUTROPHILS PERCENT AUTO 66.8 % (41.0-71.0); PLATELET COUNT,PLT 273 K/mm3 (150-400); RED BLOOD CELL COUNT 4.16 M/mm3 (4.52-5.90); WHITE BLOOD CELL COUNT,WBC 5.87 K/mm3 (3.9-11.3)
[2024-02-21 16:12] LABS: A/G RATIO 0.8 (1-2); ALBUMIN 2.8 g/dl (3.4-5.0); ANION GAP 9.6 (5-15); BILIRUBIN TOTAL 0.3 mg/dL (0.2-1.0); BUN/CREATININE RATIO 22.5 (14-18); CALCIUM 9.2 mg/dL (8.5-10.1); CREATININE 0.8 mg/dL (0.7-1.3); EST CRCL DRUG DOSING (CG) 92.52 mL/min; MAGNESIUM 1.8 mg/dL (1.8-2.4); POTASSIUM,K 4.6 mEq/L (3.5-5.1); PROTEIN TOTAL,TP 6.5 g/dl (6.4-8.2)
[2024-02-21] MEDS: Albuterol/Ipratropium 3.0-0.5 MG/3 ML Neb Soln NEB ONE (16:15)
[2024-02-21 16:28] LABS: CORONAVIRUS COVID-19 NAA NEGATIVE (NEGATIVE); INFLUENZA A NAA NEGATIVE (NEGATIVE); RESPIRATORY SYNCYTIAL VIR NAA NEGATIVE (NEGATIVE)
[2024-02-21] MEDS: methylPREDNISolone Sodium Succinate 125 MG/2 ML SDV IVPUSH ONE (16:55)
[2024-02-21] MEDS: methylPREDNISolone Sodium Succinate 125 MG/2 ML SDV IM ONE (17:02)
[2024-02-21] MEDS: Sodium Chloride 0.9% 10 ML Syringe FLUSH PRN (17:03)
[2024-02-21] MEDS: Acetaminophen 325 MG Tab PO ONE (18:02)
[2024-02-21] MEDS: Albuterol 0.083% 2.5 MG/3 ML Neb Soln NEB ONE (18:48)
[2024-02-21] MEDS ORDERED: Ondansetron 4 MG/2 ML SDV IV PRN (19:36)
[2024-02-21] MEDS: Albuterol 0.5% 2.5 MG/0.5 ML Neb Soln ONE (20:10)
[2024-02-21] MEDS: Insulin Glargine,Human Rec. Analog 100 Units/ML 3 ML Pen SUBCUT SCH (20:21)
[2024-02-21] MEDS: Insulin Lispro 100 Unit/ML 3 ML KwikPen SUBCUT SCH (20:22)
[2024-02-21] MEDS: Azithromycin 250 MG Tab PO SCH (20:37)
[2024-02-21] MEDS: traZODone 50 MG Tab PO SCH (20:37)
[2024-02-21] MEDS: Apixaban 5 MG Tab PO SCH (20:37)
[2024-02-21] MEDS: Albuterol/Ipratropium 3.0-0.5 MG/3 ML Neb Soln NEB SCH (21:40)
[2024-02-22] MEDS: predniSONE 20 MG Tab PO SCH (07:52)
[2024-02-22] MEDS ORDERED: Doxycycline Monohydrate 100 MG Cap PO SCH (09:00)
[2024-02-22 10:24] LABS: HEMATOCRIT 39.3 % (42.0-52.0); MEAN CORPUSCULAR HEMOGLOBIN 32.1 pg (28.0-32.0); MEAN CORPUSCULAR HGB CONC 33.1 g/dl (32.0-36.0); MEAN PLATELET VOLUME 10.5 fl (9.4-12.4); PLATELET COUNT,PLT 277 K/mm3 (150-400); RED BLOOD CELL COUNT 4.05 M/mm3 (4.52-5.90); WHITE BLOOD CELL COUNT,WBC 5.32 K/mm3 (3.9-11.3)
[2024-02-22 11:07] LABS: A/G RATIO 0.7 (1-2); ALBUMIN 2.4 g/dl (3.4-5.0); ANION GAP 9.8 (5-15); BILIRUBIN TOTAL 0.2 mg/dL (0.2-1.0); BUN/CREATININE RATIO 22.5 (14-18); CALCIUM 8.9 mg/dL (8.5-10.1); CREATININE 0.8 mg/dL (0.7-1.3); EST CRCL DRUG DOSING (CG) 92.52 mL/min; POTASSIUM,K 4.8 mEq/L (3.5-5.1); PROTEIN TOTAL,TP 6.1 g/dl (6.4-8.2)
[2024-02-22 11:08] LABS: C-REACTIVE PROTEIN 0.8 mg/dL (<0.30)
[2024-02-22] MEDS: Tamsulosin 0.4 MG Cap.ER PO SCH (12:08)
[2024-02-22] MEDS: Metoprolol Succinate 50 MG Tab.ER PO SCH (12:09)
[2024-02-22] MEDS: atorvaSTATin 20 MG Tab PO SCH (12:09)
[2024-02-22] MEDS: amLODIPine 5 MG Tab PO SCH (12:09)
[2024-02-22] MEDS: Cyclobenzaprine 10 MG Tab PO PRN (17:32)
[2024-02-22] MEDS: Acetaminophen 325 MG Tab PO PRN (18:54)
[2024-02-23 05:46] LABS: HEMATOCRIT 40.9 % (42.0-52.0); HEMOGLOBIN 13.5 gm/dl (14.0-18.0); MEAN CORPUSCULAR HEMOGLOBIN 31.8 pg (28.0-32.0); MEAN CORPUSCULAR VOLUME 96.2 fl (83.0-99.0); MEAN PLATELET VOLUME 9.6 fl (9.4-12.4); PLATELET COUNT,PLT 293 K/mm3 (150-400); RED BLOOD CELL COUNT 4.25 M/mm3 (4.52-5.90); WHITE BLOOD CELL COUNT,WBC 10.59 K/mm3 (3.9-11.3)
[2024-02-23 06:20] LABS: A/G RATIO 0.7 (1-2); ALBUMIN 2.6 g/dl (3.4-5.0); ANION GAP 10.1 (5-15); BILIRUBIN TOTAL 0.1 mg/dL (0.2-1.0); BUN/CREATININE RATIO 24.4 (14-18); C-REACTIVE PROTEIN 0.46 mg/dL (<0.30); CALCIUM 9.3 mg/dL (8.5-10.1); CREATININE 0.9 mg/dL (0.7-1.3); EST CRCL DRUG DOSING (CG) 82.24 mL/min; PROTEIN TOTAL,TP 6.5 g/dl (6.4-8.2)
[2024-02-23 06:27] LABS: POTASSIUM,K 4.1 mEq/L (3.5-5.1)
[2024-02-23] MEDS: Insulin Glargine,Human Rec. Analog 100 Units/ML 3 ML Pen SUBCUT SCH (08:52)
[2024-02-23 14:02] VITALS: BP 142/73; PULSE 76
== END 2024-02-23 13:56 | disposition home or self-care (01) | DRG 189 ==
LOC: JD.ED 14:45 → OBSVTOIN 18:14 → JD.MS 18:14
PROVIDERS: ADMIT Internal Medicine; ATTEND Internal Medicine
DX: J96.21 Acute and chronic respiratory failure with hypoxia (principal); R09.02 Hypoxemia; I21.A1 Myocardial infarction type 2; J44.1 Chronic obstructive pulmonary disease with (acute) exacerbation; E78.00 Pure hypercholesterolemia, unspecified; E11.9 Type 2 diabetes mellitus without complications; I11.0 Hypertensive heart disease with heart failure; I50.9 Heart failure, unspecified; I48.91 Unspecified atrial fibrillation; E66.9 Obesity, unspecified; F41.9 Anxiety disorder, unspecified; Z88.6 Allergy status to analgesic agent; Z68.28 Body mass index [BMI] 28.0-28.9, adult; Z88.8 Allergy status to other drugs, medicaments and biological substances; F32.A Depression, unspecified; G89.29 Other chronic pain; E87.5 Hyperkalemia; E11.59 Type 2 diabetes mellitus with other circulatory complications; M54.9 Dorsalgia, unspecified; N40.0 Benign prostatic hyperplasia without lower urinary tract symptoms; K21.9 Gastro-esophageal reflux disease without esophagitis; F17.210 Nicotine dependence, cigarettes, uncomplicated; Z88.1 Allergy status to other antibiotic agents; Z88.5 Allergy status to narcotic agent; Z79.01 Long term (current) use of anticoagulants; Z98.49 Cataract extraction status, unspecified eye; Z79.899 Other long term (current) drug therapy; Z86.010 Personal history of colon polyps; Z98.890 Other specified postprocedural states; Z85.118 Personal history of other malignant neoplasm of bronchus and lung; Z99.89 Dependence on other enabling machines and devices; Z79.4 Long term (current) use of insulin
CPT/HCPCS: 0241U; 36415; 71045; 80053; 82947; 83735; 83880; 84484; 85025; 85027; 86140; 93005; 94640; 94760; 94761; 94762; 96374; 99285; 93010; 99238; A9270-GY; J1815; J1815-GY; J2919; J3490; J7512; J7620-GY

== ENCOUNTER 2024-03-28 10:53 | Emergency (ER) | payer MEDICARE, MEDICAID ==
[2024-03-28 11:06] VITALS: PULSE 81
[2024-03-28 13:54] VITALS: BP 144/60
== END 2024-03-28 13:45 | disposition home or self-care (01) ==
LOC: JD.ED 10:53
DX: M79.652 Pain in left thigh (principal); I11.0 Hypertensive heart disease with heart failure; I50.9 Heart failure, unspecified; E78.00 Pure hypercholesterolemia, unspecified; J44.9 Chronic obstructive pulmonary disease, unspecified; E11.9 Type 2 diabetes mellitus without complications; E66.9 Obesity, unspecified; Z68.27 Body mass index [BMI] 27.0-27.9, adult; Z79.899 Other long term (current) drug therapy; Z88.8 Allergy status to other drugs, medicaments and biological substances; Z88.1 Allergy status to other antibiotic agents
CPT/HCPCS: 73552-26-LT; 73552-LT; 93970; 93970-26; 99284

== ENCOUNTER 2024-04-05 16:18 | Emergency (ER) | payer MEDICARE, MEDICAID | END 2024-04-05 17:10 | disposition left against medical advice (07) | LOC: JD.ED 16:18 | DX: Z53.21 Procedure and treatment not carried out due to patient leaving prior to being seen by health care provider (principal) ==

== ENCOUNTER 2024-04-06 10:09 | Emergency (ER) | payer MEDICARE, MEDICAID ==
[2024-04-06] MEDS: 50% Dextrose in Water 50 ML Syringe IVPUSH PRN (10:33)
[2024-04-06 11:06] LABS: BASOPHILS ABSOLUTE AUTO 0.1 K/mm3 (0.0-0.2); BASOPHILS PERCENT AUTO 0.7 % (0.0-1.0); EOSINOPHILS ABSOLUTE AUTO 0.1 K/mm3 (0.0-0.4); EOSINOPHILS PERCENT AUTO 1.4 % (0.0-6.0); HEMOGLOBIN 14.8 gm/dl (14.0-18.0); IMMATURE GRAN ABSOLUTE AUTO 0.01 K/mm3 (0.00-0.05); IMMATURE GRAN PERCENT AUTO 0.1 % (0.0-0.4); LYMPHOCYTES ABSOLUTE AUTO 2.7 K/mm3 (1.0-4.8); LYMPHOCYTES PERCENT AUTO 28.6 % (24.0-44.0); MEAN CORPUSCULAR HEMOGLOBIN 31.4 pg (28.0-32.0); MEAN CORPUSCULAR HGB CONC 32.9 g/dl (32.0-36.0); MEAN CORPUSCULAR VOLUME 95.3 fl (83.0-99.0); MEAN PLATELET VOLUME 9.6 fl (9.4-12.4); MONOCYTES ABSOLUTE AUTO 0.9 K/mm3 (0.0-0.8); MONOCYTES PERCENT AUTO 9.6 % (0.0-8.0); NEUTROPHILS ABSOLUTE AUTO 5.7 K/mm3 (1.8-7.7); NEUTROPHILS PERCENT AUTO 59.6 % (41.0-71.0); PLATELET COUNT,PLT 316 K/mm3 (150-400); RED BLOOD CELL COUNT 4.72 M/mm3 (4.52-5.90); WHITE BLOOD CELL COUNT,WBC 9.49 K/mm3 (3.9-11.3)
[2024-04-06] MEDS: Dextrose 5%-Lactated Ringers 1,000 ML IV SCH (11:23)
[2024-04-06 11:28] LABS: A/G RATIO 0.9 (1-2); ALANINE AMINOTRANSFERASE,ALT 29 U/L (16-63); ALBUMIN 3.3 g/dl (3.4-5.0); ALKALINE PHOSPHATASE 143 U/L (46-116); ANION GAP 8.9 (5-15); ASPARTATE AMNIOTRANSFERASE,AST 23 U/L (15-37); BILIRUBIN TOTAL 0.4 mg/dL (0.2-1.0); BLOOD UREA NITROGEN,BUN 19 mg/dL (7-18); C-REACTIVE PROTEIN 0.89 mg/dL (<0.30); CALCIUM 9.3 mg/dL (8.5-10.1); CARBON DIOXIDE,CO2 34 mEq/L (21-32); CHLORIDE,CL 99 mEq/L (98-107); ESTIMATED GFR 82 mL/min (>60); GLUCOSE RANDOM 59 mg/dL (70-99); LIPASE 47 U/L (16-77); MAGNESIUM 1.8 mg/dL (1.8-2.4); POTASSIUM,K 3.9 mEq/L (3.5-5.1); PROTEIN TOTAL,TP 7.1 g/dl (6.4-8.2); SODIUM,NA 138 mEq/L (136-145)
[2024-04-06 11:31] LABS: TROPONIN I HIGH SENSITIVITY 122 pg/mL (<=76)
[2024-04-06 11:32] LABS: HEMOGLOBIN A1C 8.8 %
[2024-04-06 11:36] LABS: LACTIC ACID 1.1 mmol/L (0.4-2.0)
[2024-04-06 12:56] LABS: APPEARANCE,URINE CLEAR (Clear); BILIRUBIN,URINE NEGATIVE (Negative); COLOR,URINE YELLOW (Yellow); GLUCOSE,URINE NEGATIVE (Negative); KETONES,URINE NEGATIVE (Negative); LEUKOCYTE ESTERASE,URINE NEGATIVE (Negative); NITRITE,URINE NEGATIVE (Negative); OCCULT BLOOD,URINE NEGATIVE (Negative); PH,URINE 6.5 (5.0-8.0); PROTEIN,URINE 2+ (Negative); UROBILINOGEN,URINE 0.2 (0.2-1.0)
[2024-04-06 13:36] LABS: BACTERIA,URINE FEW /hpf (FEW); RBC,URINE 0-5 /hpf (0-5); SQUAMOUS EPITHELIAL CELLS,UR 0-5 /hpf (0-5); WBC,URINE 0-5 /hpf (0-5)
[2024-04-06 13:37] LABS: MUCUS,URINE FEW /hpf (FEW)
[2024-04-06] MEDS: Diltiazem 25 MG/5 ML SDV IVPUSH ONE (14:23)
[2024-04-06] MEDS: LORazepam 2 MG/ML SDV IVPUSH ONE ×3 (14:35→17:43)
[2024-04-06] MEDS: Diltiazem 125 MG in Sodium Chloride 0.9% 100 ML IV SCH (14:41)
[2024-04-06] MEDS: Digoxin 500 MCG/2 ML Amp IVPUSH ONE ×2 (16:35→18:45)
[2024-04-06] MEDS: Furosemide 40 MG/4 ML VIAL IVPUSH ONE (16:41)
[2024-04-06] MEDS: Digoxin 125 MCG Tab PO ONE ×2 (20:04→21:04)
[2024-04-06 21:02] VITALS: BP 124/69
[2024-04-06 21:07] VITALS: PULSE 107
== END 2024-04-06 21:08 | disposition home or self-care (01) ==
LOC: JD.ED 10:09
DX: I48.92 Unspecified atrial flutter (principal); I11.0 Hypertensive heart disease with heart failure; I50.9 Heart failure, unspecified; E78.00 Pure hypercholesterolemia, unspecified; E66.9 Obesity, unspecified; E11.9 Type 2 diabetes mellitus without complications; Z88.8 Allergy status to other drugs, medicaments and biological substances; Z79.4 Long term (current) use of insulin; Z79.899 Other long term (current) drug therapy
CPT/HCPCS: 36415; 71045; 80053; 80307; 81001; 82947; 83036; 83605; 83690; 83735; 83880; 84484; 85025; 86140; 93005; 96361; 96365; 96366; 96375; 96376; 99285; A9270; J1160; J1940; J2060; J3490; J7121; 93010

== ENCOUNTER 2024-04-08 13:24 | Inpatient (IN) | payer MEDICARE, MEDICAID ==
[2024-04-08] MEDS ORDERED: Sodium Chloride 0.9% 10 ML Syringe FLUSH PRN (14:18)
[2024-04-08] MEDS ORDERED: Diltiazem 125 MG in Sodium Chloride 0.9% 100 ML IV SCH (14:30)
[2024-04-08] MEDS: Albuterol/Ipratropium 3.0-0.5 MG/3 ML Neb Soln NEB ONE (15:12)
[2024-04-08 15:16] LABS: BASOPHILS PERCENT AUTO 0.4 % (0.0-1.0); EOSINOPHILS ABSOLUTE AUTO 0.2 K/mm3 (0.0-0.4); EOSINOPHILS PERCENT AUTO 1.8 % (0.0-6.0); HEMATOCRIT 39.5 % (42.0-52.0); HEMOGLOBIN 12.7 gm/dl (14.0-18.0); IMMATURE GRAN ABSOLUTE AUTO 0.02 K/mm3 (0.00-0.05); IMMATURE GRAN PERCENT AUTO 0.2 % (0.0-0.4); LYMPHOCYTES ABSOLUTE AUTO 1.2 K/mm3 (1.0-4.8); LYMPHOCYTES PERCENT AUTO 12.7 % (24.0-44.0); MEAN CORPUSCULAR HEMOGLOBIN 31.5 pg (28.0-32.0); MEAN CORPUSCULAR HGB CONC 32.2 g/dl (32.0-36.0); MEAN PLATELET VOLUME 9.6 fl (9.4-12.4); MONOCYTES ABSOLUTE AUTO 0.9 K/mm3 (0.0-0.8); MONOCYTES PERCENT AUTO 9.6 % (0.0-8.0); NEUTROPHILS ABSOLUTE AUTO 6.8 K/mm3 (1.8-7.7); NEUTROPHILS PERCENT AUTO 75.3 % (41.0-71.0); PLATELET COUNT,PLT 265 K/mm3 (150-400); RED BLOOD CELL COUNT 4.03 M/mm3 (4.52-5.90); WHITE BLOOD CELL COUNT,WBC 9.08 K/mm3 (3.9-11.3)
[2024-04-08] MEDS: Diltiazem 25 MG/5 ML SDV IVPUSH ONE (15:29)
[2024-04-08] MEDS: Apixaban 5 MG Tab PO ONE (15:40)
[2024-04-08] MEDS: Sodium Chloride 0.9% 1,000 ML IV SCH (15:40)
[2024-04-08] MEDS: LORazepam 2 MG/ML SDV IVPUSH ONE (15:42)
[2024-04-08 15:48] LABS: A/G RATIO 0.8 (1-2); ALBUMIN 2.7 g/dl (3.4-5.0); ANION GAP 5.4 (5-15); BILIRUBIN TOTAL 0.3 mg/dL (0.2-1.0); CALCIUM 8.9 mg/dL (8.5-10.1); EST CRCL DRUG DOSING (CG) 74.01 mL/min; MAGNESIUM 1.9 mg/dL (1.8-2.4); POTASSIUM,K 4.4 mEq/L (3.5-5.1); PROTEIN TOTAL,TP 6.1 g/dl (6.4-8.2)
[2024-04-08] MEDS ORDERED: Metoprolol Tartrate 50 MG Tab PO SCH (19:15)
[2024-04-08] MEDS ORDERED: Ondansetron 4 MG/2 ML SDV IV PRN (19:15)
[2024-04-08] MEDS ORDERED: Sennosides/Docusate Sodium 50-8.6 MG Tab PO PRN (19:15)
[2024-04-08] MEDS ORDERED: 50% Dextrose in Water 50 ML Syringe IVPUSH PRN (19:24)
[2024-04-08] MEDS: Metoprolol Tartrate 5 MG/5 ML SDV ONE (19:55)
[2024-04-08] MEDS: Morphine 2 MG/ML SYRINGE IVPUSH PRN (19:55)
[2024-04-08] MEDS: Insulin Lispro 100 Unit/ML 3 ML KwikPen SUBCUT SCH (20:51)
[2024-04-08] MEDS: traZODone 50 MG Tab PO SCH (20:52)
[2024-04-08] MEDS: Apixaban 5 MG Tab PO SCH (20:52)
[2024-04-08] MEDS: Metoprolol Tartrate 50 MG Tab PO SCH (20:53)
[2024-04-09] MEDS: Metoprolol Tartrate 5 MG/5 ML SDV IVPUSH PRN (00:36)
[2024-04-09] MEDS: Morphine 2 MG/ML SYRINGE ONE (00:38)
[2024-04-09] MEDS ORDERED: Metoprolol Tartrate 5 MG/5 ML SDV IVPUSH ONE (01:16)
[2024-04-09] MEDS: Metoprolol Tartrate 5 MG/5 ML SDV IVPUSH ONE ×2 (01:26→07:35)
[2024-04-09] MEDS: LORazepam 2 MG/ML SDV IVPUSH ONE (02:04)
[2024-04-09] MEDS: traZODone 50 MG Tab PO ONE (02:05)
[2024-04-09] MEDS: Albuterol/Ipratropium 3.0-0.5 MG/3 ML Neb Soln NEB ONE (02:09)
[2024-04-09 05:35] LABS: BASOPHILS ABSOLUTE AUTO 0.1 K/mm3 (0.0-0.2); BASOPHILS PERCENT AUTO 0.5 % (0.0-1.0); EOSINOPHILS ABSOLUTE AUTO 0.1 K/mm3 (0.0-0.4); HEMATOCRIT 37.4 % (42.0-52.0); HEMOGLOBIN 12.1 gm/dl (14.0-18.0); IMMATURE GRAN ABSOLUTE AUTO 0.05 K/mm3 (0.00-0.05); IMMATURE GRAN PERCENT AUTO 0.5 % (0.0-0.4); LYMPHOCYTES ABSOLUTE AUTO 0.9 K/mm3 (1.0-4.8); MEAN CORPUSCULAR HEMOGLOBIN 31.5 pg (28.0-32.0); MEAN CORPUSCULAR HGB CONC 32.4 g/dl (32.0-36.0); MEAN CORPUSCULAR VOLUME 97.4 fl (83.0-99.0); MEAN PLATELET VOLUME 9.6 fl (9.4-12.4); MONOCYTES ABSOLUTE AUTO 0.9 K/mm3 (0.0-0.8); MONOCYTES PERCENT AUTO 8.7 % (0.0-8.0); NEUTROPHILS ABSOLUTE AUTO 8.7 K/mm3 (1.8-7.7); NEUTROPHILS PERCENT AUTO 81.3 % (41.0-71.0); PLATELET COUNT,PLT 230 K/mm3 (150-400); RED BLOOD CELL COUNT 3.84 M/mm3 (4.52-5.90); WHITE BLOOD CELL COUNT,WBC 10.65 K/mm3 (3.9-11.3)
[2024-04-09 05:55] LABS: A/G RATIO 0.7 (1-2); ALBUMIN 2.3 g/dl (3.4-5.0); ANION GAP 9.5 (5-15); BILIRUBIN TOTAL 0.5 mg/dL (0.2-1.0); BUN/CREATININE RATIO 17.8 (14-18); CALCIUM 8.4 mg/dL (8.5-10.1); CREATININE 0.9 mg/dL (0.7-1.3); EST CRCL DRUG DOSING (CG) 82.24 mL/min; MAGNESIUM 1.7 mg/dL (1.8-2.4); PHOSPHORUS 2.8 mg/dL (2.6-4.7); POTASSIUM,K 4.5 mEq/L (3.5-5.1); PROTEIN TOTAL,TP 5.6 g/dl (6.4-8.2)
[2024-04-09] MEDS: Sodium Chloride 0.9% 500 ML IV ONE (06:51)
[2024-04-09] MEDS ORDERED: Diltiazem 25 MG/5 ML SDV IVPUSH ONE (07:31)
[2024-04-09] MEDS: Magnesium Sulfate/Water 2 GM in Premix Bag 1 BAG IV ONE (07:44)
[2024-04-09] MEDS: Diltiazem 25 MG/5 ML SDV IVPUSH ONE ×2 (08:24→12:09)
[2024-04-09] MEDS ORDERED: Non-Formulary Medication 1 Each (Tamsulosin Hcl 0.4 MG Capsule) PO SCH (09:00)
[2024-04-09] MEDS ORDERED: Metoprolol Tartrate 100 MG Tab PO SCH (09:00)
[2024-04-09] MEDS: atorvaSTATin 20 MG Tab PO SCH (09:13)
[2024-04-09] MEDS: Diltiazem IR 30 MG Tab PO SCH (10:01)
[2024-04-09] MEDS: Furosemide 20 MG/2 ML VIAL IVPUSH ONE ×2 (10:25→16:36)
[2024-04-09] MEDS: Diltiazem IR 60 MG Tab PO SCH (16:35)
[2024-04-09] MEDS: Diltiazem 125 MG in Sodium Chloride 0.9% 100 ML IV SCH (17:30)
[2024-04-09] MEDS: LORazepam 2 MG/ML SDV IVPUSH PRN (19:41)
[2024-04-09] MEDS: methylPREDNISolone Sodium Succinate 40 MG/1 ML SDV IVPUSH SCH (19:47)
[2024-04-09] MEDS: traZODone 50 MG Tab PO SCH (20:05)
[2024-04-09] MEDS: Formoterol/Mometasone 100-5 MCG 8.8 GM Inhaler INH SCH (20:38)
[2024-04-09] MEDS ORDERED: Formoterol/Mometasone 100-5 MCG 8.8 GM Inhaler INH SCH (21:00)
[2024-04-10] MEDS: Albuterol/Ipratropium 3.0-0.5 MG/3 ML Neb Soln NEB PRN (02:54)
[2024-04-10 04:31] LABS: BASOPHILS PERCENT AUTO 0.1 % (0.0-1.0); HEMATOCRIT 39.2 % (42.0-52.0); HEMOGLOBIN 12.5 gm/dl (14.0-18.0); IMMATURE GRAN ABSOLUTE AUTO 0.03 K/mm3 (0.00-0.05); IMMATURE GRAN PERCENT AUTO 0.4 % (0.0-0.4); LYMPHOCYTES ABSOLUTE AUTO 0.3 K/mm3 (1.0-4.8); MEAN CORPUSCULAR HEMOGLOBIN 31.6 pg (28.0-32.0); MEAN CORPUSCULAR HGB CONC 31.9 g/dl (32.0-36.0); MEAN CORPUSCULAR VOLUME 99.2 fl (83.0-99.0); MEAN PLATELET VOLUME 9.6 fl (9.4-12.4); MONOCYTES ABSOLUTE AUTO 0.2 K/mm3 (0.0-0.8); MONOCYTES PERCENT AUTO 2.1 % (0.0-8.0); NEUTROPHILS ABSOLUTE AUTO 7.4 K/mm3 (1.8-7.7); NEUTROPHILS PERCENT AUTO 93.4 % (41.0-71.0); PLATELET COUNT,PLT 243 K/mm3 (150-400); RED BLOOD CELL COUNT 3.95 M/mm3 (4.52-5.90); WHITE BLOOD CELL COUNT,WBC 7.96 K/mm3 (3.9-11.3)
[2024-04-10 04:55] LABS: A/G RATIO 0.6 (1-2); ALBUMIN 2.3 g/dl (3.4-5.0); ANION GAP 10.3 (5-15); BILIRUBIN TOTAL 0.4 mg/dL (0.2-1.0); BUN/CREATININE RATIO 18.3 (14-18); CALCIUM 8.5 mg/dL (8.5-10.1); CREATININE 1.2 mg/dL (0.7-1.3); EST CRCL DRUG DOSING (CG) 61.68 mL/min; POTASSIUM,K 5.3 mEq/L (3.5-5.1); PROTEIN TOTAL,TP 6.1 g/dl (6.4-8.2)
[2024-04-10] MEDS: Cefepime 2 GM in Sodium Chloride 0.9% 50 ML IV SCH (05:34)
[2024-04-10 05:40] LABS: BASE EXCESS ARTERIAL 0.2 (-2-2.0); BICARBONATE,ARTERIAL 27.9 meq/L (22.0-26.0); PCO2 ARTERIAL 62.5 mmHg (35.0-45.0)
[2024-04-10] MEDS: Tamsulosin 0.4 MG Cap.ER PO ONE ×2 (05:53→20:03)
[2024-04-10 06:01] LABS: SLIDE REVIEW ABNORMAL SMEAR
[2024-04-10] MEDS: Levofloxacin 750 MG Tab PO SCH (07:28)
[2024-04-10] MEDS: Lisinopril 20 MG Tab PO SCH (08:07)
[2024-04-10] MEDS: methylPREDNISolone Sodium Succinate 40 MG/1 ML SDV IVPUSH SCH (08:09)
[2024-04-10] MEDS: Furosemide 20 MG/2 ML VIAL IVPUSH SCH (08:09)
[2024-04-10] MEDS ORDERED: Doxycycline 100 MG in Sodium Chloride 0.9% 100 ML IV SCH (09:00)
[2024-04-10] MEDS ORDERED: atorvaSTATin 20 MG Tab PO SCH (09:00)
[2024-04-10] MEDS: Albuterol/Ipratropium 3.0-0.5 MG/3 ML Neb Soln ONE (10:55)
[2024-04-10] MEDS: Albuterol/Ipratropium 3.0-0.5 MG/3 ML Neb Soln NEB ONE (10:55)
[2024-04-10] MEDS: Insulin Lispro 100 Unit/ML 3 ML KwikPen SUBCUT ONE (11:57)
[2024-04-10] MEDS: Albuterol/Ipratropium 3.0-0.5 MG/3 ML Neb Soln NEB SCH (13:56)
[2024-04-10] MEDS: Insulin Lispro 100 Unit/ML 3 ML KwikPen SUBCUT SCH (17:34)
[2024-04-10] MEDS: oxyCODONE 5 MG Tab PO PRN (18:51)
[2024-04-10] MEDS: Insulin Glargine,Human Rec. Analog 100 Units/ML 3 ML Pen SUBCUT SCH (20:02)
[2024-04-10] MEDS: Vitamin B6-pyridOXINE 50 MG Tab PO SCH (20:03)
[2024-04-10] MEDS: Cyanocobalamin (Vitamin B12) 1,000 MCG Tab PO SCH (20:03)
[2024-04-10] MEDS: QUEtiapine 25 MG Tab PO SCH (20:03)
[2024-04-10] MEDS: Melatonin 3 MG Tab PO PRN (20:03)
[2024-04-10] MEDS ORDERED: QUEtiapine 25 MG Tab PO SCH (21:00)
[2024-04-10] MEDS: Acetaminophen 325 MG Tab PO PRN (21:16)
[2024-04-10] MEDS: Nicotine 21 MG/24 Hr Patch TRDERM SCH (21:16)
[2024-04-11] MEDS: Insulin Lispro 100 Unit/ML 3 ML KwikPen SUBCUT ONE ×2 (01:22→05:29)
[2024-04-11 04:35] LABS: HEMOGLOBIN 11.5 gm/dl (14.0-18.0); IMMATURE GRAN ABSOLUTE AUTO 0.02 K/mm3 (0.00-0.05); IMMATURE GRAN PERCENT AUTO 0.2 % (0.0-0.4); LYMPHOCYTES ABSOLUTE AUTO 0.3 K/mm3 (1.0-4.8); LYMPHOCYTES PERCENT AUTO 3.6 % (24.0-44.0); MEAN CORPUSCULAR HEMOGLOBIN 31.4 pg (28.0-32.0); MEAN CORPUSCULAR HGB CONC 31.9 g/dl (32.0-36.0); MEAN CORPUSCULAR VOLUME 98.4 fl (83.0-99.0); MEAN PLATELET VOLUME 9.8 fl (9.4-12.4); MONOCYTES ABSOLUTE AUTO 0.3 K/mm3 (0.0-0.8); MONOCYTES PERCENT AUTO 3.7 % (0.0-8.0); NEUTROPHILS ABSOLUTE AUTO 7.8 K/mm3 (1.8-7.7); NEUTROPHILS PERCENT AUTO 92.5 % (41.0-71.0); PLATELET COUNT,PLT 262 K/mm3 (150-400); RED BLOOD CELL COUNT 3.66 M/mm3 (4.52-5.90); WHITE BLOOD CELL COUNT,WBC 8.38 K/mm3 (3.9-11.3)
[2024-04-11 05:02] LABS: A/G RATIO 0.5 (1-2); ANION GAP 8.8 (5-15); BILIRUBIN TOTAL 0.2 mg/dL (0.2-1.0); BUN/CREATININE RATIO 30.6 (14-18); C-REACTIVE PROTEIN 16.87 mg/dL (<0.30); CALCIUM 8.4 mg/dL (8.5-10.1); CREATININE 1.7 mg/dL (0.7-1.3); EST CRCL DRUG DOSING (CG) 43.54 mL/min; POTASSIUM,K 4.8 mEq/L (3.5-5.1); PROTEIN TOTAL,TP 5.7 g/dl (6.4-8.2)
[2024-04-11 06:27] LABS: SLIDE REVIEW ABNORMAL SMEAR
[2024-04-11] MEDS: Cholecalciferol (Vitamin D3) 25 MCG Tab PO SCH (08:24)
[2024-04-11] MEDS: methylPREDNISolone Sodium Succinate 40 MG/1 ML SDV IVPUSH SCH (08:30)
[2024-04-11] MEDS ORDERED: Naloxone 0.4 MG/ML SDV IVPUSH PRN (09:17)
[2024-04-11] MEDS ORDERED: HYDROmorphone 0.5 MG/0.5 ML Syringe IVPUSH PRN (09:17)
[2024-04-11] MEDS: Folic Acid 1 MG Tab PO SCH (09:48)
[2024-04-11] MEDS: Diltiazem 240 MG Cap.ER PO SCH (10:34)
[2024-04-11] MEDS: Tamsulosin 0.4 MG Cap.ER PO SCH (10:34)
[2024-04-11 11:03] LABS: O2 SATURATION ARTERIAL 92.2 % (96.0-97.0); PCO2 ARTERIAL 56.6 mmHg (35.0-45.0)
[2024-04-11 11:04] LABS: BASE EXCESS ARTERIAL 2.6 (-2-2.0); BICARBONATE,ARTERIAL 29.1 meq/L (22.0-26.0)
[2024-04-11] MEDS: LORazepam 2 MG/ML SDV IVPUSH PRN (13:47)
[2024-04-11 18:23] VITALS: BP 130/80; PULSE 123
[2024-04-11] MEDS ORDERED: Diltiazem IR 30 MG Tab PO SCH (18:45)
[2024-04-12] MEDS ORDERED: Furosemide 20 MG Tab PO SCH (09:00)
== END 2024-04-11 19:45 | disposition left against medical advice (07) | DRG 308 ==
LOC: JD.ED 13:24 → JD.MS 19:15 → JD.ICU 04-09 14:32
PROVIDERS: ADMIT Student in an Organized Health Care Education/Training Program; ATTEND Student in an Organized Health Care Education/Training Program
PROC: 4A133R1 Monitoring of Arterial Saturation, Peripheral, Percutaneous Approach (ICD-10-PCS; principal; 2024-04-08)
PROC: 5A09357 Assistance with Respiratory Ventilation, Less than 24 Consecutive Hours, Continuous Positive Airway Pressure (ICD-10-PCS; 2024-04-10)
DX: I48.91 Unspecified atrial fibrillation (principal); J18.9 Pneumonia, unspecified organism; J96.21 Acute and chronic respiratory failure with hypoxia; J96.22 Acute and chronic respiratory failure with hypercapnia; F20.0 Paranoid schizophrenia; I48.4 Atypical atrial flutter; N17.9 Acute kidney failure, unspecified; I24.89 Other forms of acute ischemic heart disease; J44.1 Chronic obstructive pulmonary disease with (acute) exacerbation; I48.92 Unspecified atrial flutter; H54.7 Unspecified visual loss; I11.0 Hypertensive heart disease with heart failure; I50.9 Heart failure, unspecified; K21.9 Gastro-esophageal reflux disease without esophagitis; N40.0 Benign prostatic hyperplasia without lower urinary tract symptoms; F41.9 Anxiety disorder, unspecified; F32.A Depression, unspecified; E78.00 Pure hypercholesterolemia, unspecified; F17.210 Nicotine dependence, cigarettes, uncomplicated; F29 Unspecified psychosis not due to a substance or known physiological condition; G47.00 Insomnia, unspecified; I27.20 Pulmonary hypertension, unspecified; E11.65 Type 2 diabetes mellitus with hyperglycemia; E66.9 Obesity, unspecified; Z79.4 Long term (current) use of insulin; Z79.01 Long term (current) use of anticoagulants; Z79.51 Long term (current) use of inhaled steroids; Z79.52 Long term (current) use of systemic steroids; E11.9 Type 2 diabetes mellitus without complications; Z86.010 Personal history of colon polyps; Z68.28 Body mass index [BMI] 28.0-28.9, adult; Z85.118 Personal history of other malignant neoplasm of bronchus and lung; Z98.49 Cataract extraction status, unspecified eye; Z98.890 Other specified postprocedural states; Z88.8 Allergy status to other drugs, medicaments and biological substances; Z88.6 Allergy status to analgesic agent; Z79.899 Other long term (current) drug therapy; Z90.49 Acquired absence of other specified parts of digestive tract; Z68.29 Body mass index [BMI] 29.0-29.9, adult
CPT/HCPCS: 36415; 71045; 80053; 83735; 84443; 84484 ×2; 85025; 93005 ×2; 94640; 96361; 96374; 96375; 99285; A9270; C1758; J2060; J3490; J7030; 36600; 51798; 82803; 82947; 83880; 84100; 84145; 86140; 93010; 93306; 94660; 94761; 99223; 99233; 99238; J0692; J1815; J1815-GY; J1940; J2270; J2919; J3475; J7620-GY

== ENCOUNTER 2024-04-21 15:37 | Emergency (ER) | payer MEDICARE, MEDICAID ==
[2024-04-21 16:41] LABS: BASOPHILS PERCENT AUTO 0.2 % (0.0-1.0); EOSINOPHILS ABSOLUTE AUTO 0.1 K/mm3 (0.0-0.4); EOSINOPHILS PERCENT AUTO 0.8 % (0.0-6.0); HEMATOCRIT 37.6 % (42.0-52.0); HEMOGLOBIN 12.1 gm/dl (14.0-18.0); IMMATURE GRAN ABSOLUTE AUTO 0.06 K/mm3 (0.00-0.05); IMMATURE GRAN PERCENT AUTO 0.5 % (0.0-0.4); LYMPHOCYTES ABSOLUTE AUTO 2.6 K/mm3 (1.0-4.8); LYMPHOCYTES PERCENT AUTO 22.1 % (24.0-44.0); MEAN CORPUSCULAR HEMOGLOBIN 31.2 pg (28.0-32.0); MEAN CORPUSCULAR HGB CONC 32.2 g/dl (32.0-36.0); MEAN CORPUSCULAR VOLUME 96.9 fl (83.0-99.0); MEAN PLATELET VOLUME 9.2 fl (9.4-12.4); MONOCYTES ABSOLUTE AUTO 0.9 K/mm3 (0.0-0.8); MONOCYTES PERCENT AUTO 7.8 % (0.0-8.0); NEUTROPHILS PERCENT AUTO 68.6 % (41.0-71.0); PLATELET COUNT,PLT 327 K/mm3 (150-400); RED BLOOD CELL COUNT 3.88 M/mm3 (4.52-5.90); WHITE BLOOD CELL COUNT,WBC 11.61 K/mm3 (3.9-11.3)
[2024-04-21] MEDS: Diltiazem 25 MG/5 ML SDV IVPUSH ONE (16:50)
[2024-04-21 17:21] LABS: A/G RATIO 0.8 (1-2); ALBUMIN 2.6 g/dl (3.4-5.0); ANION GAP 10.9 (5-15); BILIRUBIN TOTAL 0.3 mg/dL (0.2-1.0); BUN/CREATININE RATIO 21.7 (14-18); CALCIUM 9.1 mg/dL (8.5-10.1); CREATININE 1.2 mg/dL (0.7-1.3); EST CRCL DRUG DOSING (CG) 61.68 mL/min; MAGNESIUM 1.6 mg/dL (1.8-2.4); POTASSIUM,K 3.9 mEq/L (3.5-5.1); PROTEIN TOTAL,TP 5.9 g/dl (6.4-8.2); TSH 1.818 uIU/mL (0.358-3.74)
[2024-04-21] MEDS ORDERED: Diltiazem 125 MG in Sodium Chloride 0.9% 100 ML IV SCH (18:15)
[2024-04-21 18:17] LABS: APPEARANCE,URINE CLEAR (Clear); BILIRUBIN,URINE NEGATIVE (Negative); COLOR,URINE YELLOW (Yellow); GLUCOSE,URINE NEGATIVE (Negative); KETONES,URINE NEGATIVE (Negative); LEUKOCYTE ESTERASE,URINE NEGATIVE (Negative); NITRITE,URINE NEGATIVE (Negative); OCCULT BLOOD,URINE NEGATIVE (Negative); PROTEIN,URINE 2+ (Negative); UROBILINOGEN,URINE 0.2 (0.2-1.0)
[2024-04-21 18:23] LABS: BARBITURATE SCREEN,URINE NEGATIVE (CUTOFF=200); BENZODIAZEPINES SCREEN,URINE NEGATIVE (CUTOFF=150); BUPRENORPHINE SCREEN,URINE NEGATIVE (CUTOFF=10); METHADONE SCREEN, URINE NEGATIVE (CUT0FF=200); METHAMPHETAMINES SCREEN, URINE PRESUMPTIVE POSITIVE (CUTOFF=500); OXYCODONE SCREEN,URINE NEGATIVE (CUT0FF=100); THC SCREEN,URINE 20 NG/ML NEGATIVE (CUTOFF=50)
[2024-04-21 18:49] LABS: AMPHETAMINES SCREEN, URINE PRESUMPTIVE POSITIVE (CUTOFF=500)
[2024-04-21 18:53] LABS: BACTERIA,URINE OCCASIONAL /hpf (FEW); MUCUS,URINE FEW /hpf (FEW); RBC,URINE 0-5 /hpf (0-5); SQUAMOUS EPITHELIAL CELLS,UR NOT SEEN /hpf (0-5); WBC,URINE 0-5 /hpf (0-5)
[2024-04-21] MEDS: Diltiazem IR 30 MG Tab PO ONE (20:08)
[2024-04-21 20:18] VITALS: BP 112/92; PULSE 99
== END 2024-04-21 20:16 | disposition home or self-care (01) ==
LOC: JD.ED 15:37
DX: J41.8 Mixed simple and mucopurulent chronic bronchitis (principal); I48.92 Unspecified atrial flutter; I11.0 Hypertensive heart disease with heart failure; I50.9 Heart failure, unspecified; I48.91 Unspecified atrial fibrillation; E78.00 Pure hypercholesterolemia, unspecified; E11.9 Type 2 diabetes mellitus without complications; E66.9 Obesity, unspecified; F17.210 Nicotine dependence, cigarettes, uncomplicated; Z90.49 Acquired absence of other specified parts of digestive tract; Z79.01 Long term (current) use of anticoagulants; Z79.4 Long term (current) use of insulin; Z79.899 Other long term (current) drug therapy; Z88.8 Allergy status to other drugs, medicaments and biological substances; Z88.1 Allergy status to other antibiotic agents; Z88.6 Allergy status to analgesic agent; Z88.5 Allergy status to narcotic agent; Z68.28 Body mass index [BMI] 28.0-28.9, adult
CPT/HCPCS: 36415; 71045; 80053; 80162; 80306; 81001; 83735; 83880; 84443; 84484; 85025; 93005; 96365; 96375; 99285; A9270; J3475; J3490; 93010; 99284

== ENCOUNTER 2024-04-25 04:54 | Emergency (ER) | payer MEDICARE, MEDICAID ==
[2024-04-25] MEDS: Diltiazem 25 MG/5 ML SDV IVPUSH ONE (05:48)
[2024-04-25 05:56] LABS: BASOPHILS PERCENT AUTO 0.5 % (0.0-1.0); EOSINOPHILS ABSOLUTE AUTO 0.1 K/mm3 (0.0-0.4); EOSINOPHILS PERCENT AUTO 1.2 % (0.0-6.0); HEMATOCRIT 39.8 % (42.0-52.0); HEMOGLOBIN 12.7 gm/dl (14.0-18.0); IMMATURE GRAN ABSOLUTE AUTO 0.04 K/mm3 (0.00-0.05); IMMATURE GRAN PERCENT AUTO 0.5 % (0.0-0.4); LYMPHOCYTES ABSOLUTE AUTO 1.5 K/mm3 (1.0-4.8); LYMPHOCYTES PERCENT AUTO 16.9 % (24.0-44.0); MEAN CORPUSCULAR HEMOGLOBIN 31.2 pg (28.0-32.0); MEAN CORPUSCULAR HGB CONC 31.9 g/dl (32.0-36.0); MEAN CORPUSCULAR VOLUME 97.8 fl (83.0-99.0); MEAN PLATELET VOLUME 9.5 fl (9.4-12.4); MONOCYTES ABSOLUTE AUTO 0.8 K/mm3 (0.0-0.8); MONOCYTES PERCENT AUTO 8.9 % (0.0-8.0); NEUTROPHILS ABSOLUTE AUTO 6.2 K/mm3 (1.8-7.7); PLATELET COUNT,PLT 329 K/mm3 (150-400); RED BLOOD CELL COUNT 4.07 M/mm3 (4.52-5.90); WHITE BLOOD CELL COUNT,WBC 8.65 K/mm3 (3.9-11.3)
[2024-04-25] MEDS: Sodium Chloride 0.9% 10 ML Syringe FLUSH PRN (06:00)
[2024-04-25 06:03] LABS: APPEARANCE,URINE CLEAR (Clear); BILIRUBIN,URINE NEGATIVE (Negative); COLOR,URINE YELLOW (Yellow); GLUCOSE,URINE NEGATIVE (Negative); KETONES,URINE NEGATIVE (Negative); LEUKOCYTE ESTERASE,URINE NEGATIVE (Negative); NITRITE,URINE NEGATIVE (Negative); OCCULT BLOOD,URINE TRACE-INTACT (Negative); PROTEIN,URINE 2+ (Negative); UROBILINOGEN,URINE 0.2 (0.2-1.0)
[2024-04-25 06:10] LABS: LACTIC ACID 0.8 mmol/L (0.4-2.0)
[2024-04-25 06:17] LABS: A/G RATIO 0.8 (1-2); ALBUMIN 3.1 g/dl (3.4-5.0); ANION GAP 9.2 (5-15); BILIRUBIN TOTAL 0.5 mg/dL (0.2-1.0); BUN/CREATININE RATIO 18.3 (14-18); CALCIUM 9.2 mg/dL (8.5-10.1); CREATININE 1.2 mg/dL (0.7-1.3); EST CRCL DRUG DOSING (CG) 61.68 mL/min; POTASSIUM,K 4.2 mEq/L (3.5-5.1); PROTEIN TOTAL,TP 6.8 g/dl (6.4-8.2)
[2024-04-25 06:22] LABS: BACTERIA,URINE RARE /hpf (FEW); EPITHELIAL CELLS,URINE 0-5 /hpf (0-5); MUCUS,URINE RARE /hpf (FEW); RBC,URINE 0-5 /hpf (0-5); WBC,URINE 0-5 /hpf (0-5)
[2024-04-25 06:36] LABS: CORONAVIRUS COVID-19 NAA NEGATIVE (NEGATIVE); INFLUENZA A NAA NEGATIVE (NEGATIVE); RESPIRATORY SYNCYTIAL VIR NAA NEGATIVE (NEGATIVE)
[2024-04-25 07:31] LABS: DIGOXIN 0.5 ng/mL (0.9-2.0); MAGNESIUM 1.9 mg/dL (1.8-2.4)
[2024-04-25] MEDS: Albuterol/Ipratropium 3.0-0.5 MG/3 ML Neb Soln NEB ONE (07:31)
[2024-04-25] MEDS: Diltiazem 125 MG in Sodium Chloride 0.9% 100 ML IV SCH (07:58)
[2024-04-25] MEDS: LORazepam 2 MG/ML SDV IVPUSH ONE (10:33)
[2024-04-25] MEDS: Diltiazem IR 30 MG Tab PO ONE (14:14)
[2024-04-25 14:20] VITALS: BP 115/63; PULSE 94
== END 2024-04-25 14:32 | disposition left against medical advice (07) ==
LOC: JD.ED 04:54
DX: I48.92 Unspecified atrial flutter (principal); R06.02 Shortness of breath; R79.89 Other specified abnormal findings of blood chemistry; R91.1 Solitary pulmonary nodule; E11.65 Type 2 diabetes mellitus with hyperglycemia; I11.0 Hypertensive heart disease with heart failure; I50.9 Heart failure, unspecified; E78.00 Pure hypercholesterolemia, unspecified; J44.9 Chronic obstructive pulmonary disease, unspecified; E66.9 Obesity, unspecified; F17.210 Nicotine dependence, cigarettes, uncomplicated; Z79.899 Other long term (current) drug therapy; Z79.4 Long term (current) use of insulin; Z79.01 Long term (current) use of anticoagulants; Z88.1 Allergy status to other antibiotic agents; Z88.5 Allergy status to narcotic agent; Z88.6 Allergy status to analgesic agent; Z88.8 Allergy status to other drugs, medicaments and biological substances; Z68.28 Body mass index [BMI] 28.0-28.9, adult
CPT/HCPCS: 0241U; 36415; 71045; 80053; 80162; 81001; 83605; 83735; 83880; 84484; 85025; 87040; 93005; 94640; 96365; 96366; 96375; 96376; 99285; A9270; J2060; J3490; 93010; J7620-GY

== ENCOUNTER 2024-04-27 16:42 | Emergency (ER) | payer MEDICARE, MEDICAID ==
[2024-04-27 17:02] LABS: BASOPHILS ABSOLUTE AUTO 0.1 K/mm3 (0.0-0.2); BASOPHILS PERCENT AUTO 0.7 % (0.0-1.0); EOSINOPHILS ABSOLUTE AUTO 0.1 K/mm3 (0.0-0.4); EOSINOPHILS PERCENT AUTO 1.3 % (0.0-6.0); HEMATOCRIT 38.3 % (42.0-52.0); HEMOGLOBIN 12.4 gm/dl (14.0-18.0); IMMATURE GRAN ABSOLUTE AUTO 0.01 K/mm3 (0.00-0.05); IMMATURE GRAN PERCENT AUTO 0.1 % (0.0-0.4); LYMPHOCYTES ABSOLUTE AUTO 1.3 K/mm3 (1.0-4.8); LYMPHOCYTES PERCENT AUTO 18.5 % (24.0-44.0); MEAN CORPUSCULAR HEMOGLOBIN 31.6 pg (28.0-32.0); MEAN CORPUSCULAR HGB CONC 32.4 g/dl (32.0-36.0); MEAN CORPUSCULAR VOLUME 97.5 fl (83.0-99.0); MEAN PLATELET VOLUME 9.2 fl (9.4-12.4); MONOCYTES ABSOLUTE AUTO 0.7 K/mm3 (0.0-0.8); MONOCYTES PERCENT AUTO 9.5 % (0.0-8.0); NEUTROPHILS ABSOLUTE AUTO 4.9 K/mm3 (1.8-7.7); NEUTROPHILS PERCENT AUTO 69.9 % (41.0-71.0); PLATELET COUNT,PLT 328 K/mm3 (150-400); RED BLOOD CELL COUNT 3.93 M/mm3 (4.52-5.90); WHITE BLOOD CELL COUNT,WBC 7.07 K/mm3 (3.9-11.3)
[2024-04-27] MEDS: Albuterol/Ipratropium 3.0-0.5 MG/3 ML Neb Soln NEB ONE (17:25)
[2024-04-27] MEDS: methylPREDNISolone Sodium Succinate 125 MG/2 ML SDV IVPUSH ONE (17:26)
[2024-04-27 17:28] LABS: A/G RATIO 0.8 (1-2); ALBUMIN 2.8 g/dl (3.4-5.0); BILIRUBIN TOTAL 0.3 mg/dL (0.2-1.0); BUN/CREATININE RATIO 18.3 (14-18); C-REACTIVE PROTEIN 1.38 mg/dL (<0.30); CALCIUM 9.3 mg/dL (8.5-10.1); CREATININE 1.2 mg/dL (0.7-1.3); EST CRCL DRUG DOSING (CG) 61.68 mL/min; PROTEIN TOTAL,TP 6.4 g/dl (6.4-8.2)
[2024-04-27] MEDS: Sodium Chloride 0.9% 10 ML Syringe FLUSH PRN (17:28)
[2024-04-27] MEDS: Diltiazem 25 MG/5 ML SDV IVPUSH ONE ×2 (17:43→20:05)
[2024-04-27] MEDS ORDERED: Diltiazem 125 MG in Sodium Chloride 0.9% 100 ML IV SCH (17:45)
[2024-04-27] MEDS: LORazepam 2 MG/ML SDV IVPUSH ONE (18:19)
[2024-04-27] MEDS: Diltiazem IR 30 MG Tab PO ONE (20:23)
[2024-04-27 21:00] VITALS: BP 123/58; PULSE 111
== END 2024-04-27 20:57 | disposition home or self-care (01) ==
LOC: JD.ED 16:42
DX: J44.1 Chronic obstructive pulmonary disease with (acute) exacerbation (principal); I48.4 Atypical atrial flutter; E78.00 Pure hypercholesterolemia, unspecified; E11.9 Type 2 diabetes mellitus without complications; F17.210 Nicotine dependence, cigarettes, uncomplicated; Z88.1 Allergy status to other antibiotic agents; Z88.8 Allergy status to other drugs, medicaments and biological substances; Z79.899 Other long term (current) drug therapy; Z79.01 Long term (current) use of anticoagulants; Z79.4 Long term (current) use of insulin
CPT/HCPCS: 36415; 71045; 71250; 80053; 83735; 84484; 85025; 86140; 93005; 96374; 96375; 96376; 99285; A9270; J2060; J2919; J3490; J7620-GY

== ENCOUNTER 2024-05-21 12:45 | Emergency (ER) | payer MEDICARE, MEDICAID ==
[2024-05-21] MEDS: Albuterol/Ipratropium 3.0-0.5 MG/3 ML Neb Soln NEB SCH (13:40)
[2024-05-21 13:51] LABS: BASOPHILS PERCENT AUTO 0.7 % (0.0-1.0); EOSINOPHILS ABSOLUTE AUTO 0.1 K/mm3 (0.0-0.4); EOSINOPHILS PERCENT AUTO 1.2 % (0.0-6.0); HEMATOCRIT 39.6 % (42.0-52.0); HEMOGLOBIN 12.4 gm/dl (14.0-18.0); IMMATURE GRAN ABSOLUTE AUTO 0.02 K/mm3 (0.00-0.05); IMMATURE GRAN PERCENT AUTO 0.3 % (0.0-0.4); LYMPHOCYTES ABSOLUTE AUTO 1.1 K/mm3 (1.0-4.8); LYMPHOCYTES PERCENT AUTO 18.9 % (24.0-44.0); MEAN CORPUSCULAR HEMOGLOBIN 30.9 pg (28.0-32.0); MEAN CORPUSCULAR HGB CONC 31.3 g/dl (32.0-36.0); MEAN CORPUSCULAR VOLUME 98.8 fl (83.0-99.0); MEAN PLATELET VOLUME 8.9 fl (9.4-12.4); MONOCYTES ABSOLUTE AUTO 0.6 K/mm3 (0.0-0.8); MONOCYTES PERCENT AUTO 9.3 % (0.0-8.0); NEUTROPHILS ABSOLUTE AUTO 4.2 K/mm3 (1.8-7.7); NEUTROPHILS PERCENT AUTO 69.6 % (41.0-71.0); PLATELET COUNT,PLT 364 K/mm3 (150-400); RED BLOOD CELL COUNT 4.01 M/mm3 (4.52-5.90); WHITE BLOOD CELL COUNT,WBC 6.04 K/mm3 (3.9-11.3)
[2024-05-21] MEDS: methylPREDNISolone Sodium Succinate 125 MG/2 ML SDV IVPUSH ONE (14:13)
[2024-05-21] MEDS: Sodium Chloride 0.9% 10 ML Syringe FLUSH PRN (14:16)
[2024-05-21 14:31] LABS: A/G RATIO 0.6 (1-2); ALBUMIN 2.5 g/dl (3.4-5.0); ANION GAP 5.8 (5-15); BILIRUBIN TOTAL 0.2 mg/dL (0.2-1.0); CALCIUM 9.4 mg/dL (8.5-10.1); EST CRCL DRUG DOSING (CG) 74.01 mL/min; POTASSIUM,K 4.8 mEq/L (3.5-5.1); PROTEIN TOTAL,TP 6.4 g/dl (6.4-8.2)
[2024-05-21 15:44] VITALS: BP 154/69; PULSE 116
== END 2024-05-21 15:40 | disposition left against medical advice (07) ==
LOC: JD.ED 12:45
DX: J44.1 Chronic obstructive pulmonary disease with (acute) exacerbation (principal); I48.4 Atypical atrial flutter; E11.65 Type 2 diabetes mellitus with hyperglycemia; R79.89 Other specified abnormal findings of blood chemistry; I11.0 Hypertensive heart disease with heart failure; I50.9 Heart failure, unspecified; I48.91 Unspecified atrial fibrillation; E78.00 Pure hypercholesterolemia, unspecified; E66.9 Obesity, unspecified; Z90.49 Acquired absence of other specified parts of digestive tract; Z79.899 Other long term (current) drug therapy; Z79.4 Long term (current) use of insulin; Z79.01 Long term (current) use of anticoagulants; Z88.1 Allergy status to other antibiotic agents; Z88.6 Allergy status to analgesic agent; Z88.5 Allergy status to narcotic agent; Z88.8 Allergy status to other drugs, medicaments and biological substances; Z68.28 Body mass index [BMI] 28.0-28.9, adult; Z53.20 Procedure and treatment not carried out because of patient's decision for unspecified reasons
CPT/HCPCS: 36415; 71045; 80053; 83880; 84484; 85025; 93005; 94640; 96374; 99285; J2919; J3490; J7620-GY

== ENCOUNTER 2024-05-25 16:38 | Emergency (ER) | payer MEDICARE, MEDICAID ==
[2024-05-25 17:19] LABS: BASOPHILS PERCENT AUTO 0.2 % (0.0-1.0); HEMATOCRIT 37.2 % (42.0-52.0); HEMOGLOBIN 12.2 gm/dl (14.0-18.0); IMMATURE GRAN ABSOLUTE AUTO 0.05 K/mm3 (0.00-0.05); IMMATURE GRAN PERCENT AUTO 0.9 % (0.0-0.4); LYMPHOCYTES ABSOLUTE AUTO 0.3 K/mm3 (1.0-4.8); LYMPHOCYTES PERCENT AUTO 5.5 % (24.0-44.0); MEAN CORPUSCULAR HEMOGLOBIN 31.1 pg (28.0-32.0); MEAN CORPUSCULAR HGB CONC 32.8 g/dl (32.0-36.0); MEAN PLATELET VOLUME 9.4 fl (9.4-12.4); MONOCYTES ABSOLUTE AUTO 0.1 K/mm3 (0.0-0.8); MONOCYTES PERCENT AUTO 2.4 % (0.0-8.0); NEUTROPHILS ABSOLUTE AUTO 5.3 K/mm3 (1.8-7.7); PLATELET COUNT,PLT 423 K/mm3 (150-400); RED BLOOD CELL COUNT 3.92 M/mm3 (4.52-5.90); WHITE BLOOD CELL COUNT,WBC 5.82 K/mm3 (3.9-11.3)
[2024-05-25] MEDS: Albuterol/Ipratropium 3.0-0.5 MG/3 ML Neb Soln NEB ONE ×2 (17:25→19:44)
[2024-05-25 17:37] LABS: MEAN CORPUSCULAR VOLUME 94.9 fl (83.0-99.0)
[2024-05-25 17:38] LABS: A/G RATIO 0.7 (1-2); ALBUMIN 2.6 g/dl (3.4-5.0); ANION GAP 11.6 (5-15); BILIRUBIN TOTAL 0.3 mg/dL (0.2-1.0); BUN/CREATININE RATIO 22.7 (14-18); CALCIUM 9.5 mg/dL (8.5-10.1); CREATININE 1.5 mg/dL (0.7-1.3); EST CRCL DRUG DOSING (CG) 49.34 mL/min; POTASSIUM,K 4.6 mEq/L (3.5-5.1); PROTEIN TOTAL,TP 6.1 g/dl (6.4-8.2)
[2024-05-25] MEDS: Sodium Chloride 0.9% 1,000 ML IV ONE (17:52)
[2024-05-25] MEDS: Diltiazem 25 MG/5 ML SDV IVPUSH ONE (17:53)
[2024-05-25 18:39] LABS: SLIDE REVIEW ABNORMAL SMEAR
[2024-05-25 18:56] LABS: LACTIC ACID 2.2 mmol/L (0.4-2.0)
[2024-05-25] MEDS: Insulin Regular, Human 100 Units/ML 10 ML Vial SUBCUT ONE (19:09)
[2024-05-25 19:21] LABS: CORONAVIRUS COVID-19 NAA NEGATIVE (NEGATIVE); INFLUENZA A NAA NEGATIVE (NEGATIVE); RESPIRATORY SYNCYTIAL VIR NAA NEGATIVE (NEGATIVE)
[2024-05-25] MEDS: LORazepam 2 MG/ML SDV IVPUSH ONE (20:35)
[2024-05-25 21:01] VITALS: BP 142/67; PULSE 101
== END 2024-05-25 20:59 | disposition home or self-care (01) ==
LOC: JD.ED 16:38
DX: R06.00 Dyspnea, unspecified (principal); E11.65 Type 2 diabetes mellitus with hyperglycemia; I11.0 Hypertensive heart disease with heart failure; I50.9 Heart failure, unspecified; E78.00 Pure hypercholesterolemia, unspecified; I48.91 Unspecified atrial fibrillation; E66.9 Obesity, unspecified; Z90.49 Acquired absence of other specified parts of digestive tract; Z79.01 Long term (current) use of anticoagulants; Z79.899 Other long term (current) drug therapy; Z79.4 Long term (current) use of insulin; Z88.5 Allergy status to narcotic agent; Z88.1 Allergy status to other antibiotic agents; Z88.8 Allergy status to other drugs, medicaments and biological substances; Z68.28 Body mass index [BMI] 28.0-28.9, adult
CPT/HCPCS: 0241U; 36415; 71045; 71045-26; 80053; 82947; 83605; 83880; 83930; 84484; 85025; 93005; 93010; 94640; 96361; 96374; 96375; 99284; 99285-25; J1815-GY; J2060; J3490; J7030; J7620-GY

== ENCOUNTER 2024-05-28 14:15 | Emergency (ER) | payer MEDICARE, MEDICAID ==
[2024-05-28] MEDS: Sodium Chloride 0.9% 10 ML Syringe FLUSH PRN (14:54)
[2024-05-28] MEDS: methylPREDNISolone Sodium Succinate 40 MG/1 ML SDV IVPUSH ONE (14:54)
[2024-05-28 14:58] LABS: BASOPHILS PERCENT AUTO 0.4 % (0.0-1.0); EOSINOPHILS ABSOLUTE AUTO 0.2 K/mm3 (0.0-0.4); EOSINOPHILS PERCENT AUTO 2.8 % (0.0-6.0); HEMATOCRIT 41.1 % (42.0-52.0); IMMATURE GRAN ABSOLUTE AUTO 0.05 K/mm3 (0.00-0.05); IMMATURE GRAN PERCENT AUTO 0.6 % (0.0-0.4); LYMPHOCYTES ABSOLUTE AUTO 2.2 K/mm3 (1.0-4.8); LYMPHOCYTES PERCENT AUTO 26.2 % (24.0-44.0); MEAN CORPUSCULAR HGB CONC 31.6 g/dl (32.0-36.0); MEAN CORPUSCULAR VOLUME 98.1 fl (83.0-99.0); MONOCYTES ABSOLUTE AUTO 0.8 K/mm3 (0.0-0.8); MONOCYTES PERCENT AUTO 9.2 % (0.0-8.0); NEUTROPHILS PERCENT AUTO 60.8 % (41.0-71.0); PLATELET COUNT,PLT 451 K/mm3 (150-400); RED BLOOD CELL COUNT 4.19 M/mm3 (4.52-5.90); WHITE BLOOD CELL COUNT,WBC 8.25 K/mm3 (3.9-11.3)
[2024-05-28] MEDS: Albuterol/Ipratropium 3.0-0.5 MG/3 ML Neb Soln NEB ONE (14:59)
[2024-05-28 15:18] LABS: A/G RATIO 0.8 (1-2); ALANINE AMINOTRANSFERASE,ALT 30 U/L (16-63); ALBUMIN 2.9 g/dl (3.4-5.0); ALKALINE PHOSPHATASE 132 U/L (46-116); ANION GAP 2.7 (5-15); ASPARTATE AMNIOTRANSFERASE,AST 21 U/L (15-37); BILIRUBIN TOTAL 0.3 mg/dL (0.2-1.0); BLOOD UREA NITROGEN,BUN 22 mg/dL (7-18); CALCIUM 9.7 mg/dL (8.5-10.1); CHLORIDE,CL 97 mEq/L (98-107); CREATININE 1.1 mg/dL (0.7-1.3); ESTIMATED GFR 74 mL/min (>60); GLUCOSE RANDOM 146 mg/dL (70-99); MAGNESIUM 1.9 mg/dL (1.8-2.4); POTASSIUM,K 4.7 mEq/L (3.5-5.1); PROTEIN TOTAL,TP 6.5 g/dl (6.4-8.2); SODIUM,NA 136 mEq/L (136-145)
[2024-05-28 15:19] LABS: CARBON DIOXIDE,CO2 41 mEq/L (21-32); TROPONIN I HIGH SENSITIVITY 178 pg/mL (<=76)
[2024-05-28 15:40] LABS: BASE EXCESS ARTERIAL 11.6 (-2-2.0); BICARBONATE,ARTERIAL 39.3 meq/L (22.0-26.0); O2 SATURATION ARTERIAL 91.8 % (96.0-97.0); PCO2 ARTERIAL 69.6 mmHg (35.0-45.0)
[2024-05-28 16:18] VITALS: BP 123/85; PULSE 111
== END 2024-05-28 16:50 | disposition home or self-care (01) ==
LOC: JD.ED 14:15
DX: J44.1 Chronic obstructive pulmonary disease with (acute) exacerbation (principal); I48.92 Unspecified atrial flutter; F17.210 Nicotine dependence, cigarettes, uncomplicated; E11.9 Type 2 diabetes mellitus without complications; E66.9 Obesity, unspecified; I48.91 Unspecified atrial fibrillation; I11.0 Hypertensive heart disease with heart failure; I50.9 Heart failure, unspecified; E78.00 Pure hypercholesterolemia, unspecified; Z79.01 Long term (current) use of anticoagulants; Z79.899 Other long term (current) drug therapy; Z88.8 Allergy status to other drugs, medicaments and biological substances; Z88.1 Allergy status to other antibiotic agents
CPT/HCPCS: 36415; 36600; 71045; 80053; 82803; 83735; 83880; 84484; 85025; 93005; 94640; 96374; 99285; J2919; J3490; 93010; 99284; J7620-GY

== ENCOUNTER 2024-06-05 13:44 | Emergency (ER) | payer MEDICARE, MEDICAID ==
[2024-06-05 13:59] VITALS: BP 186/139; PULSE 104
[2024-06-05] MEDS ORDERED: Sodium Chloride 0.9% 10 ML Syringe FLUSH PRN (14:13)
[2024-06-05] MEDS ORDERED: cefTRIAXone 2 GM in Sodium Chloride 0.9% 100 ML IV ONE (14:15)
[2024-06-05] MEDS ORDERED: methylPREDNISolone Sodium Succinate 125 MG/2 ML SDV IVPUSH ONE (14:15)
[2024-06-05] MEDS: Albuterol/Ipratropium 3.0-0.5 MG/3 ML Neb Soln NEB ONE (14:26)
== END 2024-06-05 14:40 | disposition left against medical advice (07) ==
LOC: JD.ED 13:44
DX: J44.1 Chronic obstructive pulmonary disease with (acute) exacerbation (principal); I11.0 Hypertensive heart disease with heart failure; I50.9 Heart failure, unspecified; I48.91 Unspecified atrial fibrillation; E78.00 Pure hypercholesterolemia, unspecified; J44.9 Chronic obstructive pulmonary disease, unspecified; E11.9 Type 2 diabetes mellitus without complications; E66.9 Obesity, unspecified; Z68.36 Body mass index [BMI] 36.0-36.9, adult; Z86.16 Personal history of COVID-19; F17.210 Nicotine dependence, cigarettes, uncomplicated; Z79.4 Long term (current) use of insulin; Z79.899 Other long term (current) drug therapy; Z88.2 Allergy status to sulfonamides; Z88.6 Allergy status to analgesic agent; Z88.1 Allergy status to other antibiotic agents; Z88.3 Allergy status to other anti-infective agents
CPT/HCPCS: 71045; 71045-26; 93005; 94640; 99285; J7620-GY

== ENCOUNTER 2024-06-08 14:53 | Emergency (ER) | payer MEDICARE, MEDICAID ==
[2024-06-08 15:35] LABS: BASOPHILS PERCENT AUTO 0.1 % (0.0-1.0); HEMATOCRIT 41.2 % (42.0-52.0); HEMOGLOBIN 12.9 gm/dl (14.0-18.0); IMMATURE GRAN ABSOLUTE AUTO 0.02 K/mm3 (0.00-0.05); IMMATURE GRAN PERCENT AUTO 0.2 % (0.0-0.4); LYMPHOCYTES ABSOLUTE AUTO 0.3 K/mm3 (1.0-4.8); MEAN CORPUSCULAR HEMOGLOBIN 30.9 pg (28.0-32.0); MEAN CORPUSCULAR HGB CONC 31.3 g/dl (32.0-36.0); MEAN CORPUSCULAR VOLUME 98.6 fl (83.0-99.0); MEAN PLATELET VOLUME 9.4 fl (9.4-12.4); MONOCYTES ABSOLUTE AUTO 0.1 K/mm3 (0.0-0.8); MONOCYTES PERCENT AUTO 1.5 % (0.0-8.0); NEUTROPHILS ABSOLUTE AUTO 8.1 K/mm3 (1.8-7.7); NEUTROPHILS PERCENT AUTO 95.2 % (41.0-71.0); PLATELET COUNT,PLT 303 K/mm3 (150-400); RED BLOOD CELL COUNT 4.18 M/mm3 (4.52-5.90); WHITE BLOOD CELL COUNT,WBC 8.47 K/mm3 (3.9-11.3)
[2024-06-08 15:54] LABS: A/G RATIO 0.7 (1-2); ALBUMIN 2.7 g/dl (3.4-5.0); ANION GAP 6.3 (5-15); BILIRUBIN TOTAL 0.2 mg/dL (0.2-1.0); C-REACTIVE PROTEIN 7.64 mg/dL (<0.30); CALCIUM 9.5 mg/dL (8.5-10.1); CREATININE 1.1 mg/dL (0.7-1.3); EST CRCL DRUG DOSING (CG) 67.29 mL/min; MAGNESIUM 2.3 mg/dL (1.8-2.4); POTASSIUM,K 5.3 mEq/L (3.5-5.1); PROTEIN TOTAL,TP 6.8 g/dl (6.4-8.2)
[2024-06-08] MEDS: LORazepam 2 MG/ML SDV IVPUSH ONE (15:57)
[2024-06-08] MEDS: methylPREDNISolone Sodium Succinate 125 MG/2 ML SDV IVPUSH ONE (15:58)
[2024-06-08] MEDS: Diltiazem 25 MG/5 ML SDV IVPUSH ONE (16:00)
[2024-06-08] MEDS: Sodium Chloride 0.9% 10 ML Syringe FLUSH PRN (16:01)
[2024-06-08] MEDS: Albuterol/Ipratropium 3.0-0.5 MG/3 ML Neb Soln NEB ONE (17:09)
[2024-06-08 18:34] LABS: BARBITURATE SCREEN,URINE NEGATIVE (CUTOFF=200); BENZODIAZEPINES SCREEN,URINE NEGATIVE (CUTOFF=150); BUPRENORPHINE SCREEN,URINE NEGATIVE (CUTOFF=10); METHADONE SCREEN, URINE NEGATIVE (CUT0FF=200); METHAMPHETAMINES SCREEN, URINE PRESUMPTIVE POSITIVE (CUTOFF=500); OXYCODONE SCREEN,URINE NEGATIVE (CUT0FF=100); THC SCREEN,URINE 20 NG/ML NEGATIVE (CUTOFF=50)
[2024-06-08 18:39] LABS: AMPHETAMINES SCREEN, URINE PRESUMPTIVE POSITIVE (CUTOFF=500)
[2024-06-08 20:12] VITALS: BP 130/78; PULSE 120
== END 2024-06-08 19:55 | disposition home or self-care (01) ==
LOC: JD.ED 14:53
DX: J44.1 Chronic obstructive pulmonary disease with (acute) exacerbation (principal); I48.91 Unspecified atrial fibrillation; I11.0 Hypertensive heart disease with heart failure; I50.9 Heart failure, unspecified; E78.00 Pure hypercholesterolemia, unspecified; E11.9 Type 2 diabetes mellitus without complications; E66.9 Obesity, unspecified; Z68.28 Body mass index [BMI] 28.0-28.9, adult; Z86.16 Personal history of COVID-19; Z90.49 Acquired absence of other specified parts of digestive tract; F17.210 Nicotine dependence, cigarettes, uncomplicated; Z79.4 Long term (current) use of insulin; Z79.899 Other long term (current) drug therapy; Z88.2 Allergy status to sulfonamides; Z88.6 Allergy status to analgesic agent; Z88.1 Allergy status to other antibiotic agents; Z88.3 Allergy status to other anti-infective agents
CPT/HCPCS: 36415; 71045; 80053; 80306; 80307; 83735; 83880; 84484; 85025; 86140; 93005; 94640; 96374; 96375; 99285; J2060; J2919; J3490; 93010; 99284; J7620-GY

== ENCOUNTER 2024-06-10 10:38 | Inpatient (IN) | payer MEDICARE, MEDICAID ==
[2024-06-10] MEDS ORDERED: Sodium Chloride 0.9% 10 ML Syringe FLUSH PRN (10:43)
[2024-06-10] MEDS: Albuterol/Ipratropium 3.0-0.5 MG/3 ML Neb Soln NEB ONE (10:50)
[2024-06-10] MEDS: Sodium Chloride 0.9% 500 ML IV ONE (10:56)
[2024-06-10] MEDS: methylPREDNISolone Sodium Succinate 125 MG/2 ML SDV IVPUSH ONE (10:56)
[2024-06-10] MEDS: Nicotine 21 MG/24 Hr Patch TRDERM ONE (11:28)
[2024-06-10 11:37] LABS: APPEARANCE,URINE CLEAR (Clear); BILIRUBIN,URINE NEGATIVE (Negative); COLOR,URINE YELLOW (Yellow); GLUCOSE,URINE 2+ (Negative); KETONES,URINE NEGATIVE (Negative); LEUKOCYTE ESTERASE,URINE NEGATIVE (Negative); NITRITE,URINE NEGATIVE (Negative); OCCULT BLOOD,URINE NEGATIVE (Negative); PROTEIN,URINE 2+ (Negative); UROBILINOGEN,URINE 0.2 (0.2-1.0)
[2024-06-10] MEDS: Azithromycin 500 MG in Sodium Chloride 0.9% 250 ML IV ONE (11:42)
[2024-06-10] MEDS: cefTRIAXone 1 GM in Sodium Chloride 0.9% 100 ML IV ONE ×2 (11:42→16:11)
[2024-06-10 11:48] LABS: BASOPHILS PERCENT AUTO 0.1 % (0.0-1.0); HEMATOCRIT 43.8 % (42.0-52.0); HEMOGLOBIN 13.7 gm/dl (14.0-18.0); IMMATURE GRAN ABSOLUTE AUTO 0.06 K/mm3 (0.00-0.05); IMMATURE GRAN PERCENT AUTO 0.4 % (0.0-0.4); LYMPHOCYTES ABSOLUTE AUTO 1.2 K/mm3 (1.0-4.8); LYMPHOCYTES PERCENT AUTO 8.2 % (24.0-44.0); MEAN CORPUSCULAR HEMOGLOBIN 31.1 pg (28.0-32.0); MEAN CORPUSCULAR HGB CONC 31.3 g/dl (32.0-36.0); MEAN CORPUSCULAR VOLUME 99.5 fl (83.0-99.0); MEAN PLATELET VOLUME 9.5 fl (9.4-12.4); MONOCYTES ABSOLUTE AUTO 0.6 K/mm3 (0.0-0.8); MONOCYTES PERCENT AUTO 4.2 % (0.0-8.0); NEUTROPHILS ABSOLUTE AUTO 12.6 K/mm3 (1.8-7.7); NEUTROPHILS PERCENT AUTO 87.1 % (41.0-71.0); PLATELET COUNT,PLT 301 K/mm3 (150-400)
[2024-06-10 12:23] LABS: LACTIC ACID 1.5 mmol/L (0.4-2.0)
[2024-06-10 12:30] LABS: A/G RATIO 0.7 (1-2); ANION GAP 7.5 (5-15); BILIRUBIN TOTAL 0.4 mg/dL (0.2-1.0); BUN/CREATININE RATIO 22.7 (14-18); CALCIUM 9.9 mg/dL (8.5-10.1); CREATININE 1.1 mg/dL (0.7-1.3); EST CRCL DRUG DOSING (CG) 67.29 mL/min; MAGNESIUM 2.1 mg/dL (1.8-2.4); PROTEIN TOTAL,TP 7.2 g/dl (6.4-8.2)
[2024-06-10 12:35] LABS: POTASSIUM,K 5.5 mEq/L (3.5-5.1)
[2024-06-10 12:56] LABS: BACTERIA,URINE FEW /hpf (FEW); EPITHELIAL CELLS,URINE 0-5 /hpf (0-5); MUCUS,URINE FEW /hpf (FEW); RBC,URINE 0-5 /hpf (0-5); WBC,URINE 0-5 /hpf (0-5)
[2024-06-10] MEDS: Furosemide 40 MG/4 ML VIAL IVPUSH ONE (14:13)
[2024-06-10] MEDS ORDERED: Ondansetron 4 MG/2 ML SDV IV PRN (14:30)
[2024-06-10 14:31] LABS: BARBITURATE SCREEN,URINE NEGATIVE (CUTOFF=200); BENZODIAZEPINES SCREEN,URINE NEGATIVE (CUTOFF=150); BUPRENORPHINE SCREEN,URINE NEGATIVE (CUTOFF=10); METHADONE SCREEN, URINE NEGATIVE (CUT0FF=200); METHAMPHETAMINES SCREEN, URINE NEGATIVE (CUTOFF=500); OXYCODONE SCREEN,URINE NEGATIVE (CUT0FF=100); THC SCREEN,URINE 20 NG/ML NEGATIVE (CUTOFF=50)
[2024-06-10] MEDS ORDERED: Docusate Sodium 100 MG Cap PO PRN (14:33)
[2024-06-10] MEDS ORDERED: Polyethylene Glycol 3350 Powder 17 GM Packet PO PRN (14:33)
[2024-06-10 14:35] LABS: AMPHETAMINES SCREEN, URINE NEGATIVE (CUTOFF=500)
[2024-06-10] MEDS ORDERED: Lidocaine 4% 1 each Patch TOP SCH (14:45)
[2024-06-10 14:50] LABS: O2 SATURATION ARTERIAL 89.3 % (96.0-97.0)
[2024-06-10 14:56] LABS: HEMOGLOBIN A1C 9.5 %
[2024-06-10] MEDS: Acetaminophen 325 MG Tab PO PRN (16:02)
[2024-06-10] MEDS: Lidocaine 4% 1 each Patch TOP SCH (16:03)
[2024-06-10] MEDS: Piperacillin/Tazobactam 4.5 GM in Sodium Chloride 0.9% 100 ML IV ONE (16:04)
[2024-06-10] MEDS: Diltiazem 25 MG/5 ML SDV IVPUSH ONE (16:11)
[2024-06-10] MEDS: Insulin Lispro 100 Unit/ML 3 ML KwikPen SUBCUT ONE ×3 (16:19→18:48)
[2024-06-10 16:32] LABS: CORONAVIRUS COVID-19 NAA NEGATIVE (NEGATIVE); INFLUENZA A NAA NEGATIVE (NEGATIVE); RESPIRATORY SYNCYTIAL VIR NAA NEGATIVE (NEGATIVE)
[2024-06-10] MEDS: Doxycycline Monohydrate 100 MG Cap PO SCH (16:38)
[2024-06-10] MEDS: oxyCODONE 5 MG Tab PO PRN (16:56)
[2024-06-10] MEDS: hydrOXYzine HCl 50 MG Tab PO PRN (17:12)
[2024-06-10] MEDS: Levalbuterol HCl 1.25 MG/3 ML Neb NEB SCH ×2 (17:18→18:25)
[2024-06-10] MEDS: Nicotine 21 MG/24 Hr Patch TRDERM SCH (17:18)
[2024-06-10] MEDS: Ipratropium 0.02% 0.5 MG/2.5 ML Neb Soln NEB SCH ×2 (17:18→18:25)
[2024-06-10] MEDS: Insulin Lispro 100 Unit/ML 3 ML KwikPen SUBCUT SCH (17:22)
[2024-06-10] MEDS: Tamsulosin 0.4 MG Cap.ER PO SCH (17:25)
[2024-06-10 18:08] LABS: PCO2 ARTERIAL 74.3 mmHg (35.0-45.0)
[2024-06-10] MEDS: Metoprolol Tartrate 25 MG Tab PO SCH (20:49)
[2024-06-10] MEDS: Piperacillin/Tazobactam 4.5 GM in Sodium Chloride 0.9% 100 ML IV SCH (20:49)
[2024-06-10] MEDS: Insulin Glargine,Human Rec. Analog 100 Units/ML 3 ML Pen SUBCUT SCH (20:50)
[2024-06-10] MEDS: methylPREDNISolone Sodium Succinate 40 MG/1 ML SDV IVPUSH SCH (20:50)
[2024-06-10] MEDS: atorvaSTATin 20 MG Tab PO SCH (20:50)
[2024-06-10] MEDS: Apixaban 5 MG Tab PO SCH (20:50)
[2024-06-10] MEDS ORDERED: Insulin Glargine,Human Rec. Analog 100 Units/ML 3 ML Pen SUBCUT SCH (21:00)
[2024-06-10] MEDS: Sodium Chloride 0.9% 250 ML ONE (21:14)
[2024-06-10] MEDS: Formoterol/Mometasone 100-5 MCG 8.8 GM Inhaler INH SCH (22:15)
[2024-06-10] MEDS ORDERED: Piperacillin/Tazobactam 4.5 GM in Sodium Chloride 0.9% 100 ML IV SCH (23:30)
[2024-06-11 04:51] LABS: HEMATOCRIT 37.8 % (42.0-52.0); HEMOGLOBIN 11.9 gm/dl (14.0-18.0); IMMATURE GRAN ABSOLUTE AUTO 0.07 K/mm3 (0.00-0.05); IMMATURE GRAN PERCENT AUTO 0.5 % (0.0-0.4); LYMPHOCYTES ABSOLUTE AUTO 0.2 K/mm3 (1.0-4.8); LYMPHOCYTES PERCENT AUTO 1.2 % (24.0-44.0); MEAN CORPUSCULAR HEMOGLOBIN 30.9 pg (28.0-32.0); MEAN CORPUSCULAR HGB CONC 31.5 g/dl (32.0-36.0); MEAN CORPUSCULAR VOLUME 98.2 fl (83.0-99.0); MEAN PLATELET VOLUME 9.4 fl (9.4-12.4); MONOCYTES ABSOLUTE AUTO 0.1 K/mm3 (0.0-0.8); MONOCYTES PERCENT AUTO 0.7 % (0.0-8.0); NEUTROPHILS ABSOLUTE AUTO 13.2 K/mm3 (1.8-7.7); NEUTROPHILS PERCENT AUTO 97.6 % (41.0-71.0); PLATELET COUNT,PLT 274 K/mm3 (150-400); RED BLOOD CELL COUNT 3.85 M/mm3 (4.52-5.90); WHITE BLOOD CELL COUNT,WBC 13.55 K/mm3 (3.9-11.3)
[2024-06-11 05:37] LABS: SLIDE REVIEW ABNORMAL SMEAR
[2024-06-11 05:39] LABS: A/G RATIO 0.7 (1-2); ALBUMIN 2.4 g/dl (3.4-5.0); ANION GAP 8.9 (5-15); BILIRUBIN TOTAL 0.2 mg/dL (0.2-1.0); BUN/CREATININE RATIO 20.8 (14-18); C-REACTIVE PROTEIN 5.65 mg/dL (<0.30); CALCIUM 8.9 mg/dL (8.5-10.1); CREATININE 1.2 mg/dL (0.7-1.3); EST CRCL DRUG DOSING (CG) 61.68 mL/min; MAGNESIUM 2.2 mg/dL (1.8-2.4); POTASSIUM,K 4.9 mEq/L (3.5-5.1); PROTEIN TOTAL,TP 6.1 g/dl (6.4-8.2)
[2024-06-11] MEDS: Nicotine 21 MG/24 Hr Patch TRDERM SCH (09:35)
[2024-06-11] MEDS: Digoxin 125 MCG Tab PO SCH (09:37)
[2024-06-11] MEDS: Diltiazem 240 MG Cap.ER PO SCH (09:37)
[2024-06-11] MEDS: Remove Patch NICOTINE PATCH TRDERM SCH (09:38)
[2024-06-11] MEDS: Pantoprazole 40 MG Tab.CR PO SCH (09:40)
[2024-06-11] MEDS: LORazepam 1 MG Tab PO ONE (09:40)
[2024-06-11 10:22] LABS: BICARBONATE,ARTERIAL 42.2 meq/L (22.0-26.0); O2 SATURATION ARTERIAL 93.1 % (96.0-97.0)
[2024-06-11 10:23] LABS: PCO2 ARTERIAL 76.5 mmHg (35.0-45.0)
[2024-06-11] MEDS: Insulin Glargine,Human Rec. Analog 100 Units/ML 3 ML Pen SUBCUT SCH (12:44)
[2024-06-11] MEDS ORDERED: cefTRIAXone 2 GM in Sodium Chloride 0.9% 100 ML IV SCH (14:30)
[2024-06-11] MEDS: Lidocaine 4% 1 each Patch TOP SCH (20:02)
[2024-06-12] MEDS: LORazepam 2 MG/ML SDV IVPUSH PRN (03:15)
[2024-06-12 04:22] LABS: BASOPHILS PERCENT AUTO 0.1 % (0.0-1.0); HEMATOCRIT 41.6 % (42.0-52.0); HEMOGLOBIN 13.3 gm/dl (14.0-18.0); IMMATURE GRAN ABSOLUTE AUTO 0.06 K/mm3 (0.00-0.05); IMMATURE GRAN PERCENT AUTO 0.4 % (0.0-0.4); LYMPHOCYTES ABSOLUTE AUTO 0.4 K/mm3 (1.0-4.8); LYMPHOCYTES PERCENT AUTO 2.5 % (24.0-44.0); MEAN CORPUSCULAR HEMOGLOBIN 31.3 pg (28.0-32.0); MEAN CORPUSCULAR VOLUME 97.9 fl (83.0-99.0); MEAN PLATELET VOLUME 9.1 fl (9.4-12.4); MONOCYTES ABSOLUTE AUTO 0.5 K/mm3 (0.0-0.8); MONOCYTES PERCENT AUTO 3.1 % (0.0-8.0); NEUTROPHILS ABSOLUTE AUTO 15.1 K/mm3 (1.8-7.7); NEUTROPHILS PERCENT AUTO 93.9 % (41.0-71.0); PLATELET COUNT,PLT 287 K/mm3 (150-400); RED BLOOD CELL COUNT 4.25 M/mm3 (4.52-5.90); WHITE BLOOD CELL COUNT,WBC 16.04 K/mm3 (3.9-11.3)
[2024-06-12 04:55] LABS: A/G RATIO 0.7 (1-2); ALBUMIN 2.5 g/dl (3.4-5.0); BILIRUBIN TOTAL 0.2 mg/dL (0.2-1.0); BUN/CREATININE RATIO 28.2 (14-18); C-REACTIVE PROTEIN 3.51 mg/dL (<0.30); CALCIUM 9.2 mg/dL (8.5-10.1); CREATININE 1.1 mg/dL (0.7-1.3); EST CRCL DRUG DOSING (CG) 67.29 mL/min; MAGNESIUM 2.2 mg/dL (1.8-2.4); PROTEIN TOTAL,TP 6.3 g/dl (6.4-8.2)
[2024-06-12 05:15] LABS: SLIDE REVIEW ABNORMAL SMEAR
[2024-06-12] MEDS: predniSONE 20 MG Tab PO SCH (06:37)
[2024-06-12] MEDS: Metoprolol Tartrate 50 MG Tab PO SCH (08:18)
[2024-06-12] MEDS: Furosemide 20 MG Tab PO ONE (17:11)
[2024-06-12] MEDS: Diltiazem 25 MG/5 ML SDV IVPUSH ONE (19:49)
[2024-06-13 04:41] LABS: BASOPHILS PERCENT AUTO 0.1 % (0.0-1.0); EOSINOPHILS PERCENT AUTO 0.1 % (0.0-6.0); HEMATOCRIT 40.9 % (42.0-52.0); HEMOGLOBIN 12.9 gm/dl (14.0-18.0); IMMATURE GRAN ABSOLUTE AUTO 0.04 K/mm3 (0.00-0.05); IMMATURE GRAN PERCENT AUTO 0.5 % (0.0-0.4); LYMPHOCYTES ABSOLUTE AUTO 1.3 K/mm3 (1.0-4.8); LYMPHOCYTES PERCENT AUTO 15.7 % (24.0-44.0); MEAN CORPUSCULAR HEMOGLOBIN 30.6 pg (28.0-32.0); MEAN CORPUSCULAR HGB CONC 31.5 g/dl (32.0-36.0); MEAN CORPUSCULAR VOLUME 97.1 fl (83.0-99.0); MEAN PLATELET VOLUME 8.8 fl (9.4-12.4); MONOCYTES ABSOLUTE AUTO 0.6 K/mm3 (0.0-0.8); MONOCYTES PERCENT AUTO 7.1 % (0.0-8.0); NEUTROPHILS ABSOLUTE AUTO 6.5 K/mm3 (1.8-7.7); NEUTROPHILS PERCENT AUTO 76.5 % (41.0-71.0); PLATELET COUNT,PLT 289 K/mm3 (150-400); RED BLOOD CELL COUNT 4.21 M/mm3 (4.52-5.90); WHITE BLOOD CELL COUNT,WBC 8.51 K/mm3 (3.9-11.3)
[2024-06-13 05:00] LABS: A/G RATIO 0.7 (1-2); ALBUMIN 2.3 g/dl (3.4-5.0); ANION GAP 3.6 (5-15); BILIRUBIN TOTAL 0.3 mg/dL (0.2-1.0); C-REACTIVE PROTEIN 1.82 mg/dL (<0.30); CALCIUM 8.5 mg/dL (8.5-10.1); EST CRCL DRUG DOSING (CG) 74.01 mL/min; MAGNESIUM 2.1 mg/dL (1.8-2.4); POTASSIUM,K 4.6 mEq/L (3.5-5.1); PROTEIN TOTAL,TP 5.7 g/dl (6.4-8.2)
[2024-06-13] MEDS: Diltiazem 180 MG Cap.CD PO SCH (08:00)
[2024-06-13] MEDS: Insulin Glargine,Human Rec. Analog 100 Units/ML 3 ML Pen SUBCUT SCH ×2 (08:00→20:47)
[2024-06-13] MEDS: Levalbuterol HCl 1.25 MG/3 ML Neb NEB SCH ×2 (09:29→10:00)
[2024-06-13] MEDS: Ipratropium 0.02% 0.5 MG/2.5 ML Neb Soln NEB SCH ×2 (09:30→10:30)
[2024-06-13] MEDS: Docusate Sodium 100 MG Cap PO SCH (09:38)
[2024-06-13] MEDS: guaiFENesin 600 MG Tab.ER PO SCH (17:44)
[2024-06-13] MEDS: Diltiazem 25 MG/5 ML SDV IVPUSH ONE (17:59)
[2024-06-13] MEDS: Diltiazem 125 MG in Sodium Chloride 0.9% 100 ML IV SCH (20:25)
[2024-06-14 05:44] LABS: EOSINOPHILS PERCENT AUTO 0.4 % (0.0-6.0); HEMATOCRIT 39.8 % (42.0-52.0); HEMOGLOBIN 12.8 gm/dl (14.0-18.0); IMMATURE GRAN ABSOLUTE AUTO 0.04 K/mm3 (0.00-0.05); IMMATURE GRAN PERCENT AUTO 0.6 % (0.0-0.4); LYMPHOCYTES ABSOLUTE AUTO 1.4 K/mm3 (1.0-4.8); LYMPHOCYTES PERCENT AUTO 20.5 % (24.0-44.0); MEAN CORPUSCULAR HEMOGLOBIN 30.8 pg (28.0-32.0); MEAN CORPUSCULAR HGB CONC 32.2 g/dl (32.0-36.0); MEAN CORPUSCULAR VOLUME 95.9 fl (83.0-99.0); MEAN PLATELET VOLUME 9.1 fl (9.4-12.4); MONOCYTES ABSOLUTE AUTO 0.7 K/mm3 (0.0-0.8); NEUTROPHILS ABSOLUTE AUTO 4.8 K/mm3 (1.8-7.7); NEUTROPHILS PERCENT AUTO 68.5 % (41.0-71.0); PLATELET COUNT,PLT 301 K/mm3 (150-400); RED BLOOD CELL COUNT 4.15 M/mm3 (4.52-5.90); WHITE BLOOD CELL COUNT,WBC 6.97 K/mm3 (3.9-11.3)
[2024-06-14 06:11] LABS: A/G RATIO 0.7 (1-2); ALBUMIN 2.2 g/dl (3.4-5.0); ANION GAP 5.3 (5-15); BILIRUBIN TOTAL 0.3 mg/dL (0.2-1.0); BUN/CREATININE RATIO 21.8 (14-18); CALCIUM 8.7 mg/dL (8.5-10.1); CREATININE 1.1 mg/dL (0.7-1.3); EST CRCL DRUG DOSING (CG) 67.29 mL/min; MAGNESIUM 2.3 mg/dL (1.8-2.4); POTASSIUM,K 4.3 mEq/L (3.5-5.1); PROTEIN TOTAL,TP 5.6 g/dl (6.4-8.2)
[2024-06-14] MEDS: Metoprolol Tartrate 5 MG/5 ML SDV IVPUSH ONE (18:47)
[2024-06-14] MEDS: Metoprolol Tartrate 5 MG in Sodium Chloride 0.9% 50 ML IV ONE (18:48)
[2024-06-14] MEDS: Metoprolol Tartrate 5 MG/5 ML SDV ONE (19:10)
[2024-06-14] MEDS: Sodium Chloride 3% Inhalation Soln 4 ML Neb NEB SCH (23:23)
[2024-06-15] MEDS: LORazepam 2 MG/ML SDV IVPUSH PRN (00:46)
[2024-06-15 05:27] LABS: EOSINOPHILS PERCENT AUTO 0.5 % (0.0-6.0); HEMATOCRIT 38.1 % (42.0-52.0); HEMOGLOBIN 12.5 gm/dl (14.0-18.0); IMMATURE GRAN ABSOLUTE AUTO 0.04 K/mm3 (0.00-0.05); IMMATURE GRAN PERCENT AUTO 0.5 % (0.0-0.4); LYMPHOCYTES ABSOLUTE AUTO 1.3 K/mm3 (1.0-4.8); LYMPHOCYTES PERCENT AUTO 16.5 % (24.0-44.0); MEAN CORPUSCULAR HEMOGLOBIN 31.2 pg (28.0-32.0); MEAN CORPUSCULAR HGB CONC 32.8 g/dl (32.0-36.0); MEAN PLATELET VOLUME 8.8 fl (9.4-12.4); MONOCYTES ABSOLUTE AUTO 0.6 K/mm3 (0.0-0.8); MONOCYTES PERCENT AUTO 7.9 % (0.0-8.0); NEUTROPHILS ABSOLUTE AUTO 5.9 K/mm3 (1.8-7.7); NEUTROPHILS PERCENT AUTO 74.6 % (41.0-71.0); PLATELET COUNT,PLT 307 K/mm3 (150-400); RED BLOOD CELL COUNT 4.01 M/mm3 (4.52-5.90); WHITE BLOOD CELL COUNT,WBC 7.88 K/mm3 (3.9-11.3)
[2024-06-15 05:54] LABS: A/G RATIO 0.8 (1-2); ALBUMIN 2.4 g/dl (3.4-5.0); ANION GAP 7.6 (5-15); BILIRUBIN TOTAL 0.4 mg/dL (0.2-1.0); CALCIUM 8.6 mg/dL (8.5-10.1); EST CRCL DRUG DOSING (CG) 74.01 mL/min; MAGNESIUM 2.2 mg/dL (1.8-2.4); PHOSPHORUS 3.3 mg/dL (2.6-4.7); POTASSIUM,K 4.6 mEq/L (3.5-5.1); PROTEIN TOTAL,TP 5.5 g/dl (6.4-8.2)
[2024-06-15] MEDS: Furosemide 40 MG/4 ML VIAL IVPUSH ONE (12:29)
[2024-06-15] MEDS ORDERED: Sennosides/Docusate Sodium 50-8.6 MG Tab PO PRN (12:59)
[2024-06-15] MEDS: Tiotropium BR/Olodaterol HCL 4 GM Inhalation Spray 2.5mcg/1 dose; 10 doses INH SCH (13:33)
[2024-06-15] MEDS: Doxepin 10 MG Cap PO SCH (20:27)
[2024-06-15] MEDS ORDERED: traZODone 50 MG Tab PO SCH (21:00)
[2024-06-15] MEDS ORDERED: Doxepin 10 MG Cap PO SCH (21:00)
[2024-06-15] MEDS ORDERED: Mirtazapine 15 MG Tab PO SCH (21:00)
[2024-06-15] MEDS: Levalbuterol HCl 1.25 MG/3 ML Neb NEB PRN (22:02)
[2024-06-16 05:35] LABS: ANION GAP 5.7 (5-15); BUN/CREATININE RATIO 25.6 (14-18); CALCIUM 8.4 mg/dL (8.5-10.1); CREATININE 0.9 mg/dL (0.7-1.3); EST CRCL DRUG DOSING (CG) 82.24 mL/min; POTASSIUM,K 4.7 mEq/L (3.5-5.1)
[2024-06-16] MEDS: Metoprolol Succinate 50 MG Tab.ER PO SCH (08:17)
[2024-06-16] MEDS: Furosemide 40 MG/4 ML VIAL IVPUSH ONE (11:55)
[2024-06-16 15:52] VITALS: BP 137/68; PULSE 89
[2024-06-17] MEDS ORDERED: Furosemide 20 MG Tab PO SCH (09:00)
== END 2024-06-16 16:02 | disposition home or self-care (01) | DRG 871 ==
LOC: JD.ED 10:38 → JD.ICU 13:49
PROVIDERS: ADMIT Internal Medicine; ATTEND Student in an Organized Health Care Education/Training Program
PROC: 3E03329 Introduction of Other Anti-infective into Peripheral Vein, Percutaneous Approach (ICD-10-PCS; principal; 2024-06-10)
PROC: 4A133R1 Monitoring of Arterial Saturation, Peripheral, Percutaneous Approach (ICD-10-PCS; 2024-06-10)
PROC: 5A09357 Assistance with Respiratory Ventilation, Less than 24 Consecutive Hours, Continuous Positive Airway Pressure (ICD-10-PCS; 2024-06-11)
PROC: 5A09357 Assistance with Respiratory Ventilation, Less than 24 Consecutive Hours, Continuous Positive Airway Pressure (ICD-10-PCS; 2024-06-12)
PROC: 5A09357 Assistance with Respiratory Ventilation, Less than 24 Consecutive Hours, Continuous Positive Airway Pressure (ICD-10-PCS; 2024-06-13)
PROC: 5A09357 Assistance with Respiratory Ventilation, Less than 24 Consecutive Hours, Continuous Positive Airway Pressure (ICD-10-PCS; 2024-06-14)
DX: A41.9 Sepsis, unspecified organism (principal); I50.9 Heart failure, unspecified; J96.00 Acute respiratory failure, unspecified whether with hypoxia or hypercapnia; I21.A1 Myocardial infarction type 2; E78.00 Pure hypercholesterolemia, unspecified; E11.9 Type 2 diabetes mellitus without complications; J18.9 Pneumonia, unspecified organism; J96.21 Acute and chronic respiratory failure with hypoxia; J96.22 Acute and chronic respiratory failure with hypercapnia; S22.32XA Fracture of one rib, left side, initial encounter for closed fracture; I48.92 Unspecified atrial flutter; Z86.16 Personal history of COVID-19; Z90.49 Acquired absence of other specified parts of digestive tract; J44.1 Chronic obstructive pulmonary disease with (acute) exacerbation; L03.115 Cellulitis of right lower limb; J44.0 Chronic obstructive pulmonary disease with (acute) lower respiratory infection; J98.11 Atelectasis; I50.32 Chronic diastolic (congestive) heart failure; R65.20 Severe sepsis without septic shock; N40.0 Benign prostatic hyperplasia without lower urinary tract symptoms; G89.29 Other chronic pain; F41.9 Anxiety disorder, unspecified; F32.A Depression, unspecified; K21.9 Gastro-esophageal reflux disease without esophagitis; E66.9 Obesity, unspecified; E78.5 Hyperlipidemia, unspecified; I11.0 Hypertensive heart disease with heart failure; M54.50 Low back pain, unspecified; E87.5 Hyperkalemia; E11.65 Type 2 diabetes mellitus with hyperglycemia; G47.00 Insomnia, unspecified; I48.0 Paroxysmal atrial fibrillation; F10.90 Alcohol use, unspecified, uncomplicated; F15.90 Other stimulant use, unspecified, uncomplicated; F17.210 Nicotine dependence, cigarettes, uncomplicated; E88.09 Other disorders of plasma-protein metabolism, not elsewhere classified; Z88.1 Allergy status to other antibiotic agents; Z88.5 Allergy status to narcotic agent; Z88.8 Allergy status to other drugs, medicaments and biological substances; Z79.4 Long term (current) use of insulin; Z79.01 Long term (current) use of anticoagulants; Z79.82 Long term (current) use of aspirin; Z68.32 Body mass index [BMI] 32.0-32.9, adult; Z90.89 Acquired absence of other organs; Z79.899 Other long term (current) drug therapy; Z98.890 Other specified postprocedural states; Z91.198 Patient's noncompliance with other medical treatment and regimen for other reason; Z86.0100 Personal history of colon polyps, unspecified; W01.0XXA Fall on same level from slipping, tripping and stumbling without subsequent striking against object, initial encounter
CPT/HCPCS: 0241U; 36415; 36600; 71045; 71046; 80048; 80053; 80162; 80306; 80307; 81001; 82803; 82947; 83036; 83605; 83735; 83880; 84100; 84132; 84443; 84484; 85025; 86140; 87040; 87641; 93005; 94640; 94660; 94667; 94668; 94761; 96361; 96365; 96367; 96375; 97110; 97116; 97161; 99285; 93010; A9270-GY; J0456; J0696; J1815; J1815-GY; J1940; J2060; J2543; J2919; J3490; J7030; J7050; J7512; J7612-GY; J7620-GY

== ENCOUNTER 2024-06-18 19:38 | Emergency (ER) | payer MEDICARE, MEDICAID ==
[2024-06-18] MEDS: methylPREDNISolone Sodium Succinate 125 MG/2 ML SDV IVPUSH ONE (19:50)
[2024-06-18] MEDS: Sodium Chloride 0.9% 10 ML Syringe FLUSH PRN (19:50)
[2024-06-18 19:54] LABS: BASE EXCESS ARTERIAL 7.7 (-2-2.0); BICARBONATE,ARTERIAL 34.7 meq/L (22.0-26.0); O2 SATURATION ARTERIAL 96.6 % (96.0-97.0); PCO2 ARTERIAL 64.4 mmHg (35.0-45.0)
[2024-06-18 19:55] LABS: BASOPHILS PERCENT AUTO 0.1 % (0.0-1.0); EOSINOPHILS ABSOLUTE AUTO 0.2 K/mm3 (0.0-0.4); EOSINOPHILS PERCENT AUTO 1.7 % (0.0-6.0); HEMATOCRIT 39.5 % (42.0-52.0); HEMOGLOBIN 12.9 gm/dl (14.0-18.0); IMMATURE GRAN ABSOLUTE AUTO 0.12 K/mm3 (0.00-0.05); LYMPHOCYTES ABSOLUTE AUTO 2.3 K/mm3 (1.0-4.8); LYMPHOCYTES PERCENT AUTO 20.1 % (24.0-44.0); MEAN CORPUSCULAR HEMOGLOBIN 31.2 pg (28.0-32.0); MEAN CORPUSCULAR HGB CONC 32.7 g/dl (32.0-36.0); MEAN CORPUSCULAR VOLUME 95.6 fl (83.0-99.0); MEAN PLATELET VOLUME 8.4 fl (9.4-12.4); MONOCYTES ABSOLUTE AUTO 1.2 K/mm3 (0.0-0.8); MONOCYTES PERCENT AUTO 10.1 % (0.0-8.0); NEUTROPHILS ABSOLUTE AUTO 7.7 K/mm3 (1.8-7.7); PLATELET COUNT,PLT 327 K/mm3 (150-400); RED BLOOD CELL COUNT 4.13 M/mm3 (4.52-5.90); WHITE BLOOD CELL COUNT,WBC 11.45 K/mm3 (3.9-11.3)
[2024-06-18] MEDS: Albuterol/Ipratropium 3.0-0.5 MG/3 ML Neb Soln NEB ONE (19:57)
[2024-06-18 20:33] LABS: LACTIC ACID 0.9 mmol/L (0.4-2.0)
[2024-06-18 20:42] LABS: A/G RATIO 0.8 (1-2); ALANINE AMINOTRANSFERASE,ALT 50 U/L (16-63); ALBUMIN 2.6 g/dl (3.4-5.0); ALKALINE PHOSPHATASE 139 U/L (46-116); ANION GAP 4.9 (5-15); ASPARTATE AMNIOTRANSFERASE,AST 25 U/L (15-37); BILIRUBIN TOTAL 0.2 mg/dL (0.2-1.0); BLOOD UREA NITROGEN,BUN 24 mg/dL (7-18); CALCIUM 8.7 mg/dL (8.5-10.1); CARBON DIOXIDE,CO2 37 mEq/L (21-32); CHLORIDE,CL 101 mEq/L (98-107); ESTIMATED GFR 82 mL/min (>60); GLUCOSE RANDOM 122 mg/dL (70-99); POTASSIUM,K 4.9 mEq/L (3.5-5.1); PROTEIN TOTAL,TP 5.7 g/dl (6.4-8.2); SODIUM,NA 138 mEq/L (136-145)
[2024-06-18 21:06] LABS: CORONAVIRUS COVID-19 NAA NEGATIVE (NEGATIVE); INFLUENZA A NAA NEGATIVE (NEGATIVE); RESPIRATORY SYNCYTIAL VIR NAA NEGATIVE (NEGATIVE)
[2024-06-18 21:06] LABS: TROPONIN I HIGH SENSITIVITY 108 pg/mL (<=76)
[2024-06-18 21:13] LABS: APPEARANCE,URINE CLEAR (Clear); BILIRUBIN,URINE NEGATIVE (Negative); COLOR,URINE YELLOW (Yellow); GLUCOSE,URINE NEGATIVE (Negative); KETONES,URINE NEGATIVE (Negative); LEUKOCYTE ESTERASE,URINE NEGATIVE (Negative); NITRITE,URINE NEGATIVE (Negative); OCCULT BLOOD,URINE NEGATIVE (Negative); PROTEIN,URINE 2+ (Negative); UROBILINOGEN,URINE 0.2 (0.2-1.0)
[2024-06-18 21:44] LABS: BACTERIA,URINE OCCASIONAL /hpf (FEW); MUCUS,URINE FEW /hpf (FEW); RBC,URINE 0-5 /hpf (0-5); SQUAMOUS EPITHELIAL CELLS,UR NOT SEEN /hpf (0-5); WBC,URINE 0-5 /hpf (0-5)
[2024-06-19 00:23] VITALS: BP 125/85; PULSE 88
== END 2024-06-19 00:27 | disposition home or self-care (01) ==
LOC: JD.ED 19:38
DX: J96.21 Acute and chronic respiratory failure with hypoxia (principal); I11.0 Hypertensive heart disease with heart failure; I50.9 Heart failure, unspecified; I48.91 Unspecified atrial fibrillation; E78.00 Pure hypercholesterolemia, unspecified; J44.9 Chronic obstructive pulmonary disease, unspecified; E11.9 Type 2 diabetes mellitus without complications; E66.9 Obesity, unspecified; Z86.16 Personal history of COVID-19; Z90.49 Acquired absence of other specified parts of digestive tract; Z79.899 Other long term (current) drug therapy; Z79.01 Long term (current) use of anticoagulants; Z88.8 Allergy status to other drugs, medicaments and biological substances; Z88.6 Allergy status to analgesic agent; Z88.5 Allergy status to narcotic agent; Z88.1 Allergy status to other antibiotic agents
CPT/HCPCS: 0241U; 36415; 36600; 80053; 81001; 82803; 83605; 83735; 83880; 84484; 85025; 85379; 93005; 94640; 96374; 99285; J2919; J3490; J7620-GY

== ENCOUNTER 2024-06-19 17:03 | Emergency (ER) | payer MEDICARE, MEDICAID ==
[2024-06-19 17:49] VITALS: BP 142/91; PULSE 68
[2024-06-19] MEDS: Albuterol/Ipratropium 3.0-0.5 MG/3 ML Neb Soln NEB ONE (17:53)
[2024-06-19 18:05] LABS: BASOPHILS PERCENT AUTO 0.1 % (0.0-1.0); EOSINOPHILS PERCENT AUTO 0.1 % (0.0-6.0); HEMATOCRIT 37.3 % (42.0-52.0); HEMOGLOBIN 12.2 gm/dl (14.0-18.0); IMMATURE GRAN ABSOLUTE AUTO 0.11 K/mm3 (0.00-0.05); IMMATURE GRAN PERCENT AUTO 0.8 % (0.0-0.4); LYMPHOCYTES ABSOLUTE AUTO 0.4 K/mm3 (1.0-4.8); LYMPHOCYTES PERCENT AUTO 3.1 % (24.0-44.0); MEAN CORPUSCULAR HGB CONC 32.7 g/dl (32.0-36.0); MEAN CORPUSCULAR VOLUME 94.9 fl (83.0-99.0); MEAN PLATELET VOLUME 8.8 fl (9.4-12.4); MONOCYTES ABSOLUTE AUTO 0.9 K/mm3 (0.0-0.8); MONOCYTES PERCENT AUTO 6.2 % (0.0-8.0); NEUTROPHILS PERCENT AUTO 89.7 % (41.0-71.0); PLATELET COUNT,PLT 330 K/mm3 (150-400); RED BLOOD CELL COUNT 3.93 M/mm3 (4.52-5.90); WHITE BLOOD CELL COUNT,WBC 14.42 K/mm3 (3.9-11.3)
[2024-06-19 18:38] LABS: A/G RATIO 0.8 (1-2); ALBUMIN 2.7 g/dl (3.4-5.0); ANION GAP 7.1 (5-15); BILIRUBIN TOTAL 0.2 mg/dL (0.2-1.0); CALCIUM 9.3 mg/dL (8.5-10.1); CREATININE 0.9 mg/dL (0.7-1.3); EST CRCL DRUG DOSING (CG) 82.24 mL/min
[2024-06-19 18:41] LABS: POTASSIUM,K 5.1 mEq/L (3.5-5.1)
[2024-06-19 18:45] LABS: CORONAVIRUS COVID-19 NAA NEGATIVE (NEGATIVE); INFLUENZA A NAA NEGATIVE (NEGATIVE); RESPIRATORY SYNCYTIAL VIR NAA NEGATIVE (NEGATIVE)
[2024-06-19] MEDS: Sodium Chloride 0.9% 10 ML Syringe FLUSH PRN (18:50)
[2024-06-19] MEDS: methylPREDNISolone Sodium Succinate 125 MG/2 ML SDV IVPUSH ONE (18:52)
== END 2024-06-19 20:24 | disposition home or self-care (01) ==
LOC: JD.ED 17:03
DX: R06.02 Shortness of breath (principal); F17.210 Nicotine dependence, cigarettes, uncomplicated; J44.9 Chronic obstructive pulmonary disease, unspecified; I11.0 Hypertensive heart disease with heart failure; I50.9 Heart failure, unspecified; I48.91 Unspecified atrial fibrillation; E78.00 Pure hypercholesterolemia, unspecified; E11.9 Type 2 diabetes mellitus without complications; E66.9 Obesity, unspecified; Z86.16 Personal history of COVID-19; Z79.01 Long term (current) use of anticoagulants; Z79.899 Other long term (current) drug therapy; Z88.8 Allergy status to other drugs, medicaments and biological substances; Z88.1 Allergy status to other antibiotic agents
CPT/HCPCS: 0241U; 36415; 71045; 80053; 83880; 84484; 85025; 93005; 93970; 94640; 96374; 99285; J2919; J3490; J7620-GY

== ENCOUNTER 2024-06-23 16:11 | Emergency (ER) | payer MEDICARE, MEDICAID ==
[2024-06-23 16:42] VITALS: BP 133/70; PULSE 76
[2024-06-23] MEDS: Albuterol/Ipratropium 3.0-0.5 MG/3 ML Neb Soln NEB ONE ×3 (17:07→19:55)
[2024-06-23 17:41] LABS: EOSINOPHILS ABSOLUTE AUTO 0.1 K/mm3 (0.0-0.4); EOSINOPHILS PERCENT AUTO 0.5 % (0.0-6.0); HEMATOCRIT 38.8 % (42.0-52.0); HEMOGLOBIN 12.2 gm/dl (14.0-18.0); IMMATURE GRAN ABSOLUTE AUTO 0.06 K/mm3 (0.00-0.05); IMMATURE GRAN PERCENT AUTO 0.5 % (0.0-0.4); LYMPHOCYTES PERCENT AUTO 8.3 % (24.0-44.0); MEAN CORPUSCULAR HEMOGLOBIN 31.1 pg (28.0-32.0); MEAN CORPUSCULAR HGB CONC 31.4 g/dl (32.0-36.0); MEAN PLATELET VOLUME 8.9 fl (9.4-12.4); MONOCYTES ABSOLUTE AUTO 0.8 K/mm3 (0.0-0.8); MONOCYTES PERCENT AUTO 6.5 % (0.0-8.0); NEUTROPHILS ABSOLUTE AUTO 9.7 K/mm3 (1.8-7.7); NEUTROPHILS PERCENT AUTO 84.2 % (41.0-71.0); PLATELET COUNT,PLT 285 K/mm3 (150-400); RED BLOOD CELL COUNT 3.92 M/mm3 (4.52-5.90); WHITE BLOOD CELL COUNT,WBC 11.48 K/mm3 (3.9-11.3)
[2024-06-23] MEDS: methylPREDNISolone Sodium Succinate 125 MG/2 ML SDV IVPUSH ONE (17:50)
[2024-06-23 18:32] LABS: A/G RATIO 0.8 (1-2); ALANINE AMINOTRANSFERASE,ALT 50 U/L (16-63); ALBUMIN 2.5 g/dl (3.4-5.0); ALKALINE PHOSPHATASE 150 U/L (46-116); ANION GAP 1.6 (5-15); ASPARTATE AMNIOTRANSFERASE,AST 27 U/L (15-37); BILIRUBIN TOTAL 0.4 mg/dL (0.2-1.0); BLOOD UREA NITROGEN,BUN 24 mg/dL (7-18); CALCIUM 8.9 mg/dL (8.5-10.1); CHLORIDE,CL 100 mEq/L (98-107); ESTIMATED GFR 82 mL/min (>60); GLUCOSE RANDOM 327 mg/dL (70-99); POTASSIUM,K 4.6 mEq/L (3.5-5.1); PROTEIN TOTAL,TP 5.6 g/dl (6.4-8.2); SODIUM,NA 138 mEq/L (136-145)
[2024-06-23 18:36] LABS: CARBON DIOXIDE,CO2 41 mEq/L (21-32)
[2024-06-23 18:37] LABS: TROPONIN I HIGH SENSITIVITY 141 pg/mL (<=76)
[2024-06-23 19:23] LABS: BASE EXCESS VENOUS 12.1 (-4.0-2.0); BICARBONATE,VENOUS 39.4 meq/L (22-26); O2 SATURATION VENOUS 87.3; PCO2 VENOUS 66.9 mmHg (41-51); PH,VENOUS 7.39 (7.30-7.40)
[2024-06-23] MEDS: Albuterol 0.083% 2.5 MG/3 ML Neb Soln NEB ONE (21:18)
[2024-06-23 21:47] LABS: CORONAVIRUS COVID-19 NAA NEGATIVE (NEGATIVE); INFLUENZA A NAA NEGATIVE (NEGATIVE); RESPIRATORY SYNCYTIAL VIR NAA NEGATIVE (NEGATIVE)
[2024-06-23] MEDS: Furosemide 40 MG/4 ML VIAL IVPUSH ONE (21:48)
[2024-06-23] MEDS: Furosemide 20 MG/2 ML VIAL IVPUSH ONE (21:48)
== END 2024-06-23 22:51 ==
LOC: JD.ED 16:11
DX: J44.1 Chronic obstructive pulmonary disease with (acute) exacerbation (principal); I11.0 Hypertensive heart disease with heart failure; I50.9 Heart failure, unspecified; E78.00 Pure hypercholesterolemia, unspecified; E11.9 Type 2 diabetes mellitus without complications; E66.9 Obesity, unspecified; F17.210 Nicotine dependence, cigarettes, uncomplicated; Z86.16 Personal history of COVID-19; Z90.49 Acquired absence of other specified parts of digestive tract; Z88.1 Allergy status to other antibiotic agents; Z88.8 Allergy status to other drugs, medicaments and biological substances; Z79.51 Long term (current) use of inhaled steroids; Z79.899 Other long term (current) drug therapy
CPT/HCPCS: 0241U; 36415; 71045; 80053; 82803; 83605; 83735; 83880; 84484; 85025; 93005; 94640; 94660; 96374; 96375; 99285; J1940; J2919; J7620-GY

== ENCOUNTER 2024-07-06 16:13 | Emergency (ER) | payer MEDICARE, MEDICAID ==
[2024-07-06] MEDS ORDERED: Sodium Chloride 0.9% 10 ML Syringe FLUSH PRN (16:42)
[2024-07-06 16:49] LABS: BASOPHILS PERCENT AUTO 0.3 % (0.0-1.0); EOSINOPHILS ABSOLUTE AUTO 0.3 K/mm3 (0.0-0.4); EOSINOPHILS PERCENT AUTO 4.3 % (0.0-6.0); HEMATOCRIT 35.3 % (42.0-52.0); HEMOGLOBIN 11.4 gm/dl (14.0-18.0); IMMATURE GRAN ABSOLUTE AUTO 0.03 K/mm3 (0.00-0.05); IMMATURE GRAN PERCENT AUTO 0.4 % (0.0-0.4); LYMPHOCYTES ABSOLUTE AUTO 1.4 K/mm3 (1.0-4.8); LYMPHOCYTES PERCENT AUTO 18.6 % (24.0-44.0); MEAN CORPUSCULAR HEMOGLOBIN 31.2 pg (28.0-32.0); MEAN CORPUSCULAR HGB CONC 32.3 g/dl (32.0-36.0); MEAN CORPUSCULAR VOLUME 96.7 fl (83.0-99.0); MEAN PLATELET VOLUME 9.5 fl (9.4-12.4); MONOCYTES ABSOLUTE AUTO 0.8 K/mm3 (0.0-0.8); MONOCYTES PERCENT AUTO 10.1 % (0.0-8.0); NEUTROPHILS ABSOLUTE AUTO 5.1 K/mm3 (1.8-7.7); NEUTROPHILS PERCENT AUTO 66.3 % (41.0-71.0); PLATELET COUNT,PLT 239 K/mm3 (150-400); RED BLOOD CELL COUNT 3.65 M/mm3 (4.52-5.90); WHITE BLOOD CELL COUNT,WBC 7.62 K/mm3 (3.9-11.3)
[2024-07-06] MEDS: Diltiazem 25 MG/5 ML SDV IVPUSH ONE (16:53)
[2024-07-06] MEDS: methylPREDNISolone Sodium Succinate 125 MG/2 ML SDV IVPUSH ONE (16:53)
[2024-07-06] MEDS: Levalbuterol HCl 1.25 MG/0.5 ML Neb NEB ONE (17:02)
[2024-07-06 17:12] LABS: ALBUMIN 2.8 g/dl (3.4-5.0); ANION GAP 9.9 (5-15); BILIRUBIN TOTAL 0.3 mg/dL (0.2-1.0); C-REACTIVE PROTEIN 1.42 mg/dL (<0.30); CALCIUM 9.1 mg/dL (8.5-10.1); EST CRCL DRUG DOSING (CG) 74.01 mL/min; POTASSIUM,K 4.9 mEq/L (3.5-5.1); PROTEIN TOTAL,TP 5.7 g/dl (6.4-8.2)
[2024-07-06 17:37] LABS: BARBITURATE SCREEN,URINE NEGATIVE (CUTOFF=200); BENZODIAZEPINES SCREEN,URINE PRESUMPTIVE POSITIVE (CUTOFF=150); BUPRENORPHINE SCREEN,URINE NEGATIVE (CUTOFF=10); METHADONE SCREEN, URINE NEGATIVE (CUT0FF=200); METHAMPHETAMINES SCREEN, URINE NEGATIVE (CUTOFF=500); OXYCODONE SCREEN,URINE NEGATIVE (CUT0FF=100); THC SCREEN,URINE 20 NG/ML NEGATIVE (CUTOFF=50)
[2024-07-06 17:39] LABS: AMPHETAMINES SCREEN, URINE NEGATIVE (CUTOFF=500)
[2024-07-06 18:17] VITALS: BP 111/94; PULSE 74
== END 2024-07-06 18:16 | disposition home or self-care (01) ==
LOC: JD.ED 16:13
DX: I48.92 Unspecified atrial flutter (principal); J41.8 Mixed simple and mucopurulent chronic bronchitis; R79.89 Other specified abnormal findings of blood chemistry; I11.0 Hypertensive heart disease with heart failure; I50.9 Heart failure, unspecified; E78.00 Pure hypercholesterolemia, unspecified; E11.9 Type 2 diabetes mellitus without complications; E66.9 Obesity, unspecified; Z90.49 Acquired absence of other specified parts of digestive tract; Z86.16 Personal history of COVID-19; Z88.6 Allergy status to analgesic agent; Z88.1 Allergy status to other antibiotic agents; Z88.8 Allergy status to other drugs, medicaments and biological substances; Z79.51 Long term (current) use of inhaled steroids; Z79.899 Other long term (current) drug therapy; Z68.26 Body mass index [BMI] 26.0-26.9, adult
CPT/HCPCS: 36415; 71045; 73030; 80053; 80306; 80307; 83735; 83880; 84484; 85025; 86140; 93005; 94640; 96374; 96375; 99285; J2919; J3490

== ENCOUNTER 2024-07-07 09:15 | Emergency (ER) | payer MEDICARE, MEDICAID ==
[2024-07-07] MEDS ORDERED: Sodium Chloride 0.9% 10 ML Syringe FLUSH PRN (09:37)
[2024-07-07] MEDS: Levalbuterol HCl 1.25 MG/3 ML Neb NEB ONE (09:47)
[2024-07-07] MEDS: predniSONE 20 MG Tab PO ONE (09:55)
[2024-07-07 09:56] LABS: HEMATOCRIT 35.1 % (42.0-52.0); HEMOGLOBIN 11.5 gm/dl (14.0-18.0); IMMATURE GRAN ABSOLUTE AUTO 0.06 K/mm3 (0.00-0.05); IMMATURE GRAN PERCENT AUTO 0.6 % (0.0-0.4); LYMPHOCYTES ABSOLUTE AUTO 0.2 K/mm3 (1.0-4.8); LYMPHOCYTES PERCENT AUTO 2.2 % (24.0-44.0); MEAN CORPUSCULAR HEMOGLOBIN 31.3 pg (28.0-32.0); MEAN CORPUSCULAR HGB CONC 32.8 g/dl (32.0-36.0); MEAN CORPUSCULAR VOLUME 95.6 fl (83.0-99.0); MEAN PLATELET VOLUME 9.6 fl (9.4-12.4); MONOCYTES ABSOLUTE AUTO 0.2 K/mm3 (0.0-0.8); NEUTROPHILS ABSOLUTE AUTO 8.9 K/mm3 (1.8-7.7); NEUTROPHILS PERCENT AUTO 95.2 % (41.0-71.0); PLATELET COUNT,PLT 265 K/mm3 (150-400); RED BLOOD CELL COUNT 3.67 M/mm3 (4.52-5.90); WHITE BLOOD CELL COUNT,WBC 9.35 K/mm3 (3.9-11.3)
[2024-07-07] MEDS: Diltiazem 25 MG/5 ML SDV IVPUSH ONE (09:56)
[2024-07-07 10:43] LABS: A/G RATIO 0.9 (1-2); ALANINE AMINOTRANSFERASE,ALT 55 U/L (16-63); ALBUMIN 2.9 g/dl (3.4-5.0); ALKALINE PHOSPHATASE 197 U/L (46-116); ANION GAP 12.5 (5-15); ASPARTATE AMNIOTRANSFERASE,AST 40 U/L (15-37); BILIRUBIN TOTAL 0.3 mg/dL (0.2-1.0); BLOOD UREA NITROGEN,BUN 48 mg/dL (7-18); BUN/CREATININE RATIO 34.3 (14-18); C-REACTIVE PROTEIN 1.43 mg/dL (<0.30); CALCIUM 8.6 mg/dL (8.5-10.1); CARBON DIOXIDE,CO2 27 mEq/L (21-32); CHLORIDE,CL 99 mEq/L (98-107); CREATININE 1.4 mg/dL (0.7-1.3); ESTIMATED GFR 55 mL/min (>60); GLUCOSE RANDOM 372 mg/dL (70-99); MAGNESIUM 1.9 mg/dL (1.8-2.4); POTASSIUM,K 5.5 mEq/L (3.5-5.1); PROTEIN TOTAL,TP 6.2 g/dl (6.4-8.2); SODIUM,NA 133 mEq/L (136-145)
[2024-07-07 10:46] LABS: DIGOXIN < 0.2 ng/mL (0.9-2.0); TROPONIN I HIGH SENSITIVITY 96 pg/mL (<=76)
[2024-07-07] MEDS ORDERED: Diltiazem 125 MG in Sodium Chloride 0.9% 100 ML IV SCH (11:00)
[2024-07-07 11:53] VITALS: BP 109/86; PULSE 127
== END 2024-07-07 11:20 | disposition home or self-care (01) ==
LOC: JD.ED 09:15
DX: J44.1 Chronic obstructive pulmonary disease with (acute) exacerbation (principal); I48.92 Unspecified atrial flutter; I11.0 Hypertensive heart disease with heart failure; I50.9 Heart failure, unspecified; E78.00 Pure hypercholesterolemia, unspecified; E11.9 Type 2 diabetes mellitus without complications; E66.9 Obesity, unspecified; Z86.16 Personal history of COVID-19; Z90.49 Acquired absence of other specified parts of digestive tract; Z88.1 Allergy status to other antibiotic agents; Z88.8 Allergy status to other drugs, medicaments and biological substances; Z88.6 Allergy status to analgesic agent; Z79.51 Long term (current) use of inhaled steroids; Z79.52 Long term (current) use of systemic steroids; Z79.899 Other long term (current) drug therapy; Z68.31 Body mass index [BMI] 31.0-31.9, adult
CPT/HCPCS: 36415; 71045; 80053; 80162; 83735; 83880; 84484; 85025; 86140; 93005; 94640; 96374; 99285; J3490; J7512; J7612; 93010; 99284

== ENCOUNTER 2024-07-14 08:43 | Emergency (ER) | payer MEDICARE, MEDICAID ==
[2024-07-14] MEDS ORDERED: Sodium Chloride 0.9% 10 ML Syringe FLUSH PRN ×2 (09:38)
[2024-07-14] MEDS: Diltiazem 25 MG/5 ML SDV IVPUSH ONE (09:46)
[2024-07-14] MEDS: Metoprolol Tartrate 5 MG/5 ML SDV IVPUSH ONE (09:49)
[2024-07-14 10:04] LABS: BASOPHILS PERCENT AUTO 0.1 % (0.0-1.0); EOSINOPHILS ABSOLUTE AUTO 0.1 K/mm3 (0.0-0.4); HEMATOCRIT 40.1 % (42.0-52.0); IMMATURE GRAN ABSOLUTE AUTO 0.06 K/mm3 (0.00-0.05); IMMATURE GRAN PERCENT AUTO 0.7 % (0.0-0.4); LYMPHOCYTES PERCENT AUTO 11.6 % (24.0-44.0); MEAN CORPUSCULAR HEMOGLOBIN 31.3 pg (28.0-32.0); MEAN CORPUSCULAR HGB CONC 32.4 g/dl (32.0-36.0); MEAN CORPUSCULAR VOLUME 96.4 fl (83.0-99.0); MEAN PLATELET VOLUME 9.8 fl (9.4-12.4); MONOCYTES ABSOLUTE AUTO 0.6 K/mm3 (0.0-0.8); MONOCYTES PERCENT AUTO 6.8 % (0.0-8.0); NEUTROPHILS PERCENT AUTO 79.8 % (41.0-71.0); PLATELET COUNT,PLT 318 K/mm3 (150-400); RED BLOOD CELL COUNT 4.16 M/mm3 (4.52-5.90); WHITE BLOOD CELL COUNT,WBC 8.72 K/mm3 (3.9-11.3)
[2024-07-14 10:13] LABS: INR 0.95; PROTHROMBIN TIME 10.1 SECONDS (9.7-12.0)
[2024-07-14 10:14] LABS: D-DIMER QUANTITATIVE 0.35 mg/L (0.19-0.50)
[2024-07-14 10:16] LABS: A/G RATIO 0.9 (1-2); ALANINE AMINOTRANSFERASE,ALT 31 U/L (16-63); ALBUMIN 2.7 g/dl (3.4-5.0); ALKALINE PHOSPHATASE 136 U/L (46-116); ANION GAP 7.3 (5-15); ASPARTATE AMNIOTRANSFERASE,AST 13 U/L (15-37); BILIRUBIN TOTAL 0.4 mg/dL (0.2-1.0); BLOOD UREA NITROGEN,BUN 18 mg/dL (7-18); CALCIUM 9.1 mg/dL (8.5-10.1); CARBON DIOXIDE,CO2 36 mEq/L (21-32); CHLORIDE,CL 98 mEq/L (98-107); CREATININE 0.9 mg/dL (0.7-1.3); DIGOXIN 0.5 ng/mL (0.9-2.0); ESTIMATED GFR 94 mL/min (>60); GLUCOSE RANDOM 319 mg/dL (70-99); POTASSIUM,K 5.3 mEq/L (3.5-5.1); PROTEIN TOTAL,TP 5.7 g/dl (6.4-8.2); SODIUM,NA 136 mEq/L (136-145)
[2024-07-14 10:24] LABS: TROPONIN I HIGH SENSITIVITY 83 pg/mL (<=76)
[2024-07-14] MEDS ORDERED: Diltiazem 125 MG in Sodium Chloride 0.9% 100 ML IV SCH (12:15)
[2024-07-14] MEDS: Albuterol/Ipratropium 3.0-0.5 MG/3 ML Neb Soln NEB ONE (12:41)
[2024-07-14 14:48] VITALS: BP 128/64; PULSE 129
== END 2024-07-14 13:07 | disposition left against medical advice (07) ==
LOC: JD.ED 08:43
DX: I48.4 Atypical atrial flutter (principal); R53.1 Weakness; I11.0 Hypertensive heart disease with heart failure; I50.9 Heart failure, unspecified; E78.00 Pure hypercholesterolemia, unspecified; J44.9 Chronic obstructive pulmonary disease, unspecified; E11.9 Type 2 diabetes mellitus without complications; E66.9 Obesity, unspecified; Z86.16 Personal history of COVID-19; Z90.49 Acquired absence of other specified parts of digestive tract; Z88.5 Allergy status to narcotic agent; Z88.1 Allergy status to other antibiotic agents; Z88.6 Allergy status to analgesic agent; Z88.8 Allergy status to other drugs, medicaments and biological substances; Z79.51 Long term (current) use of inhaled steroids; Z79.52 Long term (current) use of systemic steroids; Z79.899 Other long term (current) drug therapy; Z91.199 Patient's noncompliance with other medical treatment and regimen due to unspecified reason
CPT/HCPCS: 36415; 71045; 80053; 80162; 84484; 85025; 85379; 85610; 93005; 96374; 96375; 99285; J3490; J7620-GY

== ENCOUNTER 2024-07-23 10:10 | Emergency (ER) | payer MEDICARE, MEDICAID ==
[2024-07-23] MEDS ORDERED: Sodium Chloride 0.9% 10 ML Syringe FLUSH PRN (10:41)
[2024-07-23 10:48] LABS: BASOPHILS PERCENT AUTO 0.1 % (0.0-1.0); EOSINOPHILS ABSOLUTE AUTO 0.2 K/mm3 (0.0-0.4); EOSINOPHILS PERCENT AUTO 2.4 % (0.0-6.0); HEMATOCRIT 38.8 % (42.0-52.0); HEMOGLOBIN 12.1 gm/dl (14.0-18.0); IMMATURE GRAN ABSOLUTE AUTO 0.04 K/mm3 (0.00-0.05); IMMATURE GRAN PERCENT AUTO 0.4 % (0.0-0.4); LYMPHOCYTES ABSOLUTE AUTO 1.1 K/mm3 (1.0-4.8); LYMPHOCYTES PERCENT AUTO 12.5 % (24.0-44.0); MEAN CORPUSCULAR HEMOGLOBIN 31.3 pg (28.0-32.0); MEAN CORPUSCULAR HGB CONC 31.2 g/dl (32.0-36.0); MEAN CORPUSCULAR VOLUME 100.3 fl (83.0-99.0); MEAN PLATELET VOLUME 9.3 fl (9.4-12.4); MONOCYTES ABSOLUTE AUTO 1.1 K/mm3 (0.0-0.8); MONOCYTES PERCENT AUTO 12.1 % (0.0-8.0); NEUTROPHILS ABSOLUTE AUTO 6.5 K/mm3 (1.8-7.7); NEUTROPHILS PERCENT AUTO 72.5 % (41.0-71.0); PLATELET COUNT,PLT 260 K/mm3 (150-400); RED BLOOD CELL COUNT 3.87 M/mm3 (4.52-5.90); WHITE BLOOD CELL COUNT,WBC 8.93 K/mm3 (3.9-11.3)
[2024-07-23] MEDS: Albuterol/Ipratropium 3.0-0.5 MG/3 ML Neb Soln NEB SCH (10:54)
[2024-07-23 11:08] LABS: A/G RATIO 0.9 (1-2); ALBUMIN 2.6 g/dl (3.4-5.0); ANION GAP 2.9 (5-15); BILIRUBIN TOTAL 0.5 mg/dL (0.2-1.0); BUN/CREATININE RATIO 28.8 (14-18); CALCIUM 9.4 mg/dL (8.5-10.1); CREATININE 0.8 mg/dL (0.7-1.3); EST CRCL DRUG DOSING (CG) 80.86 mL/min; POTASSIUM,K 4.9 mEq/L (3.5-5.1); PROTEIN TOTAL,TP 5.5 g/dl (6.4-8.2)
[2024-07-23] MEDS: Ondansetron 4 MG/2 ML SDV IVPUSH ONE (11:45)
[2024-07-23 12:30] VITALS: BP 152/81; PULSE 70
== END 2024-07-23 13:22 | disposition left against medical advice (07) ==
LOC: JD.ED 10:10
DX: I11.0 Hypertensive heart disease with heart failure (principal); I50.9 Heart failure, unspecified; R05.1 Acute cough; J44.9 Chronic obstructive pulmonary disease, unspecified; E11.9 Type 2 diabetes mellitus without complications; E66.9 Obesity, unspecified; F17.210 Nicotine dependence, cigarettes, uncomplicated; Z86.16 Personal history of COVID-19; Z90.49 Acquired absence of other specified parts of digestive tract; Z88.5 Allergy status to narcotic agent; Z88.1 Allergy status to other antibiotic agents; Z88.8 Allergy status to other drugs, medicaments and biological substances; Z79.51 Long term (current) use of inhaled steroids; Z79.899 Other long term (current) drug therapy; Z68.30 Body mass index [BMI] 30.0-30.9, adult
CPT/HCPCS: 36415; 71045; 80053; 83880; 84484; 85025; 87428; 93005; 94640; 96374; 99285; J2405; 93010; 99284; J7620-GY

== ENCOUNTER 2024-07-28 13:38 | Emergency (ER) | payer MEDICARE, MEDICAID ==
[2024-07-28] MEDS ORDERED: cefTRIAXone 500 MG Vial IVPUSH ONE (13:53)
[2024-07-28 14:02] LABS: BASE EXCESS ARTERIAL 7.2 (-2-2.0); BICARBONATE,ARTERIAL 34.5 meq/L (22.0-26.0); O2 SATURATION ARTERIAL 87.2 % (96.0-97.0); PCO2 ARTERIAL 67.3 mmHg (35.0-45.0)
[2024-07-28] MEDS: cefTRIAXone 1 GM Vial IVPUSH ONE (14:57)
[2024-07-28] MEDS: methylPREDNISolone Sodium Succinate 125 MG/2 ML SDV IVPUSH ONE (14:59)
[2024-07-28 15:02] LABS: BASOPHILS PERCENT AUTO 0.3 % (0.0-1.0); EOSINOPHILS PERCENT AUTO 0.3 % (0.0-6.0); HEMATOCRIT 35.9 % (42.0-52.0); IMMATURE GRAN ABSOLUTE AUTO 0.04 K/mm3 (0.00-0.05); IMMATURE GRAN PERCENT AUTO 0.5 % (0.0-0.4); LYMPHOCYTES ABSOLUTE AUTO 0.6 K/mm3 (1.0-4.8); LYMPHOCYTES PERCENT AUTO 7.3 % (24.0-44.0); MEAN CORPUSCULAR HEMOGLOBIN 31.2 pg (28.0-32.0); MEAN CORPUSCULAR HGB CONC 30.6 g/dl (32.0-36.0); MEAN CORPUSCULAR VOLUME 101.7 fl (83.0-99.0); MEAN PLATELET VOLUME 9.8 fl (9.4-12.4); MONOCYTES ABSOLUTE AUTO 0.8 K/mm3 (0.0-0.8); MONOCYTES PERCENT AUTO 9.7 % (0.0-8.0); NEUTROPHILS PERCENT AUTO 81.9 % (41.0-71.0); PLATELET COUNT,PLT 260 K/mm3 (150-400); RED BLOOD CELL COUNT 3.53 M/mm3 (4.52-5.90); WHITE BLOOD CELL COUNT,WBC 8.58 K/mm3 (3.9-11.3)
[2024-07-28] MEDS: Albuterol/Ipratropium 3.0-0.5 MG/3 ML Neb Soln NEB ONE (15:16)
[2024-07-28 15:22] LABS: A/G RATIO 0.6 (1-2); ALBUMIN 2.2 g/dl (3.4-5.0); ANION GAP 7.6 (5-15); BILIRUBIN TOTAL 0.2 mg/dL (0.2-1.0); C-REACTIVE PROTEIN 10.07 mg/dL (<0.30); CALCIUM 8.8 mg/dL (8.5-10.1); CREATININE 1.1 mg/dL (0.7-1.3); EST CRCL DRUG DOSING (CG) 67.29 mL/min; MAGNESIUM 1.6 mg/dL (1.8-2.4); POTASSIUM,K 4.6 mEq/L (3.5-5.1); PROTEIN TOTAL,TP 5.7 g/dl (6.4-8.2)
[2024-07-28] MEDS: LORazepam 2 MG/ML SDV IVPUSH ONE (15:54)
[2024-07-28 20:02] VITALS: BP 157/91; PULSE 91
== END 2024-07-28 18:00 | disposition home or self-care (01) ==
LOC: JD.ED 13:38
DX: J44.1 Chronic obstructive pulmonary disease with (acute) exacerbation (principal); J05.0 Acute obstructive laryngitis [croup]; F41.9 Anxiety disorder, unspecified; I11.0 Hypertensive heart disease with heart failure; I50.9 Heart failure, unspecified; E78.00 Pure hypercholesterolemia, unspecified; E11.9 Type 2 diabetes mellitus without complications; E66.9 Obesity, unspecified; Z86.16 Personal history of COVID-19; Z90.49 Acquired absence of other specified parts of digestive tract; Z86.59 Personal history of other mental and behavioral disorders; Z88.1 Allergy status to other antibiotic agents; Z88.6 Allergy status to analgesic agent; Z88.8 Allergy status to other drugs, medicaments and biological substances; Z79.51 Long term (current) use of inhaled steroids; Z79.52 Long term (current) use of systemic steroids; Z79.899 Other long term (current) drug therapy; Z68.28 Body mass index [BMI] 28.0-28.9, adult
CPT/HCPCS: 36415; 36600; 71045; 80053; 80307; 82550; 82803; 83605; 83735; 83880; 84484; 85025; 86140; 87040; 87428; 93005; 94640; 96374; 96375; 99285; J0696; J2060; J2919; J7620-GY

== ENCOUNTER 2024-07-30 13:21 | Emergency (ER) | payer MEDICARE, MEDICAID ==
[2024-07-30] MEDS: Albuterol/Ipratropium 3.0-0.5 MG/3 ML Neb Soln NEB ONE ×2 (14:09→15:25)
[2024-07-30 14:15] LABS: BASOPHILS PERCENT AUTO 0.2 % (0.0-1.0); EOSINOPHILS PERCENT AUTO 0.1 % (0.0-6.0); HEMATOCRIT 33.3 % (42.0-52.0); HEMOGLOBIN 10.6 gm/dl (14.0-18.0); IMMATURE GRAN ABSOLUTE AUTO 0.08 K/mm3 (0.00-0.05); IMMATURE GRAN PERCENT AUTO 0.8 % (0.0-0.4); LYMPHOCYTES ABSOLUTE AUTO 1.6 K/mm3 (1.0-4.8); LYMPHOCYTES PERCENT AUTO 15.9 % (24.0-44.0); MEAN CORPUSCULAR HEMOGLOBIN 30.8 pg (28.0-32.0); MEAN CORPUSCULAR HGB CONC 31.8 g/dl (32.0-36.0); MEAN CORPUSCULAR VOLUME 96.8 fl (83.0-99.0); MEAN PLATELET VOLUME 9.6 fl (9.4-12.4); MONOCYTES ABSOLUTE AUTO 0.5 K/mm3 (0.0-0.8); MONOCYTES PERCENT AUTO 4.7 % (0.0-8.0); NEUTROPHILS ABSOLUTE AUTO 7.8 K/mm3 (1.8-7.7); NEUTROPHILS PERCENT AUTO 78.3 % (41.0-71.0); PLATELET COUNT,PLT 298 K/mm3 (150-400); RED BLOOD CELL COUNT 3.44 M/mm3 (4.52-5.90); WHITE BLOOD CELL COUNT,WBC 9.93 K/mm3 (3.9-11.3)
[2024-07-30 14:42] LABS: A/G RATIO 0.7 (1-2); ALBUMIN 2.3 g/dl (3.4-5.0); BILIRUBIN TOTAL 0.3 mg/dL (0.2-1.0); C-REACTIVE PROTEIN 7.01 mg/dL (<0.30); CALCIUM 8.8 mg/dL (8.5-10.1); CREATININE 0.9 mg/dL (0.7-1.3); EST CRCL DRUG DOSING (CG) 82.44 mL/min; MAGNESIUM 2.1 mg/dL (1.8-2.4); PROTEIN TOTAL,TP 5.7 g/dl (6.4-8.2)
[2024-07-30] MEDS: methylPREDNISolone Sodium Succinate 40 MG/1 ML SDV IM ONE (15:00)
[2024-07-30 17:07] VITALS: BP 159/82; PULSE 74
== END 2024-07-30 16:20 | disposition home or self-care (01) ==
LOC: JD.ED 13:21
DX: J44.1 Chronic obstructive pulmonary disease with (acute) exacerbation (principal); I11.0 Hypertensive heart disease with heart failure; I50.9 Heart failure, unspecified; I48.91 Unspecified atrial fibrillation; E78.00 Pure hypercholesterolemia, unspecified; E11.9 Type 2 diabetes mellitus without complications; E66.9 Obesity, unspecified; Z86.16 Personal history of COVID-19; Z79.899 Other long term (current) drug therapy; Z88.6 Allergy status to analgesic agent; Z88.5 Allergy status to narcotic agent; Z88.8 Allergy status to other drugs, medicaments and biological substances; Z68.28 Body mass index [BMI] 28.0-28.9, adult
CPT/HCPCS: 36415; 71045; 80053; 83735; 85025; 86140; 93005; 94640; 96372; 99285; J2919; J7620-GY

== ENCOUNTER 2024-08-01 10:13 | Emergency (ER) | payer MEDICARE, MEDICAID ==
[2024-08-01 10:46] LABS: EOSINOPHILS PERCENT AUTO 0.1 % (0.0-6.0); HEMATOCRIT 36.9 % (42.0-52.0); HEMOGLOBIN 11.9 gm/dl (14.0-18.0); IMMATURE GRAN ABSOLUTE AUTO 0.05 K/mm3 (0.00-0.05); IMMATURE GRAN PERCENT AUTO 0.6 % (0.0-0.4); LYMPHOCYTES ABSOLUTE AUTO 0.3 K/mm3 (1.0-4.8); LYMPHOCYTES PERCENT AUTO 4.1 % (24.0-44.0); MEAN CORPUSCULAR HEMOGLOBIN 31.2 pg (28.0-32.0); MEAN CORPUSCULAR HGB CONC 32.2 g/dl (32.0-36.0); MEAN CORPUSCULAR VOLUME 96.9 fl (83.0-99.0); MEAN PLATELET VOLUME 9.5 fl (9.4-12.4); MONOCYTES ABSOLUTE AUTO 0.1 K/mm3 (0.0-0.8); MONOCYTES PERCENT AUTO 1.4 % (0.0-8.0); NEUTROPHILS ABSOLUTE AUTO 7.6 K/mm3 (1.8-7.7); NEUTROPHILS PERCENT AUTO 93.8 % (41.0-71.0); PLATELET COUNT,PLT 338 K/mm3 (150-400); RED BLOOD CELL COUNT 3.81 M/mm3 (4.52-5.90); WHITE BLOOD CELL COUNT,WBC 8.12 K/mm3 (3.9-11.3)
[2024-08-01] MEDS: methylPREDNISolone Sodium Succinate 40 MG/1 ML SDV IVPUSH ONE (10:51)
[2024-08-01] MEDS: Sodium Chloride 0.9% 10 ML Syringe FLUSH PRN (10:53)
[2024-08-01 10:55] LABS: A/G RATIO 0.7 (1-2); ALANINE AMINOTRANSFERASE,ALT 26 U/L (16-63); ALBUMIN 2.5 g/dl (3.4-5.0); ALKALINE PHOSPHATASE 136 U/L (46-116); ANION GAP 3.4 (5-15); ASPARTATE AMNIOTRANSFERASE,AST 15 U/L (15-37); BILIRUBIN TOTAL 0.4 mg/dL (0.2-1.0); BLOOD UREA NITROGEN,BUN 31 mg/dL (7-18); BUN/CREATININE RATIO 25.8 (14-18); C-REACTIVE PROTEIN 3.15 mg/dL (<0.30); CALCIUM 8.8 mg/dL (8.5-10.1); CHLORIDE,CL 94 mEq/L (98-107); CREATININE 1.2 mg/dL (0.7-1.3); ESTIMATED GFR 66 mL/min (>60); MAGNESIUM 2.1 mg/dL (1.8-2.4); POTASSIUM,K 5.4 mEq/L (3.5-5.1); SODIUM,NA 132 mEq/L (136-145)
[2024-08-01 11:00] LABS: CARBON DIOXIDE,CO2 40 mEq/L (21-32); GLUCOSE RANDOM 408 mg/dL (70-99)
[2024-08-01] MEDS: REMDESIVIR 200 MG in Sodium Chloride 0.9% 250 ML IV ONE (11:08)
[2024-08-01] MEDS: Sodium Chloride 0.9% 1,000 ML IV ONE (11:50)
[2024-08-01 14:19] VITALS: BP 154/79; PULSE 63
== END 2024-08-01 12:20 | disposition home or self-care (01) ==
LOC: JD.ED 10:13
DX: U07.1 COVID-19 (principal); J44.1 Chronic obstructive pulmonary disease with (acute) exacerbation; I11.0 Hypertensive heart disease with heart failure; I50.9 Heart failure, unspecified; E78.00 Pure hypercholesterolemia, unspecified; E11.9 Type 2 diabetes mellitus without complications; E66.9 Obesity, unspecified; Z90.49 Acquired absence of other specified parts of digestive tract; Z86.16 Personal history of COVID-19; Z88.1 Allergy status to other antibiotic agents; Z88.8 Allergy status to other drugs, medicaments and biological substances; Z79.51 Long term (current) use of inhaled steroids; Z79.52 Long term (current) use of systemic steroids; Z79.899 Other long term (current) drug therapy; Z68.27 Body mass index [BMI] 27.0-27.9, adult
CPT/HCPCS: 36415; 71045; 80053; 83735; 85025; 86140; 93005; 96365; 96375; 99285; J0248; J2919; J7050

== ENCOUNTER 2024-08-03 08:41 | Inpatient (IN) | payer MEDICARE, MEDICAID ==
[2024-08-03 09:53] LABS: BASOPHILS PERCENT AUTO 0.1 % (0.0-1.0); EOSINOPHILS PERCENT AUTO 0.1 % (0.0-6.0); HEMATOCRIT 39.1 % (42.0-52.0); IMMATURE GRAN ABSOLUTE AUTO 0.04 K/mm3 (0.00-0.05); IMMATURE GRAN PERCENT AUTO 0.6 % (0.0-0.4); LYMPHOCYTES ABSOLUTE AUTO 0.8 K/mm3 (1.0-4.8); LYMPHOCYTES PERCENT AUTO 11.3 % (24.0-44.0); MEAN CORPUSCULAR HEMOGLOBIN 30.9 pg (28.0-32.0); MEAN CORPUSCULAR HGB CONC 30.7 g/dl (32.0-36.0); MEAN PLATELET VOLUME 10.2 fl (9.4-12.4); MONOCYTES ABSOLUTE AUTO 0.4 K/mm3 (0.0-0.8); MONOCYTES PERCENT AUTO 6.1 % (0.0-8.0); NEUTROPHILS ABSOLUTE AUTO 5.9 K/mm3 (1.8-7.7); NEUTROPHILS PERCENT AUTO 81.8 % (41.0-71.0); PLATELET COUNT,PLT 311 K/mm3 (150-400); RED BLOOD CELL COUNT 3.88 M/mm3 (4.52-5.90); WHITE BLOOD CELL COUNT,WBC 7.23 K/mm3 (3.9-11.3)
[2024-08-03 10:01] LABS: MEAN CORPUSCULAR VOLUME 100.8 fl (83.0-99.0)
[2024-08-03 10:23] LABS: A/G RATIO 0.9 (1-2); ALBUMIN 2.6 g/dl (3.4-5.0); ANION GAP 5.2 (5-15); BILIRUBIN TOTAL 0.4 mg/dL (0.2-1.0); CALCIUM 8.7 mg/dL (8.5-10.1); EST CRCL DRUG DOSING (CG) 74.01 mL/min; MAGNESIUM 2.3 mg/dL (1.8-2.4); POTASSIUM,K 5.2 mEq/L (3.5-5.1); PROTEIN TOTAL,TP 5.6 g/dl (6.4-8.2)
[2024-08-03] MEDS: Albuterol/Ipratropium 3.0-0.5 MG/3 ML Neb Soln NEB ONE (10:48)
[2024-08-03] MEDS: Insulin Lispro 100 Unit/ML 3 ML KwikPen SUBCUT ONE (11:02)
[2024-08-03 11:11] LABS: APPEARANCE,URINE CLEAR (Clear); BILIRUBIN,URINE NEGATIVE (Negative); COLOR,URINE YELLOW (Yellow); GLUCOSE,URINE 3+ (Negative); KETONES,URINE NEGATIVE (Negative); LEUKOCYTE ESTERASE,URINE NEGATIVE (Negative); NITRITE,URINE NEGATIVE (Negative); OCCULT BLOOD,URINE NEGATIVE (Negative); PH,URINE 6.5 (5.0-8.0); PROTEIN,URINE 2+ (Negative); UROBILINOGEN,URINE 0.2 (0.2-1.0)
[2024-08-03 11:18] LABS: BARBITURATE SCREEN,URINE NEGATIVE (CUTOFF=200); BENZODIAZEPINES SCREEN,URINE PRESUMPTIVE POSITIVE (CUTOFF=150); BUPRENORPHINE SCREEN,URINE NEGATIVE (CUTOFF=10); METHADONE SCREEN, URINE NEGATIVE (CUT0FF=200); METHAMPHETAMINES SCREEN, URINE NEGATIVE (CUTOFF=500); OXYCODONE SCREEN,URINE NEGATIVE (CUT0FF=100); THC SCREEN,URINE 20 NG/ML NEGATIVE (CUTOFF=50)
[2024-08-03 11:19] LABS: AMPHETAMINES SCREEN, URINE NEGATIVE (CUTOFF=500)
[2024-08-03 11:37] LABS: BACTERIA,URINE FEW /hpf (FEW); MUCUS,URINE FEW /hpf (FEW); RBC,URINE 0-5 /hpf (0-5); SQUAMOUS EPITHELIAL CELLS,UR 0-5 /hpf (0-5); WBC,URINE 0-5 /hpf (0-5)
[2024-08-03 13:49] LABS: BASE EXCESS ARTERIAL 13.4 (-2-2.0); BICARBONATE,ARTERIAL 42.9 meq/L (22.0-26.0); O2 SATURATION ARTERIAL 89.9 % (96.0-97.0)
[2024-08-03 13:50] LABS: PCO2 ARTERIAL 87.1 mmHg (35.0-45.0)
[2024-08-03] MEDS ORDERED: 50% Dextrose in Water 50 ML Syringe IVPUSH PRN (14:06)
[2024-08-03] MEDS: methylPREDNISolone Sodium Succinate 125 MG/2 ML SDV IVPUSH ONE (14:30)
[2024-08-03] MEDS: Cefepime 2 GM in Sodium Chloride 0.9% 50 ML IV SCH (14:36)
[2024-08-03] MEDS: Sodium Chloride 0.9% 500 ML ONE (15:09)
[2024-08-03] MEDS: Acetaminophen 325 MG Tab PO PRN (15:18)
[2024-08-03] MEDS: Albuterol/Ipratropium 3.0-0.5 MG/3 ML Neb Soln NEB SCH (17:00)
[2024-08-03] MEDS: Insulin Lispro 100 Unit/ML 3 ML KwikPen SUBCUT SCH ×2 (17:41→18:09)
[2024-08-03] MEDS: busPIRone 5 MG Tab PO SCH (18:11)
[2024-08-03] MEDS: Apixaban 5 MG Tab PO SCH (20:36)
[2024-08-03] MEDS: Tamsulosin 0.4 MG Cap.ER PO SCH (20:36)
[2024-08-03] MEDS: Insulin Glargine,Human Rec. Analog 100 Units/ML 3 ML Pen SUBCUT SCH (21:50)
[2024-08-04 05:33] LABS: HEMATOCRIT 39.9 % (42.0-52.0); HEMOGLOBIN 12.5 gm/dl (14.0-18.0); IMMATURE GRAN ABSOLUTE AUTO 0.04 K/mm3 (0.00-0.05); IMMATURE GRAN PERCENT AUTO 0.6 % (0.0-0.4); LYMPHOCYTES ABSOLUTE AUTO 0.1 K/mm3 (1.0-4.8); LYMPHOCYTES PERCENT AUTO 1.8 % (24.0-44.0); MEAN CORPUSCULAR HEMOGLOBIN 30.8 pg (28.0-32.0); MEAN CORPUSCULAR HGB CONC 31.3 g/dl (32.0-36.0); MEAN CORPUSCULAR VOLUME 98.3 fl (83.0-99.0); MEAN PLATELET VOLUME 9.7 fl (9.4-12.4); MONOCYTES ABSOLUTE AUTO 0.1 K/mm3 (0.0-0.8); MONOCYTES PERCENT AUTO 1.2 % (0.0-8.0); NEUTROPHILS ABSOLUTE AUTO 6.4 K/mm3 (1.8-7.7); NEUTROPHILS PERCENT AUTO 96.4 % (41.0-71.0); PLATELET COUNT,PLT 333 K/mm3 (150-400); RED BLOOD CELL COUNT 4.06 M/mm3 (4.52-5.90); WHITE BLOOD CELL COUNT,WBC 6.62 K/mm3 (3.9-11.3)
[2024-08-04 06:01] LABS: A/G RATIO 0.8 (1-2); ALBUMIN 2.6 g/dl (3.4-5.0); ANION GAP 6.1 (5-15); BILIRUBIN TOTAL 0.4 mg/dL (0.2-1.0); CALCIUM 8.5 mg/dL (8.5-10.1); EST CRCL DRUG DOSING (CG) 74.01 mL/min; POTASSIUM,K 5.1 mEq/L (3.5-5.1); PROTEIN TOTAL,TP 5.9 g/dl (6.4-8.2)
[2024-08-04 07:50] LABS: SLIDE REVIEW ABNORMAL SMEAR
[2024-08-04 07:51] LABS: BASE EXCESS ARTERIAL 13.2 (-2-2.0); BICARBONATE,ARTERIAL 40.6 meq/L (22.0-26.0); O2 SATURATION ARTERIAL 84.2 % (96.0-97.0)
[2024-08-04] MEDS: methylPREDNISolone Sodium Succinate 40 MG/1 ML SDV IVPUSH SCH (08:16)
[2024-08-04] MEDS: atorvaSTATin 20 MG Tab PO SCH (08:17)
[2024-08-04] MEDS: Furosemide 20 MG Tab PO SCH (08:17)
[2024-08-04] MEDS: Diltiazem 180 MG Cap.CD PO SCH (08:17)
[2024-08-04] MEDS: Insulin Glargine,Human Rec. Analog 100 Units/ML 3 ML Pen SUBCUT ONE (08:23)
[2024-08-04] MEDS ORDERED: Insulin Glargine,Human Rec. Analog 100 Units/ML 3 ML Pen SUBCUT SCH ×2 (09:00→21:00)
[2024-08-04] MEDS: LORazepam 0.5 MG Tab PO PRN (09:03)
[2024-08-04] MEDS: Cefepime 2 GM Vial IVPUSH SCH (12:42)
[2024-08-04] MEDS: LORazepam 1 MG Tab PO PRN (14:01)
[2024-08-04] MEDS: guaiFENesin 600 MG Tab.ER PO SCH (14:01)
[2024-08-04] MEDS: guaiFENesin 100 MG/5 ML Soln 10 ML UD Cup PO PRN (14:45)
[2024-08-04] MEDS: Formoterol/Mometasone 100-5 MCG 8.8 GM Inhaler INH SCH (16:17)
[2024-08-04] MEDS: Digoxin 125 MCG Tab PO SCH (18:06)
[2024-08-04] MEDS: QUEtiapine 25 MG Tab PO SCH (20:06)
[2024-08-04] MEDS: Insulin Glargine,Human Rec. Analog 100 Units/ML 3 ML Pen SUBCUT SCH (20:08)
[2024-08-05 06:47] LABS: BASOPHILS PERCENT AUTO 0.1 % (0.0-1.0); EOSINOPHILS PERCENT AUTO 0.5 % (0.0-6.0); HEMATOCRIT 35.5 % (42.0-52.0); HEMOGLOBIN 11.4 gm/dl (14.0-18.0); IMMATURE GRAN ABSOLUTE AUTO 0.06 K/mm3 (0.00-0.05); IMMATURE GRAN PERCENT AUTO 0.8 % (0.0-0.4); LYMPHOCYTES ABSOLUTE AUTO 1.4 K/mm3 (1.0-4.8); LYMPHOCYTES PERCENT AUTO 18.3 % (24.0-44.0); MEAN CORPUSCULAR HGB CONC 32.1 g/dl (32.0-36.0); MEAN CORPUSCULAR VOLUME 96.5 fl (83.0-99.0); MEAN PLATELET VOLUME 9.7 fl (9.4-12.4); MONOCYTES ABSOLUTE AUTO 0.4 K/mm3 (0.0-0.8); MONOCYTES PERCENT AUTO 5.5 % (0.0-8.0); NEUTROPHILS ABSOLUTE AUTO 5.7 K/mm3 (1.8-7.7); NEUTROPHILS PERCENT AUTO 74.8 % (41.0-71.0); RED BLOOD CELL COUNT 3.68 M/mm3 (4.52-5.90); WHITE BLOOD CELL COUNT,WBC 7.63 K/mm3 (3.9-11.3)
[2024-08-05 06:53] LABS: PLATELET COUNT,PLT 244 K/mm3 (150-400)
[2024-08-05 07:22] LABS: A/G RATIO 0.8 (1-2); ALBUMIN 2.2 g/dl (3.4-5.0); ANION GAP 5.9 (5-15); BILIRUBIN TOTAL 0.4 mg/dL (0.2-1.0); BUN/CREATININE RATIO 26.3 (14-18); CALCIUM 8.4 mg/dL (8.5-10.1); CREATININE 0.8 mg/dL (0.7-1.3); EST CRCL DRUG DOSING (CG) 92.52 mL/min; POTASSIUM,K 4.9 mEq/L (3.5-5.1); PROTEIN TOTAL,TP 5.1 g/dl (6.4-8.2)
[2024-08-05] MEDS: methylPREDNISolone Sodium Succinate 40 MG/1 ML SDV IVPUSH SCH (08:17)
[2024-08-05] MEDS: Albuterol/Ipratropium 3.0-0.5 MG/3 ML Neb Soln NEB SCH (15:09)
[2024-08-05] MEDS: QUEtiapine 25 MG Tab PO SCH (20:09)
[2024-08-05] MEDS: Insulin Glargine,Human Rec. Analog 100 Units/ML 3 ML Pen SUBCUT SCH (20:23)
[2024-08-06 07:43] LABS: BASOPHILS PERCENT AUTO 0.1 % (0.0-1.0); HEMATOCRIT 35.4 % (42.0-52.0); HEMOGLOBIN 11.4 gm/dl (14.0-18.0); IMMATURE GRAN ABSOLUTE AUTO 0.06 K/mm3 (0.00-0.05); IMMATURE GRAN PERCENT AUTO 0.6 % (0.0-0.4); LYMPHOCYTES ABSOLUTE AUTO 0.4 K/mm3 (1.0-4.8); LYMPHOCYTES PERCENT AUTO 3.9 % (24.0-44.0); MEAN CORPUSCULAR HEMOGLOBIN 30.6 pg (28.0-32.0); MEAN CORPUSCULAR HGB CONC 32.2 g/dl (32.0-36.0); MEAN CORPUSCULAR VOLUME 94.9 fl (83.0-99.0); MEAN PLATELET VOLUME 9.4 fl (9.4-12.4); MONOCYTES ABSOLUTE AUTO 0.4 K/mm3 (0.0-0.8); MONOCYTES PERCENT AUTO 4.1 % (0.0-8.0); NEUTROPHILS ABSOLUTE AUTO 9.6 K/mm3 (1.8-7.7); NEUTROPHILS PERCENT AUTO 91.3 % (41.0-71.0); PLATELET COUNT,PLT 281 K/mm3 (150-400); RED BLOOD CELL COUNT 3.73 M/mm3 (4.52-5.90); WHITE BLOOD CELL COUNT,WBC 10.48 K/mm3 (3.9-11.3)
[2024-08-06 08:02] LABS: A/G RATIO 0.8 (1-2); ALBUMIN 2.2 g/dl (3.4-5.0); ANION GAP 3.3 (5-15); BILIRUBIN TOTAL 0.3 mg/dL (0.2-1.0); BUN/CREATININE RATIO 23.8 (14-18); CALCIUM 8.6 mg/dL (8.5-10.1); CREATININE 0.8 mg/dL (0.7-1.3); EST CRCL DRUG DOSING (CG) 92.52 mL/min; POTASSIUM,K 4.3 mEq/L (3.5-5.1); PROTEIN TOTAL,TP 5.1 g/dl (6.4-8.2)
[2024-08-06] MEDS: Vitamin B6-pyridOXINE 50 MG Tab PO SCH (08:08)
[2024-08-06] MEDS: Folic Acid 1 MG Tab PO SCH (08:08)
[2024-08-06] MEDS: Cholecalciferol (Vitamin D3) 25 MCG Tab PO SCH (08:09)
[2024-08-06] MEDS: Cyanocobalamin (Vitamin B12) 1,000 MCG Tab PO SCH (08:09)
[2024-08-06 08:52] LABS: SLIDE REVIEW ABNORMAL SMEAR
[2024-08-06] MEDS: traZODone 50 MG Tab PO SCH (20:13)
[2024-08-07] MEDS: predniSONE 20 MG Tab PO SCH (08:03)
[2024-08-07] MEDS: Lisinopril 20 MG Tab PO SCH (08:05)
[2024-08-07] MEDS: Albuterol 0.083% 2.5 MG/3 ML Neb Soln NEB PRN (13:26)
[2024-08-07 14:46] VITALS: BP 124/99; PULSE 86
== END 2024-08-07 14:35 | disposition home or self-care (01) | DRG 189 ==
LOC: JD.ED 08:41 → JD.ICU 13:52
PROVIDERS: ADMIT Family Medicine; ATTEND Family Medicine
PROC: 4A133R1 Monitoring of Arterial Saturation, Peripheral, Percutaneous Approach (ICD-10-PCS; 2024-08-03)
PROC: 5A09357 Assistance with Respiratory Ventilation, Less than 24 Consecutive Hours, Continuous Positive Airway Pressure (ICD-10-PCS; principal; 2024-08-04)
PROC: 5A0935A Assistance with Respiratory Ventilation, Less than 24 Consecutive Hours, High Flow/Velocity Cannula (ICD-10-PCS; 2024-08-04)
DX: J96.21 Acute and chronic respiratory failure with hypoxia (principal); I21.A1 Myocardial infarction type 2; J44.1 Chronic obstructive pulmonary disease with (acute) exacerbation; F15.20 Other stimulant dependence, uncomplicated; F20.0 Paranoid schizophrenia; H54.7 Unspecified visual loss; I48.91 Unspecified atrial fibrillation; I50.9 Heart failure, unspecified; E78.00 Pure hypercholesterolemia, unspecified; I11.0 Hypertensive heart disease with heart failure; K21.9 Gastro-esophageal reflux disease without esophagitis; N40.0 Benign prostatic hyperplasia without lower urinary tract symptoms; M54.9 Dorsalgia, unspecified; Z88.1 Allergy status to other antibiotic agents; G89.29 Other chronic pain; Z88.6 Allergy status to analgesic agent; Z88.5 Allergy status to narcotic agent; F41.9 Anxiety disorder, unspecified; F32.A Depression, unspecified; E66.9 Obesity, unspecified; F17.210 Nicotine dependence, cigarettes, uncomplicated; E87.5 Hyperkalemia; F10.20 Alcohol dependence, uncomplicated; E11.65 Type 2 diabetes mellitus with hyperglycemia; G47.00 Insomnia, unspecified; I48.0 Paroxysmal atrial fibrillation; Z99.81 Dependence on supplemental oxygen; Z88.8 Allergy status to other drugs, medicaments and biological substances; Z79.51 Long term (current) use of inhaled steroids; Z79.899 Other long term (current) drug therapy; Z79.01 Long term (current) use of anticoagulants; Z86.0100 Personal history of colon polyps, unspecified; Z68.28 Body mass index [BMI] 28.0-28.9, adult; Z86.16 Personal history of COVID-19; Z98.49 Cataract extraction status, unspecified eye; Z90.49 Acquired absence of other specified parts of digestive tract; Z98.890 Other specified postprocedural states
CPT/HCPCS: 36415; 36600; 71046; 80053; 80306; 81001; 82803; 82947; 83735; 83880; 84484; 85025; 93005; 94640; 99285; J1815; 90792-GT; 93010; 94660; 94667; 94668; 94761; 94762; 97162-GP; 99284; A9270-GY; J0692; J2919; J3490; J7512; J7620-GY; U0002

== ENCOUNTER 2024-08-13 10:29 | Inpatient (IN) | payer MEDICARE, MEDICAID ==
[2024-08-13 11:17] LABS: BASE EXCESS ARTERIAL 6.7 (-2-2.0); BICARBONATE,ARTERIAL 34.8 meq/L (22.0-26.0); O2 SATURATION ARTERIAL 84.8 % (96.0-97.0)
[2024-08-13 11:18] LABS: PCO2 ARTERIAL 72.8 mmHg (35.0-45.0)
[2024-08-13 11:19] LABS: BASOPHILS PERCENT AUTO 0.2 % (0.0-1.0); EOSINOPHILS ABSOLUTE AUTO 0.1 K/mm3 (0.0-0.4); EOSINOPHILS PERCENT AUTO 1.3 % (0.0-6.0); HEMOGLOBIN 11.5 gm/dl (14.0-18.0); IMMATURE GRAN ABSOLUTE AUTO 0.11 K/mm3 (0.00-0.05); IMMATURE GRAN PERCENT AUTO 1.1 % (0.0-0.4); LYMPHOCYTES ABSOLUTE AUTO 0.9 K/mm3 (1.0-4.8); LYMPHOCYTES PERCENT AUTO 9.2 % (24.0-44.0); MEAN CORPUSCULAR HEMOGLOBIN 31.2 pg (28.0-32.0); MEAN CORPUSCULAR HGB CONC 31.1 g/dl (32.0-36.0); MEAN CORPUSCULAR VOLUME 100.3 fl (83.0-99.0); MEAN PLATELET VOLUME 10.2 fl (9.4-12.4); MONOCYTES ABSOLUTE AUTO 0.9 K/mm3 (0.0-0.8); MONOCYTES PERCENT AUTO 8.8 % (0.0-8.0); NEUTROPHILS ABSOLUTE AUTO 8.1 K/mm3 (1.8-7.7); NEUTROPHILS PERCENT AUTO 79.4 % (41.0-71.0); PLATELET COUNT,PLT 249 K/mm3 (150-400); RED BLOOD CELL COUNT 3.69 M/mm3 (4.52-5.90); WHITE BLOOD CELL COUNT,WBC 10.17 K/mm3 (3.9-11.3)
[2024-08-13 11:59] LABS: A/G RATIO 0.7 (1-2); ALBUMIN 2.5 g/dl (3.4-5.0); BILIRUBIN TOTAL 0.3 mg/dL (0.2-1.0); CREATININE 0.9 mg/dL (0.7-1.3); EST CRCL DRUG DOSING (CG) 82.24 mL/min; ETHANOL BLOOD MEDICAL 0.01 gm% (0.00); PROTEIN TOTAL,TP 5.9 g/dl (6.4-8.2)
[2024-08-13] MEDS: Albuterol/Ipratropium 3.0-0.5 MG/3 ML Neb Soln NEB ONE (13:30)
[2024-08-13] MEDS: methylPREDNISolone Sodium Succinate 125 MG/2 ML SDV IVPUSH ONE (13:32)
[2024-08-13] MEDS: Furosemide 40 MG/4 ML VIAL IVPUSH ONE (13:32)
[2024-08-13] MEDS: Thiamine 200 MG/2 ML MDV IVPUSH ONE (13:32)
[2024-08-13] MEDS: Multivitamin Tab PO STA (13:32)
[2024-08-13] MEDS ORDERED: Naloxone 0.4 MG/ML SDV IVPUSH PRN (18:26)
[2024-08-13] MEDS: Morphine 2 MG/ML SYRINGE IVPUSH PRN (18:33)
[2024-08-13] MEDS ORDERED: Labetalol 100 MG/20 ML MDV IVPUSH PRN (19:10)
[2024-08-13] MEDS ORDERED: hydrALAZINE 20 MG/ML SDV IVPUSH PRN (19:10)
[2024-08-13] MEDS ORDERED: 50% Dextrose in Water 50 ML Syringe IVPUSH PRN (19:15)
[2024-08-13] MEDS ORDERED: Melatonin 3 MG Tab PO PRN (19:17)
[2024-08-13] MEDS ORDERED: Acetaminophen 325 MG Tab PO PRN (19:17)
[2024-08-13] MEDS ORDERED: Sennosides/Docusate Sodium 50-8.6 MG Tab PO PRN (19:17)
[2024-08-13] MEDS ORDERED: Ondansetron 4 MG/2 ML SDV IV PRN (19:17)
[2024-08-13] MEDS: Azithromycin 250 MG Tab PO SCH (19:33)
[2024-08-13] MEDS: Albuterol/Ipratropium 3.0-0.5 MG/3 ML Neb Soln NEB SCH (20:29)
[2024-08-13] MEDS: Apixaban 5 MG Tab PO SCH (20:38)
[2024-08-13 21:36] LABS: BARBITURATE SCREEN,URINE NEGATIVE (CUTOFF=200); BENZODIAZEPINES SCREEN,URINE PRESUMPTIVE POSITIVE (CUTOFF=150); BUPRENORPHINE SCREEN,URINE NEGATIVE (CUTOFF=10); METHADONE SCREEN, URINE NEGATIVE (CUT0FF=200); METHAMPHETAMINES SCREEN, URINE PRESUMPTIVE POSITIVE (CUTOFF=500); OXYCODONE SCREEN,URINE NEGATIVE (CUT0FF=100); THC SCREEN,URINE 20 NG/ML NEGATIVE (CUTOFF=50)
[2024-08-13 21:49] LABS: AMPHETAMINES SCREEN, URINE PRESUMPTIVE POSITIVE (CUTOFF=500)
[2024-08-13] MEDS: Insulin Lispro 100 Unit/ML 3 ML KwikPen SUBCUT SCH (22:05)
[2024-08-13] MEDS: LORazepam 2 MG/ML SDV IVPUSH ONE (22:07)
[2024-08-14 04:41] LABS: HEMATOCRIT 36.5 % (42.0-52.0); HEMOGLOBIN 11.5 gm/dl (14.0-18.0); IMMATURE GRAN ABSOLUTE AUTO 0.07 K/mm3 (0.00-0.05); LYMPHOCYTES ABSOLUTE AUTO 0.2 K/mm3 (1.0-4.8); LYMPHOCYTES PERCENT AUTO 3.3 % (24.0-44.0); MEAN CORPUSCULAR HEMOGLOBIN 30.6 pg (28.0-32.0); MEAN CORPUSCULAR HGB CONC 31.5 g/dl (32.0-36.0); MEAN CORPUSCULAR VOLUME 97.1 fl (83.0-99.0); MONOCYTES ABSOLUTE AUTO 0.1 K/mm3 (0.0-0.8); MONOCYTES PERCENT AUTO 0.9 % (0.0-8.0); NEUTROPHILS ABSOLUTE AUTO 6.4 K/mm3 (1.8-7.7); NEUTROPHILS PERCENT AUTO 94.8 % (41.0-71.0); PLATELET COUNT,PLT 256 K/mm3 (150-400); RED BLOOD CELL COUNT 3.76 M/mm3 (4.52-5.90)
[2024-08-14 05:13] LABS: A/G RATIO 0.6 (1-2); ALBUMIN 2.3 g/dl (3.4-5.0); ANION GAP 11.6 (5-15); BILIRUBIN TOTAL 0.3 mg/dL (0.2-1.0); BUN/CREATININE RATIO 26.7 (14-18); CREATININE 0.9 mg/dL (0.7-1.3); EST CRCL DRUG DOSING (CG) 81.11 mL/min; MAGNESIUM 2.2 mg/dL (1.8-2.4); POTASSIUM,K 4.6 mEq/L (3.5-5.1); PROTEIN TOTAL,TP 5.9 g/dl (6.4-8.2)
[2024-08-14 05:23] LABS: SLIDE REVIEW ABNORMAL SMEAR
[2024-08-14 06:02] LABS: FOLIC ACID 23.7 ng/mL (8.6-58.9)
[2024-08-14] MEDS: oxyCODONE 5 MG Tab PO PRN (07:37)
[2024-08-14] MEDS: Insulin Lispro 100 Unit/ML 3 ML KwikPen SUBCUT ONE ×3 (09:41→13:42)
[2024-08-14] MEDS: LORazepam 2 MG/ML SDV IVPUSH PRN (10:49)
[2024-08-14] MEDS: Albuterol/Ipratropium 3.0-0.5 MG/3 ML Neb Soln NEB PRN (10:54)
[2024-08-14] MEDS: Insulin Glargine,Human Rec. Analog 100 Units/ML 3 ML Pen SUBCUT SCH (11:47)
[2024-08-14] MEDS ORDERED: Insulin Regular in 0.9 % NACL 100 ML IV SCH (17:15)
[2024-08-14] MEDS: Formoterol/Mometasone 100-5 MCG 8.8 GM Inhaler INH SCH (20:56)
[2024-08-14] MEDS: QUEtiapine 25 MG Tab PO SCH (21:00)
[2024-08-15 08:13] LABS: BASOPHILS PERCENT AUTO 0.1 % (0.0-1.0); HEMATOCRIT 38.7 % (42.0-52.0); HEMOGLOBIN 12.3 gm/dl (14.0-18.0); IMMATURE GRAN ABSOLUTE AUTO 0.07 K/mm3 (0.00-0.05); IMMATURE GRAN PERCENT AUTO 0.6 % (0.0-0.4); LYMPHOCYTES ABSOLUTE AUTO 1.4 K/mm3 (1.0-4.8); LYMPHOCYTES PERCENT AUTO 11.8 % (24.0-44.0); MEAN CORPUSCULAR HEMOGLOBIN 31.7 pg (28.0-32.0); MEAN CORPUSCULAR HGB CONC 31.8 g/dl (32.0-36.0); MEAN CORPUSCULAR VOLUME 99.7 fl (83.0-99.0); MEAN PLATELET VOLUME 9.7 fl (9.4-12.4); MONOCYTES ABSOLUTE AUTO 0.3 K/mm3 (0.0-0.8); MONOCYTES PERCENT AUTO 2.7 % (0.0-8.0); NEUTROPHILS ABSOLUTE AUTO 9.7 K/mm3 (1.8-7.7); NEUTROPHILS PERCENT AUTO 84.8 % (41.0-71.0); PLATELET COUNT,PLT 314 K/mm3 (150-400); RED BLOOD CELL COUNT 3.88 M/mm3 (4.52-5.90); WHITE BLOOD CELL COUNT,WBC 11.41 K/mm3 (3.9-11.3)
[2024-08-15 08:34] LABS: O2 SATURATION ARTERIAL 91.2 % (96.0-97.0); PCO2 ARTERIAL 74.7 mmHg (35.0-45.0)
[2024-08-15 08:35] LABS: BASE EXCESS ARTERIAL 9.7 (-2-2.0); BICARBONATE,ARTERIAL 37.9 meq/L (22.0-26.0)
[2024-08-15 08:35] LABS: A/G RATIO 0.6 (1-2); ALBUMIN 2.3 g/dl (3.4-5.0); ANION GAP 8.2 (5-15); BILIRUBIN TOTAL 0.2 mg/dL (0.2-1.0); CALCIUM 8.6 mg/dL (8.5-10.1); POTASSIUM,K 4.2 mEq/L (3.5-5.1); PROTEIN TOTAL,TP 5.9 g/dl (6.4-8.2)
[2024-08-15] MEDS ORDERED: Diltiazem 180 MG Cap.CD PO SCH (09:00)
[2024-08-15] MEDS: Vitamin B6-pyridOXINE 50 MG Tab PO SCH (09:27)
[2024-08-15] MEDS: predniSONE 20 MG Tab PO SCH (09:27)
[2024-08-15] MEDS: Furosemide 20 MG Tab PO SCH (09:27)
[2024-08-15] MEDS: Digoxin 125 MCG Tab PO SCH (09:27)
[2024-08-15] MEDS: Tamsulosin 0.4 MG Cap.ER PO SCH (09:27)
[2024-08-15] MEDS: atorvaSTATin 20 MG Tab PO SCH (09:27)
[2024-08-15] MEDS: Lisinopril 20 MG Tab PO SCH (09:28)
[2024-08-15] MEDS: traZODone 50 MG Tab PO SCH (20:58)
[2024-08-15] MEDS: QUEtiapine 25 MG Tab PO SCH (20:58)
[2024-08-15] MEDS: Insulin Glargine,Human Rec. Analog 100 Units/ML 3 ML Pen SUBCUT SCH (21:03)
[2024-08-16] MEDS: Diltiazem 180 MG Cap.CD PO SCH (08:14)
[2024-08-16] MEDS: Fluticasone NASAL Spray 16 GM Bottle NASBOTH SCH (12:09)
[2024-08-16 12:11] VITALS: BP 139/61; PULSE 89
[2024-08-16] MEDS: Diclofenac Sodium 1% Gel 100 GM Tube TOP PRN (13:46)
== END 2024-08-16 14:46 | disposition home or self-care (01) | DRG 189 ==
LOC: JD.ED 10:29 → JD.MS 13:21 → OBSVTOIN 17:17 → INTOOBSV 17:17 → JD.MS 20:11 → OBSVTOIN 08-14 20:11
PROVIDERS: ADMIT Student in an Organized Health Care Education/Training Program; ATTEND Student in an Organized Health Care Education/Training Program
DX: M54.50 Low back pain, unspecified (principal); R53.1 Weakness; J96.22 Acute and chronic respiratory failure with hypercapnia; J96.21 Acute and chronic respiratory failure with hypoxia; F19.10 Other psychoactive substance abuse, uncomplicated; S22.42XA Multiple fractures of ribs, left side, initial encounter for closed fracture; J44.1 Chronic obstructive pulmonary disease with (acute) exacerbation; I48.91 Unspecified atrial fibrillation; E87.29 Other acidosis; J44.9 Chronic obstructive pulmonary disease, unspecified; E11.9 Type 2 diabetes mellitus without complications; F20.0 Paranoid schizophrenia; N40.0 Benign prostatic hyperplasia without lower urinary tract symptoms; I11.0 Hypertensive heart disease with heart failure; Z90.49 Acquired absence of other specified parts of digestive tract; I50.9 Heart failure, unspecified; E78.00 Pure hypercholesterolemia, unspecified; H54.7 Unspecified visual loss; Z88.5 Allergy status to narcotic agent; K21.9 Gastro-esophageal reflux disease without esophagitis; G89.29 Other chronic pain; F41.9 Anxiety disorder, unspecified; F32.A Depression, unspecified; E66.9 Obesity, unspecified; I48.0 Paroxysmal atrial fibrillation; F17.210 Nicotine dependence, cigarettes, uncomplicated; E11.65 Type 2 diabetes mellitus with hyperglycemia; F10.90 Alcohol use, unspecified, uncomplicated; E53.8 Deficiency of other specified B group vitamins; D53.9 Nutritional anemia, unspecified; W18.30XA Fall on same level, unspecified, initial encounter; F15.10 Other stimulant abuse, uncomplicated; Z79.4 Long term (current) use of insulin; Z88.6 Allergy status to analgesic agent; Z88.1 Allergy status to other antibiotic agents; Z88.8 Allergy status to other drugs, medicaments and biological substances; Z91.199 Patient's noncompliance with other medical treatment and regimen due to unspecified reason; Z68.28 Body mass index [BMI] 28.0-28.9, adult; Z98.49 Cataract extraction status, unspecified eye; Z86.16 Personal history of COVID-19; Z98.890 Other specified postprocedural states; Z99.81 Dependence on supplemental oxygen; Z79.01 Long term (current) use of anticoagulants; Z79.51 Long term (current) use of inhaled steroids; Z87.01 Personal history of pneumonia (recurrent); Z79.899 Other long term (current) drug therapy
CPT/HCPCS: 36415 ×2; 36600; 71045; 72131; 80053 ×2; 80306; 80307; 82550; 82607; 82746; 82803; 82947 ×7; 83735 ×2; 83880; 84100; 84484; 85025 ×2; 93005; 94640 ×6; 94760; 96374; 96375 ×2; 96376; 97161; 97530; 99285; A9270 ×6; G0378 ×3; J1815 ×2; J1940; J2060 ×3; J2270 ×3; J2919; J3411; 93010; 94761; 97116-GP; J7512; J7620-GY

== ENCOUNTER 2024-08-25 15:20 | Emergency (ER) | payer MEDICARE, MEDICAID ==
[2024-08-25 19:18] VITALS: BP 156/68; PULSE 75
== END 2024-08-25 18:40 | disposition home or self-care (01) ==
LOC: JD.ED 15:20
DX: M79.652 Pain in left thigh (principal); I11.0 Hypertensive heart disease with heart failure; I50.9 Heart failure, unspecified; E78.00 Pure hypercholesterolemia, unspecified; E66.9 Obesity, unspecified; E11.9 Type 2 diabetes mellitus without complications; Z88.8 Allergy status to other drugs, medicaments and biological substances; Z79.899 Other long term (current) drug therapy; Z79.4 Long term (current) use of insulin; Z86.16 Personal history of COVID-19; Z90.49 Acquired absence of other specified parts of digestive tract
CPT/HCPCS: 73552-26-LT; 73552-LT; 93971-26-LT; 93971-LT; 99283; 99284

== ENCOUNTER 2024-08-27 07:43 | Emergency (ER) | payer MEDICARE, MEDICAID ==
[2024-08-27] MEDS: Albuterol/Ipratropium 3.0-0.5 MG/3 ML Neb Soln NEB ONE (08:35)
[2024-08-27 10:43] LABS: BASOPHILS ABSOLUTE AUTO 0.1 K/mm3 (0.0-0.2); BASOPHILS PERCENT AUTO 0.6 % (0.0-1.0); EOSINOPHILS PERCENT AUTO 0.4 % (0.0-6.0); HEMATOCRIT 39.3 % (42.0-52.0); IMMATURE GRAN ABSOLUTE AUTO 0.03 K/mm3 (0.00-0.05); IMMATURE GRAN PERCENT AUTO 0.4 % (0.0-0.4); LYMPHOCYTES ABSOLUTE AUTO 0.6 K/mm3 (1.0-4.8); LYMPHOCYTES PERCENT AUTO 7.4 % (24.0-44.0); MEAN CORPUSCULAR HEMOGLOBIN 31.1 pg (28.0-32.0); MEAN CORPUSCULAR HGB CONC 30.5 g/dl (32.0-36.0); MEAN CORPUSCULAR VOLUME 101.8 fl (83.0-99.0); MEAN PLATELET VOLUME 8.9 fl (9.4-12.4); MONOCYTES ABSOLUTE AUTO 0.6 K/mm3 (0.0-0.8); MONOCYTES PERCENT AUTO 7.1 % (0.0-8.0); NEUTROPHILS ABSOLUTE AUTO 7.2 K/mm3 (1.8-7.7); NEUTROPHILS PERCENT AUTO 84.1 % (41.0-71.0); PLATELET COUNT,PLT 302 K/mm3 (150-400); RED BLOOD CELL COUNT 3.86 M/mm3 (4.52-5.90); WHITE BLOOD CELL COUNT,WBC 8.51 K/mm3 (3.9-11.3)
[2024-08-27 11:22] LABS: A/G RATIO 0.7 (1-2); ALBUMIN 2.6 g/dl (3.4-5.0); ANION GAP 10.5 (5-15); BILIRUBIN TOTAL 0.4 mg/dL (0.2-1.0); BUN/CREATININE RATIO 13.8 (14-18); CALCIUM 8.7 mg/dL (8.5-10.1); CREATININE 0.8 mg/dL (0.7-1.3); EST CRCL DRUG DOSING (CG) 91.25 mL/min; POTASSIUM,K 4.5 mEq/L (3.5-5.1); PROTEIN TOTAL,TP 6.1 g/dl (6.4-8.2)
[2024-08-27 12:01] LABS: BARBITURATE SCREEN,URINE NEGATIVE (CUTOFF=200); BENZODIAZEPINES SCREEN,URINE PRESUMPTIVE POSITIVE (CUTOFF=150); BUPRENORPHINE SCREEN,URINE NEGATIVE (CUTOFF=10); METHADONE SCREEN, URINE NEGATIVE (CUT0FF=200); METHAMPHETAMINES SCREEN, URINE PRESUMPTIVE POSITIVE (CUTOFF=500); OXYCODONE SCREEN,URINE NEGATIVE (CUT0FF=100); THC SCREEN,URINE 20 NG/ML NEGATIVE (CUTOFF=50)
[2024-08-27 12:06] LABS: AMPHETAMINES SCREEN, URINE PRESUMPTIVE POSITIVE (CUTOFF=500)
[2024-08-27] MEDS: QUEtiapine 25 MG Tab PO ONE (16:55)
[2024-08-27 18:40] LABS: APPEARANCE,URINE CLEAR (Clear); BILIRUBIN,URINE 1+ (Negative); COLOR,URINE YELLOW (Yellow); GLUCOSE,URINE 1+ (Negative); KETONES,URINE 4+ (Negative); LEUKOCYTE ESTERASE,URINE NEGATIVE (Negative); NITRITE,URINE NEGATIVE (Negative); OCCULT BLOOD,URINE NEGATIVE (Negative); PROTEIN,URINE 3+ (Negative); UROBILINOGEN,URINE 0.2 (0.2-1.0)
[2024-08-27 19:02] LABS: BACTERIA,URINE FEW /hpf (FEW); MUCUS,URINE FEW /hpf (FEW); RBC,URINE 0-5 /hpf (0-5); SQUAMOUS EPITHELIAL CELLS,UR 0-5 /hpf (0-5); WBC,URINE 0-5 /hpf (0-5)
[2024-08-27] MEDS ORDERED: Albuterol/Ipratropium 3.0-0.5 MG/3 ML Neb Soln NEB PRN (21:37)
[2024-08-28] MEDS: QUEtiapine 25 MG Tab PO ONE ×2 (03:25→16:20)
[2024-08-28] MEDS: Acetaminophen 325 MG Tab PO ONE ×3 (03:39→18:31)
[2024-08-28] MEDS: metFORMIN 500 MG Tab PO SCH (08:07)
[2024-08-28] MEDS ORDERED: Albuterol/Ipratropium 3.0-0.5 MG/3 ML Neb Soln NEB PRN (15:41)
[2024-08-28] MEDS: Digoxin 125 MCG Tab PO ONE (16:19)
[2024-08-28] MEDS: Diltiazem 300 MG Cap.CD PO ONE (16:19)
[2024-08-28] MEDS: Folic Acid 1 MG Tab PO ONE (16:20)
[2024-08-28] MEDS: LORazepam 1 MG Tab PO SCH (20:08)
[2024-08-28] MEDS: Apixaban 5 MG Tab PO SCH (20:09)
[2024-08-28] MEDS: HYDROmorphone 0.5 MG/0.5 ML Syringe IVPUSH ONE (20:09)
[2024-08-28] MEDS: QUEtiapine 25 MG Tab PO SCH (20:09)
[2024-08-28] MEDS: Tamsulosin 0.4 MG Cap.ER PO SCH (20:09)
[2024-08-28] MEDS: atorvaSTATin 20 MG Tab PO SCH (20:29)
[2024-08-28] MEDS: traZODone 50 MG Tab PO SCH (20:29)
[2024-08-28] MEDS: guaiFENesin 600 MG Tab.ER PO SCH (20:29)
[2024-08-28] MEDS: Formoterol/Mometasone 100-5 MCG 8.8 GM Inhaler INH SCH (20:31)
[2024-08-29] MEDS: Acetaminophen 325 MG Tab PO ONE ×2 (04:38→10:05)
[2024-08-29] MEDS ORDERED: predniSONE 20 MG Tab PO SCH (07:00)
[2024-08-29] MEDS: Vitamin B6-pyridOXINE 50 MG Tab PO SCH (08:56)
[2024-08-29] MEDS: Furosemide 40 MG Tab PO SCH (08:56)
[2024-08-29] MEDS: Lisinopril 20 MG Tab PO SCH (08:56)
[2024-08-29] MEDS ORDERED: HYDROmorphone 0.5 MG/0.5 ML Syringe IVPUSH ONE (15:11)
[2024-08-29] MEDS: HYDROmorphone 0.5 MG/0.5 ML Syringe IM ONE (15:27)
[2024-08-29 15:31] VITALS: BP 128/60; PULSE 87
[2024-08-29] MEDS: Cyclobenzaprine 10 MG Tab PO ONE (17:06)
== END 2024-08-29 18:33 | disposition home or self-care (01) ==
LOC: JD.ED 07:43
DX: J41.8 Mixed simple and mucopurulent chronic bronchitis (principal); M79.605 Pain in left leg; R45.851 Suicidal ideations; I48.91 Unspecified atrial fibrillation; I11.0 Hypertensive heart disease with heart failure; I50.9 Heart failure, unspecified; E78.00 Pure hypercholesterolemia, unspecified; E11.9 Type 2 diabetes mellitus without complications; F17.210 Nicotine dependence, cigarettes, uncomplicated; E66.9 Obesity, unspecified; Z68.27 Body mass index [BMI] 27.0-27.9, adult; Z86.16 Personal history of COVID-19; Z90.49 Acquired absence of other specified parts of digestive tract; Z88.1 Allergy status to other antibiotic agents; Z88.8 Allergy status to other drugs, medicaments and biological substances; Z79.51 Long term (current) use of inhaled steroids; Z79.01 Long term (current) use of anticoagulants; Z79.4 Long term (current) use of insulin; Z79.899 Other long term (current) drug therapy
CPT/HCPCS: 36415; 80053; 80143; 80179; 80306; 80307; 81001; 82947; 83735; 85025; 94640; 96372; 99285; A9270; J7620-GY

== ENCOUNTER 2024-09-03 19:25 | Inpatient (IN) | payer MEDICARE, MEDICAID ==
[2024-09-03 19:45] LABS: BASOPHILS ABSOLUTE AUTO 0.1 K/mm3 (0.0-0.2); BASOPHILS PERCENT AUTO 0.8 % (0.0-1.0); EOSINOPHILS ABSOLUTE AUTO 0.2 K/mm3 (0.0-0.4); EOSINOPHILS PERCENT AUTO 3.3 % (0.0-6.0); HEMATOCRIT 33.7 % (42.0-52.0); HEMOGLOBIN 10.8 gm/dl (14.0-18.0); IMMATURE GRAN ABSOLUTE AUTO 0.02 K/mm3 (0.00-0.05); IMMATURE GRAN PERCENT AUTO 0.3 % (0.0-0.4); LYMPHOCYTES ABSOLUTE AUTO 0.8 K/mm3 (1.0-4.8); MEAN CORPUSCULAR HEMOGLOBIN 31.6 pg (28.0-32.0); MEAN CORPUSCULAR VOLUME 98.5 fl (83.0-99.0); MEAN PLATELET VOLUME 9.4 fl (9.4-12.4); MONOCYTES ABSOLUTE AUTO 0.9 K/mm3 (0.0-0.8); MONOCYTES PERCENT AUTO 13.3 % (0.0-8.0); NEUTROPHILS ABSOLUTE AUTO 4.5 K/mm3 (1.8-7.7); NEUTROPHILS PERCENT AUTO 69.3 % (41.0-71.0); PLATELET COUNT,PLT 286 K/mm3 (150-400); RED BLOOD CELL COUNT 3.42 M/mm3 (4.52-5.90); WHITE BLOOD CELL COUNT,WBC 6.46 K/mm3 (3.9-11.3)
[2024-09-03] MEDS: LORazepam 2 MG/ML SDV IVPUSH ONE ×3 (19:48→23:03)
[2024-09-03] MEDS: methylPREDNISolone Sodium Succinate 125 MG/2 ML SDV IVPUSH ONE (19:49)
[2024-09-03] MEDS: Insulin Regular, Human 100 Units/ML 10 ML Vial IV ONE (19:49)
[2024-09-03] MEDS: Albuterol/Ipratropium 3.0-0.5 MG/3 ML Neb Soln NEB ONE (19:53)
[2024-09-03 20:02] LABS: BASE EXCESS ARTERIAL 5.1 (-2-2.0); BICARBONATE,ARTERIAL 31.7 meq/L (22.0-26.0); O2 SATURATION ARTERIAL 88.8 % (96.0-97.0); PCO2 ARTERIAL 61.9 mmHg (35.0-45.0)
[2024-09-03 20:13] LABS: A/G RATIO 0.9 (1-2); ALBUMIN 2.9 g/dl (3.4-5.0); ANION GAP 9.3 (5-15); BILIRUBIN TOTAL 0.4 mg/dL (0.2-1.0); BUN/CREATININE RATIO 20.4 (14-18); CALCIUM 8.7 mg/dL (8.5-10.1); CREATININE 2.4 mg/dL (0.7-1.3); EST CRCL DRUG DOSING (CG) 30.42 mL/min; MAGNESIUM 2.2 mg/dL (1.8-2.4); POTASSIUM,K 5.3 mEq/L (3.5-5.1); PROTEIN TOTAL,TP 6.2 g/dl (6.4-8.2)
[2024-09-03] MEDS: Azithromycin 500 MG in Sodium Chloride 0.9% 250 ML IV ONE (20:58)
[2024-09-03] MEDS: Doxycycline 100 MG in Sodium Chloride 0.9% 100 ML IV ONE (20:58)
[2024-09-03] MEDS ORDERED: cefTRIAXone 500 MG Vial IVPUSH ONE (22:52)
[2024-09-03] MEDS: Sodium Chloride 0.9% 1,500 ML IV ONE (23:13)
[2024-09-03] MEDS: cefTRIAXone 500 MG Vial IVPUSH ONE (23:14)
[2024-09-03 23:18] LABS: PCO2 ARTERIAL 66.7 mmHg (35.0-45.0)
[2024-09-03 23:19] LABS: BASE EXCESS ARTERIAL 2.7 (-2-2.0); BICARBONATE,ARTERIAL 30.2 meq/L (22.0-26.0); O2 SATURATION ARTERIAL 89.9 % (96.0-97.0)
[2024-09-04] MEDS: Sodium Chloride 0.9% 1,000 ML IV SCH (00:19)
[2024-09-04] MEDS: LORazepam 2 MG/ML SDV IVPUSH PRN ×2 (00:21→08:30)
[2024-09-04] MEDS: cefTRIAXone 1 GM Vial IVPUSH ONE (01:03)
[2024-09-04] MEDS: Albuterol/Ipratropium 3.0-0.5 MG/3 ML Neb Soln NEB SCH (01:10)
[2024-09-04 06:15] LABS: BASOPHILS PERCENT AUTO 0.2 % (0.0-1.0); EOSINOPHILS PERCENT AUTO 0.2 % (0.0-6.0); HEMATOCRIT 37.5 % (42.0-52.0); HEMOGLOBIN 11.4 gm/dl (14.0-18.0); IMMATURE GRAN ABSOLUTE AUTO 0.02 K/mm3 (0.00-0.05); IMMATURE GRAN PERCENT AUTO 0.4 % (0.0-0.4); LYMPHOCYTES ABSOLUTE AUTO 0.2 K/mm3 (1.0-4.8); LYMPHOCYTES PERCENT AUTO 4.5 % (24.0-44.0); MEAN CORPUSCULAR HEMOGLOBIN 30.9 pg (28.0-32.0); MEAN CORPUSCULAR HGB CONC 30.4 g/dl (32.0-36.0); MEAN CORPUSCULAR VOLUME 101.6 fl (83.0-99.0); MEAN PLATELET VOLUME 9.8 fl (9.4-12.4); MONOCYTES PERCENT AUTO 0.8 % (0.0-8.0); NEUTROPHILS PERCENT AUTO 93.9 % (41.0-71.0); PLATELET COUNT,PLT 285 K/mm3 (150-400); RED BLOOD CELL COUNT 3.69 M/mm3 (4.52-5.90); WHITE BLOOD CELL COUNT,WBC 5.32 K/mm3 (3.9-11.3)
[2024-09-04 06:44] LABS: A/G RATIO 0.7 (1-2); ALBUMIN 2.6 g/dl (3.4-5.0); ANION GAP 17.6 (5-15); BILIRUBIN TOTAL 0.3 mg/dL (0.2-1.0); BUN/CREATININE RATIO 32.7 (14-18); CALCIUM 8.3 mg/dL (8.5-10.1); CREATININE 1.5 mg/dL (0.7-1.3); EST CRCL DRUG DOSING (CG) 48.67 mL/min; POTASSIUM,K 5.6 mEq/L (3.5-5.1); PROTEIN TOTAL,TP 6.1 g/dl (6.4-8.2)
[2024-09-04] MEDS ORDERED: Albuterol 0.083% 2.5 MG/3 ML Neb Soln NEB PRN (07:20)
[2024-09-04 07:43] LABS: SLIDE REVIEW ABNORMAL SMEAR
[2024-09-04] MEDS: Insulin Regular, Human 100 Units/ML 10 ML Vial IV ONE (08:26)
[2024-09-04] MEDS: 50% Dextrose in Water 50 ML Syringe IVPUSH ONE (08:30)
[2024-09-04] MEDS: methylPREDNISolone Sodium Succinate 40 MG/1 ML SDV IVPUSH SCH (08:31)
[2024-09-04] MEDS: Doxycycline 100 MG in Sodium Chloride 0.9% 100 ML IV SCH (08:32)
[2024-09-04] MEDS ORDERED: Polyethylene Glycol 3350 Powder 17 GM Packet PO PRN (09:00)
[2024-09-04] MEDS ORDERED: Docusate Sodium 100 MG Cap PO PRN (09:00)
[2024-09-04 09:09] LABS: AMPHETAMINES SCREEN, URINE PRESUMPTIVE POSITIVE (CUTOFF=500); BARBITURATE SCREEN,URINE NEGATIVE (CUTOFF=200); BENZODIAZEPINES SCREEN,URINE PRESUMPTIVE POSITIVE (CUTOFF=150); BUPRENORPHINE SCREEN,URINE NEGATIVE (CUTOFF=10); METHADONE SCREEN, URINE NEGATIVE (CUT0FF=200); METHAMPHETAMINES SCREEN, URINE PRESUMPTIVE POSITIVE (CUTOFF=500); OXYCODONE SCREEN,URINE NEGATIVE (CUT0FF=100); THC SCREEN,URINE 20 NG/ML NEGATIVE (CUTOFF=50)
[2024-09-04 10:27] LABS: BASE EXCESS ARTERIAL -3.4 (-2-2.0); BICARBONATE,ARTERIAL 23.5 meq/L (22.0-26.0); O2 SATURATION ARTERIAL 93.7 % (96.0-97.0); PCO2 ARTERIAL 54.2 mmHg (35.0-45.0)
[2024-09-04] MEDS: atorvaSTATin 20 MG Tab PO SCH (10:29)
[2024-09-04] MEDS: Apixaban 5 MG Tab PO SCH (10:29)
[2024-09-04] MEDS: Pantoprazole 40 MG Tab.CR PO SCH (10:30)
[2024-09-04] MEDS: Digoxin 125 MCG Tab PO SCH (10:30)
[2024-09-04] MEDS: Diltiazem 180 MG Cap.CD PO SCH (10:33)
[2024-09-04] MEDS: Insulin Lispro 100 Unit/ML 3 ML KwikPen SUBCUT ONE (11:56)
[2024-09-04 12:29] LABS: ANION GAP 16.1 (5-15); CALCIUM 8.1 mg/dL (8.5-10.1); CREATININE 1.5 mg/dL (0.7-1.3); EST CRCL DRUG DOSING (CG) 48.67 mL/min; POTASSIUM,K 5.1 mEq/L (3.5-5.1)
[2024-09-04] MEDS: Insulin Glargine,Human Rec. Analog 100 Units/ML 3 ML Pen SUBCUT SCH (13:11)
[2024-09-04] MEDS: Insulin Lispro 100 Unit/ML 3 ML KwikPen SUBCUT SCH (17:21)
[2024-09-04] MEDS: Formoterol/Mometasone 100-5 MCG 8.8 GM Inhaler INH SCH (20:11)
[2024-09-04] MEDS: Tamsulosin 0.4 MG Cap.ER PO SCH (20:35)
[2024-09-04] MEDS: QUEtiapine 25 MG Tab PO SCH (20:35)
[2024-09-04] MEDS: traZODone 50 MG Tab PO SCH (20:35)
[2024-09-04] MEDS: Lidocaine 1% with EPINEPHrine 1:100,000 20 ML MDV INJECT ONE (20:52)
[2024-09-04] MEDS: cefTRIAXone 1 GM Vial IVPUSH SCH (23:26)
[2024-09-05 04:56] LABS: BASOPHILS PERCENT AUTO 0.1 % (0.0-1.0); HEMATOCRIT 34.3 % (42.0-52.0); HEMOGLOBIN 10.8 gm/dl (14.0-18.0); IMMATURE GRAN ABSOLUTE AUTO 0.03 K/mm3 (0.00-0.05); IMMATURE GRAN PERCENT AUTO 0.3 % (0.0-0.4); LYMPHOCYTES ABSOLUTE AUTO 0.2 K/mm3 (1.0-4.8); LYMPHOCYTES PERCENT AUTO 2.3 % (24.0-44.0); MEAN CORPUSCULAR HEMOGLOBIN 31.3 pg (28.0-32.0); MEAN CORPUSCULAR HGB CONC 31.5 g/dl (32.0-36.0); MEAN CORPUSCULAR VOLUME 99.4 fl (83.0-99.0); MEAN PLATELET VOLUME 9.7 fl (9.4-12.4); MONOCYTES ABSOLUTE AUTO 0.1 K/mm3 (0.0-0.8); MONOCYTES PERCENT AUTO 1.4 % (0.0-8.0); NEUTROPHILS ABSOLUTE AUTO 8.4 K/mm3 (1.8-7.7); NEUTROPHILS PERCENT AUTO 95.9 % (41.0-71.0); PLATELET COUNT,PLT 296 K/mm3 (150-400); RED BLOOD CELL COUNT 3.45 M/mm3 (4.52-5.90); WHITE BLOOD CELL COUNT,WBC 8.71 K/mm3 (3.9-11.3)
[2024-09-05 05:29] LABS: A/G RATIO 0.7 (1-2); ALBUMIN 2.5 g/dl (3.4-5.0); ANION GAP 8.9 (5-15); BILIRUBIN TOTAL 0.2 mg/dL (0.2-1.0); BUN/CREATININE RATIO 36.2 (14-18); CALCIUM 8.4 mg/dL (8.5-10.1); CREATININE 1.3 mg/dL (0.7-1.3); EST CRCL DRUG DOSING (CG) 56.15 mL/min; POTASSIUM,K 4.9 mEq/L (3.5-5.1); PROTEIN TOTAL,TP 5.9 g/dl (6.4-8.2)
[2024-09-05 07:21] LABS: SLIDE REVIEW ABNORMAL SMEAR
[2024-09-05 08:13] LABS: BASE EXCESS ARTERIAL 1.9 (-2-2.0); BICARBONATE,ARTERIAL 27.8 meq/L (22.0-26.0); O2 SATURATION ARTERIAL 82.3 % (96.0-97.0); PCO2 ARTERIAL 52.1 mmHg (35.0-45.0)
[2024-09-05] MEDS: Insulin Glargine,Human Rec. Analog 100 Units/ML 3 ML Pen SUBCUT SCH (08:13)
[2024-09-05] MEDS: Lisinopril 20 MG Tab PO SCH (08:19)
[2024-09-05] MEDS: Furosemide 40 MG Tab PO SCH (08:19)
[2024-09-05] MEDS: Vitamin B6-pyridOXINE 50 MG Tab PO SCH (08:19)
[2024-09-05] MEDS: LORazepam 1 MG Tab PO ONE (11:48)
[2024-09-05] MEDS: predniSONE 20 MG Tab PO SCH (15:33)
[2024-09-05] MEDS: LORazepam 1 MG Tab PO PRN (16:55)
[2024-09-05] MEDS: Insulin Lispro 100 Unit/ML 3 ML KwikPen SUBCUT ONE (18:10)
[2024-09-05] MEDS: Amoxicillin/Clavulanate K 875-125 MG Tab PO SCH (20:18)
[2024-09-05] MEDS: Doxycycline Monohydrate 100 MG Cap PO SCH (20:19)
[2024-09-06 05:26] LABS: BASOPHILS PERCENT AUTO 0.1 % (0.0-1.0); HEMATOCRIT 33.8 % (42.0-52.0); HEMOGLOBIN 10.8 gm/dl (14.0-18.0); IMMATURE GRAN ABSOLUTE AUTO 0.07 K/mm3 (0.00-0.05); IMMATURE GRAN PERCENT AUTO 0.7 % (0.0-0.4); LYMPHOCYTES ABSOLUTE AUTO 0.3 K/mm3 (1.0-4.8); LYMPHOCYTES PERCENT AUTO 2.8 % (24.0-44.0); MEAN CORPUSCULAR HEMOGLOBIN 31.5 pg (28.0-32.0); MEAN CORPUSCULAR VOLUME 98.5 fl (83.0-99.0); MEAN PLATELET VOLUME 10.1 fl (9.4-12.4); MONOCYTES ABSOLUTE AUTO 0.3 K/mm3 (0.0-0.8); MONOCYTES PERCENT AUTO 2.8 % (0.0-8.0); NEUTROPHILS ABSOLUTE AUTO 9.9 K/mm3 (1.8-7.7); NEUTROPHILS PERCENT AUTO 93.6 % (41.0-71.0); PLATELET COUNT,PLT 335 K/mm3 (150-400); RED BLOOD CELL COUNT 3.43 M/mm3 (4.52-5.90); WHITE BLOOD CELL COUNT,WBC 10.55 K/mm3 (3.9-11.3)
[2024-09-06 06:12] LABS: SLIDE REVIEW ABNORMAL SMEAR
[2024-09-06 06:23] LABS: A/G RATIO 0.7 (1-2); ALBUMIN 2.3 g/dl (3.4-5.0); ANION GAP 9.6 (5-15); BILIRUBIN TOTAL 0.2 mg/dL (0.2-1.0); BUN/CREATININE RATIO 38.3 (14-18); CALCIUM 8.2 mg/dL (8.5-10.1); CREATININE 1.2 mg/dL (0.7-1.3); EST CRCL DRUG DOSING (CG) 60.83 mL/min; POTASSIUM,K 4.6 mEq/L (3.5-5.1); PROTEIN TOTAL,TP 5.6 g/dl (6.4-8.2)
[2024-09-06] MEDS: Insulin Glargine,Human Rec. Analog 100 Units/ML 3 ML Pen SUBCUT SCH (09:33)
[2024-09-06] MEDS: Acetaminophen 325 MG Tab PO PRN (09:37)
[2024-09-06] MEDS: Insulin Glargine,Human Rec. Analog 100 Units/ML 3 ML Pen SUBCUT ONE (11:53)
[2024-09-06] MEDS: Insulin Lispro 100 Unit/ML 3 ML KwikPen SUBCUT ONE (16:46)
[2024-09-07 05:32] LABS: BASOPHILS PERCENT AUTO 0.1 % (0.0-1.0); HEMATOCRIT 34.5 % (42.0-52.0); HEMOGLOBIN 10.7 gm/dl (14.0-18.0); IMMATURE GRAN ABSOLUTE AUTO 0.08 K/mm3 (0.00-0.05); IMMATURE GRAN PERCENT AUTO 0.8 % (0.0-0.4); LYMPHOCYTES PERCENT AUTO 10.1 % (24.0-44.0); MEAN CORPUSCULAR HEMOGLOBIN 30.8 pg (28.0-32.0); MEAN CORPUSCULAR VOLUME 99.4 fl (83.0-99.0); MEAN PLATELET VOLUME 9.7 fl (9.4-12.4); MONOCYTES ABSOLUTE AUTO 0.6 K/mm3 (0.0-0.8); MONOCYTES PERCENT AUTO 5.7 % (0.0-8.0); NEUTROPHILS ABSOLUTE AUTO 8.5 K/mm3 (1.8-7.7); NEUTROPHILS PERCENT AUTO 83.3 % (41.0-71.0); PLATELET COUNT,PLT 335 K/mm3 (150-400); RED BLOOD CELL COUNT 3.47 M/mm3 (4.52-5.90); WHITE BLOOD CELL COUNT,WBC 10.21 K/mm3 (3.9-11.3)
[2024-09-07 05:49] LABS: A/G RATIO 0.7 (1-2); ALBUMIN 2.2 g/dl (3.4-5.0); ANION GAP 7.1 (5-15); BILIRUBIN TOTAL 0.2 mg/dL (0.2-1.0); BUN/CREATININE RATIO 38.2 (14-18); CALCIUM 8.3 mg/dL (8.5-10.1); CREATININE 1.1 mg/dL (0.7-1.3); EST CRCL DRUG DOSING (CG) 66.36 mL/min; POTASSIUM,K 4.1 mEq/L (3.5-5.1); PROTEIN TOTAL,TP 5.2 g/dl (6.4-8.2)
[2024-09-07] MEDS: Potassium Chloride 10 MEQ in Dextrose 5% in Water 1,000 ML IV SCH (08:58)
[2024-09-07] MEDS ORDERED: Potassium Chloride 10 MEQ in Dextrose 5% in Water 1,000 ML IV SCH (09:00)
[2024-09-07] MEDS: Insulin Glargine,Human Rec. Analog 100 Units/ML 3 ML Pen SUBCUT SCH (21:23)
[2024-09-08] MEDS ORDERED: Insulin Glargine,Human Rec. Analog 100 Units/ML 3 ML Pen SUBCUT SCH
[2024-09-08 05:40] LABS: HEMATOCRIT 32.2 % (42.0-52.0); HEMOGLOBIN 10.3 gm/dl (14.0-18.0); MEAN CORPUSCULAR HEMOGLOBIN 31.2 pg (28.0-32.0); MEAN CORPUSCULAR VOLUME 97.6 fl (83.0-99.0); MEAN PLATELET VOLUME 9.5 fl (9.4-12.4); PLATELET COUNT,PLT 330 K/mm3 (150-400); WHITE BLOOD CELL COUNT,WBC 8.81 K/mm3 (3.9-11.3)
[2024-09-08 06:07] LABS: A/G RATIO 0.7 (1-2); ANION GAP 7.3 (5-15); BILIRUBIN TOTAL 0.2 mg/dL (0.2-1.0); BUN/CREATININE RATIO 43.8 (14-18); CALCIUM 8.3 mg/dL (8.5-10.1); CREATININE 0.8 mg/dL (0.7-1.3); EST CRCL DRUG DOSING (CG) 91.25 mL/min; POTASSIUM,K 4.3 mEq/L (3.5-5.1)
[2024-09-08] MEDS: 50% Dextrose in Water 50 ML Syringe IVPUSH PRN (07:13)
[2024-09-08] MEDS: Insulin Glargine,Human Rec. Analog 100 Units/ML 3 ML Pen SUBCUT SCH ×2 (07:47→20:13)
[2024-09-08 12:06] LABS: BARBITURATE SCREEN,URINE NEGATIVE (CUTOFF=200); BENZODIAZEPINES SCREEN,URINE NEGATIVE (CUTOFF=150); BUPRENORPHINE SCREEN,URINE NEGATIVE (CUTOFF=10); METHADONE SCREEN, URINE NEGATIVE (CUT0FF=200); METHAMPHETAMINES SCREEN, URINE NEGATIVE (CUTOFF=500); OXYCODONE SCREEN,URINE NEGATIVE (CUT0FF=100); THC SCREEN,URINE 20 NG/ML NEGATIVE (CUTOFF=50)
[2024-09-08 12:18] LABS: AMPHETAMINES SCREEN, URINE NEGATIVE (CUTOFF=500)
[2024-09-08] MEDS: Ondansetron 4 MG/2 ML SDV IV PRN (17:18)
[2024-09-08] MEDS: Albuterol/Ipratropium 3.0-0.5 MG/3 ML Neb Soln NEB SCH (20:52)
[2024-09-09 04:50] LABS: HEMATOCRIT 33.9 % (42.0-52.0); HEMOGLOBIN 10.5 gm/dl (14.0-18.0); MEAN CORPUSCULAR HEMOGLOBIN 30.9 pg (28.0-32.0); MEAN CORPUSCULAR VOLUME 99.7 fl (83.0-99.0); MEAN PLATELET VOLUME 9.7 fl (9.4-12.4); PLATELET COUNT,PLT 331 K/mm3 (150-400); WHITE BLOOD CELL COUNT,WBC 8.53 K/mm3 (3.9-11.3)
[2024-09-09 05:23] LABS: A/G RATIO 0.7 (1-2); ANION GAP 6.1 (5-15); BILIRUBIN TOTAL 0.2 mg/dL (0.2-1.0); CALCIUM 8.7 mg/dL (8.5-10.1); POTASSIUM,K 5.1 mEq/L (3.5-5.1); PROTEIN TOTAL,TP 4.9 g/dl (6.4-8.2)
[2024-09-09 09:44] VITALS: BP 153/79; PULSE 89
== END 2024-09-09 09:38 | disposition home or self-care (01) | DRG 193 ==
LOC: JD.ED 19:25 → JD.ICU 22:48
PROVIDERS: ADMIT Internal Medicine; ATTEND Internal Medicine
PROC: 4A133R1 Monitoring of Arterial Saturation, Peripheral, Percutaneous Approach (ICD-10-PCS; principal; 2024-09-03)
DX: J18.9 Pneumonia, unspecified organism (principal); G92.8 Other toxic encephalopathy; J96.21 Acute and chronic respiratory failure with hypoxia; F15.10 Other stimulant abuse, uncomplicated; K86.1 Other chronic pancreatitis; I48.91 Unspecified atrial fibrillation; I11.0 Hypertensive heart disease with heart failure; N17.9 Acute kidney failure, unspecified; F20.0 Paranoid schizophrenia; I13.0 Hypertensive heart and chronic kidney disease with heart failure and stage 1 through stage 4 chronic kidney disease, or unspecified chronic kidney disease; E11.9 Type 2 diabetes mellitus without complications; F15.20 Other stimulant dependence, uncomplicated; Z68.27 Body mass index [BMI] 27.0-27.9, adult; F19.20 Other psychoactive substance dependence, uncomplicated; H54.7 Unspecified visual loss; Z88.1 Allergy status to other antibiotic agents; Z88.5 Allergy status to narcotic agent; I50.9 Heart failure, unspecified; Z79.51 Long term (current) use of inhaled steroids; Z79.01 Long term (current) use of anticoagulants; Z79.4 Long term (current) use of insulin; E78.00 Pure hypercholesterolemia, unspecified; K21.9 Gastro-esophageal reflux disease without esophagitis; N40.0 Benign prostatic hyperplasia without lower urinary tract symptoms; M54.9 Dorsalgia, unspecified; G89.29 Other chronic pain; F41.9 Anxiety disorder, unspecified; F32.A Depression, unspecified; E66.9 Obesity, unspecified; D75.1 Secondary polycythemia; E86.0 Dehydration; J41.8 Mixed simple and mucopurulent chronic bronchitis; E87.5 Hyperkalemia; E11.65 Type 2 diabetes mellitus with hyperglycemia; I48.0 Paroxysmal atrial fibrillation; E11.22 Type 2 diabetes mellitus with diabetic chronic kidney disease; N18.31 Chronic kidney disease, stage 3a; R69 Illness, unspecified; Z79.899 Other long term (current) drug therapy; Z68.26 Body mass index [BMI] 26.0-26.9, adult; Z86.16 Personal history of COVID-19; Z98.890 Other specified postprocedural states; Z99.81 Dependence on supplemental oxygen; Z90.49 Acquired absence of other specified parts of digestive tract; Z88.8 Allergy status to other drugs, medicaments and biological substances
CPT/HCPCS: 36415; 36600; 71045; 80053; 82550; 82803; 82947 ×2; 83690; 83735; 83880; 84145; 84484; 85025; 87040 ×2; 87428; 93005; 94640; 94660; 96365; 96368; 96375; 96376; 99285; J0456; J1815; J2060 ×2; J2919; J3490; 80048; 80306; 85027; 86140; 87070; 87075; 87205; 93010; 94667; 94668; 94761; 99223; 99232; 99233; 99239; A9270-GY; J0696; J2405; J3480; J7030; J7060; J7512; J7620-GY

== ENCOUNTER 2024-09-23 10:18 | Emergency (ER) | payer MEDICARE, MEDICAID ==
[2024-09-23] MEDS: droPERidol 2.5 MG/ML SDV IM ONE (10:46)
[2024-09-23 13:03] VITALS: BP 142/77; PULSE 70
== END 2024-09-23 13:00 | disposition home or self-care (01) ==
LOC: JD.ED 10:18
DX: S70.02XA Contusion of left hip, initial encounter (principal); R26.89 Other abnormalities of gait and mobility; I11.0 Hypertensive heart disease with heart failure; I50.9 Heart failure, unspecified; I48.91 Unspecified atrial fibrillation; E78.00 Pure hypercholesterolemia, unspecified; E11.9 Type 2 diabetes mellitus without complications; Z86.16 Personal history of COVID-19; Z88.8 Allergy status to other drugs, medicaments and biological substances; Z88.5 Allergy status to narcotic agent; Z88.6 Allergy status to analgesic agent; Z79.01 Long term (current) use of anticoagulants; Z79.51 Long term (current) use of inhaled steroids; Z79.899 Other long term (current) drug therapy; W18.39XA Other fall on same level, initial encounter; Y93.01 Activity, walking, marching and hiking
CPT/HCPCS: 73502-26-LT; 73502-LT; 96372; 99284

== ENCOUNTER 2024-10-06 14:22 | Emergency (ER) | payer MEDICARE, MEDICAID ==
[2024-10-06 15:03] LABS: BASOPHILS ABSOLUTE AUTO 0.1 K/mm3 (0.0-0.2); BASOPHILS PERCENT AUTO 0.8 % (0.0-1.0); EOSINOPHILS ABSOLUTE AUTO 0.1 K/mm3 (0.0-0.4); EOSINOPHILS PERCENT AUTO 1.5 % (0.0-6.0); HEMATOCRIT 36.6 % (42.0-52.0); HEMOGLOBIN 11.7 gm/dl (14.0-18.0); IMMATURE GRAN ABSOLUTE AUTO 0.03 K/mm3 (0.00-0.05); IMMATURE GRAN PERCENT AUTO 0.4 % (0.0-0.4); LYMPHOCYTES ABSOLUTE AUTO 1.3 K/mm3 (1.0-4.8); LYMPHOCYTES PERCENT AUTO 15.6 % (24.0-44.0); MEAN CORPUSCULAR HEMOGLOBIN 31.1 pg (28.0-32.0); MEAN CORPUSCULAR VOLUME 97.3 fl (83.0-99.0); MEAN PLATELET VOLUME 8.7 fl (9.4-12.4); MONOCYTES ABSOLUTE AUTO 0.8 K/mm3 (0.0-0.8); MONOCYTES PERCENT AUTO 9.4 % (0.0-8.0); NEUTROPHILS ABSOLUTE AUTO 5.8 K/mm3 (1.8-7.7); NEUTROPHILS PERCENT AUTO 72.3 % (41.0-71.0); PLATELET COUNT,PLT 412 K/mm3 (150-400); RED BLOOD CELL COUNT 3.76 M/mm3 (4.52-5.90); WHITE BLOOD CELL COUNT,WBC 7.99 K/mm3 (3.9-11.3)
[2024-10-06 15:41] LABS: A/G RATIO 0.6 (1-2); ALBUMIN 2.3 g/dl (3.4-5.0); ANION GAP 3.9 (5-15); BILIRUBIN TOTAL 0.4 mg/dL (0.2-1.0); BUN/CREATININE RATIO 17.5 (14-18); CALCIUM 8.9 mg/dL (8.5-10.1); CREATININE 0.8 mg/dL (0.7-1.3); EST CRCL DRUG DOSING (CG) 91.25 mL/min; POTASSIUM,K 4.9 mEq/L (3.5-5.1); PROTEIN TOTAL,TP 6.2 g/dl (6.4-8.2)
[2024-10-06] MEDS: Albuterol/Ipratropium 3.0-0.5 MG/3 ML Neb Soln NEB ONE (15:48)
[2024-10-06] MEDS: QUEtiapine 25 MG Tab PO ONE (16:37)
[2024-10-06] MEDS ORDERED: Insulin Glargine,Human Rec. Analog 100 Units/ML 3 ML Pen SUBCUT ONE (17:30)
[2024-10-06 18:19] VITALS: BP 154/90; PULSE 101
== END 2024-10-06 18:10 | disposition home or self-care (01) ==
LOC: JD.ED 14:22
DX: F41.9 Anxiety disorder, unspecified (principal); I13.0 Hypertensive heart and chronic kidney disease with heart failure and stage 1 through stage 4 chronic kidney disease, or unspecified chronic kidney disease; I50.9 Heart failure, unspecified; N18.9 Chronic kidney disease, unspecified; E11.22 Type 2 diabetes mellitus with diabetic chronic kidney disease; E78.00 Pure hypercholesterolemia, unspecified; J44.9 Chronic obstructive pulmonary disease, unspecified; E66.9 Obesity, unspecified; Z86.16 Personal history of COVID-19; Z79.899 Other long term (current) drug therapy; Z79.4 Long term (current) use of insulin; Z88.8 Allergy status to other drugs, medicaments and biological substances; Z88.6 Allergy status to analgesic agent; Z68.28 Body mass index [BMI] 28.0-28.9, adult
CPT/HCPCS: 36415; 71045; 80053; 83880; 84484; 85025; 93005; 94640; 99285; A9270; 93010; 99283; J7620-GY

== ENCOUNTER 2025-01-24 18:35 | Emergency (ER) | payer MEDICAID, MEDICARE, OTHER ==
[2025-01-24] MEDS ORDERED: Sodium Chloride 0.9% 10 ML Syringe FLUSH PRN (20:02)
[2025-01-24 20:13] LABS: BASOPHILS ABSOLUTE AUTO 0.1 K/mm3 (0.0-0.2); BASOPHILS PERCENT AUTO 0.7 % (0.0-1.0); EOSINOPHILS ABSOLUTE AUTO 0.2 K/mm3 (0.0-0.4); EOSINOPHILS PERCENT AUTO 2.3 % (0.0-6.0); HEMATOCRIT 35.6 % (42.0-52.0); HEMOGLOBIN 11.6 gm/dl (14.0-18.0); IMMATURE GRAN ABSOLUTE AUTO 0.02 K/mm3 (0.00-0.05); IMMATURE GRAN PERCENT AUTO 0.2 % (0.0-0.4); LYMPHOCYTES ABSOLUTE AUTO 1.2 K/mm3 (1.0-4.8); LYMPHOCYTES PERCENT AUTO 13.6 % (24.0-44.0); MEAN CORPUSCULAR HEMOGLOBIN 30.7 pg (28.0-32.0); MEAN CORPUSCULAR HGB CONC 32.6 g/dl (32.0-36.0); MEAN CORPUSCULAR VOLUME 94.2 fl (83.0-99.0); MEAN PLATELET VOLUME 9.3 fl (9.4-12.4); MONOCYTES ABSOLUTE AUTO 1.1 K/mm3 (0.0-0.8); MONOCYTES PERCENT AUTO 12.2 % (0.0-8.0); NEUTROPHILS ABSOLUTE AUTO 6.5 K/mm3 (1.8-7.7); PLATELET COUNT,PLT 343 K/mm3 (150-400); RED BLOOD CELL COUNT 3.78 M/mm3 (4.52-5.90); WHITE BLOOD CELL COUNT,WBC 9.15 K/mm3 (3.9-11.3)
[2025-01-24] MEDS: Albuterol/Ipratropium 3.0-0.5 MG/3 ML Neb Soln NEB SCH (20:19)
[2025-01-24 20:38] LABS: A/G RATIO 0.7 (1-2); ALBUMIN 2.6 g/dl (3.4-5.0); ANION GAP 8.5 (5-15); BILIRUBIN TOTAL 0.4 mg/dL (0.2-1.0); BUN/CREATININE RATIO 33.1 (14-18); CALCIUM 8.6 mg/dL (8.5-10.1); CREATININE 1.3 mg/dL (0.7-1.3); EST CRCL DRUG DOSING (CG) 52.62 mL/min; POTASSIUM,K 4.5 mEq/L (3.5-5.1); PROTEIN TOTAL,TP 6.4 g/dl (6.4-8.2)
[2025-01-24 20:43] LABS: MAGNESIUM 2.4 mg/dL (1.8-2.4)
[2025-01-24 20:44] LABS: DIGOXIN 0.6 ng/mL (0.9-2.0)
[2025-01-24] MEDS: Ondansetron 4 MG/2 ML SDV IVPUSH ONE (21:03)
[2025-01-24] MEDS: Sodium Chloride 0.9% 500 ML IV ONE (21:03)
[2025-01-24] MEDS: methylPREDNISolone Sodium Succinate 125 MG/2 ML SDV IVPUSH ONE (21:03)
[2025-01-24] MEDS: 50% Dextrose in Water 50 ML Syringe IVPUSH ONE (21:07)
[2025-01-24 21:46] LABS: APPEARANCE,URINE CLEAR (Clear); BILIRUBIN,URINE NEGATIVE (Negative); COLOR,URINE YELLOW (Yellow); GLUCOSE,URINE NEGATIVE (Negative); KETONES,URINE TRACE (Negative); LEUKOCYTE ESTERASE,URINE NEGATIVE (Negative); NITRITE,URINE NEGATIVE (Negative); OCCULT BLOOD,URINE NEGATIVE (Negative); PROTEIN,URINE 1+ (Negative); UROBILINOGEN,URINE 0.2 (0.2-1.0)
[2025-01-24 21:55] LABS: BARBITURATE SCREEN,URINE NEGATIVE (CUTOFF=200); BENZODIAZEPINES SCREEN,URINE PRESUMPTIVE POSITIVE (CUTOFF=150); BUPRENORPHINE SCREEN,URINE NEGATIVE (CUTOFF=10); METHADONE SCREEN, URINE NEGATIVE (CUT0FF=200); METHAMPHETAMINES SCREEN, URINE PRESUMPTIVE POSITIVE (CUTOFF=500); OXYCODONE SCREEN,URINE NEGATIVE (CUT0FF=100); THC SCREEN,URINE 20 NG/ML NEGATIVE (CUTOFF=50)
[2025-01-24 21:57] LABS: BACTERIA,URINE FEW /hpf (FEW); EPITHELIAL CELLS,URINE 0-5 /hpf (0-5); HYALINE CASTS,URINE 20-30 /lpf (0-5); MUCUS,URINE NOT SEEN /hpf (FEW); RBC,URINE 0-5 /hpf (0-5); WBC,URINE 0-5 /hpf (0-5)
[2025-01-24 21:58] LABS: AMPHETAMINES SCREEN, URINE PRESUMPTIVE POSITIVE (CUTOFF=500)
[2025-01-24] MEDS: Sodium Chloride 0.9% 10 ML Syringe FLUSH PRN (21:59)
[2025-01-24] MEDS: Sodium Chloride 0.9% 45 ML IV SCH (21:59)
[2025-01-24] MEDS: Iopamidol 755 Mg/ML 100 ML Bottle IVPUSH ONE (21:59)
[2025-01-24] MEDS: Levofloxacin/Dextrose 5%-Water 750 MG in Premix Bag 1 BAG IV ONE (23:05)
[2025-01-25 00:51] VITALS: BP 132/85; PULSE 85
== END 2025-01-25 00:37 | disposition left against medical advice (07) ==
LOC: JD.ED 18:35
DX: J18.9 Pneumonia, unspecified organism (principal); E11.649 Type 2 diabetes mellitus with hypoglycemia without coma; R10.84 Generalized abdominal pain; R74.8 Abnormal levels of other serum enzymes; R79.89 Other specified abnormal findings of blood chemistry; I48.91 Unspecified atrial fibrillation; I11.0 Hypertensive heart disease with heart failure; I50.9 Heart failure, unspecified; E78.00 Pure hypercholesterolemia, unspecified; J44.9 Chronic obstructive pulmonary disease, unspecified; K21.9 Gastro-esophageal reflux disease without esophagitis; F17.200 Nicotine dependence, unspecified, uncomplicated; Z90.49 Acquired absence of other specified parts of digestive tract; Z88.1 Allergy status to other antibiotic agents; Z88.8 Allergy status to other drugs, medicaments and biological substances; Z79.01 Long term (current) use of anticoagulants; Z79.51 Long term (current) use of inhaled steroids; Z79.4 Long term (current) use of insulin
CPT/HCPCS: 36415; 70450; 70496; 70498; 71045; 74177; 80053; 80162; 80306; 80307; 81001; 82947; 83690; 83735; 83880; 84484; 85025; 93005; 94640; 96361; 96365; 96375; 99285; A9270; J1956; J2405; J2919; J7030; Q9967

== ENCOUNTER 2025-01-25 10:07 | Emergency (ER) | payer MEDICARE, OTHER ==
[2025-01-25 10:49] LABS: HEMATOCRIT 35.4 % (42.0-52.0); HEMOGLOBIN 11.2 gm/dl (14.0-18.0); IMMATURE GRAN ABSOLUTE AUTO 0.01 K/mm3 (0.00-0.05); IMMATURE GRAN PERCENT AUTO 0.3 % (0.0-0.4); LYMPHOCYTES ABSOLUTE AUTO 0.1 K/mm3 (1.0-4.8); LYMPHOCYTES PERCENT AUTO 2.2 % (24.0-44.0); MEAN CORPUSCULAR HEMOGLOBIN 30.4 pg (28.0-32.0); MEAN CORPUSCULAR HGB CONC 31.6 g/dl (32.0-36.0); MEAN CORPUSCULAR VOLUME 96.2 fl (83.0-99.0); MONOCYTES PERCENT AUTO 0.6 % (0.0-8.0); NEUTROPHILS ABSOLUTE AUTO 3.5 K/mm3 (1.8-7.7); NEUTROPHILS PERCENT AUTO 96.9 % (41.0-71.0); PLATELET COUNT,PLT 345 K/mm3 (150-400); RED BLOOD CELL COUNT 3.68 M/mm3 (4.52-5.90)
[2025-01-25 11:21] LABS: A/G RATIO 0.7 (1-2); ALBUMIN 2.7 g/dl (3.4-5.0); BILIRUBIN TOTAL 0.5 mg/dL (0.2-1.0); BUN/CREATININE RATIO 31.1 (14-18); CALCIUM 8.4 mg/dL (8.5-10.1); CREATININE 1.9 mg/dL (0.7-1.3); EST CRCL DRUG DOSING (CG) 38.42 mL/min; PROTEIN TOTAL,TP 6.8 g/dl (6.4-8.2)
[2025-01-25 11:33] LABS: MAGNESIUM 2.5 mg/dL (1.8-2.4)
[2025-01-25 11:41] LABS: ANION GAP 22.2 (5-15)
[2025-01-25 11:43] LABS: SLIDE REVIEW ABNORMAL SMEAR
[2025-01-25 15:03] VITALS: BP 122/56; PULSE 72
== END 2025-01-25 11:55 | disposition left against medical advice (07) ==
LOC: JD.ED 10:07
DX: S30.0XXA Contusion of lower back and pelvis, initial encounter (principal); E11.65 Type 2 diabetes mellitus with hyperglycemia; I11.0 Hypertensive heart disease with heart failure; I50.9 Heart failure, unspecified; R29.898 Other symptoms and signs involving the musculoskeletal system; R10.9 Unspecified abdominal pain; I48.91 Unspecified atrial fibrillation; J44.9 Chronic obstructive pulmonary disease, unspecified; Z88.8 Allergy status to other drugs, medicaments and biological substances; Z79.01 Long term (current) use of anticoagulants; Z79.899 Other long term (current) drug therapy; Z79.51 Long term (current) use of inhaled steroids; Z91.148 Patient's other noncompliance with medication regimen for other reason; W18.39XA Other fall on same level, initial encounter; E11.649 Type 2 diabetes mellitus with hypoglycemia without coma; R10.84 Generalized abdominal pain; R74.8 Abnormal levels of other serum enzymes; R79.89 Other specified abnormal findings of blood chemistry; E78.00 Pure hypercholesterolemia, unspecified; K21.9 Gastro-esophageal reflux disease without esophagitis; Z90.49 Acquired absence of other specified parts of digestive tract; Z88.1 Allergy status to other antibiotic agents; Z79.4 Long term (current) use of insulin
CPT/HCPCS: 36415; 70450; 70496; 70498; 71045; 72220; 74177; 80053; 80162; 80306; 80307; 81001; 82550; 82947; 83690; 83735; 83880; 84484; 85025; 93005; 94640; 96361; 96365; 96375; 99285; A9270; J1956; J2405; J2919; J7030; Q9967; 99284

== ENCOUNTER 2025-01-28 11:07 | Emergency (ER) | payer MEDICARE ==
[2025-01-28 12:50] LABS: HEMATOCRIT 36.6 % (42.0-52.0); HEMOGLOBIN 11.6 gm/dl (14.0-18.0); IMMATURE GRAN ABSOLUTE AUTO 0.04 K/mm3 (0.00-0.05); IMMATURE GRAN PERCENT AUTO 0.4 % (0.0-0.4); LYMPHOCYTES ABSOLUTE AUTO 0.2 K/mm3 (1.0-4.8); LYMPHOCYTES PERCENT AUTO 1.9 % (24.0-44.0); MEAN CORPUSCULAR HEMOGLOBIN 30.9 pg (28.0-32.0); MEAN CORPUSCULAR HGB CONC 31.7 g/dl (32.0-36.0); MEAN CORPUSCULAR VOLUME 97.6 fl (83.0-99.0); MEAN PLATELET VOLUME 9.6 fl (9.4-12.4); MONOCYTES ABSOLUTE AUTO 0.4 K/mm3 (0.0-0.8); MONOCYTES PERCENT AUTO 3.9 % (0.0-8.0); NEUTROPHILS ABSOLUTE AUTO 8.9 K/mm3 (1.8-7.7); NEUTROPHILS PERCENT AUTO 93.8 % (41.0-71.0); PLATELET COUNT,PLT 353 K/mm3 (150-400); RED BLOOD CELL COUNT 3.75 M/mm3 (4.52-5.90); WHITE BLOOD CELL COUNT,WBC 9.44 K/mm3 (3.9-11.3)
[2025-01-28 13:07] LABS: A/G RATIO 0.7 (1-2); ALBUMIN 2.6 g/dl (3.4-5.0); ANION GAP 5.8 (5-15); BILIRUBIN TOTAL 0.3 mg/dL (0.2-1.0); BUN/CREATININE RATIO 35.8 (14-18); CALCIUM 8.7 mg/dL (8.5-10.1); CREATININE 1.2 mg/dL (0.7-1.3); EST CRCL DRUG DOSING (CG) 60.83 mL/min; MAGNESIUM 2.6 mg/dL (1.8-2.4); POTASSIUM,K 5.8 mEq/L (3.5-5.1); PROTEIN TOTAL,TP 6.2 g/dl (6.4-8.2)
[2025-01-28 13:25] LABS: SLIDE REVIEW ABNORMAL SMEAR
[2025-01-28 15:49] VITALS: BP 124/78; PULSE 79
== END 2025-01-28 14:00 | disposition home or self-care (01) ==
LOC: JD.ED 11:07
DX: J41.8 Mixed simple and mucopurulent chronic bronchitis (principal); F15.10 Other stimulant abuse, uncomplicated; I48.91 Unspecified atrial fibrillation; E78.00 Pure hypercholesterolemia, unspecified; E11.9 Type 2 diabetes mellitus without complications; K21.9 Gastro-esophageal reflux disease without esophagitis; I11.0 Hypertensive heart disease with heart failure; I50.9 Heart failure, unspecified; Z79.01 Long term (current) use of anticoagulants; Z88.8 Allergy status to other drugs, medicaments and biological substances; Z88.5 Allergy status to narcotic agent; Z79.51 Long term (current) use of inhaled steroids; Z79.899 Other long term (current) drug therapy
CPT/HCPCS: 36415; 71045; 71045-26; 80053; 82550; 83690; 83735; 84484; 85025; 99284; 99285

== ENCOUNTER 2025-01-30 10:17 | Emergency (ER) | payer MEDICARE ==
[2025-01-30 11:59] VITALS: BP 133/59; PULSE 70
== END 2025-01-30 11:40 | disposition home or self-care (01) ==
LOC: JD.ED 10:17
DX: J41.8 Mixed simple and mucopurulent chronic bronchitis (principal); F15.10 Other stimulant abuse, uncomplicated; C79.9 Secondary malignant neoplasm of unspecified site; Z51.5 Encounter for palliative care; R41.89 Other symptoms and signs involving cognitive functions and awareness; I11.0 Hypertensive heart disease with heart failure; I50.9 Heart failure, unspecified; E78.00 Pure hypercholesterolemia, unspecified; K21.9 Gastro-esophageal reflux disease without esophagitis; E11.9 Type 2 diabetes mellitus without complications; E66.9 Obesity, unspecified; Z90.49 Acquired absence of other specified parts of digestive tract; Z79.899 Other long term (current) drug therapy; Z79.01 Long term (current) use of anticoagulants; Z88.8 Allergy status to other drugs, medicaments and biological substances; Z88.1 Allergy status to other antibiotic agents; Z88.6 Allergy status to analgesic agent; Z68.25 Body mass index [BMI] 25.0-25.9, adult
CPT/HCPCS: 99284

== ENCOUNTER 2025-01-30 19:00 | Inpatient (IN) | payer MEDICARE ==
[2025-01-30 20:00] LABS: BASOPHILS ABSOLUTE AUTO 0.0 K/mm3 (0.0-0.2); BASOPHILS PERCENT AUTO 0.1 % (0.0-1.0); EOSINOPHILS ABSOLUTE AUTO 0.0 K/mm3 (0.0-0.4); EOSINOPHILS PERCENT AUTO 0.3 % (0.0-6.0); IMMATURE GRAN ABSOLUTE AUTO 0.06 K/mm3 (0.00-0.05); IMMATURE GRAN PERCENT AUTO 0.5 % (0.0-0.4); LYMPHOCYTES ABSOLUTE AUTO 0.5 K/mm3 (1.0-4.8); LYMPHOCYTES PERCENT AUTO 4.7 % (24.0-44.0); MEAN PLATELET VOLUME 9.8 fl (9.4-12.4); MONOCYTES ABSOLUTE AUTO 0.9 K/mm3 (0.0-0.8); MONOCYTES PERCENT AUTO 7.5 % (0.0-8.0); NEUTROPHILS ABSOLUTE AUTO 10.0 K/mm3 (1.8-7.7); NEUTROPHILS PERCENT AUTO 86.9 % (41.0-71.0); NRBC ABSOLUTE 0.00 (0.00-0.02); NRBC PERCENT 0.0 % (0.0-0.2); PLATELET COUNT,PLT 374 K/mm3 (150-400); RED BLOOD CELL COUNT 3.78 M/mm3 (4.52-5.90); WHITE BLOOD CELL COUNT,WBC 11.53 K/mm3 (3.9-11.3)
[2025-01-30] MEDS: methylPREDNISolone Sodium Succinate 125 MG/2 ML SDV IVPUSH ONE (20:00)
[2025-01-30] MEDS: Sodium Chloride 0.9% 10 ML Syringe FLUSH PRN ×2 (20:02→20:41)
[2025-01-30 20:27] LABS: LACTIC ACID 1.4 mmol/L (0.4-2.0)
[2025-01-30 20:28] LABS: A/G RATIO 0.8 (1-2); ALANINE AMINOTRANSFERASE,ALT 103 U/L (16-63); ASPARTATE AMNIOTRANSFERASE,AST 91 U/L (15-37); BILIRUBIN TOTAL 0.3 mg/dL (0.2-1.0); BLOOD UREA NITROGEN,BUN 49 mg/dL (7-18); CARBON DIOXIDE,CO2 38 mEq/L (21-32); CHLORIDE,CL 98 mEq/L (98-107); CREATININE 1.4 mg/dL (0.7-1.3); ESTIMATED GFR 55 mL/min (>60); POTASSIUM,K 5.6 mEq/L (3.5-5.1); PROTEIN TOTAL,TP 6.2 g/dl (6.4-8.2); SODIUM,NA 135 mEq/L (136-145)
[2025-01-30 20:32] LABS: TROPONIN I HIGH SENSITIVITY 102.0 pg/mL (<=76)
[2025-01-30 20:33] LABS: GLUCOSE RANDOM 483 mg/dL (70-99)
[2025-01-30] MEDS: Iopamidol 755 Mg/ML 100 ML Bottle IVPUSH ONE (20:41)
[2025-01-30 21:01] LABS: APPEARANCE,URINE CLEAR (Clear); GLUCOSE,URINE 2+ (Negative); OCCULT BLOOD,URINE NEGATIVE (Negative)
[2025-01-30 21:11] LABS: SQUAMOUS EPITHELIAL CELLS,UR 0-5 /hpf (0-5)
[2025-01-30] MEDS: Albuterol 0.083% 2.5 MG/3 ML Neb Soln NEB ONE (21:15)
[2025-01-30 21:41] LABS: CORONAVIRUS COVID-19 NAA NEGATIVE (NEGATIVE); INFLUENZA A NAA NEGATIVE (NEGATIVE); RESPIRATORY SYNCYTIAL VIR NAA NEGATIVE (NEGATIVE)
[2025-01-30 21:56] LABS: PCO2 VENOUS 64.0 mmHg (41-51); PH,VENOUS 7.37 (7.30-7.40); PO2 VENOUS 58.0 mmHG (40-80)
[2025-01-30 21:57] LABS: BASE EXCESS VENOUS 9.4 (-4.0-2.0); BICARBONATE,VENOUS 37.0 meq/L (22-26); O2 SATURATION VENOUS 90.9
[2025-01-31] MEDS: Insulin Regular, Human 100 Units/ML 10 ML Vial IV ONE ×3 (04:30→18:07)
[2025-01-31] MEDS: LORazepam 2 MG/ML SDV IVPUSH ONE (08:24)
[2025-01-31] MEDS: Insulin Regular, Human 100 Units/ML 3 ML Vial SUBCUT ONE (13:02)
[2025-01-31] MEDS: droPERidol 2.5 MG/ML SDV IVPUSH ONE (13:05)
[2025-01-31 13:49] LABS: PCO2 ARTERIAL 87.0 mmHg (35.0-45.0); PO2 ARTERIAL 130.0 mmHg (80.0-100.0)
[2025-01-31 13:50] LABS: BASE EXCESS ARTERIAL 0.8 (-2-2.0); BICARBONATE,ARTERIAL 41 meq/L (22.0-26.0); O2 SATURATION ARTERIAL 98.9 % (96.0-97.0); PATIENT RESPIRATORY RATE 18.0 /MIN
[2025-01-31] MEDS ORDERED: 50% Dextrose in Water 50 ML Syringe IVPUSH PRN (15:52)
[2025-01-31] MEDS ORDERED: Sennosides/Docusate Sodium 50-8.6 MG Tab PO PRN (15:55)
[2025-01-31] MEDS ORDERED: Naloxone 0.4 MG/ML SDV IVPUSH PRN (15:55)
[2025-01-31] MEDS ORDERED: Ondansetron 4 MG/2 ML SDV IV PRN (15:55)
[2025-01-31 16:52] LABS: BLOOD UREA NITROGEN,BUN 39 mg/dL (7-18); CARBON DIOXIDE,CO2 39 mEq/L (21-32); CHLORIDE,CL 101 mEq/L (98-107); CREATININE 1.4 mg/dL (0.7-1.3); ESTIMATED GFR 55 mL/min (>60); POTASSIUM,K 5.8 mEq/L (3.5-5.1); SODIUM,NA 141 mEq/L (136-145)
[2025-01-31] MEDS: Insulin Glargine,Human Rec. Analog 100 Units/ML 3 ML Pen SUBCUT SCH (16:58)
[2025-01-31] MEDS: Insulin Lispro 100 Unit/ML 3 ML KwikPen SUBCUT SCH (17:00)
[2025-01-31 17:03] LABS: GLUCOSE RANDOM 469 mg/dL (70-99)
[2025-01-31 17:04] LABS: TROPONIN I HIGH SENSITIVITY 88 pg/mL (<=76)
[2025-01-31] MEDS: Calcium Gluconate 10% 1 GM/10 ML SDV IVPUSH ONE (17:52)
[2025-01-31] MEDS: Furosemide 20 MG/2 ML VIAL IVPUSH ONE (17:52)
[2025-01-31] MEDS: 25% Dextrose in Water 10 ML Syringe IVPUSH ONE ×2 (18:05→18:12)
[2025-01-31] MEDS: Insulin Regular, Human 100 Units/ML 3 ML Vial IV ONE (18:12)
[2025-02-01 05:50] LABS: BASOPHILS ABSOLUTE AUTO 0.0 K/mm3 (0.0-0.2); BASOPHILS PERCENT AUTO 0.1 % (0.0-1.0); EOSINOPHILS ABSOLUTE AUTO 0.0 K/mm3 (0.0-0.4); EOSINOPHILS PERCENT AUTO 0.0 % (0.0-6.0); IMMATURE GRAN ABSOLUTE AUTO 0.19 K/mm3 (0.00-0.05); IMMATURE GRAN PERCENT AUTO 1.0 % (0.0-0.4); LYMPHOCYTES ABSOLUTE AUTO 0.5 K/mm3 (1.0-4.8); LYMPHOCYTES PERCENT AUTO 2.4 % (24.0-44.0); MEAN PLATELET VOLUME 9.6 fl (9.4-12.4); MONOCYTES ABSOLUTE AUTO 0.7 K/mm3 (0.0-0.8); MONOCYTES PERCENT AUTO 3.5 % (0.0-8.0); NEUTROPHILS ABSOLUTE AUTO 17.9 K/mm3 (1.8-7.7); NEUTROPHILS PERCENT AUTO 93.0 % (41.0-71.0); NRBC ABSOLUTE 0.00 (0.00-0.02); NRBC PERCENT 0.0 % (0.0-0.2); PLATELET COUNT,PLT 364 K/mm3 (150-400); RED BLOOD CELL COUNT 3.95 M/mm3 (4.52-5.90); WHITE BLOOD CELL COUNT,WBC 19.24 K/mm3 (3.9-11.3)
[2025-02-01 06:30] LABS: A/G RATIO 0.7 (1-2); ALANINE AMINOTRANSFERASE,ALT 101.0 U/L (16-63); ASPARTATE AMNIOTRANSFERASE,AST 102.0 U/L (15-37); BILIRUBIN TOTAL 0.3 mg/dL (0.2-1.0); BLOOD UREA NITROGEN,BUN 33.0 mg/dL (7-18); CHLORIDE,CL 103.0 mEq/L (98-107); CREATININE 0.8 mg/dL (0.7-1.3); EST CRCL DRUG DOSING (CG) 91.25 mL/min; ESTIMATED GFR 96.0 mL/min (>60); GLUCOSE RANDOM 118.0 mg/dL (70-99); PHOSPHORUS 3.8 mg/dL (2.6-4.7); POTASSIUM,K 5.3 mEq/L (3.5-5.1); PROTEIN TOTAL,TP 5.8 g/dl (6.4-8.2); SODIUM,NA 145.0 mEq/L (136-145)
[2025-02-01 06:32] LABS: CARBON DIOXIDE,CO2 41.0 mEq/L (21-32)
[2025-02-01] MEDS ORDERED: Nitroglycerin 0.4 MG Tab.SL SL PRN (08:42)
[2025-02-01] MEDS: droPERidol 2.5 MG/ML SDV IV PRN (08:53)
[2025-02-01] MEDS: LORazepam 2 MG/ML SDV IVPUSH PRN (08:53)
[2025-02-02 23:00] VITALS: BP 116/66; PULSE 110
== END 2025-02-03 01:34 | disposition expired | DRG 917 ==
LOC: JD.ED 19:00 → JD.MS 01-31 10:15
PROVIDERS: ADMIT Student in an Organized Health Care Education/Training Program; ATTEND Student in an Organized Health Care Education/Training Program
PROC: 5A09357 Assistance with Respiratory Ventilation, Less than 24 Consecutive Hours, Continuous Positive Airway Pressure (ICD-10-PCS; principal; 2025-01-31)
PROC: 4A033R1 Measurement of Arterial Saturation, Peripheral, Percutaneous Approach (ICD-10-PCS; 2025-01-31)
DX: J96.91 Respiratory failure, unspecified with hypoxia (principal); T43.652A Poisoning by methamphetamines intentional self-harm, initial encounter; I21.A1 Myocardial infarction type 2; R79.89 Other specified abnormal findings of blood chemistry; J18.9 Pneumonia, unspecified organism; E11.65 Type 2 diabetes mellitus with hyperglycemia; J96.21 Acute and chronic respiratory failure with hypoxia; J96.22 Acute and chronic respiratory failure with hypercapnia; J44.1 Chronic obstructive pulmonary disease with (acute) exacerbation; N17.9 Acute kidney failure, unspecified; Z88.5 Allergy status to narcotic agent; C34.90 Malignant neoplasm of unspecified part of unspecified bronchus or lung; C78.7 Secondary malignant neoplasm of liver and intrahepatic bile duct; J44.0 Chronic obstructive pulmonary disease with (acute) lower respiratory infection; I50.9 Heart failure, unspecified; Z51.5 Encounter for palliative care; Z66 Do not resuscitate; I48.91 Unspecified atrial fibrillation; H54.7 Unspecified visual loss; E78.00 Pure hypercholesterolemia, unspecified; I11.0 Hypertensive heart disease with heart failure; G47.30 Sleep apnea, unspecified; K21.9 Gastro-esophageal reflux disease without esophagitis; N40.0 Benign prostatic hyperplasia without lower urinary tract symptoms; M54.9 Dorsalgia, unspecified; G89.29 Other chronic pain; F41.9 Anxiety disorder, unspecified; F31.9 Bipolar disorder, unspecified; E11.9 Type 2 diabetes mellitus without complications; E66.9 Obesity, unspecified; J43.9 Emphysema, unspecified; R74.01 Elevation of levels of liver transaminase levels; F15.10 Other stimulant abuse, uncomplicated; E87.5 Hyperkalemia; R59.1 Generalized enlarged lymph nodes; Z88.8 Allergy status to other drugs, medicaments and biological substances; Z88.6 Allergy status to analgesic agent; Z88.1 Allergy status to other antibiotic agents; Z86.018 Personal history of other benign neoplasm; Z87.01 Personal history of pneumonia (recurrent); Z79.52 Long term (current) use of systemic steroids; Z79.01 Long term (current) use of anticoagulants; Z85.118 Personal history of other malignant neoplasm of bronchus and lung; Z98.49 Cataract extraction status, unspecified eye; Z98.890 Other specified postprocedural states; Z90.49 Acquired absence of other specified parts of digestive tract; Z99.81 Dependence on supplemental oxygen; Z79.899 Other long term (current) drug therapy; Z79.4 Long term (current) use of insulin; Z68.24 Body mass index [BMI] 24.0-24.9, adult; Z91.148 Patient's other noncompliance with medication regimen for other reason; Y92.89 Other specified places as the place of occurrence of the external cause
CPT/HCPCS: 0241U; 36415; 36600; 71045; 71275; 80048; 80053; 81001; 82803; 82947; 83605; 83735; 83880; 83930; 84100; 84484; 85025; 86140; 87040; 93005; 93970; 94640; 94660; 94761; 94762; 96361; 96365; 96375; 99285; 93010; 99223; 99232; 99238; 99284; A9270-GY; J0456; J0612; J0696; J1790; J1815-GY; J1938; J2060; J2270; J2543; J2919; J3490; J7030; J7050; J7512; Q9967